=== PATIENT | female | born 1970 | race Two or more races ===

== ENCOUNTER → 2022-03-20 11:12 | Outpatient (BNVA) | payer OTHER, SELFPAY | PROVIDERS: Visit Provider Physician Assistant Surgical | DX: Z13.89 Encounter for screening for other disorder (principal) ==

== ENCOUNTER → 2022-03-26 09:15 | Outpatient (BNVA) | payer OTHER, SELFPAY | PROVIDERS: Visit Provider Physician Assistant Surgical | DX: E66.9 Obesity, unspecified (principal); Z68.36 Body mass index [BMI] 36.0-36.9, adult | CPT/HCPCS: 99202 ==

== ENCOUNTER 2022-03-27 08:53 | Outpatient (REF) | payer OTHER, SELFPAY ==
--- NOTE | ~2022-03-27 | XR_ITS ---
EXAMINATION: XR chest 2V CLINICAL INFORMATION: Reason for Exam E66.9 - Obesity, unspecified COMPARISON: No prior chest x-ray available in our system for comparison at the time of this dictation. TECHNIQUE: XR chest 2V Lungs and Kalyn: There is patchy opacity projecting over the right upper lobe projecting over the posterior fifth rib could be a lung nodule, patchy infiltrate versus bony. Pleura: Normal. Costophrenic angles are sharp. No pneumothorax. Heart: The heart is normal in size. Mediastinum: The mediastinum is within normal limits.. Bones: Skeletal structures included are normal for patient's age. XR/XR chest 2V IMPRESSION: Patchy 1.5 cm opacity projecting over the right upper lobe superimposed on the posterior right fifth rib, concerning for possible lung lesion versus bony versus patchy infiltrate. May consider follow-up low dose CT scan, if not performed would recommend follow-up chest x-ray in one month. (Referring physician staff is being called, to be alerted of the above findings and recommendations.) JEANCARLOS
[2022-03-27 09:19] LABS: MANUAL DIFF FLAG NO
--- NOTE | 2022-03-27 09:26 | ECG_ITS ---
Test Reason : OBESITY Blood Pressure : / mmHG Vent. Rate : 056 BPM Atrial Rate : 056 BPM P-R Int : 152 ms QRS Dur : 078 ms QT Int : 416 ms P-R-T Axes : 025 008 041 degrees QTc Int : 401 ms Sinus bradycardia Otherwise normal ECG No previous ECGs available Referred By: Osmany Echevarria Electronically Signed By:KWAKU PACHECO
[2022-03-27 10:10] LABS: Basophils Percent Auto 0.3 % (0-2); Eosinophils Absolute Auto 0.2 X10*3/uL (0.0-0.4); Eosinophils Percent Auto 2.7 % (0-4); Hematocrit 42.9 % (37.0-47.0); Hemoglobin 13.5 g/dl (12.0-16.0); Imm Gran Abs Auto 0.05 X10*3/uL (0.00-0.03); Imm Gran Pct Auto 0.7 % (0.0-0.4); Lymphocytes Absolute Auto 1.5 X10*3/uL (1.2-4.9); Lymphocytes Percent Auto 18.9 % (20-40); Mean Corpuscular HGB Conc 31.5 g/dl (31.0-35.0); Mean Corpuscular Hemoglobin 25.5 pg (27.0-33.0); Mean Corpuscular Volume 80.9 fL (80.0-98.0); Mean Platelet Volume 12.7 fL (9.4-12.3); Monocytes Absolute Auto 0.6 X10*3/uL (0.1-1.2); Neutrophils Absolute Auto 5.3 x10*3/uL (2.0-8.3); Neutrophils Percent Auto 69.4 % (45-73); Platelet Count 157 X10*3/uL (160-400); Red Cell Distribution Width 13.2 % (11.0-16.0); White Blood Count 7.7 X10*3/uL (4.8-10.8)
[2022-03-27 10:29] LABS: Estimated Average Glucose 123 mg/dL; Hemoglobin A1c % 5.9 %
[2022-03-27 10:44] LABS: Alanine Aminotransferase 36 U/L (0-31); Albumin Level 4.4 g/dL (3.5-5.0); Alkaline Phosphatase 67 U/L (39-117); Anion Gap 11 (12-20); Aspartate Amino Transferase 25 U/L (5-31); Bilirubin Total 0.5 mg/dL (0.0-1.0); Blood Urea Nitrogen 14 mg/dL (9-16); C Reactive Protein 1.01 mg/dL (< or = 0.50); Carbon Dioxide 29 mmol/L (22-29); Chloride 104 mmol/L (96-108); Cholesterol 235 mg/dL; Estimated Glomerular Filt Rate > 60; Glucose Random 95 mg/dL (60-115); HDL Cholesterol 44 mg/dL; Iron 70 mcg/dL (30-160); LDL Cholesterol Calculated 145 mg/dl; Percent Iron Saturation 24 % (15-50); Potassium 4.2 mmol/L (3.3-5.1); Sodium 140 mmol/L (135-145); Total Iron Binding Capacity 291 mcg/dL (228-428); Total Protein 7.2 g/dL (6.5-8.0); Triglycerides 230 mg/dL; Unsaturated Iron Binding 221 ug/dL
[2022-03-27 10:49] LABS: Ferritin 282 ng/mL (10-250); Insulin 16 uU/mL (2-29); TSH reflex Free T4 1.75 uIU/mL (0.32-4.0); Vitamin D 25-OH Total 23.4 ng/mL (>30)
[2022-03-27 11:34] LABS: Folate 11.2 ng/mL (> or = 4.0); Vitamin B12 284 pg/mL (200-900)
[2022-03-30 01:37] LABS: Calcium (PTHI) 9.9 mg/dL (8.6-10.4); PTHI 39 pg/mL (16-77)
[2022-03-31 16:37] LABS: Zinc 82 mcg/dL (60-130)
[2022-04-02 10:53] LABS: Vitamin B1 12 nmol/L (8-30)
[2022-04-02 13:26] LABS: Vitamin A 45 mcg/dL (38-98)
== END 2022-03-27 08:54 | disposition home or self-care (01) ==
LOC: HO.LAB 08:53
PROVIDERS: Visit Provider Physician Assistant Surgical
DX: Z01.818 Encounter for other preprocedural examination (principal); E66.9 Obesity, unspecified
CPT/HCPCS: 36415; 71046; 80053; 80061; 82306; 82607; 82728; 82746; 83036; 83525; 83540; 83970; 84425; 84443; 84590; 84630; 85025; 86140; 93005

== ENCOUNTER → 2022-03-28 07:48 | Outpatient (BNVA) | payer OTHER, SELFPAY | PROVIDERS: Referring Provider Internal Medicine; Visit Provider Physician Assistant Surgical | DX: Z11.0 Encounter for screening for intestinal infectious diseases (principal) | CPT/HCPCS: 99211 ==

== ENCOUNTER 2022-03-28 08:00 | Outpatient (REF) | payer OTHER, SELFPAY ==
[2022-03-31 10:06] LABS: H Pylori Breath Test Positive (Negative)
== END 2022-03-28 08:01 | disposition home or self-care (01) ==
LOC: HO.LNP 08:00
PROVIDERS: Visit Provider Physician Assistant Surgical
DX: E66.9 Obesity, unspecified (principal)
CPT/HCPCS: 83013

== ENCOUNTER → 2022-04-05 08:13 | Outpatient (BNVA) | payer OTHER, SELFPAY | PROVIDERS: Visit Provider Surgery | DX: Z13.89 Encounter for screening for other disorder (principal) ==

== ENCOUNTER 2022-04-12 07:58 | Outpatient (REF) | payer OTHER, SELFPAY ==
--- NOTE | ~2022-04-12 | CT_ITS ---
EXAMINATION: CT CHEST WITH CONTRAST CLINICAL INFORMATION: Other disorders of lung COMPARISON: Chest x-ray 03/27/2022 TECHNIQUE: Multidetector volumetric CT imaging of the chest was obtained after the administration of 50 mL of Omnipaque 350 intravenous contrast without immediate adverse reactions. Axial MIP volume rendering provided. Sagittal and coronal reformatted images were obtained. This CT examination was performed using dose optimization techniques as appropriate, variously including the following: *Automated exposure control *Adjustment of mA and/or kV according to patient size (this includes techniques or standardized protocols for targeted exams where dose is matched to indication/reason for exam; i.e. extremities or head) *Use of iterative reconstruction technique DLP: 161 mGy-cm FINDINGS: GROCERY CASHIER: Unremarkable. LUNGS: The lungs are well-expanded and clear. There is a 4 mm calcified nodule right CP angle likely calcified granuloma. No additional nodules seen. There is no infiltrate, mass, or consolidation. MEDIASTINUM: The thyroid lobes are symmetric and normal. The central trachea and the bronchi are widely patent. The heart size and the great vessels are normal caliber. PLEURA: There is no pleural effusion. No pleural mass or thickening. AXILLA: No abnormal axillary lymph nodes seen. The chest wall is unremarkable. UPPER ABDOMEN: There is diffuse attenuation of liver without any focal lesion or intrahepatic ductal dilatation. Visualized gallbladder, adrenal glands, pancreas appear unremarkable. OSSEOUS STRUCTURES: There is no aggressive lytic or sclerotic process seen. There is mild spondylosis. CT/CT chest w con IMPRESSION: 4 mm calcified nodule right CP angle. No infiltrate or mass seen in the right upper lobe to corroborate chest x-ray findings from 03/27/2022. Fleischner guidelines were followed.
== END 2022-04-12 07:59 | disposition home or self-care (01) ==
LOC: HO.CT 07:58
PROVIDERS: Visit Provider Surgery
DX: J98.4 Other disorders of lung (principal)
CPT/HCPCS: 71260

== ENCOUNTER → 2022-04-19 08:12 | Outpatient (BNVA) | payer OTHER, SELFPAY | PROVIDERS: Visit Provider Dietitian, Registered | DX: E66.9 Obesity, unspecified (principal); Z68.34 Body mass index [BMI] 34.0-34.9, adult | CPT/HCPCS: 97802 ==

== ENCOUNTER → 2022-04-24 11:19 | Outpatient (BNVA) | payer OTHER, SELFPAY | PROVIDERS: Referring Provider Internal Medicine; Visit Provider Physician Assistant Surgical | DX: E66.9 Obesity, unspecified (principal); Z68.35 Body mass index [BMI] 35.0-35.9, adult | CPT/HCPCS: 99211; 99212 ==

== ENCOUNTER 2022-04-24 14:39 | Outpatient (REF) | payer OTHER, SELFPAY ==
[2022-04-25 14:54] LABS: H Pylori Breath Test Negative (Negative)
== END 2022-04-24 14:40 | disposition home or self-care (01) ==
LOC: HO.LNP 14:39
PROVIDERS: Visit Provider Physician Assistant Surgical
DX: Z01.818 Encounter for other preprocedural examination (principal)
CPT/HCPCS: 83013

== ENCOUNTER 2022-05-17 09:06 | Outpatient (REF) | payer OTHER, SELFPAY ==
--- NOTE | ~2022-05-17 | FL_ITS ---
EXAMINATION: XR FLUOROSCOPY UPPER GI WITH AIR CLINICAL INFORMATION: Obesity COMPARISON: None TECHNIQUE: Upper GI was performed using thin and thick barium and effervescent granules. FINDINGS: Esophageal motility is normal. There is a small sliding-type hiatal hernia. There is mild gastroesophageal reflux. Stomach and duodenum are normal-appearing. No fold thickening, mass, ulcer or stricture is seen. FLUOROSCOPY TIME: 0.8 minutes DOSE AREA PRODUCT: 6 kohli per centimeter squared. 25 saved fluoroscopic images. FL/FL upper GI w air IMPRESSION: Small sliding-type hiatal hernia and mild gastroesophageal reflux.
--- NOTE | ~2022-05-17 | US_ITS ---
EXAMINATION: US COMPLETE ABDOMEN WITH LIVER ELASTOGRAPHY CLINICAL INFORMATION: Obesity. COMPARISON: None. TECHNIQUE: Real-time imaging of the abdominal viscera. Noninvasive ultrasound liver fibrosis assessment is performed using Aria ElastPQ point quantification shear wave elastography (2D-SWE) with a C5-2 MHz transducer. Multiple elastography samples are obtained. FINDINGS: PANCREAS: Normal. The visualized pancreatic head and body are normal in appearance. The remainder of the pancreas is obscured from visualization by the overlying bowel gas. ABDOMINAL AORTA: The proximal, middle, and distal aortic segments are normal in caliber. INFERIOR VENA CAVA: Visualized portions are normal. LIVER: The liver demonstrates normal size, contour and increased echogenicity. No focal lesion or intrahepatic biliary duct dilatation. The right lobe measures 15.0 cm in length. The left lobe measures 9.0 cm in length. Portal flow is hepatopedal. Shear wave liver elastography median stiffness is 1.56 m/s (reference: normal median stiffness is 1.3 m/s or less). IQR/median stiffness to assess sampling precision is 0.09 (reference: good quality data set is IQR/median stiffness of 0.15 or less). GALLBLADDER: Normal. The gallbladder is physiologically distended without evidence of stones, sludge, polyps, wall thickening or pericholecystic fluid. COMMON BILE DUCT: Normal in caliber measuring 0.2 cm in diameter. RIGHT KIDNEY: Normal. No hydronephrosis. No renal calculi or focal parenchymal lesions. The kidney measures 10.0 cm in maximum dimension. LEFT KIDNEY: Normal. No hydronephrosis. No renal calculi or focal parenchymal lesions. The kidney measures 10.7 cm in maximum dimension. SPLEEN: Normal. The spleen measures 12.7 cm in maximum dimension. FREE FLUID: None. US/US abdomen comp w elastography IMPRESSION: 1. Mild hepatic steatosis without focal lesion. The rest of the abdominal ultrasound is unremarkable. 2. Liver elastography: Median liver stiffness 1.56 m/s suggestive of cACLD (ruled out). REFERENCE: Society of Radiologists in Ultrasound Liver Stiffness Thresholds (2019): LIVER STIFFNESS THRESHOLDS: *Liver Stiffness equal or less than 1.3 m/s: High probability of being normal. *Liver Stiffness less than 1.7 m/s: In the absence of other known clinical signs, rules out compensated advanced chronic liver disease. *Liver Stiffness 1.7-2.1 m/s: Suggestive of compensated advanced chronic liver disease but need further test for confirmation. *Liver Stiffness over 2.1 m/s: Rules in compensated advanced chronic liver disease. *Liver Stiffness over 2.4 m/s: Suggestive of clinically significant portal hypertension. QUALITY OF DATA SET: *IQR/Median value equal or less than 0.15 implies a quality data set. *IQR/Median value over 0.15 implies a poor quality data set. SIGNIFICANT CHANGE FROM PRIOR EXAM: Significant change if liver stiffness measurement is 10% or greater from prior exam. OTHER CONSIDERATIONS: The stage of liver fibrosis may be overestimated in the setting of acute hepatitis, liver inflammation, elevated liver function tests, hepatic vascular congestion, obstructive cholestasis, non-fasting state, and infiltrative diseases such as amyloidosis and lymphoma. In some patients with NAFLD, the liver stiffness thresholds for compensated advanced chronic liver disease may be lower. In causes other than viral hepatitis and NAFLD, liver stiffness thresholds are not well established.
== END 2022-05-17 09:07 | disposition home or self-care (01) ==
LOC: HO.US 09:06
PROVIDERS: Visit Provider Surgery
DX: E66.9 Obesity, unspecified (principal)
CPT/HCPCS: 74246; 76705; 76981

== ENCOUNTER → 2022-05-28 13:35 | Outpatient (BNVA) | payer OTHER, SELFPAY | PROVIDERS: PCP Internal Medicine; Referring Provider Physician Assistant Surgical; Visit Provider Dietitian, Registered | DX: E66.9 Obesity, unspecified (principal); Z71.3 Dietary counseling and surveillance | CPT/HCPCS: 97803 ==

== ENCOUNTER → 2022-06-05 12:55 | Outpatient (BNVA) | payer OTHER, SELFPAY | PROVIDERS: PCP Internal Medicine; Visit Provider Surgery | DX: E66.9 Obesity, unspecified (principal); Z68.34 Body mass index [BMI] 34.0-34.9, adult; K21.9 Gastro-esophageal reflux disease without esophagitis; G47.33 Obstructive sleep apnea (adult) (pediatric); K44.9 Diaphragmatic hernia without obstruction or gangrene; J98.4 Other disorders of lung; Z98.84 Bariatric surgery status | CPT/HCPCS: 99202 ==

== ENCOUNTER 2022-06-08 08:49 | Outpatient (REF) | payer OTHER, SELFPAY ==
[2022-06-08 09:01] LABS: MANUAL DIFF FLAG NO
[2022-06-08 09:46] LABS: Basophils Percent Auto 0.3 % (0-2); Eosinophils Absolute Auto 0.2 X10*3/uL (0.0-0.4); Eosinophils Percent Auto 3.1 % (0-4); Hematocrit 43.6 % (37.0-47.0); Hemoglobin 13.9 g/dl (12.0-16.0); Imm Gran Abs Auto 0.03 X10*3/uL (0.00-0.03); Imm Gran Pct Auto 0.5 % (0.0-0.4); Lymphocytes Absolute Auto 1.4 X10*3/uL (1.2-4.9); Lymphocytes Percent Auto 23.2 % (20-40); Mean Corpuscular HGB Conc 31.9 g/dl (31.0-35.0); Mean Corpuscular Hemoglobin 25.4 pg (27.0-33.0); Mean Corpuscular Volume 79.6 fL (80.0-98.0); Mean Platelet Volume 12.8 fL (9.4-12.3); Monocytes Absolute Auto 0.5 X10*3/uL (0.1-1.2); Monocytes Percent Auto 9.2 % (2-11); Neutrophils Absolute Auto 3.7 x10*3/uL (2.0-8.3); Neutrophils Percent Auto 63.7 % (45-73); Platelet Count 145 X10*3/uL (160-400); Red Blood Count 5.48 X10*6/uL (4.20-5.50); Red Cell Distribution Width 12.7 % (11.0-16.0); White Blood Count 5.9 X10*3/uL (4.8-10.8)
== END 2022-06-08 08:50 | disposition home or self-care (01) ==
LOC: HO.LAB 08:49
PROVIDERS: PCP Internal Medicine; Visit Provider Surgery
DX: R10.9 Unspecified abdominal pain (principal)
CPT/HCPCS: 36415; 85025

== ENCOUNTER → 2022-06-26 08:27 | Outpatient (BNVA) | payer OTHER, SELFPAY | PROVIDERS: PCP Internal Medicine; Visit Provider Physician Assistant Surgical | DX: E66.9 Obesity, unspecified (principal); Z68.33 Body mass index [BMI] 33.0-33.9, adult | CPT/HCPCS: 99212 ==

== ENCOUNTER 2022-06-29 09:12 | Outpatient (REF) | payer OTHER, SELFPAY ==
[2022-06-29 09:50] LABS: MANUAL DIFF FLAG NO
[2022-06-29 11:00] LABS: Prothrombin Time 11.4 SEC (10.0-13.1)
[2022-06-29 11:03] LABS: Partial Thromboplastin Time 35.3 SEC (26.0-36.4)
[2022-06-29 11:06] LABS: Basophils Percent Auto 0.4 % (0-2); Eosinophils Absolute Auto 0.2 X10*3/uL (0.0-0.4); Eosinophils Percent Auto 3.2 % (0-4); Estimated Average Glucose 114 mg/dL; Hematocrit 42.9 % (37.0-47.0); Hemoglobin 13.8 g/dl (12.0-16.0); Hemoglobin A1c % 5.6 %; Imm Gran Abs Auto 0.01 X10*3/uL (0.00-0.03); Imm Gran Pct Auto 0.2 % (0.0-0.4); Lymphocytes Absolute Auto 1.3 X10*3/uL (1.2-4.9); Lymphocytes Percent Auto 24.7 % (20-40); Mean Corpuscular HGB Conc 32.2 g/dl (31.0-35.0); Mean Corpuscular Hemoglobin 25.4 pg (27.0-33.0); Mean Corpuscular Volume 78.9 fL (80.0-98.0); Mean Platelet Volume 12.9 fL (9.4-12.3); Monocytes Absolute Auto 0.4 X10*3/uL (0.1-1.2); Neutrophils Absolute Auto 3.3 x10*3/uL (2.0-8.3); Neutrophils Percent Auto 63.5 % (45-73); Platelet Count 152 X10*3/uL (160-400); Red Blood Count 5.44 X10*6/uL (4.20-5.50); Red Cell Distribution Width 12.9 % (11.0-16.0); White Blood Count 5.3 X10*3/uL (4.8-10.8)
[2022-06-29 11:19] LABS: Alanine Aminotransferase 27 U/L (0-31); Albumin Level 4.5 g/dL (3.5-5.0); Alkaline Phosphatase 62 U/L (39-117); Anion Gap 14 (12-20); Aspartate Amino Transferase 20 U/L (5-31); Bilirubin Total 0.5 mg/dL (0.0-1.0); Blood Urea Nitrogen 18 mg/dL (9-16); C Reactive Protein 0.62 mg/dL (< or = 0.50); Calcium 9.5 mg/dL (8.4-10.2); Carbon Dioxide 25 mmol/L (22-29); Chloride 105 mmol/L (96-108); Cholesterol 220 mg/dL; Estimated Glomerular Filt Rate > 60; Glucose Random 87 mg/dL (60-115); HDL Cholesterol 42 mg/dL; LDL Cholesterol Calculated 155 mg/dl; Potassium 4.2 mmol/L (3.3-5.1); Sodium 140 mmol/L (135-145); Total Protein 7.1 g/dL (6.5-8.0); Triglycerides 116 mg/dL
[2022-06-29 11:43] LABS: TSH reflex Free T4 1.33 uIU/mL (0.32-4.0)
== END 2022-06-29 09:13 | disposition home or self-care (01) ==
LOC: HO.LAB 09:12
PROVIDERS: PCP Internal Medicine; Visit Provider Physician Assistant Surgical
DX: E66.9 Obesity, unspecified (principal)
CPT/HCPCS: 36415; 80053; 80061; 83036; 84443; 85025; 85610; 85730; 86140; 86850; 86870; 86900; 86901; 86905

== ENCOUNTER → 2022-07-02 12:50 | Outpatient (BNVA) | payer OTHER, SELFPAY | PROVIDERS: PCP Internal Medicine; Visit Provider Surgery | DX: E66.9 Obesity, unspecified (principal); Z68.33 Body mass index [BMI] 33.0-33.9, adult; K21.9 Gastro-esophageal reflux disease without esophagitis; G47.33 Obstructive sleep apnea (adult) (pediatric); K44.9 Diaphragmatic hernia without obstruction or gangrene; J98.4 Other disorders of lung; Z98.84 Bariatric surgery status | CPT/HCPCS: 99212 ==

== ENCOUNTER → 2022-07-25 08:58 | Outpatient (BNVA) | payer OTHER, SELFPAY | PROVIDERS: PCP Internal Medicine; Visit Provider Surgery | DX: E66.9 Obesity, unspecified (principal); Z68.32 Body mass index [BMI] 32.0-32.9, adult; K44.9 Diaphragmatic hernia without obstruction or gangrene; K21.9 Gastro-esophageal reflux disease without esophagitis; J98.4 Other disorders of lung; F32.A Depression, unspecified; F41.9 Anxiety disorder, unspecified; G47.33 Obstructive sleep apnea (adult) (pediatric) | CPT/HCPCS: 99212 ==

== ENCOUNTER → 2022-07-30 09:02 | Outpatient (BNVA) | payer OTHER, SELFPAY | PROVIDERS: PCP Internal Medicine; Visit Provider Physician Assistant Surgical | DX: E66.9 Obesity, unspecified (principal); Z68.32 Body mass index [BMI] 32.0-32.9, adult | CPT/HCPCS: 99212 ==

== ENCOUNTER 2022-08-15 06:53 | Inpatient (IN) | payer OTHER, SELFPAY ==
[2022-08-07 11:01] VITALS: BMI 32.1
[2022-08-08 07:24] LABS: MANUAL DIFF FLAG NO
[2022-08-08 07:35] LABS: Basophils Percent Auto 0.6 % (0-2); Eosinophils Absolute Auto 0.2 X10*3/uL (0.0-0.4); Eosinophils Percent Auto 2.3 % (0-4); Hematocrit 45.2 % (37.0-47.0); Hemoglobin 14.5 g/dl (12.0-16.0); Imm Gran Abs Auto 0.01 X10*3/uL (0.00-0.03); Imm Gran Pct Auto 0.2 % (0.0-0.4); Lymphocytes Absolute Auto 1.6 X10*3/uL (1.2-4.9); Mean Corpuscular HGB Conc 32.1 g/dl (31.0-35.0); Mean Corpuscular Hemoglobin 25.3 pg (27.0-33.0); Mean Corpuscular Volume 78.9 fL (80.0-98.0); Mean Platelet Volume 13.7 fL (9.4-12.3); Monocytes Absolute Auto 0.5 X10*3/uL (0.1-1.2); Monocytes Percent Auto 8.2 % (2-11); Neutrophils Absolute Auto 4.2 x10*3/uL (2.0-8.3); Neutrophils Percent Auto 64.7 % (45-73); Platelet Count 146 X10*3/uL (160-400); Red Blood Count 5.73 X10*6/uL (4.20-5.50); White Blood Count 6.5 X10*3/uL (4.8-10.8)
[2022-08-08 07:36] LABS: Estimated Average Glucose 111 mg/dL; Hemoglobin A1c % 5.5 %
[2022-08-08 07:41] LABS: Prothrombin Time 11.9 SEC (10.0-13.1)
[2022-08-08 07:58] LABS: Alanine Aminotransferase 19 U/L (0-31); Albumin Level 4.5 g/dL (3.5-5.0); Alkaline Phosphatase 64 U/L (39-117); Anion Gap 16 (12-20); Aspartate Amino Transferase 16 U/L (5-31); Bilirubin Total 0.6 mg/dL (0.0-1.0); Blood Urea Nitrogen 16 mg/dL (9-16); C Reactive Protein 0.35 mg/dL (< or = 0.50); Calcium 9.2 mg/dL (8.4-10.2); Carbon Dioxide 23 mmol/L (22-29); Chloride 104 mmol/L (96-108); Cholesterol 216 mg/dL; Creatinine Clr Calc Pharmacy 74.5; Estimated Glomerular Filt Rate > 60; Glucose Random 99 mg/dL (60-115); HDL Cholesterol 44 mg/dL; LDL Cholesterol Calculated 147 mg/dl; Potassium 4.2 mmol/L (3.3-5.1); Sodium 139 mmol/L (135-145); Total Protein 7.2 g/dL (6.5-8.0); Triglycerides 126 mg/dL
[2022-08-08 08:18] LABS: TSH reflex Free T4 1.46 uIU/mL (0.32-4.0)
[2022-08-14 12:55] LABS: COVID-19 Test Negative (Negative); IDNOW Serial# 16C4AD1C
[2022-08-15] VITALS (11 sets, daily range): BP systolic 105–145; BP diastolic 56–81; PULSE 57–91; RESP 13–18; TEMP 36–36.8; O2SAT 95–100
[2022-08-15] MEDS: Lactated Ringers 1,000 ML 150 ML IVCONT (07:02)
--- NOTE | 2022-08-15 07:17 | MHC.SHP ---
Pre-Procedural Eval Section A Date of Service: 08/15/22 The patient is an INPATIENT: Yes The History & Physical has been completed within 30 days and I have reviewed it.: No Section B Chief Complaint: obesity Allergies: Allergies Allergy/AdvReac Type Severity Reaction Status Date / Time No Known Allergies Allergy Verified 08/07/22 11:05 Plan I have reviewed the history and physical and performed a pertinent physical examination on my patient. No changes have occurred unless specified.
--- NOTE | 2022-08-15 07:18 | P.OP_ITS ---
Operative Note Operative Note Date of Service: 08/15/22 Narrative: Preop diagnosis: [morbid obesity] Postop diagnosis: [same] Procedure: [laparoscopic sleeve gastrectomy, intra-operative upper endoscopy, gastropexy] Surgeon: Dustin Foreman MD Assist: [Promise Walsh PA-C] Anesthesia: [GET] Estimated blood loss: [3cc] Specimen: [portion of stomach with fundus] Intraoperative findings: [A minimal attenuation of the GE junction without true hernia was appreciated after dissection of the fat pad and esophagus] Indications: [The patient has a lifelong because of a struggle with obesity refractory to medical weight loss.? She presented at 193 lb with a BMI of 36.4 and has BARBA.? Through diet any increased activity, she has dropped to 172 lb and is congratulated on her ongoing weight loss and healthy lifestyle change.? Options including medical weight loss, 2nd opinion and sleeve versus gastric bypass were discussed with the patient. She seemed understand her options. I reviewed the inherent risks of this procedure which include, but are not limited to: Bleeding that could require another operation or blood transfusion; the inherent risks of transfusion reaction infectious disease from blood transfusions; the risk of staple line leaks that could cause sepsis, multi- system organ failure and ; the risk of mesenteric or deep vein thrombosis of the lower extremities that could cause a fatal pulmonary embolism was reviewed; the risk of GERD that could require conversion to gastric bypass was discussed; the risk of recurrent hiatal hernia, especially in the setting of weight regain was reviewed. The risk of weight regain if maladaptive eating and sedentary behavior continue was discussed. The importance of proper diet and increased activity to augment surgical weight loss and the fact that no operation would result in weight loss of poor dietary decisions and sedentary behavior are resumed were discussed at length and apparently understood. Procedure: The patient was identified in the preoperative holding area by myself and again in the operating suite by myself and the team. Patient was placed supine on the operating table. Safety straps were utilized and a footboard utilized. The patient was induced in general endotracheal anesthesia administered with excellent effect. An appropriate time-out was performed. The patient's abdomen was then widely prepped and draped in the usual manner for surgery using chlorhexidine. Antibiotics per protocol were administered by Anesthesia. After infiltrating preemptive local in the skin and subcutaneous tissues in the epigastrium approximately 10cm from the xiphoid and the midline of the epigastrium, a stab incision was made sharply and the Veress needle inserted without incident. An appropriate drop test was performed then a pneumoperitoneum of 15 mmHg was obtained using carbon dioxide. Opening pressures were 6mm Hg. Next, a 5 mm 0 degree scope was used to access the peritoneum, the we switched to the 5mm 45 degree scope over a 5 mm Optiview trocar was used to access the abdomen in the supraumbilical location in the midline. Upon entering, the obturator was removed and the abdomen explored. There was no evidence of injury from the Veress needle in it was removed. The bowel and deep structures were examined for injury from the trocar and none identified. Next, using preemptive local, additional 5 mm trocars were placed under direct laparoscopic vision and the 5 mm midline trocar upsized to a 12 mm to accommodate the stapler. The patient was then positioned in reverse Trendelenburg and the liver retractor deployed through the right lateral 5 mm trocar and secured. A 40 [place] ViSiGi bougie was inserted by Anesthesia per os and advanced to the stomach to decompress. It was then withdrawn to the GE junction all under direct laparoscopic vision. Dissection was begun along the greater curvature using the 5 mm [place] LigaSure for hemostasis and continued to the left chelita of the diaphragm. Dissection was then carried towards the pylorus to 3-4 cm from the pylorus and retro gastric adhesions lysed. The gastroesophageal fat pad was carefully mobilized taking care to avoid injury to the esophagus and stomach and dissection carried towards the short gastrics taking care to avoid injury to the spleen and splenic artery. The diaphragmatic hiatus was carefully examined for a hernia. Next, the 40 Fr ViSiGi bougie was advanced by anesthesia under d irect vision and laparoscopic guidance and positioned in the antrum using laparoscopic graspers to serve as a guide for a stapled sleeve gastrectomy. Stapling was performed with [employer]YE[employer] stapler with a purple 45 and then orange 45 and 60 loads. The bougie served as a guide to maintain the same sleeve caliber to avoid stricture & sleeve istortion. The 10 mm clip head pastry chef was used to apply additional clips to the staple line. Care was taken to be sure that the sleeve laid flat and was without stricture. Once the sleeve was complete, the portion of stomach was placed in the lower abdomen to be sent for permanent section. The staple line, gastrocolic omentum, spleen and short gastric areas were all inspected for hemostasis which was found to be good. The lavage tube was withdrawn under laparoscopic vision. Next, I broke scrub perform an on-table upper endoscopy to assess the sleeve and the esophagus and stomach. The patient was returned to neutral position and the Olympus 160 gastroscope was advanced taking care to preserve the endotracheal tube. The esophagus was intubated without incident. Minimal air was insufflated and the scope advanced into the newly formed sleeve. The staple line was inspected for hemostasis and the morphology of the sleeve appeared straight with a uniform diameter. Intraoperatively, there was no evidence of staple line leak seen during laparoscopy as air was insufflated via endoscope. The scope was then used to aspirate the air from the sleeve withdrawn and removed. I then rescrubbed to return to the operative field and again inspected the field for hemostasis. The patient was again placed in reverse Trendelenburg. A gastropexy was performed using 2-0 Polysorb suture to secure the sleeve gastrectomy to the gastrocolic omentum. After final assessment for hemostasis, the patient was returned to neutral position, a Elis used to withdraw the stomach which was sent for permanent section. The fascia of the 12 mm midline was closed using an 0 Polysorb on a suture Passer under direct laparoscopic vision. The abdomen was then deflated and all trocars removed. The suture was then tied and the skin closed with 4-0 Monocryl subcuticular sutures. The abdomen was then washed and dried, benzoin and Steri-Strips applied followed by Tegaderms. Nico, who speak [place], contacted the family member phone number and left a [place] message updating regarding the operation. The patient tolerated the procedure well was then extubated the recover in stable condition. All sponge needle and instrument counts were correct x2.]
[2022-08-15] MEDS: Scopolamine 1.5 MG PATCH.TD.3 TRANSDERMA (07:20)
--- NOTE | 2022-08-15 07:25 | P.CONAN_ITS ---
HPI - Anesthesia Eval Consult details Narrative: 51 F for gastric sleeve LIN PMFSH Active Problems Active Problems: All Active Problems (Updated 08/07/22 @ 11:05 by Kristina Kim RN) Obesity (BMI 30-39.9) (Acute) Anxiety (Acute) Depression (Acute) LIN (obstructive sleep apnea) (Acute) Right pulmonary lesion (Acute) BMI 36.0-36.9,adult (Acute) GERD (gastroesophageal reflux disease) (Acute) Hiatal hernia (Acute) Past Medical History Medical History (Updated 08/07/22 @ 11:05 by Kristina Kim RN) Insomnia Functional capacity: independent ambulation Family History Family History Mother No problems noted. Father No problems noted. Sister No problems noted. Sister No problems noted. Sister No problems noted. Son No problems noted. Son Thyroid condition Daughter No problems noted. Family history of problems with anesthesia: No Surgical History Surgical History (Updated 08/15/22 @ 10:45 by Promise Walsh PA-C) Hx of breast reduction, elective Hx of colonoscopy Hx of hysterectomy History of Problems with Anesthesia: No Social History Social History Are you a primary assurance services manager health care to a significant other at home: No Do you presently have visiting nurse or other home services: No Alcohol intake: never Patient Tobacco Use Status: Never used Tobacco Use of substances other than those prescribed or required for medical reasons: No Currently Displaying Signs/Symptoms of Drug Intoxication Withdrawal: No Have you been hit, kicked, punched, or otherwise hurt by someone within the past year? If so, by whom?: No Are you DNR?: No Advance Directives: No Advance Directives Information Provided: Yes Advance Directives on File: No Recently lost weight without trying: No Patient : No (hx hysterectomy) Meds Allergies Allergy/AdvReac Type Severity Reaction Status Date / Time No Known Allergies Allergy Verified 08/07/22 11:05 Active Medications: Current Medications Lactated Ringer's (Lr) 1,000 mls @ 150 mls/hr IVCONT .[id number] JONAH Last Admin: 08/15/22 07:02 Dose: 150 mls/hr Home Medications Medication Instructions Recorded Confirmed Last Taken Type melatonin 5 mg tablet 5 - 10 mg PO BEDTIME PRN insomnia 03/20/22 08/07/22 Unknown History sertraline 100 mg tablet 150 mg PO DAILY 03/20/22 08/07/22 Unknown History buspirone 10 mg tablet 10 mg PO BID anxiety 07/30/22 08/07/22 Unknown History Exam Exam Date and Time: August 15, 2022 0725 Height,Weight and Vital Signs: Height 5 ft 1 in Weight 77.111 kg Last Vital Signs Temp 97.3 F 08/15/22 06:41 Pulse 88 08/15/22 06:41 Resp 16 08/15/22 06:41 BP 129/56 L 08/15/22 06:41 Pulse Ox 96 08/15/22 06:41 O2 Del Method 08/15/22 06:41 Pertinent Lab Results Pertinent Lab Results: Laboratory Tests 08/08/22 08/08/22 08/08/22 07:20 07:23 07:23 WBC 6.5 RBC 5.73 H Hgb 14.5 Hct 45.2 MCV 78.9 L MCH 25.3 L MCHC 32.1 RDW 14.0 Plt Count 146 L MPV 13.7 H Immature Gran % (Auto) 0.2 Neut % (Auto) 64.7 Lymph % (Auto) 24.0 Moore % (Auto) 8.2 Eos % (Auto) 2.3 Baso % (Auto) 0.6 Lymph # (Auto) 1.6 Moore # (Auto) 0.5 Eos # (Auto) 0.2 Baso # (Auto) 0.0 Abs Immat Gran (auto) 0.01 Absolute Neuts (auto) 4.2 Absolute Nucleated RBC 0.000 Nucleated RBC % (auto) 0.0 PT 11.9 INR 1.0 APTT 34.0 Sodium Potassium Chloride Carbon Dioxide Anion Gap BUN Creatinine Estim Creat Clear Calc Estimated GFR Random Glucose Estimat Average Glucose Hemoglobin A1c % Calcium Total Bilirubin AST ALT Alkaline Phosphatase C-Reactive Protein Total Protein Albumin Triglycerides Cholesterol LDL Cholesterol, Calc HDL Cholesterol TSH COVID-19 (DELMY) COVID-19 Clin Com Blood Type O Positive Antibody Screen POSITIVE Antibody Identification Anti-K Crossmatch (AHG) See Detail 08/08/22 08/08/22 08/14/22 07:23 07:23 12:19 WBC RBC Hgb Hct MCV MCH MCHC RDW Plt Count MPV Immature Gran % (Auto) Neut % (Auto) Lymph % (Auto) Moore % (Auto) Eos % (Auto) Baso % (Auto) Lymph # (Auto) Moore # (Auto) Eos # (Auto) Baso # (Auto) Abs Immat Gran (auto) Absolute Neuts (auto) Absolute Nucleated RBC Nucleated RBC % (auto) PT INR APTT Sodium 139 Potassium 4.2 Chloride 104 Carbon Dioxide 23 Anion Gap 16 BUN 16 Creatinine 0.82 Estim Creat Clear Calc 74.5 Estimated GFR > 60 Random Glucose 99 Estimat Average Glucose 111 Hemoglobin A1c % 5.5 Calcium 9.2 Total Bilirubin 0.6 AST 16 ALT 19 Alkaline Phosphatase 64 C-Reactive Protein 0.35 Total Protein 7.2 Albumin 4.5 Triglycerides 126 Cholesterol 216 LDL Cholesterol, Calc 147 HDL Cholesterol 44 TSH 1.46 COVID-19 (DELMY) Negative COVID-19 Clin Com See Note Blood Type Antibody Screen Antibody Identification Crossmatch (AHG) Airway Mallampati Class: III TM Dist: >3cm Neck ROM: Full Loose/Missing/Broken Teeth: Yes Heart: S1,S2 Lungs: b/l breath sounds Assessment and Plan Assessment Anesthesia Assessment: Anesthesia Plan Discussed and Chart Reviewed Final Anesthetic Review Family History of Problems with Anesthesia: No History of Problems with Anesthesia: No NPO: Yes ASA Class: III Final Preanesthetic Review: No Changes in Pt Med Stat, Meds/Allgs Chart Reviewed and Consent Obtained/Reviewed Patient Risk: Intermediate Procedure Risk: Intermediate Anesthetic Plan Anesthetic Plan: GA Disposition: Standard PACU
--- NOTE | 2022-08-15 07:55 | PHA.MEDREC ---
Pharmacy Consult ? Medication Reconciliation Pharmacy has completed the medication reconciliation.Checked med rec done last night
--- NOTE | 2022-08-15 10:48 | PM.DS ---
DS: Providers Provider Date of Service: 08/17/22 Date of admission: 08/15/22 06:53 Primary care physician: Akhil Leal MD DS: Summary Hospital Course Hospital Course: ADMITTING DIAGNOSIS: morbid obesity, LIN, GERD DISCHARGE DIAGNOSIS: same, s/p laparoscopic sleeve gastrectomy PAST SURGICAL HISTORY: hysterectomy, breast reduction PROCEDURE: upper endoscopy, laparoscopic sleeve gastrectomy DISCHARGE SUMMARY: History of Present Illness: The patient is a 51 year-old woman with a BMI of 36.4 kg/m2 and associated co-morbidities as described above. The patient had extensive work-up,lost 19 lbs preoperatively and was electively scheduled for laparoscopic, possible open sleeve gastrectomy and gastropexy. Risks and complications of the surgery were discussed with the patient in advance, particularly the possibility of , pulmonary embolism, anastomotic leak, bleeding, bowel injury, GERD, cardiac, renal or pulmonary complications. The patient understood all the risks and was in agreement with the surgical plan. Hospital Course: The patient underwent an uneventful laparoscopic sleeve gastrectomy with gastropexy on the day of admission. Postoperatively, the patient was transferred to the surgical floor. The patient received IV Acetaminophen and IV dilaudid for pain control. Patient was started on bariatric phase 1 diet POD #0. On postoperative day one, the patient was feeling well without nausea, vomiting, fevers, or tachycardia. The patient had some mild incisional pain and the abdomen was soft. On the morning of postoperative day one, the patient was continued on 1 ounce of water or ice every half hour. During the day, the patient did fairly well, having some incisional pain, but able to ambulate adequately and to tolerate liquids well. Since the patient is doing well, we decided that the patient was ready to be discharged. The patient was given instructions to follow-up with me next week and to call my office for any fever over 101, persistent abdominal pain, nausea, vomiting, GERD, symptoms of DVT such as calf tenderness, or leg swelling, or pulmonary embolism such as chest pain or shortness of breath. The patient was also instructed to drink 40-60 ounces of liquids per day using the 1-ounce cups. The patient had been given prescriptions for Tylenol for pain, Zofran prn for nausea, and pantoprazole and carafate previously. The patient was encouraged to ambulate and use the incentive spirometer. The patient was allowed to shower, but no baths, and encouraged to stay active at home. All of these instructions were given to the patient personally. All questions were answered and the patient understood all instructions, the instructions were also given to the patient in print. Time Spent with Patient Time attestation: Total time spent providing and/or coordinating discharge services: Discharge coordination time: Less than 30 minutes Quality: Safe Use of Opioids Does Pt have an Active Cancer Diagnosis on the Problem List?: No Quality: Stroke Does the patient have a stroke diagnosis?: No Physical Exam Vital Signs: Vital Signs: Last Vital Signs Temp 97.3 F 08/15/22 06:41 Pulse 88 08/15/22 06:41 Resp 16 08/15/22 06:41 BP 129/56 L 08/15/22 06:41 Pulse Ox 96 08/15/22 06:41 O2 Del Method 08/15/22 06:41 BMI result Body Mass Index 32.1 DS: Data Data Completed and Pending Pending studies at discharge: Pending at discharge 08/15/22 09:59 Surgical [PTH] Routine Labs on day of discharge: Laboratory Results - last 24 hr 08/14/22 12:19 COVID-19 ([facility]) Negative COVID-19 Clin Com See Note Discharge Plan Discharge Anticipated Discharge Date/Time: 08/16/22 10:44 Patient Disposition: Home, Self-Care Discharge Diagnosis: s/p sleeve gastrectomy Referrals: Akhil Leal MD [Primary Care Provider] - 1 Week Dustin Foreman MD [Physician] - 1 Week Discharge Medications: Continued melatonin 5 mg tablet 5 - 10 mg PO BEDTIME PRN (Reason: insomnia) sertraline 100 mg tablet 150 mg PO DAILY buspirone 10 mg tablet 10 mg PO BID Discontinued cholecalciferol (vitamin D3) 125 mcg (5,000 unit) capsule 125 mcg PO DAILY Qty: 30 3RF vitamin B complex [B Complex-Vitamin B12] Tablet 1 tab PO DAILY Qty: 30 2RF Discharge Orders: Discharge Order (Routine); Ordered 08/16/22 Ordered By: Dustin Foreman Activity on Discharge: No heavy lifting Stand Alone Forms: Patient Portal Discharge page Care Plan Goals: weight loss Health Concerns: obesity Plan of Treatment: No tub baths, sex or returning to work until discussed at first post op appointment. No exercise, alcohol, tobacco or illegal drug use. Continue to use incentive spirometer hourly while awake. Walk in home for 5- 10 minutes every 2 hours during the first week. Continue phase 1 diet today and start phase 2 diet tomorrow morning. Follow all instructions in the bariatric handbook and call with any questions. 1. Please call your doctor or come back to the emergency room should any new symptoms arise. 2. You will receive a courtesy call from [facility] 24-48 hours after discharge. 3. Activity: abstain from alcohol, practice limited stair climbing, no bending, no driving, no exercise, no illicit substances, no lifting, no sex, no tub bath, no work. 4. Diet: continue as discussed with bariatric team.. 5. Dressing Change/Wound Care: Do not change or remove surgical dressings unless they are wet or soiled. 6. Call your doctor if: - Your temperature exceeds 101.5 F - You experience excessive pain or swelling - You have an unexpected reaction to medication - You have excessive bleeding - You experience continued vomiting/nausea - Your incision begins to separate - Your incision shows signs of infection such as increased redness, swelling, excessive pain, heat, or drainage (light blood or clear fluid is normal) 7. General instructions: No lifting greater than 5 lbs for the next 4 weeks[address] driving within 24 hours of taking narcotic pain medications. If you do not move your bowels in the next 2 days, please take milk of magnesia over the counter. Please follow the post op diet and do not advance your diet until you are seen in the office in about 2 weeks. Please walk around your home every hour or two to prevent blood clots from forming in your legs. You do not need to wake from sleeping to walk. Please sleep in a bed or couch to prevent kinking at the hips and knees. Please take your incentive spirometer (your lung casework specialist) home with you and use it for the next few days to prevent pneumonias. You may shower, no hot tubs, baths or swimming pools. Please call the office with any questions or concerns such as increasing abdominal pain, fever, chills, shortness of breath, chest pain, leg pain or swelling, or redness or drainage from your incisions. Do not hesitate to contact the office with any questions at . The patient's medical history has been reviewed and they are considered low risk for post op DVT and therefore DVT prophylaxis is not considered necessary. Travel after surgery was reviewed. The patient has not disclosed any travel plans during the first 30 days after surgery and they have been advised that within the first 30 days after surgery any bus, plane, train or car travel over 2 hours in duration is contraindicated due to the possibility of developing blood clots from immobility. Any travel, needs to include periods of ambulation of 10 minutes in duration every 2 hours. The patient was instructed to discuss any plans for travel during this period with their bariatric surgeon. Assessment: stable post op sleeve gastrectomy Discharge Date/Time: 08/16/22 08:17
[2022-08-15] MEDS: Lactated Ringers 1,000 ML 100 ML IVCONT ×2 (11:42→20:57)
[2022-08-15] MEDS: Famotidine/PF 20 MG/2 ML VIAL IVPUSH ×2 (11:42→20:50)
[2022-08-15 11:44] LABS: Hematocrit 44.3 % (37.0-47.0)
--- NOTE | 2022-08-15 11:54 | PM.PNGS ---
Subjective Subjective Date of Service: 08/15/22 Interval history: The patient denies pain, nausea or vomiting and is tolerating bariatric phase 1 diet. No regurgitation. She has been up to use the bathroom. Physical Exam Vital Signs: Vital Signs: Last Vital Signs Temp 97 F 08/15/22 11:35 Pulse 71 08/15/22 11:35 Resp 14 08/15/22 11:35 BP 120/71 08/15/22 11:35 Pulse Ox 99 08/15/22 11:35 O2 Del Method 08/15/22 11:35 O2 Flow Rate 2 08/15/22 11:35 BMI result Body Mass Index 32.1 On exam, she appears comfortable Objective Data Active Medications Buspirone HCl (Buspirone Hcl 10 Mg Tablet) 10 mg PO BID [facility] Famotidine (Famotidine/Pf 20 Mg/2 Ml Vial) 20 mg IVPUSH BID [facility] Last Admin: 08/15/22 11:42 Dose: 20 mg Documented By: IMTIAZ Fentanyl (Fentanyl Citrate/Pf 100 Mcg/2 Ml Vial) 25 mcg IVPUSH Q5M PRN; Protocol PRN Reason: Pain, Moderate (Pain Scale 4-6 Hydromorphone HCl (Hydromorphone Hcl 0.5 Mg/0.5 Ml Syringe) 0.25 mg IVPUSH Q5M PRN; Protocol PRN Reason: Pain, Severe (Pain Scale 7-10) Lactated Ringer's (Lr) 1,000 mls @ 150 mls/hr IVCONT .Q6H40M [facility] Last Infusion: 08/15/22 11:34 Dose: 0 mls/hr Documented By: IMTIAZ Promethazine HCl 6.25 mg/ (Sodium Chloride) 50.25 mls @ 201 mls/hr IV ONCE PRN PRN Reason: Nausea and Vomiting Lactated Ringer's (Lr) 1,000 mls @ 100 mls/hr IVCONT .Q10H [facility] Last Admin: 08/15/22 11:42 Dose: 100 mls/hr Documented By: IMTIAZ Melatonin (Melatonin 3 Mg Tablet) 6 mg PO BEDTIME PRN PRN Reason: insomnia Sertraline HCl (Sertraline Hcl 50 Mg Tablet) 150 mg PO DAILY [facility] Labs CBC & Chem 7: 08/15/22 11:38 08/15/22 11:38 Labs: Laboratory Results - last 24 hr 08/14/22 12:19 COVID-19 ([facility]) Negative COVID-19 Clin Com See Note Procedures Date of Service Date of Service: 08/15/22 Progress Note: A&P Assessment and plan (1) S/P laparoscopic sleeve gastrectomy: Status: Acute (2) Obesity (BMI 30-39.9): Status: Acute (3) Anxiety: Status: Acute (4) LIN (obstructive sleep apnea): Status: Acute (5) Depression: Status: Acute Plan Encourage p.o. water, incentive spirometry and out of bed Trend labs and physical exam. Reassess in the morning. Time Spent With Patient Time: Total time spent is greater than 50% in coordination of care (as documented) at patient's floor/unit and/or counseling patient: Quality Stroke Does the patient have a stroke diagnosis?: No VTE Prior VTE?: No VTE Risk Level:: Surgical - moderate VTE Device Contraindication: N/A - Device Ordered VTE Drug Contraindication: Treatment Not Indicated
[2022-08-15 11:57] LABS: Anion Gap 16 (12-20); Blood Urea Nitrogen 18 mg/dL (9-16); Calcium 8.8 mg/dL (8.4-10.2); Carbon Dioxide 24 mmol/L (22-29); Chloride 104 mmol/L (96-108); Creatinine Clr Calc Pharmacy 74.5; Estimated Glomerular Filt Rate > 60; Glucose Random 119 mg/dL (60-115); Potassium 4.1 mmol/L (3.3-5.1); Sodium 140 mmol/L (135-145)
[2022-08-15] MEDS: ceFAZolin Sodium/Dextrose,Iso 2 GM/50 ML PIGGYBACK IV (13:13)
[2022-08-15] MEDS: ondansetron HCL 4 MG/2 ML VIAL IVPUSH (20:49)
[2022-08-15] MEDS: busPIRone HCl 10 MG TABLET PO (20:49)
[2022-08-15] MEDS: 0.9 % Sodium Chloride Flush 3 ML SYRINGE IVFLUSH (20:52)
[2022-08-16 03:43] VITALS: BP 150/78; PULSE 64; RESP 18; TEMP 36.5; O2SAT 97
[2022-08-16 06:15] LABS: MANUAL DIFF FLAG NO
[2022-08-16 06:23] LABS: Basophils Percent Auto 0.2 % (0-2); Eosinophils Percent Auto 0.2 % (0-4); Hemoglobin 13.8 g/dl (12.0-16.0); Imm Gran Abs Auto 0.04 X10*3/uL (0.00-0.03); Imm Gran Pct Auto 0.4 % (0.0-0.4); Lymphocytes Absolute Auto 1.6 X10*3/uL (1.2-4.9); Lymphocytes Percent Auto 17.5 % (20-40); Mean Corpuscular HGB Conc 32.1 g/dl (31.0-35.0); Mean Corpuscular Hemoglobin 25.7 pg (27.0-33.0); Mean Corpuscular Volume 79.9 fL (80.0-98.0); Mean Platelet Volume 14.2 fL (9.4-12.3); Monocytes Absolute Auto 0.9 X10*3/uL (0.1-1.2); Monocytes Percent Auto 9.8 % (2-11); Neutrophils Absolute Auto 6.7 x10*3/uL (2.0-8.3); Neutrophils Percent Auto 71.9 % (45-73); Platelet Count 153 X10*3/uL (160-400); Red Blood Count 5.38 X10*6/uL (4.20-5.50); Red Cell Distribution Width 14.4 % (11.0-16.0); White Blood Count 9.4 X10*3/uL (4.8-10.8)
[2022-08-16] MEDS: Lactated Ringers 1,000 ML 100 ML IVCONT (06:29)
[2022-08-16 06:39] LABS: Anion Gap 15 (12-20); Blood Urea Nitrogen 11 mg/dL (9-16); Calcium 9.1 mg/dL (8.4-10.2); Carbon Dioxide 27 mmol/L (22-29); Chloride 103 mmol/L (96-108); Creatinine Clr Calc Pharmacy 81.5; Estimated Glomerular Filt Rate > 60; Glucose Random 80 mg/dL (60-115); Potassium 4.1 mmol/L (3.3-5.1); Sodium 141 mmol/L (135-145)
--- NOTE | 2022-08-16 06:42 | P.PNGS_ITS ---
Subjective Subjective Date of Service: 08/16/22 Patient reports: no new complaints, feels better and tolerating liquids well Interval history: The patient denies pain, regurgitation, nausea or vomiting. She had a restful night and is doing well meeting hydration goals. She is advanced to Phase 2 bariatric diet Physical Exam Vital Signs: Vital Signs: Last Vital Signs Temp 97.7 F 08/16/22 03:43 Pulse 64 08/16/22 03:43 Resp 18 08/16/22 03:43 BP 150/78 H 08/16/22 03:43 Pulse Ox 97 08/16/22 03:43 O2 Del Method 08/16/22 03:43 O2 Flow Rate 2 08/15/22 12:42 BMI result Body Mass Index 32.1 On exam, she is sitting up out of bed and chair. She is in good spirits Sclera are anicteric Dressings are clean dry and intact and abdomen has appropriate incisional tenderness No peritoneal signs are noted Objective Data Active Medications Buspirone HCl (Buspirone Hcl 10 Mg Tablet) 10 mg PO BID [facility] Last Admin: 08/15/22 20:49 Dose: 10 mg Documented By: AYAAN Famotidine (Famotidine/Pf 20 Mg/2 Ml Vial) 20 mg IVPUSH BID [facility] Last Admin: 08/15/22 20:50 Dose: 20 mg Documented By: AYAAN Fentanyl (Fentanyl Citrate/Pf 100 Mcg/2 Ml Vial) 25 mcg IVPUSH Q5M PRN; Protocol PRN Reason: Pain, Moderate (Pain Scale 4-6 Hydromorphone HCl (Hydromorphone Hcl 0.5 Mg/0.5 Ml Syringe) 0.25 mg IVPUSH Q5M PRN; Protocol PRN Reason: Pain, Severe (Pain Scale 7-10) Hydromorphone HCl (Hydromorphone Hcl 0.5 Mg/0.5 Ml Syringe) 0.25 mg IVPUSH Q4H PRN; Protocol PRN Reason: Pain, Moderate (Pain Scale 4-6 Promethazine HCl 6.25 mg/ (Sodium Chloride) 50.25 mls @ 201 mls/hr IV ONCE PRN PRN Reason: Nausea and Vomiting Lactated Ringer's (Lr) 1,000 mls @ 100 mls/hr IVCONT .Q10H [facility] Last Admin: 08/16/22 06:29 Dose: 100 mls/hr Documented By: AYAAN Acetaminophen (Ofirmev) 1,000 mg in 100 mls @ 16.7 mls/hr IV .Q6H [facility] Last Admin: 08/16/22 06:28 Dose: 16.7 mls/hr Documented By: AYAAN Melatonin (Melatonin 3 Mg Tablet) 6 mg PO BEDTIME PRN PRN Reason: insomnia Metoclopramide HCl (Metoclopramide Hcl 10 Mg/2 Ml Vial) 10 mg IVPUSH Q6H PRN PRN Reason: Nausea Ondansetron HCl (Ondansetron Hcl 4 Mg/2 Ml Vial) 4 mg IVPUSH Q8H [facility] Last Admin: 08/16/22 05:13 Dose: Not Given Documented By: AYAAN Non-Admin Reason: Patient Refused Sertraline HCl (Sertraline Hcl 50 Mg Tablet) 150 mg PO DAILY [facility] Sodium Chloride (0.9 % Sodium Chloride Flush 3 Ml Syringe) 3 ml IVFLUSH QSHIFT [facility] Last Admin: 08/15/22 20:52 Dose: 3 ml Documented By: AYAAN Labs CBC & Chem 7: 08/16/22 05:18 08/16/22 05:18 Labs: Laboratory Results - last 24 hr 08/15/22 08/16/22 08/16/22 11:38 05:18 05:18 MCV 79.9 L MCH 25.7 L MCHC 32.1 RDW 14.4 Plt Count 153 L MPV 14.2 H Immature Gran % (Auto) 0.4 Neut % (Auto) 71.9 Lymph % (Auto) 17.5 L Greer % (Auto) 9.8 Eos % (Auto) 0.2 Baso % (Auto) 0.2 Lymph # (Auto) 1.6 Greer # (Auto) 0.9 Eos # (Auto) 0.0 Baso # (Auto) 0.0 Abs Immat Gran (auto) 0.04 H Absolute Neuts (auto) 6.7 Absolute Nucleated RBC 0.000 Nucleated RBC % (auto) 0.0 Anion Gap 16 15 Estim Creat Clear Calc 74.5 81.5 Estimated GFR > 60 > 60 Random Glucose 119 H 80 Calcium 8.8 9.1 Procedures Date of Service Date of Service: 09/15/22 Progress Note: A&P Assessment and plan (1) S/P laparoscopic sleeve gastrectomy: Status: Acute (2) Obesity (BMI 30-39.9): Status: Acute (3) Anxiety: Status: Acute (4) Depression: Status: Acute (5) LIN (obstructive sleep apnea): Status: Acute Plan Advanced to bariatric phase 2 diet Labs noted and hemoglobin stable Discharge home, follow-up next week Time Spent With Patient Time: Total time spent is greater than 50% in coordination of care (as documented) at patient's floor/unit and/or counseling patient: Quality Stroke Does the patient have a stroke diagnosis?: No VTE Prior VTE?: No VTE Risk Level:: Surgical - moderate VTE Device Contraindication: N/A - Device Ordered VTE Drug Contraindication: Treatment Not Indicated
[2022-08-16 07:22] VITALS: BP 143/82; PULSE 67; RESP 16; TEMP 36; O2SAT 96
--- NOTE | 2022-08-16 09:09 | MHC.CM.PN ---
Patient was d/c'd prior to being seen by CM.
--- NOTE | 2022-08-16 14:48 | HO.POSTANES ---
Post Anesthesia Evaluation Post Anesthesia Evaluation Vital Signs: Vital Signs Temp Pulse Resp BP Pulse Ox O2 Del Method 08/16/22 07:22 96.8 F 67 16 143/82 H 96 Room Air 08/16/22 03:43 97.7 F 64 18 150/78 H 97 Room Air Anesthesia: General Endotracheal-GETA Mental Status: Awake Pain Control: Satisfactory Nausea/Vomiting: None Hydration: Adequate Anesthesia-Related Issues: No Anes. Related Issues
== END 2022-08-16 08:17 | disposition home or self-care (01) | DRG 403 ==
LOC: HO.SSSA 10:46 → HO.S3 11:18
PROVIDERS: Physician Assistant; Physician Assistant Surgical; Admitting Provider Surgery; PCP Internal Medicine; Visit Provider Surgery
PROC: 0DB64Z3 Excision of Stomach, Percutaneous Endoscopic Approach, Vertical (ICD-10-PCS; CPT 43845; principal; 2022-08-15 07:30)
DX: E66.01 Morbid (severe) obesity due to excess calories (principal); K75.81 Nonalcoholic steatohepatitis (NASH); F32.A Depression, unspecified; K21.9 Gastro-esophageal reflux disease without esophagitis; Z68.32 Body mass index [BMI] 32.0-32.9, adult; F41.9 Anxiety disorder, unspecified; G47.33 Obstructive sleep apnea (adult) (pediatric); Z20.822 Contact with and (suspected) exposure to COVID-19; Z79.899 Other long term (current) drug therapy
CPT/HCPCS: 36415; 80048; 80053; 80061; 83036; 84443; 85014; 85018; 85025; 85610; 85730; 86140; 86850; 86870; 86900; 86901; 86902; 86920; 86922; 87635; 88307; 88342; C9088; J0131; J0690; J1100; J1170; J1200; J2250; J2405; J2795; J3010

== ENCOUNTER → 2022-09-04 10:54 | Outpatient (BNVA) | payer OTHER, SELFPAY | PROVIDERS: PCP Internal Medicine; Referring Provider Internal Medicine; Visit Provider Physician Assistant Surgical | DX: E66.3 Overweight (principal); Z98.84 Bariatric surgery status; Z68.29 Body mass index [BMI] 29.0-29.9, adult | CPT/HCPCS: 99212 ==

== ENCOUNTER → 2022-09-18 10:56 | Outpatient (BNVA) | payer OTHER, SELFPAY | PROVIDERS: PCP Internal Medicine; Visit Provider Physician Assistant Surgical | DX: E66.3 Overweight (principal); Z98.84 Bariatric surgery status | CPT/HCPCS: 99212 ==

== ENCOUNTER → 2022-10-23 09:47 | Outpatient (BNVA) | payer OTHER, SELFPAY | PROVIDERS: PCP Internal Medicine; Visit Provider Physician Assistant Surgical | DX: E66.3 Overweight (principal); Z98.84 Bariatric surgery status | CPT/HCPCS: 99212 ==

== ENCOUNTER → 2022-11-22 09:17 | Outpatient (BNVA) | payer OTHER, SELFPAY | PROVIDERS: PCP Internal Medicine; Visit Provider Physician Assistant Surgical | DX: E66.3 Overweight (principal); Z98.84 Bariatric surgery status; Z68.26 Body mass index [BMI] 26.0-26.9, adult | CPT/HCPCS: 99212 ==

== ENCOUNTER → 2022-12-31 09:00 | Outpatient (BNVA) | payer OTHER, SELFPAY | PROVIDERS: PCP Internal Medicine; Visit Provider Physician Assistant Surgical | DX: Z13.89 Encounter for screening for other disorder (principal) ==

== ENCOUNTER → 2023-01-11 09:12 | Outpatient (BNVA) | payer OTHER, SELFPAY | PROVIDERS: PCP Internal Medicine; Visit Provider Dietitian, Registered | DX: F41.9 Anxiety disorder, unspecified (principal); E66.9 Obesity, unspecified; K44.9 Diaphragmatic hernia without obstruction or gangrene; Z68.25 Body mass index [BMI] 25.0-25.9, adult; Z90.3 Acquired absence of stomach [part of] | CPT/HCPCS: 97803 ==

== ENCOUNTER → 2023-01-25 10:23 | Outpatient (BNVA) | payer OTHER, SELFPAY | PROVIDERS: PCP Internal Medicine; Visit Provider Dietitian, Registered | DX: E66.3 Overweight (principal); Z68.25 Body mass index [BMI] 25.0-25.9, adult; Z98.84 Bariatric surgery status; Z71.3 Dietary counseling and surveillance | CPT/HCPCS: 97803 ==

== ENCOUNTER → 2023-02-04 11:04 | Outpatient (BNVA) | payer OTHER, SELFPAY | PROVIDERS: PCP Internal Medicine; Visit Provider Physician Assistant Surgical | DX: B36.9 Superficial mycosis, unspecified (principal) | CPT/HCPCS: 99212 ==

== ENCOUNTER → 2023-02-11 09:00 | Outpatient (BNVA) | payer OTHER, SELFPAY | PROVIDERS: Visit Provider Physician Assistant Surgical | DX: E66.3 Overweight (principal); B36.9 Superficial mycosis, unspecified; Z98.84 Bariatric surgery status; Z68.25 Body mass index [BMI] 25.0-25.9, adult | CPT/HCPCS: 99212 ==

== ENCOUNTER 2023-03-01 08:05 | Outpatient (REF) | payer OTHER, SELFPAY ==
--- NOTE | ~2023-03-01 | MM_ITS ---
EXAMINATION: MM SCREENING DIGITAL BREAST TOMOSYNTHESIS, BILATERAL CLINICAL INFORMATION: Screening. Asymptomatic. Remote reduction mammoplasty, 2005. The lifetime risk of breast cancer based on the Tyrer-Cuzick Model is 4%. COMPARISON: Outside mammography: 11/26/2018, 11/21/2017, 09/27/2016 ([facility]) TECHNIQUE: Digital breast tomosynthesis is performed in both the craniocaudal and mediolateral oblique views along with computer-aided detection (CAD). Synthesized 2D images are generated from the tomosynthesis. Additional left MLO view is provided. FINDINGS: There are scattered areas of fibroglandular density (ACR BI-RADS breast composition Category b). There is scattered fine fibronodular pattern similar to prior outside studies. There are no significant masses, abnormal calcifications, or other abnormalities. No developing density or architectural abnormality. There are scattered vascular and predominantly dermal and round rim calcifications consistent with the reduction mammoplasty. The axilla are unremarkable. No significant changes. MM/MM tomosynthesis screening BI IMPRESSION: No mammographic evidence of malignancy. ASSESSMENT: BI-RADS 2: Benign RECOMMENDATION: Routine annual mammography screening. This patient's information was entered into a reminder system with a target due date for their next mammogram.
--- NOTE | ~2023-03-01 | MM_ITS ---
EXAMINATION: BONE DENSITOMETRY CLINICAL INDICATION: Menopause. COMPARISON: None (current study represents initial baseline exam). TECHNIQUE: Using a [employer] DXA System (software version: 13.1) manufactured by [employer], dual-energy x-ray absorptiometry was performed of the lumbar spine and left hip. The images are of good technical quality. Summary results are attached. FINDINGS: AP SPINE L1-L3 (excluding L4): The data of L1-L4 has been changed to exclude the L4 vertebral body, because degenerative changes at this level may cause overestimation of lumbar spine density. BMD 1.160 g/cm2, Z-score 0.8, T-score -0.1, normal. LEFT FEMUR, NECK: BMD 0.905 g/cm2, Z-score 0.1, T-score -1.0, normal. LEFT FEMUR, TOTAL: BMD 0.909 g/cm2, Z-score -0.1, T-score -0.8, normal. IDENTIFIED RISK FACTORS: Early menopause, hysterectomy, left oophorectomy, rheumatoid arthritis, secondary osteoporosis. HISTORY OF FRACTURE: None listed. MEDICATIONS: Calcium, vitamin D. MM/XR DEXA axial skeleton IMPRESSION: 1. DIAGNOSIS: Normal bone density based on the lowest T-score value of -1.0 in the femoral neck applying World Health Organization criteria. 2. 10-YEAR FRACTURE RISK PREDICTION, FRAX: According to the guidelines, FRAX calculation should only be performed on patients in the osteopenia bone density category. Therefore, FRAX was not performed on this patient. 3. Treatment Recommendations: NOF guidelines recommend consideration for treatment in postmenopausal women and men age 50 and older presenting with the following: -A hip or vertebral (clinical or morphometric) fracture. -T-score less than or equal to -2.5 at the femoral neck or spine after appropriate evaluation to exclude secondary causes. -Low bone mass at the hip or spine and a 10-year fracture probability by FRAX of greater than or equal to 3% for hip fracture or greater than or equal to 20% for major osteoporotic fracture based on the [place] adapted WHO algorithm. 4. Other Recommendations: All treatment decisions require clinical judgment and consideration of individual patient factors, including patient preferences, comorbidities, previous drug use, risk factors not captured in the FRAX model (e.g. frailty, falls, vitamin D deficiency, increased bone turnover, interval significant decline in bone density) and possible under or overestimation of fracture risk by FRAX. FUTURE SCAN RECOMMENDATION: People with diagnosed cases of osteoporosis or at high risk for fracture should have regular bone mineral density tests. For patients eligible for Medicare, routine testing is allowed once every 2 years. The testing frequency can be increased to one year for patients who have rapidly progressing disease, those who are receiving or discontinuing medical therapy to restore bone mass, or have additional risk factors.
== END 2023-03-01 08:06 | disposition home or self-care (01) ==
LOC: HO.MAMMO 08:05
PROVIDERS: Visit Provider Internal Medicine
DX: Z12.31 Encounter for screening mammogram for malignant neoplasm of breast (principal); Z13.820 Encounter for screening for osteoporosis; Z78.0 Asymptomatic menopausal state
CPT/HCPCS: 77063; 77067; 77080

== ENCOUNTER 2023-03-05 07:30 | Outpatient (REF) | payer OTHER, SELFPAY ==
[2023-03-05 07:53] LABS: MANUAL DIFF FLAG NO
[2023-03-05 08:49] LABS: Basophils Percent Auto 0.5 % (0-2); Eosinophils Absolute Auto 0.3 X10*3/uL (0.0-0.4); Eosinophils Percent Auto 4.4 % (0-4); Hematocrit 41.5 % (37.0-47.0); Hemoglobin 13.5 g/dl (12.0-16.0); Imm Gran Abs Auto 0.02 X10*3/uL (0.00-0.03); Imm Gran Pct Auto 0.3 % (0.0-0.4); Lymphocytes Absolute Auto 1.5 X10*3/uL (1.2-4.9); Lymphocytes Percent Auto 25.7 % (20-40); Mean Corpuscular HGB Conc 32.5 g/dl (31.0-35.0); Mean Platelet Volume 13.7 fL (9.4-12.3); Monocytes Absolute Auto 0.5 X10*3/uL (0.1-1.2); Monocytes Percent Auto 7.8 % (2-11); Neutrophils Absolute Auto 3.6 x10*3/uL (2.0-8.3); Neutrophils Percent Auto 61.3 % (45-73); Platelet Count 140 X10*3/uL (160-400); Red Cell Distribution Width 13.2 % (11.0-16.0); White Blood Count 5.9 X10*3/uL (4.8-10.8)
[2023-03-05 09:08] LABS: Estimated Average Glucose 111 mg/dL; Hemoglobin A1c % 5.5 %
[2023-03-05 09:16] LABS: Rheumatoid Factor < 13.0 IU/mL (<15.0)
[2023-03-05 09:25] LABS: Alanine Aminotransferase 26 U/L (0-31); Albumin Level 4.1 g/dL (3.5-5.0); Alkaline Phosphatase 79 U/L (39-117); Anion Gap 11 (12-20); Aspartate Amino Transferase 20 U/L (5-31); Bilirubin Total 0.6 mg/dL (0.0-1.0); Blood Urea Nitrogen 18 mg/dL (9-16); C Reactive Protein < 0.10 mg/dL (< or = 0.50); Calcium 9.1 mg/dL (8.4-10.2); Carbon Dioxide 26 mmol/L (22-29); Chloride 108 mmol/L (96-108); Cholesterol 219 mg/dL; Erythrocyte Sedimentation Rate 9 MM/HR (0-20); Estimated Glomerular Filt Rate > 60; Glucose Random 90 mg/dL (60-115); HDL Cholesterol 62 mg/dL; Iron 83 mcg/dL (30-160); LDL Cholesterol Calculated 138 mg/dl; Percent Iron Saturation 29 % (15-50); Sodium 141 mmol/L (135-145); Total Iron Binding Capacity 287 mcg/dL (228-428); Total Protein 6.4 g/dL (6.5-8.0); Triglycerides 98 mg/dL; Unsaturated Iron Binding 204 ug/dL
[2023-03-05 09:45] LABS: Ferritin 219 ng/mL (10-250); Folate 9.1 ng/mL (> or = 4.0); Insulin 6 uU/mL (2-29); TSH reflex Free T4 1.59 uIU/mL (0.32-4.0); Vitamin B12 643 pg/mL (200-900); Vitamin D 25-OH Total 37.3 ng/mL (>30)
[2023-03-07 13:33] LABS: Calcium (PTHI) 9.3 mg/dL (8.6-10.4); PTHI 61 pg/mL (16-77)
[2023-03-07 14:03] LABS: Anti DNA DS Antibody 1 IU/mL
[2023-03-07 15:33] LABS: Complement C3 117 mg/dL (83-193)
[2023-03-07 16:38] LABS: Cyclic Citrullinated Peptide <16 UNITS
[2023-03-09 12:17] LABS: Zinc 74 mcg/dL (60-130)
[2023-03-11 13:03] LABS: Anti Nuclear Antibody Pattern Nuclear, Nucleolar; Anti Nuclear Antibody Screen POSITIVE (NEGATIVE)
[2023-03-12 09:48] LABS: Vitamin A 53 mcg/dL (38-98)
[2023-03-13 15:34] LABS: Vitamin B1 22 nmol/L (8-30)
== END 2023-03-05 07:31 | disposition home or self-care (01) ==
LOC: HO.LAB 07:30
PROVIDERS: Absent Provider Physician Assistant Surgical; PCP Internal Medicine; Visit Provider Internal Medicine
DX: M06.9 Rheumatoid arthritis, unspecified (principal); Z98.84 Bariatric surgery status
CPT/HCPCS: 36415; 80053; 80061; 82306; 82607; 82728; 82746; 83036; 83525; 83540; 83970; 84425; 84443; 84590; 84630; 85025; 85652; 86038; 86039; 86140; 86160; 86200; 86225; 86431

== ENCOUNTER → 2023-04-23 10:39 | Outpatient (BNVA) | payer OTHER, SELFPAY | PROVIDERS: PCP Internal Medicine; Visit Provider Student in an Organized Health Care Education/Training Program | DX: M06.1 Adult-onset Still's disease (principal) | CPT/HCPCS: 99202 ==

== ENCOUNTER → 2023-05-16 09:12 | Outpatient (BNVA) | payer OTHER, SELFPAY | PROVIDERS: PCP Internal Medicine; Visit Provider Physician Assistant Surgical | DX: E66.3 Overweight (principal); L98.7 Excessive and redundant skin and subcutaneous tissue; Z98.84 Bariatric surgery status; Z68.25 Body mass index [BMI] 25.0-25.9, adult | CPT/HCPCS: 99212 ==

== ENCOUNTER 2023-06-27 13:07 | Outpatient (AMB) | payer OTHER, SELFPAY ==
[2023-06-27 13:18] VITALS: BP 102/70; PULSE 61; O2SAT 96; BMI 25.8
--- NOTE | 2023-06-27 13:18 | A.OFFPC_ITS ---
Vital Signs 06/27/23 13:18 Height 5 ft 1 in Weight 136 lb 8 oz BMI 25.8 BP 102/70 Blood Pressure Location Lt brachial Position Sitting Pulse 61 Pulse Source Pulse Oximeter Pulse Oximetry (%) 96 Oxygen Delivery Method Room Air Intake Visit Reasons: cataract surgery right eye 07/11 Supervisor Of Operations Required: Yes Accompanied by: Self / Same As Patient Allergies No Known Allergies Allergy (Verified 06/27/23 13:19) Tobacco use date assessed: 06/27/23 Dental Screening Dental Screen Date: 06/27/23 Did you have a dental visit in the last 12 months?: Yes Did you have a dental problem in the last 6 months where you did not have access to dental care?: No Was dental information given to patient?: Patient has dentist HPI HPI Comments History of Present Illness Details 52-year-old female past medical history significant for dermatomycosis, hypercholesteremia anxiety, depression, LIN, GERD, history of laparoscopic sleeve gastrectomy. Patient Dr. Leal presents today for preop visit for right cataract surgery 07/11/[address] [facility] [address] Calderon. Under local anethesia. Patient denies any chest pain, palpitations, shortness of breath and syncope. Last set labs completed in March, updated pre-op blood work ordered. 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 [facility] Medical History (Updated 05/16/23 @ 10:20 by ALESSANDRA Hassan) BMI 36.0-36.9,adult Hiatal hernia Insomnia Right pulmonary lesion Surgical History Hx of breast reduction, elective Hx of colonoscopy Hx of hysterectomy S/P laparoscopic sleeve gastrectomy Family History Mother No problems noted. Father No problems noted. Sister No problems noted. Sister No problems noted. Sister No problems noted. Son No problems noted. Son Thyroid condition Daughter No problems noted. Social History Housing: Apartment Are you a primary out of school hours care worker to a significant other at home: No Do you presently have visiting nurse or other home services: No Alcohol intake: never Patient Tobacco Use Status: Never used Tobacco e-Cigarette/Vaping Use: Never Used Second Hand Smoke Exposure: No service: No Current occupational status: unemployed Cognitive needs: No Hearing needs: No Vision needs: Yes Questionnaire PHQ-9 Over the last 2 weeks, how often have you been bothered by any of the following problems? 1. Little interest or pleasure in doing things: not at all 2. Feeling down, depressed, or hopeless: not at all 3. Trouble falling or staying asleep, or sleeping too much: not at all 4. Feeling tired or having little energy: not at all 5. Poor appetite or overeating: not at all 6. Feeling bad about yourself - or that you are a failure or have let yourself or your family down: not at all 7. Trouble concentrating on things, such as reading the newspaper or watching television: not at all 8. Moving or speaking so slowly that other people could have noticed. Or the opposite - being so fidgety or restless that you have been moving around a lot more than usual: not at all 9. Thoughts that you would be better off or of hurting yourself in some way: not at all Total score: 0 Depression Screening Interpretation: Negative 16613 - PHQ-9 Billing: Yes Source: Developed by Drs. Alvaro Greene, Osiris Kellogg, Douglas Crawford and colleagues, with an educational jason from [employer]. Thrive Questionnaire Date Thrive assessed: 06/27/23 I am a: Patient What is your living situation today?: I have a steady place to live Within the past 12 months, did the food you bought not last and you didn't have the money to get more?: Never true Within the past 12 months, did you worry whether your food would run out before you got money to buy more?: Never true Do you have trouble paying for medicines?: No Do you have trouble getting transportation to medical appointments?: No Do you have trouble paying your heating and electricity bill?: No Do you have trouble taking care of your child, family member or friend?: No Do you have trouble with day-to-day activities such as bathing, preparing meals, shopping, managing finances, etc.?: No Are you currently unemployed and looking for a job?: No Are you interested in more education?: No Please select the resources that you would like help with: None Currently or been in a relationship where the following occur: no concerns reported AUDIT C Alcohol Use Questionnaire (AUDIT-C) 1. How often do you have a drink containing alcohol?: Never Total Score: 0 CLAUDIA-7 AMB Questionnaire CLAUDIA-7 Date CLAUDIA - 7 assessed: 06/27/23 Feeling nervous, anxious, or on edge: 3 = Nearly every day Not being able to stop or control worryin = Not at all Worrying too much about different things: 3 = Nearly every day Trouble relaxin = Several days Being so restless that it is hard to sit still: 0 = Not at all Becoming easily annoyed or irritable: 3 = Nearly every day Feeling afraid as if something awful might happen: 0 = Not at all Total CLAUDIA-7 score (0-4 normal; 5-9 mild; 10-14 moderate; 15-21 severe): 10 Source: Developed by Drs. Alvaro Greene, Osiris Kellogg, Douglas Crawford and colleagues, with an educational jason from [employer]. CLAUDIA-7 Assessment Billing CLAUDIA-7 Assessment Tool: CLAUDIA-7 Assessment 05984 Review of Systems Const Denies chills, Denies fatigue, Denies fever(s) and Denies poor appetite Eyes Denies no additional complaints ENT Reports Normal hearing present Card Denies chest pain, Denies syncope, Denies rapid heart rate and Denies dyspnea Resp Denies cough and Denies dyspnea GI Denies change in stool character, Denies constipation, Denies diarrhea, Denies nausea and Denies vomiting Denies urinary frequency, Denies dysuria and Denies urinary urgency Neuro Reports Normal hearing present, Denies confusion and Denies syncope Psych Denies confusion Endo Denies fatigue Physical exam (Primary Care) Vital Signs: Last Vital Signs Pulse 61 06/27/23 13:18 BP 102/70 06/27/23 13:18 Pulse Ox 96 06/27/23 13:18 Oxygen Delivery Method Room Air 06/27/23 13:18 BMI result Body Mass Index 25.8 Tobacco/Smoking Status: Tobacco use Status Tobacco use date assessed 06/27/23 06/27/23 13:23 Patient Tobacco Use Status Never used Tobacco 06/27/23 13:23 e-Cigarette/Vaping Use Never Used 06/27/23 13:23 PHQ-9: PHQ-9 Score PHQ-9: Total score 0 06/27/23 14:42 Depression Screening Interpretation: Negative Thrive Assessment: Date of Thrive Assessment Date Thrive assessed 06/27/23 06/27/23 13:23 Currently or been in a relationship where the following occur: no concerns reported Const General: No confusion Orientation/consciousness: No confusion HENMT Head: Yes normocephalic and Yes atraumatic Eyes Conjunctivae: conjunctivae normal Chest Chest palpation & inspection: normal inspection of the chest Resp Effort & Inspection: normal respiratory effort Auscultation: clear to auscultation bilaterally, no crackles, no rhonchi and no wheezes Cardio Rate: regular rate Rhythm: regular rhythm Heart sounds: S1 normal heart sound present and S2 normal heart sound present GI Inspection: Yes normal to inspection Neuro General: No confusion Cranial nerves: Yes Normal hearing present Extrem General: No edema Assessment and Plan Assessment & Plan (1) Pure hypercholesterolemia: Code(s): E78.00 - Pure hypercholesterolemia, unspecified Plan: Continue to follow low cholesterol diet. (2) Preop examination: Code(s): Z01.818 - Encounter for other preprocedural examination Plan: Pre-op blood work ordered. Once labs obtained and addendum will be made to this note if patient able to proceed with scheduled cataract surgery. Plan Keep scheduled follow up with pcp Orders: Orders Comprehensive Met. Panel Today Z01.812 - Encounter for preprocedural laboratory examination TSH reflex Free T4 Today Z01.812 - Encounter for preprocedural laboratory examination Complete Blood Count Auto Diff Today Z13.0 - Encounter for screening for diseases of the blood and blood-forming organs and certain disorders involving the immune mechanism Coding Level of Care Code Est Pt Level 3 (51655) Diagnoses Pure hypercholesterolemia E78.00 Preop examination Z01.818 Additional Codes CLAUDIA-7 Assessment Billing - CLAUDIA-7 Assessment Tool: CLAUDIA-7 Assessment 72090 ([id number])
== END 2023-06-27 14:28 | disposition home or self-care (01) ==
PROVIDERS: PCP Internal Medicine; Visit Provider Nurse Practitioner Family
DX: E78.00 Pure hypercholesterolemia, unspecified (principal); Z01.818 Encounter for other preprocedural examination
CPT/HCPCS: 99213

== ENCOUNTER 2023-06-28 07:55 | Outpatient (REF) | payer OTHER, SELFPAY ==
[2023-06-28 08:19] LABS: MANUAL DIFF FLAG NO
[2023-06-28 09:01] LABS: Basophils Percent Auto 0.5 % (0-2); Eosinophils Absolute Auto 0.1 X10*3/uL (0.0-0.4); Eosinophils Percent Auto 2.4 % (0-4); Hematocrit 44.6 % (37.0-47.0); Hemoglobin 13.9 g/dl (12.0-16.0); Imm Gran Abs Auto 0.02 X10*3/uL (0.00-0.03); Imm Gran Pct Auto 0.3 % (0.0-0.4); Lymphocytes Absolute Auto 1.2 X10*3/uL (1.2-4.9); Lymphocytes Percent Auto 21.4 % (20-40); Mean Corpuscular HGB Conc 31.2 g/dl (31.0-35.0); Mean Corpuscular Hemoglobin 26.2 pg (27.0-33.0); Mean Corpuscular Volume 84.2 fL (80.0-98.0); Mean Platelet Volume 13.1 fL (9.4-12.3); Monocytes Absolute Auto 0.4 X10*3/uL (0.1-1.2); Monocytes Percent Auto 6.9 % (2-11); Neutrophils Percent Auto 68.5 % (45-73); Platelet Count 142 X10*3/uL (160-400); Red Cell Distribution Width 12.6 % (11.0-16.0); White Blood Count 5.8 X10*3/uL (4.8-10.8)
[2023-06-28 09:43] LABS: Alanine Aminotransferase 23 U/L (0-31); Albumin Level 4.3 g/dL (3.5-5.0); Alkaline Phosphatase 80 U/L (39-117); Anion Gap 16 (12-20); Aspartate Amino Transferase 21 U/L (5-31); Bilirubin Total 0.4 mg/dL (0.0-1.0); Blood Urea Nitrogen 15 mg/dL (9-16); Calcium 9.9 mg/dL (8.4-10.2); Carbon Dioxide 22 mmol/L (22-29); Chloride 107 mmol/L (96-108); Estimated Glomerular Filt Rate > 60; Glucose Random 86 mg/dL (60-115); Potassium 3.8 mmol/L (3.3-5.1); Sodium 141 mmol/L (135-145); Total Protein 7.1 g/dL (6.5-8.0)
[2023-06-28 10:05] LABS: TSH reflex Free T4 1.32 uIU/mL (0.32-4.0)
== END 2023-06-28 07:56 | disposition home or self-care (01) ==
LOC: HO.LAB 07:55
PROVIDERS: PCP Internal Medicine; Visit Provider Nurse Practitioner Family
DX: Z01.812 Encounter for preprocedural laboratory examination (principal); Z13.0 Encounter for screening for diseases of the blood and blood-forming organs and certain disorders involving the immune mechanism
CPT/HCPCS: 36415; 80053; 84443; 85025

== ENCOUNTER 2023-07-04 09:58 | Outpatient (AMB) | payer OTHER, SELFPAY ==
[2023-07-04 10:13] VITALS: BP 102/78; BMI 25.5
--- NOTE | 2023-07-04 10:13 | A.OFFPC_ITS ---
Vital Signs 07/04/23 10:13 Height 5 ft 1 in Weight 135 lb BMI 25.5 BP 102/78 Blood Pressure Location Lt brachial Position Sitting Intake Visit Reasons: bump on left foot Intake Note: Patient here c/o bump on top of left foot Ext Js Developer Required: No Accompanied by: Self / Same As Patient Allergies No Known Allergies Allergy (Verified 07/04/23 10:19) Tobacco use date assessed: 06/27/23 Dental Screening Dental Screen Date: 07/04/23 Did you have a dental visit in the last 12 months?: Yes Did you have a dental problem in the last 6 months where you did not have access to dental care?: No Was dental information given to patient?: Patient has dentist HPI HPI Comments History of Present Illness Details 52-year-old female past medical history significant for dermatomycosis, hypercholesteremia anxiety, depression, LIN, GERD, history of laparoscopic sleeve gastrectomy. Patient of Dr. Leal presents today for lump on left foot lump. Patient states lump to top of left foot that comes and goes for 5 years. Patient states when is comes it is burning pain. Patient reports she was told was a cyst in the past and she was recommended to have cortisone injection, however she declined. Referral entered to podiatry, offered patient prescription for ibuprofen for the pain patient declined states she does not like taking pills. Patient advised can apply ice to the area to help with pain. [facility] Medical History (Updated 07/04/23 @ 10:35 by JAY Soto) BMI 36.0-36.9,adult Hiatal hernia Insomnia Right pulmonary lesion Surgical History Hx of breast reduction, elective Hx of colonoscopy Hx of hysterectomy S/P laparoscopic sleeve gastrectomy Family History Mother No problems noted. Father No problems noted. Sister No problems noted. Sister No problems noted. Sister No problems noted. Son No problems noted. Son Thyroid condition Daughter No problems noted. Social History Housing: Apartment Are you a primary primary care physician to a significant other at home: No Do you presently have visiting nurse or other home services: No Alcohol intake: never Patient Tobacco Use Status: Never used Tobacco e-Cigarette/Vaping Use: Never Used Second Hand Smoke Exposure: No service: No Current occupational status: unemployed Cognitive needs: No Hearing needs: No Vision needs: Yes Questionnaire Thrive Questionnaire Date Thrive assessed: 06/27/23 CLAUDIA-7 AMB Questionnaire CLAUDIA-7 Date CLAUDIA - 7 assessed: 06/27/23 Source: Developed by Drs. Alvaro Greene, Osiris Kellogg, Douglas Crawford and colleagues, with an educational jason from [employer]. Review of Systems Const Denies chills, Denies fatigue, Denies fever(s) and Denies poor appetite Eyes Denies no additional complaints ENT Reports Normal hearing present Card Denies chest pain, Denies syncope, Denies rapid heart rate and Denies dyspnea Resp Denies cough and Denies dyspnea GI Denies change in stool character, Denies constipation, Denies diarrhea, Denies nausea and Denies vomiting Denies urinary frequency, Denies dysuria and Denies urinary urgency Skin/Breast Reports other (foot cyst ) Neuro Reports Normal hearing present, Denies confusion and Denies syncope Psych Denies confusion Endo Denies fatigue Physical exam (Primary Care) Vital Signs: Last Vital Signs BP 102/78 07/04/23 10:13 BMI result Body Mass Index 25.5 Tobacco/Smoking Status: Tobacco use Status Tobacco use date assessed 06/27/23 07/04/23 10:15 Patient Tobacco Use Status Never used Tobacco 07/04/23 10:15 e-Cigarette/Vaping Use Never Used 07/04/23 10:15 Thrive Assessment: Date of Thrive Assessment Date Thrive assessed 06/27/23 07/04/23 10:15 Const General: No confusion Orientation/consciousness: No confusion HENMT Head: Yes normocephalic and Yes atraumatic Eyes Conjunctivae: conjunctivae normal Chest Chest palpation & inspection: normal inspection of the chest Resp Effort & Inspection: normal respiratory effort Auscultation: clear to auscultation bilaterally, no crackles, no rhonchi and no wheezes Cardio Rate: regular rate Rhythm: regular rhythm Heart sounds: S1 normal heart sound present and S2 normal heart sound present Peripheral pulses: dorsalis pedis present GI Inspection: Yes normal to inspection Neuro General: No confusion Cranial nerves: Yes Normal hearing present Extrem General: No edema Ankle/foot/toe images: 1. quater sized semi firm, mobile cyst noted to dorsum of left foot, non indurated, non fluctuant, no surrounding erythema or warmth. Assessment and Plan Assessment & Plan (1) Ganglion cyst of left foot: Code(s): M67.472 - Ganglion, left ankle and foot Plan: Patient declined medication for foot pain. Patient advise can apply ice to area to help with burning pain. Referral entered to podiatry for further evaluation. Plan Keep scheduled follow-up with PCP. Orders: Referrals Podiatry Referral M67.472 - Ganglion, left ankle and foot Coding Level of Care Code Est Pt Level 3 (71239) Diagnoses Ganglion cyst of left foot M67.472
== END 2023-07-04 11:58 | disposition home or self-care (01) ==
PROVIDERS: PCP Internal Medicine; Visit Provider Nurse Practitioner Family
DX: M67.472 Ganglion, left ankle and foot (principal)
CPT/HCPCS: 99213

== ENCOUNTER 2023-08-15 10:02 | Outpatient (AMB) | payer OTHER, SELFPAY ==
--- NOTE | 2023-08-15 10:04 | MHC.OFFVISWM ---
Intake VS Expanded 08/15/23 10:08 Height 5 ft 1 in Weight 135 lb 6.4 oz BMI 25.6 BP 121/64 Blood Pressure Location Rt brachial Blood Pressure Position Sitting Pulse 52 Pulse Source Pulse Oximeter Temp 97.7 F Temperature Source Temporal Artery Scan Pulse Oximetry 97 Oxygen Delivery Method Room Air Body Fat 43.0 Body Fat Percentage 31.8 Free Fat Mass 92.4 Muscle Mass 87.8 Visceral Mass 7.0 Water Mass 65.4 BMR 1,254 Intake Visit Reasons: (OV) PO LSG 08/15/2022 Allergies No Known Allergies Allergy (Verified 08/15/23 10:07) Medication List - Last Reconciled 08/15/23 by ALESSANDRA Hassan buspirone 10 mg PO BID melatonin 5 - 10 mg PO BEDTIME PRN zonfzwumnoaq-jef-blgy-FA-vit K 45 mg iron- 800 mcg-120 mcg (Bariatric Multivitamins) caps PO sertraline 150 mg PO DAILY HPI HPI Comments History of Present Illness Details This?is a?52?yo female who is s/p LSG 08/15/2022. Presents for 1 year post op visit. Weight at last visit on 05/16/2023 was 132.8 pounds with a BMI of 25.1, weight today is 135.4 pounds, representing a 3.6 pound weight gain with a BMI today of 25.6.? No complaints of nausea, emesis, abdominal pain or reflux, or constipation. Present meal plan includes: 9am 30g protein shake- Premier 1pm 1-2oz protein, optional 1oz veg, continue to cook with avocado oil 5pm 1-2oz protein, optional 1oz veg 7pm high protein snack 1-2 snack - 1 serving nuts, fruit , Ukrainian yogurt, protein bar = 75g protein, maintenance meal plan Taking bariatric MVI All meals last 20 - 30 minutes and does not drink and eat at the same time. Exercise routine includes: intermittent Fernando, core work; not as much exercise lately Pt has been using clotrimazole ointment for rashes of umbilicus which helped for a time. However she continues to experience some skin irritation. She has to wear pants with a tight waistband or a compressive garment to hold skin in place and prevent discomfort with movement. The tight waistband causes irritation of the skin. The extra compressive waistband/pants causes increased sweating which also causes skin irritation. She has noticed that exercise has become more difficult as the excess skin is heavy/uncomfortable and limits her full range of motion, moving a lot with activity/walking. Did the patient ever have any of these conditions and are they resolved or still being treated? GERD: never LIN:? never DM:? never HTN:? never Hyperlipidemia:?resolved Post op complications:? none [facility] Medical History (Updated 07/04/23 @ 10:35 by JAY Soto) Insomnia Hiatal hernia BMI 36.0-36.9,adult Right pulmonary lesion Surgical History S/P laparoscopic sleeve gastrectomy Hx of colonoscopy Hx of hysterectomy Hx of breast reduction, elective Family History Mother No problems noted. Father No problems noted. Sister No problems noted. Sister No problems noted. Sister No problems noted. Son No problems noted. Son Thyroid condition Daughter No problems noted. Social History Housing: Apartment Are you a primary home care physical therapist to a significant other at home: No Do you presently have visiting nurse or other home services: No Alcohol intake: never Patient Tobacco Use Status: Never used Tobacco e-Cigarette/Vaping Use: Never Used Second Hand Smoke Exposure: No service: No Current occupational status: unemployed Cognitive needs: No Hearing needs: No Vision needs: Yes Physical Exam Vital Signs: Last Vital Signs Temp 97.7 F 08/15/23 10:08 Pulse 52 08/15/23 10:08 BP 121/64 08/15/23 10:08 Pulse Ox 97 08/15/23 10:08 Oxygen Delivery Method Room Air 08/15/23 10:08 BMI result Body Mass Index 25.6 Const General: cooperative, comfortable and no acute distress Orientation/consciousness: patient oriented x3 GI Other: soft, nontender, nondistended, incisions well healed, no hernia, no masses Grade II pannus Neuro General: patient oriented x3 Assessment & Plan Assessment & Plan (1) Excess skin: Code(s): L98.7 - Excessive and redundant skin and subcutaneous tissue (2) Overweight (BMI 25.0-29.9): Code(s): E66.3 - Overweight (3) S/P laparoscopic sleeve gastrectomy: Comment: 08/2022 Code(s): Z98.84 - Bariatric surgery status Plan Pt has done very well maintaining her excellent weight loss s/p sleeve gastrectomy. She is happy at current weight, on maintenance meal plan, no surgical complications. 1 year labs ordered. She has ongoing issues of excess skin of abdomen, resulting in painful rashes refractory to topical Rx treatment and inhibiting her physical function, including exercise, which is necessary to maintain her excellent weight loss. She would benefit from definitive treatment of panniculectomy. Photos taken today, will submit for insurance approval and schedule next visit based on insurance decision. Patient is overweight and is not considered stable at this time. I spent a total of 30 minutes reviewing/updating records, examining the patient and counseling the patient on weight management as detailed above. Orders: Orders IRON PROFILE Today Z84 - Bariatric surgery status Comprehensive Met. Panel Today 84 - Bariatric surgery status TSH reflex Free T4 Today Z.84 - Bariatric surgery status Hemoglobin A1c Today Z98.84 - Bariatric surgery status Insulin Today Z98.84 - Bariatric surgery status Lipid Panel Today Z.84 - Bariatric surgery status Complete Blood Count Auto Diff Today Z.84 - Bariatric surgery status Vitamin B12 and Folate Today Z98.84 - Bariatric surgery status Zinc Today Z98.84 - Bariatric surgery status Vitamin B1 Today Z98.84 - Bariatric surgery status Vitamin A Today Z98.84 - Bariatric surgery status C Reactive Protein Today Z98.84 - Bariatric surgery status Ferritin Today Z98.84 - Bariatric surgery status PTHI Today Z98.84 - Bariatric surgery status Vitamin D 25-OH Total Today Z98.84 - Bariatric surgery status Coding Level of Care Code Est Pt Level 4 (90961) Diagnoses Excess skin L98.7 Overweight (BMI 25.0-29.9) E66.3 S/P laparoscopic sleeve gastrectomy Z98.84
[2023-08-15 10:08] VITALS: BP 121/64; PULSE 52; TEMP 36.5; O2SAT 97; BMI 25.6
== END 2023-08-15 10:44 | disposition home or self-care (01) ==
PROVIDERS: PCP Internal Medicine; Visit Provider Physician Assistant Surgical
DX: E66.3 Overweight (principal); Z68.25 Body mass index [BMI] 25.0-25.9, adult; L98.7 Excessive and redundant skin and subcutaneous tissue; Z90.3 Acquired absence of stomach [part of]; Z98.84 Bariatric surgery status
CPT/HCPCS: 99214

== ENCOUNTER → 2023-08-15 10:02 | Outpatient (BNVA) | payer OTHER, SELFPAY | PROVIDERS: PCP Internal Medicine; Visit Provider Physician Assistant Surgical | DX: E66.3 Overweight (principal); Z68.25 Body mass index [BMI] 25.0-25.9, adult; L98.7 Excessive and redundant skin and subcutaneous tissue; Z98.84 Bariatric surgery status | CPT/HCPCS: 99212 ==

== ENCOUNTER 2023-09-26 07:48 | Outpatient (AMB) | payer OTHER, SELFPAY ==
[2023-09-26 08:00] VITALS: BP 112/70; PULSE 56; O2SAT 98; BMI 26.4
--- NOTE | 2023-09-26 08:00 | MHC.PC.OV ---
Vital Signs 09/26/23 08:00 Height 5 ft 1 in Weight 140 lb BMI 26.4 BP 112/70 Blood Pressure Location Lt brachial Position Sitting Pulse 56 Pulse Source Pulse Oximeter Pulse Oximetry (%) 98 Oxygen Delivery Method Room Air Intake Visit Reasons: Annual PE Allergies No Known Allergies Allergy (Verified 09/26/23 08:18) Medication List - Last Reconciled 09/26/23 by JAY Soto buspirone 10 mg PO BID melatonin 5 - 10 mg PO BEDTIME PRN degsyrtvysyk-xux-lsba-FA-vit K 45 mg iron- 800 mcg-120 mcg (Bariatric Multivitamins) caps PO sertraline 150 mg PO DAILY Tobacco use date assessed: 06/27/23 Dental Screening Dental Screen Date: 09/26/23 Did you have a dental visit in the last 12 months?: Yes Did you have a dental problem in the last 6 months where you did not have access to dental care?: No Was dental information given to patient?: Patient has dentist HPI HPI Comments History of Present Illness Details 53-year-old female past medical history significant for GERD, LIN, depression, anxiety, hypercholesteremia, elevated BMI status post laparoscopic sleeve gastrectomy August 2022. Patient Dr. Leal presents today for physical exam. Patient denies any acute concerns. Denies CP,sob,palpitations and syncope. Patient offered certified gas plant dispatcher for this exam, patient declined real estate photographer. Mammogram: January 2023, benign Bone density screening: January 2023; normal Eye exam: October 2023 Pap smear: s/p hysterectomy w/oopherectomy Colonoscopy: August 2022, rec. 10 yr follow up Flu shot given in office today , TD current [facility] Medical History Insomnia Hiatal hernia BMI 36.0-36.9,adult Right pulmonary lesion Surgical History S/P laparoscopic sleeve gastrectomy Hx of colonoscopy Hx of hysterectomy Hx of breast reduction, elective Family History Mother No problems noted. Father No problems noted. Sister No problems noted. Sister No problems noted. Sister No problems noted. Son No problems noted. Son Thyroid condition Daughter No problems noted. Social History Housing: Apartment Are you a primary acute care clinical nurse specialist to a significant other at home: No Do you presently have visiting nurse or other home services: No Alcohol intake: never Patient Tobacco Use Status: Never used Tobacco e-Cigarette/Vaping Use: Never Used Second Hand Smoke Exposure: No service: No Current occupational status: unemployed Cognitive needs: No Hearing needs: No Vision needs: Yes Questionnaire PHQ-9 Over the last 2 weeks, how often have you been bothered by any of the following problems? 1. Little interest or pleasure in doing things: not at all 2. Feeling down, depressed, or hopeless: not at all 3. Trouble falling or staying asleep, or sleeping too much: not at all 4. Feeling tired or having little energy: not at all 5. Poor appetite or overeating: not at all 6. Feeling bad about yourself - or that you are a failure or have let yourself or your family down: not at all 7. Trouble concentrating on things, such as reading the newspaper or watching television: not at all 8. Moving or speaking so slowly that other people could have noticed. Or the opposite - being so fidgety or restless that you have been moving around a lot more than usual: not at all 9. Thoughts that you would be better off or of hurting yourself in some way: not at all Total score: 0 Depression Screening Interpretation: Negative Depression Screening Done: Yes 14775 - PHQ-9 Billing: Yes Source: Developed by Drs. Alvaro Greene, Douglas Day and colleagues, with an educational jason from [employer]. Thrive Questionnaire Date Thrive assessed: 06/27/23 AUDIT C Alcohol Use Questionnaire (AUDIT-C) 1. How often do you have a drink containing alcohol?: Never Total Score: 0 CLAUDIA-7 AMB Questionnaire CLAUDIA-7 Date CLAUDIA - 7 assessed: 06/27/23 Source: Developed by Drs. Alvaro Greene, Douglas Day and colleagues, with an educational jason from [employer]. Review of Systems Const Denies chills, Denies fatigue, Denies fever(s) and Denies poor appetite Eyes Denies no additional complaints ENT Reports Normal hearing present Card Denies chest pain, Denies syncope, Denies rapid heart rate and Denies dyspnea Resp Denies cough and Denies dyspnea GI Denies change in stool character, Denies constipation, Denies diarrhea, Denies nausea and Denies vomiting Denies urinary frequency, Denies dysuria and Denies urinary urgency Neuro Reports Normal hearing present, Denies confusion and Denies syncope Psych Denies confusion Endo Denies fatigue Physical exam (Primary Care) Vital Signs: Last Vital Signs Pulse 56 09/26/23 08:00 BP 112/70 09/26/23 08:00 Pulse Ox 98 09/26/23 08:00 Oxygen Delivery Method Room Air 09/26/23 08:00 BMI result Body Mass Index 26.4 Tobacco/Smoking Status: Tobacco use Status Tobacco use date assessed 06/27/23 09/26/23 08:03 Patient Tobacco Use Status Never used Tobacco 09/26/23 08:03 e-Cigarette/Vaping Use Never Used 09/26/23 08:03 PHQ-9: PHQ-9 Score PHQ-9: Total score 0 09/26/23 08:09 Depression Screening Interpretation: Negative Thrive Assessment: Date of Thrive Assessment Date Thrive assessed 06/27/23 09/26/23 08:03 Const General: No confusion Orientation/consciousness: No confusion HENMT Head: Yes normocephalic and Yes atraumatic Ears: external ears normal and TM's normal bilaterally General nose exam: Normal external nose present and Normal nasal mucous membranes and turbinates present Face and sinus: Yes normal facial exam and Yes sinuses nontender Mouth: moist mucous membranes Throat: Yes tonsils normal Eyes Conjunctivae: conjunctivae normal Sclerae: sclerae normal Pupils: Equal, round and reactive pupils present and Pupils normal by confrontation EOM: EOMs intact bilaterally Direct Ophthalmoscopy: normal light reflex Neck Neck: Yes no lymphadenopathy and Yes supple Thyroid: Thyroid normal Chest Chest palpation & inspection: normal inspection of the chest Resp Effort & Inspection: normal respiratory effort Auscultation: clear to auscultation bilaterally, no crackles, no rhonchi and no wheezes Cardio Rate: regular rate Rhythm: regular rhythm Peripheral pulses: radial pulses present and dorsalis pedis present GI Inspection: Yes normal to inspection Palpation (GI): Soft to palpation, nontender and No hepatosplenomegaly present Auscultation: normoactive bowel sounds Skin General skin exam: no rashes or lesions noted Neuro General: No confusion Cranial nerves: Yes Equal, round and reactive pupils present and Yes Normal hearing present Cognition (Neuro): normal cognition Gait exam (Neuro): Normal gait present Motor exam (neuro): 5/5 motor strength present throughout Deep tendon reflexes (DTR's): Right brachioradialis reflex intensity grade: 2+, Left brachioradialis reflex intensity grade: 2+, Right patellar reflex intensity grade: 2+ and Left patellar reflex intensity grade: 2+ Extrem General: No edema Office Procedures Flu Questionnaire Does the patient have a severe egg allergy?: No Does the patient have severe life threatening allergies?: No Does the patient have a fever or illness today?: No Has the patient ever had Guillain-Charleston Syndrome?: No Has the patient ever had any past reaction to a flu shot?: No Immunizations flu vacc [id number] 6mos up(PF) 60 mcg(15 mcgx4)/0.5 mL IM syringe Performing Provider: JAY Soto [facility] Administered by: Stephany Pradhan CMA on 09/26/23 08:04 Dose Route Admin Location Dispensed Lot Number Expiration Date NDC Taker Off Hemp Fiber 0.5 mL IM Left Deltoid 0.5 mL [id number] 05/31/24 33544-519-79 [employer] VIS Given Date VIS Provided VIS Publication Date 09/26/23 Single Vaccine 21 Eligibility Eligibility Date Funding Source Not [facility] Eligible 09/26/23 Private Assessment and Plan Assessment & Plan (1) LIN (obstructive sleep apnea): Code(s): G47.33 - Obstructive sleep apnea (adult) (pediatric) Plan: Patient reports symptoms resolved since laproscopic sleeve gastrectomy. (2) Depression: Code(s): F32.A - Depression, unspecified Plan: Continue on current medications (3) Anxiety: Code(s): F41.9 - Anxiety disorder, unspecified Plan: Continue on current medications (4) Physical exam, annual: Code(s): Z00.00 - Encounter for general adult medical examination without abnormal findings Plan: Follow up in 1 year or sooner if needed. Orders: Orders Influenza [id number] Immunization Today Z23 - Encounter for immunization Coding Level of Care Code Est Pt Prev Care 40-64y(36707) Diagnoses LIN (obstructive sleep apnea) G47.33 Depression F32.A Anxiety F41.9 Physical exam, annual Z00.00
== END 2023-09-26 08:27 | disposition home or self-care (01) ==
PROVIDERS: PCP Internal Medicine; Visit Provider Nurse Practitioner Family
DX: Z00.00 Encounter for general adult medical examination without abnormal findings (principal); G47.33 Obstructive sleep apnea (adult) (pediatric); F32.A Depression, unspecified; F41.9 Anxiety disorder, unspecified; Z23 Encounter for immunization
CPT/HCPCS: 90471; 90686; 99396

== ENCOUNTER 2023-10-14 08:21 | Outpatient (AMB) | payer OTHER, SELFPAY ==
--- NOTE | 2023-10-14 09:57 | A.OFFVIS_ITS ---
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 *NATURAL SCIENCE CURATOR* Allergies No Known Allergies Allergy (Verified 10/14/23 10:04) Medication List - Last Reconciled 10/14/23 by Ray Acuna MD buspirone 10 mg PO BID cephalexin 500 mg PO Q12H docusate sodium (Colace) 100 mg PO DAILY melatonin 5 - 10 mg PO BEDTIME PRN uqtmovjqnqhx-nrl-iioo-FA-vit K 45 mg iron- 800 mcg-120 mcg (Bariatric Multivitamins) caps PO sertraline 150 mg PO DAILY HPI TV Pre Op Panni 10/22/23 *NATURAL SCIENCE CURATOR* HPI Details Start time: 9.55am, End time: 10.25am ?I spent 25 minutes speaking with the patient on the phone plus an additional 5 minutes reviewing and updating records for a total of 30 minutes HPI Comments History of Present Illness Details Overall weight loss: 55 lbs, 28.5% TBWL S/p sleeve gastrectomy by Dr. Foreman on 03/26/2022 Present meal plan includes: 9am 30g protein shake- Premier 1pm 1-2oz protein, optional 1oz veg, con tinue to cook with avocado oil 5pm 1-2oz protein, optional 1oz veg 7pm high protein snack 1-2 snack - 1 serving nuts, fruit , Gree k yogurt, protein bar PFSH Medical History Insomnia Hiatal hernia BMI 36.0-36.9,adult Right pulmonary lesion Surgical History S/P laparoscopic sleeve gastrectomy Hx of colonoscopy Hx of hysterectomy Hx of breast reduction, elective Family History Mother No problems noted. Father No problems noted. Sister No problems noted. Sister No problems noted. Sister No problems noted. Son No problems noted. Son Thyroid condition Daughter No problems noted. Social History Housing: Apartment Are you a primary care partner to a significant other at home: No Do you presently have visiting nurse or other home services: No Alcohol intake: never Patient Tobacco Use Status: Never used Tobacco e-Cigarette/Vaping Use: Never Used Second Hand Smoke Exposure: No service: No Current occupational status: unemployed Cognitive needs: No Hearing needs: No Vision needs: Yes Assessment & Plan Assessment & Plan (1) Excess skin: Code(s): L98.7 - Excessive and redundant skin and subcutaneous tissue Plan: 1. Plan for panniculectomy 2. Continue all your vitamins and medications 3. Avoid aspirin, Motrin, aleve, Naproxyn, Advil, etc 4. Please fruit or nut picker the two prescriptions I sent to your pharmacy. One is an antibiotic and the other is a stool softener. The antibiotic is for after surgery. Start the Colace (stool softener) now and start taking one per day 5. Please do the preoperative blood work any day between Saturday10/15/23 and Saturday10/18/23 6. Change nutritional plan to 2 Celebrate Rebuild shakes (HALF scoop EACH in 8oz almond milk) at 8am-10am and 11am-1pm, one Celebrate protein bar at 2pm-5pm, dinner at 5pm (5 forkfuls=2.5oz of protein and 5 forkfuls=2.5oz of salad or vegetables, one Celebrate bar at 7pm-9pm. If you feel hungry, please do one more Celebrate Rebuild shake (HALF scoop in 8oz almond milk) at 9pm-11pm. This nutritional plan will give you the best nutritional support to heal your incisions after your surgery. 7. Risks and complications were discussed the possibility of bleeding that may require transfusion, loss of the umbilicus, wound dehiscence or infection, dog ears , flap asymmetry. We also discussed the need for a drain postoperatively that may remain for more than 3-4 weeks. We also discussed the importance of strict avoidance of weight lifting. 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 - Postsurgical malabsorption, not elsewhere classified; Z90.3 - Acquired absence of stomach [part of] (3) S/P laparoscopic sleeve gastrectomy: Comment: 08/2022 Code(s): Z98.84 - Bariatric surgery status Orders: Orders Partial Thromboplastin Time Today K91.2 - Postsurgical malabsorption, not elsewhere classified, Z90.3 - Acquired absence of stomach [part of] Prothrombin Time INR Today K91.2 - Postsurgical malabsorption, not elsewhere classified, Z90.3 - Acquired absence of stomach [part of] Type and Screen Today K91.2 - Postsurgical malabsorption, not elsewhere classified, Z90.3 - Acquired absence of stomach [part of] Medications: New cephalexin 500 mg PO Q12H 60 caps 2RF M79.3 - Panniculitis, unspecified docusate sodium (Colace) 100 mg PO DAILY 30 caps 2RF K59.00 - Constipation, unspecified Telehealth Telehealth Location of provider rendering services: practice address Location of patient: address on file Patient Identification confirmed using: Name, : Yes Telehealth method: voice only Patient verbally consented to treatment: Yes Patient verbally consented to billing insurance company: Yes Patient informed of any privacy concerns related to visit: Yes Minutes spent on Phone/Video with Pt.: 30 Coding Level of Care Code Tele Est Pt Level 4 (66243) Diagnoses Excess skin L98.7 Postgastrectomy malabsorption K91.2; Z90.3 S/P laparoscopic sleeve gastrectomy Z98.84 Time Spent (min) 30
[2023-10-14 10:03] VITALS: BMI 26.1
== END 2023-10-14 10:26 | disposition home or self-care (01) ==
LOC: HO.HBS 08:21
PROVIDERS: PCP Internal Medicine; Visit Provider Surgery
DX: L98.7 Excessive and redundant skin and subcutaneous tissue (principal); K91.2 Postsurgical malabsorption, not elsewhere classified; Z90.3 Acquired absence of stomach [part of]; Z98.84 Bariatric surgery status
CPT/HCPCS: 99214

== ENCOUNTER → 2023-10-14 08:21 | Outpatient (BNVA) | payer OTHER, SELFPAY | PROVIDERS: PCP Internal Medicine; Visit Provider Surgery ==

== ENCOUNTER 2023-10-15 08:55 | Outpatient (REF) | payer OTHER, SELFPAY ==
--- NOTE | ~2023-10-15 | XR_ITS ---
EXAMINATION: XR BILATERAL WRISTS/HANDS CLINICAL INFORMATION: Rheumatoid arthritis. COMPARISON: None TECHNIQUE: 4 views of each hand. FINDINGS: RIGHT HAND: Moderate degenerative changes in the first carpometacarpal joint with joint space narrowing and hypertrophic change. The bones are diffusely demineralized. Cystic lucencies are present in the carpal bones. Narrowing of the radiocarpal space and intercarpal spaces with degenerative changes. Mild degenerative changes in the scattered interphalangeal joints. LEFT HAND: Moderate degenerative changes in the first carpometacarpal joint with joint space narrowing and hypertrophic change. The bones are diffusely demineralized. Cystic lucencies are present in the carpal bones. Moderate degenerative changes in the first metacarpophalangeal joint. Narrowing of the radiocarpal space and intercarpal spaces with degenerative changes. Mild degenerative changes in the scattered interphalangeal joints. 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 No displaced fracture. Recommend follow-up imaging in 10-14 days if fracture is suspected.
--- NOTE | ~2023-10-15 | XR_ITS ---
EXAMINATION: XR BILATERAL WRISTS/HANDS CLINICAL INFORMATION: Rheumatoid arthritis. COMPARISON: None TECHNIQUE: 4 views of each hand. FINDINGS: RIGHT HAND: Moderate degenerative changes in the first carpometacarpal joint with joint space narrowing and hypertrophic change. The bones are diffusely demineralized. Cystic lucencies are present in the carpal bones. Narrowing of the radiocarpal space and intercarpal spaces with degenerative changes. Mild degenerative changes in the scattered interphalangeal joints. LEFT HAND: Moderate degenerative changes in the first carpometacarpal joint with joint space narrowing and hypertrophic change. The bones are diffusely demineralized. Cystic lucencies are present in the carpal bones. Moderate degenerative changes in the first metacarpophalangeal joint. Narrowing of the radiocarpal space and intercarpal spaces with degenerative changes. Mild degenerative changes in the scattered interphalangeal joints. 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 No displaced fracture. Recommend follow-up imaging in 10-14 days if fracture is suspected.
== END 2023-10-15 08:56 | disposition home or self-care (01) ==
LOC: HO.XRAY 08:55
PROVIDERS: PCP Internal Medicine; Visit Provider Student in an Organized Health Care Education/Training Program
DX: M06.9 Rheumatoid arthritis, unspecified (principal)
CPT/HCPCS: 73110; 73130

== ENCOUNTER 2023-10-17 10:49 | Outpatient (AMB) | payer OTHER, SELFPAY ==
[2023-10-17 10:52] VITALS: BP 110/70; PULSE 74; TEMP 36.1; O2SAT 98; BMI 26.2
--- NOTE | 2023-10-17 10:52 | MHC.OFFVIS ---
Intake Vital Signs 10/17/23 10:52 Height 5 ft 1 in Weight 138 lb 14.259 oz BMI 26.2 BP 110/70 Blood Pressure Location Rt brachial Position Sitting Pulse 74 Pulse Source Pulse Oximeter Temp 97.0 F Temp Source Skin Pulse Oximetry (%) 98 Oxygen Delivery Method Room Air Intake Visit Reasons: Stills ds Intake Note: Pt last seen 04/23/23, presents today for follow up and test results. Completed hand xrays , pain is worse on left. She states pain starts at wrist and goes up to the elbow. Real Estate Professional Required: Yes Accompanied by: Self / Same As Patient Allergies No Known Allergies Allergy (Verified 10/17/23 10:55) Medication List - Last Reconciled 10/17/23 by Tuan Muller MD buspirone 10 mg PO BID cephalexin 500 mg PO Q12H docusate sodium (Colace) 100 mg PO DAILY melatonin 5 - 10 mg PO BEDTIME PRN jnnwqdetbonx-wtz-oivj-FA-vit K 45 mg iron- 800 mcg-120 mcg (Bariatric Multivitamins) caps PO sertraline 150 mg PO DAILY HPI HPI Comments History of Present Illness Details Patient returns for follow-up after completion of her x-rays. States that over the last 1-2 weeks she has been having left wrist pain that radiates up the left forearm and elbow. She also has been having left knee pain. He denies any joint swelling. Initial history: 52-year-old female who presents for evaluation of rheumatoid arthritis. She states that she was diagnosed with Still's disease around 2001. She had fevers and rashes on her head and abdomen. And she was on prednisone initially, she was also on other meds including methotrexate which she could not tolerate and was ultimately on Enbrel for a few years. She has not been on any treatment since 2004. She states that she gets pain in her right thumb as well as both knees. She received multiple injections at [facility], she received bilateral knee gel injections about a year ago which provided some relief. She also gets thumb injections which also helped. Patient has not had those episodes of fevers and rashes since her diagnosis many years ago. She is unaware of any other family history of autoimmune rheumatic disease [facility] Medical History Insomnia Hiatal hernia BMI 36.0-36.9,adult Right pulmonary lesion Surgical History S/P laparoscopic sleeve gastrectomy Hx of colonoscopy Hx of hysterectomy Hx of breast reduction, elective Family History Mother No problems noted. Father No problems noted. Sister No problems noted. Sister No problems noted. Sister No problems noted. Son No problems noted. Son Thyroid condition Daughter No problems noted. Social History Housing: Apartment Are you a primary transition of care specialist to a significant other at home: No Do you presently have visiting nurse or other home services: No Alcohol intake: never Patient Tobacco Use Status: Never used Tobacco e-Cigarette/Vaping Use: Never Used Second Hand Smoke Exposure: No service: No Current occupational status: unemployed Cognitive needs: No Hearing needs: No Vision needs: Yes Review of Systems Eyes Reports itchy eyes Musc Reports arthralgias and Denies joint swelling Aller/Immun Reports itchy eyes Physical Exam Vital Signs: Last Vital Signs Temp 97.0 F 10/17/23 10:52 Pulse 74 10/17/23 10:52 BP 110/70 10/17/23 10:52 Pulse Ox 98 10/17/23 10:52 Oxygen Delivery Method Room Air 10/17/23 10:52 BMI result Body Mass Index 26.2 Const General: cooperative, healthy appearing and comfortable Nutritional Appearance: overweight Orientation/consciousness: patient oriented x3 Limitations: no limitations HEENT Head: Yes normocephalic and Yes atraumatic Mouth: moist mucous membranes Resp Effort & Inspection: normal respiratory effort and able to speak in complete sentences Skin General skin exam: no rashes or lesions noted Neuro General: patient oriented x3 Extrem Other: Mild osteoarthritic changes of both hands Bilateral reduced wrist flexion Mild left wrist tenderness to palpation and pain with full flexion and extension Left knee crepitus Office Procedures Joint Injection/Drain Joint Injection/Drain Details: left wrist Prep: site was prepped using sterile technique and ethochloride spray was applied Injected: 20 mg of, Kenalog and other (0.1 mL of 1% lidocaine) Approach Used: other Coding Details: The area over the dorsum of the left wrist was prepped with ChloraPrep then using a 27 gauge needle 20 mg of Kenalog mixed with 0.1 cc of 1% lidocaine was injected into the wrist joint space. Just after the needle came out before the Band-Aid was placed, patient started having a reaction with lightheadedness,, diaphoresis, patient was placed on the exam table. Vitals were taking, BP was 108/72. O2 sat was 96%. Heart rate was in the low 50s Few minutes after. Patient's lightheadedness improved. Heart rate came back up to the high 60s. This was likely a vasovagal response. 72878 - Medium joint Procedure code (CPT) selection complete Assessment & Plan Assessment & Plan (1) Still's disease of adult: Comment: dx around 2001 (fevers, rash, joint pain) initially on prednisone, could not tolerate methotrexate, was on Enbrel for a few years until 2004 Code(s): M06.1 - Adult-onset Still's disease Plan: This is a 52-year-old female with history of adult onset Still's disease who presents as a new patient. She was diagnosed with Still's disease around 2001 manifested by fevers, rashes and joint pain. Was treated with prednisone, she could not tolerate methotrexate, she was on Enbrel for a few years until 2004. She states that she has not had recurrence of those symptoms for many years. 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 Patient has used wrist flexion bilaterally. Recently she has been having left wrist pain. There is no significant swelling on exam. I believe patient's pain at this point is likely due to degenerative arthritis of the wrists rather than active synovitis., discussed with patient. I suggested a left wrist steroid injection, patient agreed to proceed. With patient's consent the left wrist was injected with Kenalog, Just after the needle came out before the Band-Aid was placed, patient started having a reaction with lightheadedness,, diaphoresis, patient was placed on the exam table.? Vitals were taking, BP was 108/72.? O2 sat was 96%.? Heart rate was in the low 50s Few minutes after.? Patient's lightheadedness improved.? Heart rate came back up to the high 60s.? This was likely a vasovagal response. Patient to follow-up in 1 month. Blood work before next visit. Will consider restarting Enbrel if patient continues to have wrist pain. Plan I spent 35 minutes reviewing patient's chart, evaluating patient, ordering diagnostic workup, counseling patient and documenting in the chart Orders: Orders Complete Blood Count Auto Diff 1 Month M06.1 - Adult-onset Still's disease Erythrocyte Sedimentation Rate 1 Month M06.1 - Adult-onset Still's disease T Spot TB 1 Month Z11.7 - Encounter for testing for latent tuberculosis infection AMB Joint Injection/Aspiration Today M06.9 - Rheumatoid arthritis, unspecified Comprehensive Met. Panel 1 Month M06.1 - Adult-onset Still's disease C Reactive Protein 1 Month M06.1 - Adult-onset Still's disease Hepatitis A,B,C Profile 1 Month Z11.59 - Encounter for screening for other viral diseases Coding Level of Care Code Est Pt Level 4 (70909) Diagnoses Still's disease of adult M06.1 CPT Codes Coding - 41276 Medium joint: 71448 - Medium joint ([id number])
== END 2023-10-17 11:49 | disposition home or self-care (01) ==
PROVIDERS: PCP Internal Medicine; Visit Provider Student in an Organized Health Care Education/Training Program
DX: M06.1 Adult-onset Still's disease (principal); M19.032 Primary osteoarthritis, left wrist
CPT/HCPCS: 20605; 99214

== ENCOUNTER → 2023-10-17 10:49 | Outpatient (BNVA) | payer OTHER, SELFPAY | PROVIDERS: PCP Internal Medicine; Visit Provider Student in an Organized Health Care Education/Training Program | DX: M06.1 Adult-onset Still's disease (principal) | CPT/HCPCS: 20605; 99212 ==

== ENCOUNTER 2023-10-22 07:44 | Day surgery (SDC) | payer OTHER, SELFPAY ==
[2023-10-16 08:44] LABS: Prothrombin Time 12.3 SEC (11.1-13.3)
[2023-10-16 08:46] LABS: Partial Thromboplastin Time 34.2 SEC (26.0-36.4)
--- NOTE | 2023-10-20 14:47 | P.HPSUR_ITS ---
Pre-Procedural Eval Section A Date of Service: 10/20/23 The patient is an INPATIENT: No The History & Physical has been completed within 30 days and I have reviewed it.: Yes Section B Chief Complaint: Excessive and redundant skin and subcutaneous tiss Relevant Family History (Specify if Yes): No Relevant Social History: None Present Medications: None Medical History: No relevant PMH History of Previous Operations: Relevant previous surgery/procedure and date(s) (Laparoscopic sleeve gastrectomy) Allergies: Allergies Allergy/AdvReac Type Severity Reaction Status Date / Time No Known Allergies Allergy Verified 10/17/23 10:55 Review of Systems Sugical H&P ROS: Negative: Constitution, Cardiovascular, Respiratory, Neurological, Psychiatric, Hem-Onc, Allergic/Immunologic, Gastrointestinal, Genitourinary, Musculoskeletal, Integumentary, Endocrine and Eyes/Ears/Nose/Throat Exam Surgical H&P Exam: Normal: HEENT, Normal: Heart, Normal: Lungs, Normal: Extremit ies, Normal: Abdomen, Normal: Skin and Normal: Neurological Plan Diagnosis/Plan: Unchanged I have reviewed the history and physical and performed a pertinent physical examination on my patient. No changes have occurred unless specified. Time Spent With Patient Time: Total time managing care of this patient today ____ minutes.
[2023-10-21 09:14] VITALS: BMI 26.1
--- NOTE | 2023-10-21 10:00 | HO.ANESPROP2 ---
Documented by User: Chapis Araujo NP 10/21/23 10:02 HPI - Anesthesia Eval Consult details Narrative: 53yo F for Panniculectomy s/p gastric sleeve 2021 with ETT 7 PMFSH Active Problems Active Problems: All Active Problems (Updated 10/14/23 @ 10:00 by Ray Acuna MD) Postgastrectomy malabsorption (Acute) Ganglion cyst of left foot (Acute) Excess skin (Acute) Still's disease of adult (Acute) Dermatomycosis (Acute) Pure hypercholesterolemia (Acute) S/P laparoscopic sleeve gastrectomy (Acute) Overweight (BMI 25.0-29.9) (Acute) Obesity (BMI 30-39.9) (Acute) Anxiety (Acute) Depression (Acute) LIN (obstructive sleep apnea) (Acute) GERD (gastroesophageal reflux disease) (Acute) Past Medical History Medical History Insomnia Hiatal hernia BMI 36.0-36.9,adult Right pulmonary lesion Family History Family History Mother No problems noted. Father No problems noted. Sister No problems noted. Sister No problems noted. Sister No problems noted. Son No problems noted. Son Thyroid condition Daughter No problems noted. Family history of problems with anesthesia: No Surgical History Surgical History S/P laparoscopic sleeve gastrectomy Hx of colonoscopy Hx of hysterectomy Hx of breast reduction, elective History of Problems with Anesthesia: No Social History Household Members: None Housing: Apartment Are you a primary health care / medical job titles to a significant other at home: No Do you presently have visiting nurse or other home services: No (daughter will stay over post-op) Alcohol intake: never Patient Tobacco Use Status: Never used Tobacco e-Cigarette/Vaping Use: Never Used Second Hand Smoke Exposure: No Use of substances other than those prescribed or required for medical reasons: No Have you been hit, kicked, punched, or otherwise hurt by someone within the past year? If so, by whom?: No Are you DNR?: No Advance Directives: No Advance Directives Information Provided: Yes Advance Directives on File: No Recently lost weight without trying: No service: No Current occupational status: unemployed Cognitive needs: No Hearing needs: No Vision needs: Yes Meds Allergies Allergy/AdvReac Type Severity Reaction Status Date / Time No Known Allergies Allergy Verified 10/21/23 09:13 Home Medications Medication Instructions Recorded Confirmed Last Taken Type melatonin 5 mg tablet 5 - 10 mg PO BEDTIME PRN insomnia 03/20/22 10/21/23 10/21/23 History sertraline 100 mg tablet 150 mg PO DAILY 03/20/22 10/21/23 10/22/23 History buspirone 10 mg tablet 10 mg PO BID anxiety 07/30/22 10/21/23 10/22/23 History urcelzjj-akxjwtos-lmbc 45 mg-folic 1 cap PO DAILY 05/16/23 10/21/23 10/21/23 History acid 800 mcg-vit K 120 mcg capsule (Bariatric Multivitamins) Exam Height,Weight and Vital Signs: Height 5 ft 1 in Weight 62.596 kg Pertinent Lab Results Pertinent Lab Results: Laboratory Tests 10/16/23 10/16/23 08:10 08:19 PT 12.3 INR 1.0 APTT 34.2 Blood Type O Positive Antibody Screen POSITIVE Antibody Identification Anti-K Crossmatch (AHG) See Detail Laboratory Tests 06/28/23 08:18 WBC 5.8 Hgb 13.9 Hct 44.6 Plt Count 142 L Sodium 141 Potassium 3.8 Chloride 107 Carbon Dioxide 22 BUN 15 Creatinine 0.66 Assessment and Plan Assessment Anesthesia Assessment: Chart Reviewed Final Anesthetic Review Family History of Problems with Anesthesia: No History of Problems with Anesthesia: No Documented by User: Meri Liu MD 10/22/23 12:23 PMFSH Active Problems Active Problems: All Active Problems (Updated 10/22/23 @ 10:12 by Meri Liu MD) Postgastrectomy malabsorption (Acute) Ganglion cyst of left foot (Acute) Excess skin (Acute) Still's disease of adult (Acute) Dermatomycosis (Acute) Pure hypercholesterolemia (Acute) S/P laparoscopic sleeve gastrectomy (Acute) Overweight BMI 26.1 Anxiety (Acute) Depression (Acute) H/o LIN - no longer using CPAP GERD (gastroesophageal reflux disease) (Acute) Past Medical History Medical History Insomnia Hiatal hernia BMI 36.0-36.9,adult Right pulmonary lesion Family History Family History Mother No problems noted. Father No problems noted. Sister No problems noted. Sister No problems noted. Sister No problems noted. Son No problems noted. Son Thyroid condition Daughter No problems noted. Surgical History Surgical History S/P laparoscopic sleeve gastrectomy Hx of colonoscopy Hx of hysterectomy Hx of breast reduction, elective Social History Household Members: None Housing: Apartment Are you a primary health care / medical job titles to a significant other at home: No Do you presently have visiting nurse or other home services: No (daughter will stay over post-op) Alcohol intake: never Patient Tobacco Use Status: Never used Tobacco e-Cigarette/Vaping Use: Never Used Second Hand Smoke Exposure: No Use of substances other than those prescribed or required for medical reasons: No Have you been hit, kicked, punched, or otherwise hurt by someone within the past year? If so, by whom?: No Are you DNR?: No Advance Directives: No Advance Directives Information Provided: Yes Advance Directives on File: No Recently lost weight without trying: No service: No Current occupational status: unemployed Cognitive needs: No Hearing needs: No Vision needs: Yes Meds Allergies Allergy/AdvReac Type Severity Reaction Status Date / Time No Known Allergies Allergy Verified 10/21/23 09:13 Home Medications Medication Instructions Recorded Confirmed Last Taken Type melatonin 5 mg tablet 5 - 10 mg PO BEDTIME PRN insomnia 03/20/22 10/21/23 10/21/23 History sertraline 100 mg tablet 150 mg PO DAILY 03/20/22 10/21/23 10/22/23 History buspirone 10 mg tablet 10 mg PO BID anxiety 07/30/22 10/21/23 10/22/23 History bdmeklif-lyeqqhwl-emrl 45 mg-folic 1 cap PO DAILY 05/16/23 10/21/23 10/21/23 History acid 800 mcg-vit K 120 mcg capsule (Bariatric Multivitamins) Exam Height,Weight and Vital Signs: Height 5 ft 1 in Weight 62.596 kg Vital Signs Temp Pulse Resp BP Pulse Ox O2 Del Method 10/22/23 08:08 97 F 54 20 101/69 97 Room Air Airway Mallampati Class: III (Small mouth) TM Dist: >3cm Neck ROM: Full Loose/Missing/Broken Teeth: No (Denies broken or loose teeth) Heart: RRR Lungs: CTAB Assessment and Plan Assessment Anesthesia Assessment: Anesthesia Plan Discussed Final Anesthetic Review NPO: Yes ASA Class: III Final Preanesthetic Review: No Changes in Pt Med Stat, Meds/Allgs Chart Reviewed, Consent Obtained/Reviewed and Anes Risks/Benef Reviewed Patient Risk: Intermediate Procedure Risk: Intermediate Assessment/Block/Sedation in SS: Assess/Block/Sedation-SS Anesthetic Plan Anesthetic Plan: GA Disposition: Standard PACU
[2023-10-22] VITALS (10 sets, daily range): BP systolic 100–125; BP diastolic 56–75; PULSE 54–96; RESP 14–20; TEMP 36.1–36.6; O2SAT 97–99
[2023-10-22] MEDS: Lactated Ringers 1,000 ML 100 ML IVCONT (08:28)
--- NOTE | 2023-10-22 10:18 | PM.OP ---
Brief Operative Note Date of Service: 10/22/23 Pre-op diagnosis: Excess abdominal skin Post-op diagnosis: same Procedure: PROCEDURE: Panniculectomy with umbilical transposition and bilateral subcutaneous fat flaps INDICATION: This a 53 year old female who underwent laparoscopic sleeve gastrectomy. She had an excellent result achieving a BMI of 26.1 kg/m2 with a total weight loss of 55lbs, or 28.5% of her TBWL. As a result, she has developed panniculitis which has not resolved despite continuous use of clotrimazole ointment as well as skin irritation. On exam she has extreme skin laxity due to massive weight loss, with the abdominal pannus completely hanging 4cm below the pubis. Panniculectomy was recommended. We discussed the two options for the panniculectomy of using a combined vertical and horizontal incisions or just a horizontal (bikini) incision. It was my recommendation to do only horizontal incision based on her body habitus and skin laxity. The patient agreed with this. Risks and complications were discussed with the patient including bleeding, infection, umbilical loss, flap necrosis, asymmetry, dehiscence, seroma, VTE. The patient understood the risks and was in agreement to proceed with surgery. PROCEDURE: The incisions were appropriately marked at the preop area with the patient standing and laying down. After induction of general anesthesia a Regan catheter and pneumatic compression devices were placed. The patient was prepped and draped in the usual sterile manner and the incisions were marked again and confirmed. The skin was infiltrated with lidocaine and epinephrine. The #10 blade scalpel was used for the large incisions and the #15 blade scalpel for the umbilicus. Cautery was used to divide the subcutaneous tissues until the fascia was identified. Then I used the cautery to separate the pannus from the fascia. The inferior incision was made initially and I mobilized the flap for a several centimeters cephalad to the umbilicus. The umbilicus was incised circumferentially and detached from the surrounding tissues all the way to the fascia while its stalk was preserved. With the patient in reflex position I confirmed that the skin flaps were appropriate and would allow for the tissues to come together with reasonable tension. At that point a horizontal incision was made 2 cm above the umbilicus. #10 blade was used for the skin, cautery for the dermis and the remaining tissues. A subcutaneous fat flap was raised from the upper skin flap in order to fill the space under the skin and support the closure of the two flaps. In addition the inferior flap was mobilized caudally for a few centimeters to create a space for the subcutaneous fat flap as well as relieve tension from the closure. A circumferential incision was made at the area where the umbilicus would be re-implanted. The umbilicus was appropriately oriented and was delivered through the defect and was secured in place with a Benld. No bleeding was noted anywhere. One PAUL drain was placed from the left corner of the horizontal incision across the wound and was secured in place with a silk suture. A total of 7ml of Zynrelef was applied on top of the fascia and under the subcutaneous fat flaps. The subcutaneous fat flap was secured under the inferior flap with several interrupted 3.0 Monocryl sutures. The two flaps were brought together and were attached at the midline of the horizontal incision with a #3.0 Monocryl suture. At that point the umbilicus was properly oriented and was re-approximated to the skin with 8 interrupted 3.0 Monocryl sutures. In a similar fashion the skin flaps were re-approximated with multiple 3.0 Monocryl sutures. The skin was closed in all incisions and umbilicus with 4.0 Monocryl sutures. Steri-strips, xeroform gauzes and gauzes were used to cover the incisions. An abdominal binder was also placed. The was awaken and was transferred to the recover room in a stable condition. I was present and performed the entire procedure. Darling Echevarria was the certified first assistant. Fausto Acuna MD, PhD, FACS Surgeon: Ray Acuna MD Surgeon: Ray Acuna MD Anesthesia: GETA, local and other (7ml Zynrelef) Was an Manager Group used for this Procedure?: No Manager Group: Osmany Echevarria Estimated blood loss (mL): 10 IV fluids (mL): 1,000 Urine output (mL): 600 Pathology: other (abdominal pannus) Condition: stable Disposition: PACU
== END 2023-10-22 17:10 | disposition home or self-care (01) ==
PROVIDERS: PCP Internal Medicine; Visit Provider Surgery
PROC: 0JB80ZZ Excision of Abdomen Subcutaneous Tissue and Fascia, Open Approach (ICD-10-PCS; CPT 15830; principal; 2023-10-22 10:10)
DX: L98.7 Excessive and redundant skin and subcutaneous tissue (principal); K91.2 Postsurgical malabsorption, not elsewhere classified; M79.3 Panniculitis, unspecified; E65 Localized adiposity; K44.9 Diaphragmatic hernia without obstruction or gangrene; G47.00 Insomnia, unspecified; J98.4 Other disorders of lung; Z79.899 Other long term (current) drug therapy; Z90.3 Acquired absence of stomach [part of]; Z98.84 Bariatric surgery status
CPT/HCPCS: 15830; 15847; 36415; 85610; 85730; 86850; 86870; 86900; 86901; 86902; 86920; 86922; 88304; C9088; J0131; J0690; J1100; J1170; J2250; J2371; J2405; J2704; J3010; J3370

== ENCOUNTER → 2023-10-22 07:44 | Outpatient (BNV) | payer OTHER, SELFPAY | PROVIDERS: PCP Internal Medicine; Visit Provider Surgery | DX: L98.7 Excessive and redundant skin and subcutaneous tissue (principal) | CPT/HCPCS: 15830 ==

== ENCOUNTER → 2023-10-29 09:49 | Outpatient (BNVA) | payer OTHER, SELFPAY | PROVIDERS: PCP Internal Medicine; Visit Provider Physician Assistant Surgical ==

== ENCOUNTER 2023-10-30 14:21 | Outpatient (AMB) | payer OTHER, SELFPAY ==
--- NOTE | 2023-10-30 14:43 | A.OFFVIS_ITS ---
Intake VS Expanded 10/30/23 15:03 BP 113/55 L Blood Pressure Location Rt brachial Blood Pressure Position Sitting Pulse 60 Pulse Source Pulse Oximeter Temp 97.0 F Temperature Source Temporal Artery Scan Pulse Oximetry 98 Oxygen Delivery Method Room Air Intake Visit Reasons: (OV) 8 Days PO Panniculectomy 10/22/23 Allergies No Known Allergies Allergy (Verified 10/30/23 15:03) HPI HPI Comments History of Present Illness Details 53-year-old female returns to the office today in follow-up. She is 8 days status post panniculectomy performed on 10/22/2023. She did come to the office yesterday, early, stating that she drove herself to the office. Unfortunately I was in the operating room and was unable to get to her appointment exactly on time. She left the office after approximately 20 minutes and returns today. The patient did not drive herself into the office today. She states that she has had between 30 in 40 mL of serosanguineous fluid from the drain daily. She additionally states she is not following the meal plan exactly, she switched the celebrate for Premier protein powder, 1/2 scoop daily in addition to 3 protein bars and a meal with 5 forks of protein and 5 of vegetables. She does report she continues taking the antibiotics as directed. [facility] Medical History Insomnia Hiatal hernia BMI 36.0-36.9,adult Right pulmonary lesion Surgical History S/P laparoscopic sleeve gastrectomy Hx of colonoscopy Hx of hysterectomy Hx of breast reduction, elective Family History Mother No problems noted. Father No problems noted. Sister No problems noted. Sister No problems noted. Sister No problems noted. Son No problems noted. Son Thyroid condition Daughter No problems noted. Social History Household Members: None Caregiver staying overnight: Yes (daughter will stay over post-op) Housing: Apartment Are you a primary wound care coordinator to a significant other at home: No Do you presently have visiting nurse or other home services: No (daughter will stay over post-op) Alcohol intake: never Patient Tobacco Use Status: Never used Tobacco e-Cigarette/Vaping Use: Never Used Second Hand Smoke Exposure: No service: No Current occupational status: unemployed Cognitive needs: No Hearing needs: No Vision needs: Yes Physical Exam GI Other: Transverse incision is clean, dry, intact. There is very minimal serous drainage at the drain output site. Umbilicus appears viable. Assessment & Plan Assessment & Plan (1) S/P panniculectomy: Code(s): Z98.890 - Other specified postprocedural states Plan: Patient was instructed that she is not allowed to drive for 3 weeks at least. Reminded to continue to track drainage output per 24 hours. Strongly encouraged to text Dr. Acuna to discuss the fact that she changed her meal plan without advice. I advised her to return to the meal plan that was recommended to her by him until she discusses it with him. Continue antibiotics. Return to clinic 1 week. Medications: New cephalexin 500 mg PO Q12H 1 cap 0RF Coding Level of Care Code Global (78805) Diagnoses S/P panniculectomy Z98.890
[2023-10-30 15:03] VITALS: BP 113/55; PULSE 60; TEMP 36.1; O2SAT 98
== END 2023-10-30 15:44 | disposition home or self-care (01) ==
PROVIDERS: PCP Internal Medicine; Visit Provider Physician Assistant Surgical
DX: Z98.890 Other specified postprocedural states (principal)
CPT/HCPCS: 99024

== ENCOUNTER → 2023-10-30 14:21 | Outpatient (BNVA) | payer OTHER, SELFPAY | PROVIDERS: PCP Internal Medicine; Visit Provider Physician Assistant Surgical ==

== ENCOUNTER 2023-11-08 14:45 | Outpatient (AMB) | payer OTHER, SELFPAY ==
--- NOTE | 2023-11-08 14:47 | A.OFFVIS_ITS ---
Intake VS Expanded 11/08/23 14:53 BP 112/59 L Blood Pressure Location Rt brachial Blood Pressure Position Sitting Pulse 79 Pulse Source Pulse Oximeter Temp 96.9 F Temperature Source Tympanic Pulse Oximetry 97 Oxygen Delivery Method Room Air Height 5 ft 1 in Weight 134 lb 3.2 oz BMI 25.4 Body Fat % 30.4 Body Fat Mass 40.8 Fat Free Mass 93.2 Visceral Fat Rating 6.0 Body Water % 49.3 Body Water Mass 66.2 Muscle Mass/Score 88.4 Basal Metabolic Rate/Score 1,260 Intake Visit Reasons: po panni 10/22/23 Allergies No Known Allergies Allergy (Verified 11/08/23 14:58) Medication List - Last Reconciled 11/08/23 by ALESSANDRA Deleon buspirone 10 mg PO BID cephalexin 500 mg PO Q12H docusate sodium (Colace) 100 mg PO DAILY melatonin 5 - 10 mg PO BEDTIME PRN hmbshtjlkidt-pot-nkkz-FA-vit K 45 mg iron- 800 mcg-120 mcg (Bariatric Multivitamins) 1 cap PO DAILY sertraline 150 mg PO DAILY HPI HPI Comments History of Present Illness Details 53-year-old female returns to the office today in follow-up. She underwent a panniculectomy on 10/22/2023. She states she is continuing the antibiotics and following the meal plan per Dr. Acuna. She states that she has a approximately 30-40 mL of drainage daily, 20 in the last 1 day. She offers no other complaints. [facility] Medical History Insomnia Hiatal hernia BMI 36.0-36.9,adult Right pulmonary lesion Surgical History S/P laparoscopic sleeve gastrectomy Hx of colonoscopy Hx of hysterectomy Hx of breast reduction, elective Family History Mother No problems noted. Father No problems noted. Sister No problems noted. Sister No problems noted. Sister No problems noted. Son No problems noted. Son Thyroid condition Daughter No problems noted. Social History Household Members: None Caregiver staying overnight: Yes (daughter will stay over post-op) Housing: Apartment Are you a primary child care attendant school to a significant other at home: No Do you presently have visiting nurse or other home services: No (daughter will stay over post-op) Alcohol intake: never Patient Tobacco Use Status: Never used Tobacco e-Cigarette/Vaping Use: Never Used Second Hand Smoke Exposure: No service: No Current occupational status: unemployed Cognitive needs: No Hearing needs: No Vision needs: Yes Physical Exam GI Other: Incisions clean, dry, intact. The umbilicus does have a suture at the 6 o'clock position that is spitting Assessment & Plan Assessment & Plan (1) S/P panniculectomy: Code(s): Z98.890 - Other specified postprocedural states Plan: Patient is doing well overall. She was encouraged to continue to wear the abdominal binder, trach PAUL drain output, continue antibiotics, continue meal plan. Return to the office in 1 week. Coding Level of Care Code Global (34030) Diagnoses S/P panniculectomy Z98.890
[2023-11-08 14:53] VITALS: BP 112/59; PULSE 79; TEMP 36.1; O2SAT 97; BMI 25.4
== END 2023-11-08 15:22 | disposition home or self-care (01) ==
PROVIDERS: PCP Internal Medicine; Visit Provider Physician Assistant Surgical
DX: Z98.890 Other specified postprocedural states (principal)
CPT/HCPCS: 99024

== ENCOUNTER → 2023-11-08 14:45 | Outpatient (BNVA) | payer OTHER, SELFPAY | PROVIDERS: PCP Internal Medicine; Visit Provider Physician Assistant Surgical | DX: Z98.890 Other specified postprocedural states (principal) | CPT/HCPCS: 99212 ==

== ENCOUNTER 2023-11-15 11:35 | Outpatient (AMB) | payer OTHER, SELFPAY ==
--- NOTE | 2023-11-15 11:45 | MHC.OFFVISWM ---
Intake VS Expanded 11/15/23 11:53 BP 120/62 Blood Pressure Location Rt brachial Blood Pressure Position Sitting Pulse 68 Pulse Source Pulse Oximeter Temp 97.8 F Temperature Source Temporal Artery Scan Pulse Oximetry 99 Oxygen Delivery Method Room Air Intake Visit Reasons: (OV) PO Panniculectomy 10/22/23 Pony Rougher Required: Yes Pony Rougher Name: office cmi Allergies No Known Allergies Allergy (Verified 11/15/23 11:55) Medication List - Last Reconciled 11/15/23 by ALESSANDRA Deleon buspirone 10 mg PO BID cephalexin 500 mg PO Q12H docusate sodium (Colace) 100 mg PO DAILY 90 days melatonin 5 - 10 mg PO BEDTIME PRN hfsxheqypkcv-rrk-ovac-FA-vit K 45 mg iron- 800 mcg-120 mcg (Bariatric Multivitamins) 1 cap PO DAILY sertraline 150 mg PO DAILY HPI HPI Comments History of Present Illness Details 53-year-old female returns to the office today in follow-up after her recent panniculectomy performed on 10/22/2023. She states that she has having approximately 30 mL of serosanguineous fluid collection in the bulb daily. She is following the meal plan as was directed by Dr. Acuna and continues her antibiotics. She denies any pain. No longer needs or wants visiting nurses. [facility] Medical History Insomnia Hiatal hernia BMI 36.0-36.9,adult Right pulmonary lesion Surgical History S/P laparoscopic sleeve gastrectomy Hx of colonoscopy Hx of hysterectomy Hx of breast reduction, elective Family History Mother No problems noted. Father No problems noted. Sister No problems noted. Sister No problems noted. Sister No problems noted. Son No problems noted. Son Thyroid condition Daughter No problems noted. Social History Household Members: None Caregiver staying overnight: Yes (daughter will stay over post-op) Housing: Apartment Are you a primary wound care coordinator to a significant other at home: No Do you presently have visiting nurse or other home services: No (daughter will stay over post-op) Alcohol intake: never Patient Tobacco Use Status: Never used Tobacco e-Cigarette/Vaping Use: Never Used Second Hand Smoke Exposure: No service: No Current occupational status: unemployed Cognitive needs: No Hearing needs: No Vision needs: Yes Physical Exam Vital Signs: Last Vital Signs Temp 97.8 F 11/15/23 11:53 Pulse 68 11/15/23 11:53 BP 120/62 11/15/23 11:53 Pulse Ox 99 11/15/23 11:53 Oxygen Delivery Method Room Air 11/15/23 11:53 GI Other: Incision healing nicely. Umbilicus is viable. Serous fluid within the collection bulb Assessment & Plan Assessment & Plan (1) S/P panniculectomy: Code(s): Z98.890 - Other specified postprocedural states Plan: Doing well postoperatively. Continue current monitoring of drain output. Return to the office in 1 week. She was encouraged to empty the drain once daily. She has been doing it multiple times a day with the total some of between 30 in 40 mL daily. Continue antibiotics. Continue meal plan. Coding Level of Care Code Global (07578) Diagnoses S/P panniculectomy Z98.890
[2023-11-15 11:53] VITALS: BP 120/62; PULSE 68; TEMP 36.6; O2SAT 99
== END 2023-11-15 12:14 | disposition home or self-care (01) ==
PROVIDERS: PCP Internal Medicine; Visit Provider Physician Assistant Surgical
DX: Z98.890 Other specified postprocedural states (principal)
CPT/HCPCS: 99024

== ENCOUNTER → 2023-11-15 11:35 | Outpatient (BNVA) | payer OTHER, SELFPAY | PROVIDERS: PCP Internal Medicine; Visit Provider Physician Assistant Surgical | DX: Z48.817 Encounter for surgical aftercare following surgery on the skin and subcutaneous tissue (principal); Z98.890 Other specified postprocedural states | CPT/HCPCS: 99212 ==

== ENCOUNTER 2023-11-19 09:17 | Outpatient (REF) | payer OTHER, SELFPAY ==
[2023-11-19 09:44] LABS: MANUAL DIFF FLAG NO
[2023-11-19 10:02] LABS: Basophils Percent Auto 0.4 % (0-2); Eosinophils Absolute Auto 0.2 X10*3/uL (0.0-0.4); Eosinophils Percent Auto 3.9 % (0-4); Hematocrit 40.8 % (37.0-47.0); Hemoglobin 12.9 g/dl (12.0-16.0); Imm Gran Abs Auto 0.01 X10*3/uL (0.00-0.03); Imm Gran Pct Auto 0.2 % (0.0-0.4); Lymphocytes Absolute Auto 1.3 X10*3/uL (1.2-4.9); Lymphocytes Percent Auto 26.5 % (20-40); Mean Corpuscular HGB Conc 31.6 g/dl (31.0-35.0); Mean Corpuscular Hemoglobin 26.4 pg (27.0-33.0); Mean Corpuscular Volume 83.6 fL (80.0-98.0); Monocytes Absolute Auto 0.4 X10*3/uL (0.1-1.2); Monocytes Percent Auto 7.4 % (2-11); Neutrophils Percent Auto 61.6 % (45-73); Platelet Count 126 X10*3/uL (160-400); Red Blood Count 4.88 X10*6/uL (4.20-5.50); Red Cell Distribution Width 12.8 % (11.0-16.0); White Blood Count 4.9 X10*3/uL (4.8-10.8)
[2023-11-19 10:26] LABS: Alanine Aminotransferase 16 U/L (0-31); Albumin Level 4.2 g/dL (3.5-5.0); Alkaline Phosphatase 82 U/L (39-117); Anion Gap 13 (12-20); Aspartate Amino Transferase 19 U/L (5-31); Bilirubin Total 0.4 mg/dL (0.0-1.0); Blood Urea Nitrogen 13 mg/dL (9-16); C Reactive Protein < 0.10 mg/dL (< or = 0.50); Calcium 9.8 mg/dL (8.4-10.2); Carbon Dioxide 27 mmol/L (22-29); Chloride 108 mmol/L (96-108); Estimated Glomerular Filt Rate > 60; Glucose Random 87 mg/dL (60-115); Potassium 4.1 mmol/L (3.3-5.1); Sodium 144 mmol/L (135-145)
[2023-11-19 10:38] LABS: Erythrocyte Sedimentation Rate 12 MM/HR (0-20)
[2023-11-19 10:45] LABS: HBS Num1 28.35 mIU/mL (0-7.99); HBc Num1 0.05 S/CO (0.00-0.79); HBsAGNum1 0.27 S/CO (0.00-0.99); Hepatitis A Antibody IgM 0.13 Index (0-0.79); Hepatitis B Core Antibody Nonreactive (Nonreactive); Hepatitis B Surface Antigen Negative (Negative); ~HepC Num1 0.29 S/CO (0.00-0.79); ~Hepatitis A Antibody IgM Nonreactive (Nonreactive); ~Hepatitis B Surface Antibody REACTIVE (Nonreactive); ~Hepatitis C Antibody Nonreactive (Nonreactive)
[2023-11-21 19:09] LABS: TS Negative Control Passed; TS Panel A 0; TS Panel B 0; TS Positive Control Passed; TSpotTB Negative (Negative)
== END 2023-11-19 09:18 | disposition home or self-care (01) ==
LOC: HO.LAB 09:17
PROVIDERS: PCP Internal Medicine; Visit Provider Student in an Organized Health Care Education/Training Program
DX: M06.1 Adult-onset Still's disease (principal); Z11.59 Encounter for screening for other viral diseases; Z11.7 Encounter for testing for latent tuberculosis infection
CPT/HCPCS: 36415; 80053; 85025; 85652; 86140; 86481; 86704; 86706; 86709; 86803; 87340

== ENCOUNTER 2023-11-21 08:39 | Outpatient (AMB) | payer OTHER, SELFPAY ==
--- NOTE | 2023-11-21 08:41 | A.OFFVIS_ITS ---
Intake VS Expanded 11/21/23 08:48 BP 130/80 Blood Pressure Location Rt radial Blood Pressure Position Sitting Pulse 67 Pulse Source Pulse Oximeter Temp 96.9 F Temperature Source Tympanic Pulse Oximetry 97 Oxygen Delivery Method Room Air Height 5 ft 1 in Weight 136 lb BMI 25.7 Body Fat % 30.0 Body Fat Mass 40.8 Fat Free Mass 95.0 Visceral Fat Rating 6.0 Body Water % 49.7 Body Water Mass 67.4 Muscle Mass/Score 90.2 Basal Metabolic Rate/Score 1,280 Intake Visit Reasons: (OV) PO Panniculectomy 10/22/23 Allergies No Known Allergies Allergy (Verified 11/21/23 08:51) PFSH Medical History Insomnia Hiatal hernia BMI 36.0-36.9,adult Right pulmonary lesion Surgical History S/P laparoscopic sleeve gastrectomy Hx of colonoscopy Hx of hysterectomy Hx of breast reduction, elective Family History Mother No problems noted. Father No problems noted. Sister No problems noted. Sister No problems noted. Sister No problems noted. Son No problems noted. Son Thyroid condition Daughter No problems noted. Social History Household Members: None Caregiver staying overnight: Yes (daughter will stay over post-op) Housing: Apartment Are you a primary animal care assistant to a significant other at home: No Do you presently have visiting nurse or other home services: No (daughter will stay over post-op) Alcohol intake: never Patient Tobacco Use Status: Never used Tobacco e-Cigarette/Vaping Use: Never Used Second Hand Smoke Exposure: No service: No Current occupational status: unemployed Cognitive needs: No Hearing needs: No Vision needs: Yes Physical Exam Vital Signs: Last Vital Signs Temp 96.9 F 11/21/23 08:48 Pulse 67 11/21/23 08:48 BP 130/80 11/21/23 08:48 Pulse Ox 97 11/21/23 08:48 Oxygen Delivery Method Room Air 11/21/23 08:48 BMI result Body Mass Index 25.7 Coding
[2023-11-21 08:48] VITALS: BP 130/80; PULSE 67; TEMP 36.1; O2SAT 97; BMI 25.7
[2023-11-21 09:00] VITALS: BMI 25.7
--- NOTE | 2023-11-21 09:00 | A.OFFVIS_ITS ---
Intake VS Expanded 11/21/23 08:48 11/21/23 09:00 BP 130/80 Blood Pressure Location Rt radial Blood Pressure Position Sitting Pulse 67 Pulse Source Pulse Oximeter Temp 96.9 F Temperature Source Tympanic Pulse Oximetry 97 Oxygen Delivery Method Room Air Height 5 ft 1 in Weight 136 lb BMI 25.7 25.7 Body Fat % 30.0 Body Fat Mass 40.8 Fat Free Mass 95.0 Visceral Fat Rating 6.0 Body Water % 49.7 Body Water Mass 67.4 Muscle Mass/Score 90.2 Basal Metabolic Rate/Score 1,280 Intake Visit Reasons: (OV) PO Panniculectomy 10/22/23 Allergies No Known Allergies Allergy (Verified 11/21/23 08:51) HPI HPI Comments History of Present Illness Details 53 yo woman s/p panniculectomy on 10/22 23 called for appt today be cause her drain fell out this am. Over the past week she was having 35 cc fluid per 24 hours until 2 days ago when totals decreased to 15 cc day. this am she went to change it and noticed the stitch was dislodged. No complaints, feels well. She is continuing antibiiotics daily and following meal plan of 2 shakes, 1 bar and 1 meal of 5 forks each protein and vegetable. [facility] Medical History Insomnia Hiatal hernia BMI 36.0-36.9,adult Right pulmonary lesion Surgical History S/P laparoscopic sleeve gastrectomy Hx of colonoscopy Hx of hysterectomy Hx of breast reduction, elective Family History Mother No problems noted. Father No problems noted. Sister No problems noted. Sister No problems noted. Sister No problems noted. Son No problems noted. Son Thyroid condition Daughter No problems noted. Social History Household Members: None Caregiver staying overnight: Yes (daughter will stay over post-op) Housing: Apartment Are you a primary care administrative tech to a significant other at home: No Do you presently have visiting nurse or other home services: No (daughter will stay over post-op) Alcohol intake: never Patient Tobacco Use Status: Never used Tobacco e-Cigarette/Vaping Use: Never Used Second Hand Smoke Exposure: No service: No Current occupational status: unemployed Cognitive needs: No Hearing needs: No Vision needs: Yes Physical Exam Vital Signs: Last Vital Signs Temp 96.9 F 11/21/23 08:48 Pulse 67 11/21/23 08:48 BP 130/80 11/21/23 08:48 Pulse Ox 97 11/21/23 08:48 Oxygen Delivery Method Room Air 11/21/23 08:48 BMI result Body Mass Index 25.7 Const General: cooperative, healthy appearing and comfortable GI Other: umbillical incision closed, 2 dry scabs and loose stitched at 12 o'clock and 6 o'clock - not disturbed Drain - hanging from body - tube inserted ~ 1 cm - removed completetely Inspection: Yes incision (entire panniculectomy incision completely closed.) Assessment & Plan Assessment & Plan (1) S/P panniculectomy: Code(s): Z98.890 - Other specified postprocedural states Plan: Drain stitch dislodged 1 month post op. Was having decreased drainage of 15 cc x 2 d before being dislodged. Pt will continue daily antibiotics, meal plan per Dr Christensen, keep a dry dressing on drain site and will contact us if has excessive drainage or erythema. 1 week follow up with Osmany Echevarria scheduled. Coding Level of Care Code Global (44797) Diagnoses S/P panniculectomy Z98.890
== END 2023-11-21 09:18 | disposition home or self-care (01) ==
PROVIDERS: PCP Internal Medicine; Visit Provider Physician Assistant
DX: Z98.890 Other specified postprocedural states (principal)
CPT/HCPCS: 99024

== ENCOUNTER → 2023-11-21 08:39 | Outpatient (BNVA) | payer OTHER, SELFPAY | PROVIDERS: PCP Internal Medicine; Visit Provider Physician Assistant Surgical | DX: Z48.817 Encounter for surgical aftercare following surgery on the skin and subcutaneous tissue (principal); Z98.890 Other specified postprocedural states | CPT/HCPCS: 99212 ==

== ENCOUNTER 2023-11-26 11:29 | Outpatient (AMB) | payer OTHER, SELFPAY ==
--- NOTE | 2023-11-26 11:35 | MHC.OFFVIS ---
Intake Vital Signs 11/26/23 11:36 Height 5 ft 1 in Weight 137 lb 2.04 oz BMI 25.9 BP 98/60 Blood Pressure Location Rt brachial Position Sitting Pulse 58 Pulse Source Pulse Oximeter Intake Visit Reasons: RA Intake Note: Pt last seen 10/17/23 presents today for follow up and test results. Php Website Developer Required: No Php Website Developer Name: Refusal Signed. Accompanied by: Grand Child Allergies No Known Allergies Allergy (Verified 11/26/23 11:39) Medication List - Last Reconciled 11/26/23 by Tuan Muller MD buspirone 10 mg PO BID cephalexin 500 mg PO Q12H docusate sodium (Colace) 100 mg PO DAILY 90 days melatonin 5 - 10 mg PO BEDTIME PRN [id number] K 45 mg iron- 800 mcg-120 mcg (Bariatric Multivitamins) 1 cap PO DAILY sertraline 150 mg PO DAILY HPI HPI Comments History of Present Illness Details 53-year-old female with rheumatoid arthritis, previously diagnosed with Still's disease who presents for follow-up. She is not on any DMARDs. Stated that left wrist injection done last visit was helpful. Today she denies any joint pain or swelling. Has not had any flare-ups in long time. Initial history: 52-year-old female who presents for evaluation of rheumatoid arthritis. She states that she was diagnosed with Still's disease around 2001. She had fevers and rashes on her head and abdomen. And she was on prednisone initially, she was also on other meds including methotrexate which she could not tolerate and was ultimately on Enbrel for a few years. She has not been on any treatment since 2004. She states that she gets pain in her right thumb as well as both knees. She received multiple injections at [facility], she received bilateral knee gel injections about a year ago which provided some relief. She also gets thumb injections which also helped. Patient has not had those episodes of fevers and rashes since her diagnosis many years ago. She is unaware of any other family history of autoimmune rheumatic disease [facility] Medical History Insomnia Hiatal hernia BMI 36.0-36.9,adult Right pulmonary lesion Surgical History S/P laparoscopic sleeve gastrectomy Hx of colonoscopy Hx of hysterectomy Hx of breast reduction, elective Family History Mother No problems noted. Father No problems noted. Sister No problems noted. Sister No problems noted. Sister No problems noted. Son No problems noted. Son Thyroid condition Daughter No problems noted. Social History Household Members: None Caregiver staying overnight: Yes (daughter will stay over post-op) Housing: Apartment Are you a primary daycare teacher to a significant other at home: No Do you presently have visiting nurse or other home services: No (daughter will stay over post-op) Alcohol intake: never Patient Tobacco Use Status: Never used Tobacco e-Cigarette/Vaping Use: Never Used Second Hand Smoke Exposure: No service: No Current occupational status: unemployed Cognitive needs: No Hearing needs: No Vision needs: Yes Review of Systems Const Denies fever(s) Musc Reports arthralgias and Denies joint swelling Physical Exam Vital Signs: Last Vital Signs Pulse 58 11/26/23 11:36 BP 98/60 11/26/23 11:36 BMI result Body Mass Index 25.9 Const General: cooperative, healthy appearing and comfortable Nutritional Appearance: overweight Orientation/consciousness: patient oriented x3 Limitations: no limitations HEENT Head: Yes normocephalic and Yes atraumatic Mouth: moist mucous membranes Resp Effort & Inspection: normal respiratory effort and able to speak in complete sentences Skin General skin exam: no rashes or lesions noted Neuro General: patient oriented x3 Extrem Other: Mild osteoarthritic changes of both hands Bilateral reduced wrist flexion No swollen joints Left knee crepitus Assessment & Plan Assessment & Plan (1) Still's disease of adult: Comment: dx around 2001 (fevers, rash, joint pain) initially on prednisone, could not tolerate methotrexate, was on Enbrel for a few years until 2004 Code(s): M06.1 - Adult-onset Still's disease Plan: This is a 53-year-old female with history of adult onset Still's disease who presents for follow-up. She was diagnosed with Still's disease around 2001 manifested by fevers, rashes and joint pain. Was treated with prednisone, she could not tolerate methotrexate, she was on Enbrel for a few years until 2004. She states that she has not had recurrence of those symptoms for many years. 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 Last visit, left wrist was injected. Patient states that the injection was helpful. I do not see any active synovitis today. Comprehensive serology and inflammatory markers are normal. I do not see any need for DMARD therapy at this point. Labs before next visit in 6 months Plan I spent 15 minutes reviewing patient's chart, evaluating patient, counseling patient and documenting in the chart Coding Level of Care Code Est Pt Level 4 (87707) Diagnoses Still's disease of adult M06.1
[2023-11-26 11:36] VITALS: BP 98/60; PULSE 58; BMI 25.9
== END 2023-11-26 11:51 | disposition home or self-care (01) ==
PROVIDERS: PCP Internal Medicine; Visit Provider Student in an Organized Health Care Education/Training Program
DX: M06.1 Adult-onset Still's disease (principal)
CPT/HCPCS: 99214

== ENCOUNTER → 2023-11-26 11:29 | Outpatient (BNVA) | payer OTHER, SELFPAY | PROVIDERS: PCP Internal Medicine; Visit Provider Student in an Organized Health Care Education/Training Program | DX: M06.1 Adult-onset Still's disease (principal) | CPT/HCPCS: 99212 ==

== ENCOUNTER 2023-11-27 10:42 | Outpatient (AMB) | payer OTHER, SELFPAY ==
--- NOTE | 2023-11-27 10:47 | A.OFFVIS_ITS ---
Intake VS Expanded 11/27/23 10:48 BP 109/62 Blood Pressure Location Rt brachial Blood Pressure Position Sitting Pulse 63 Pulse Source Pulse Oximeter Temp 96.3 F L Temperature Source Tympanic Pulse Oximetry 98 Oxygen Delivery Method Room Air Intake Visit Reasons: (OV) PO Panniculectomy 10/22/23 Allergies No Known Allergies Allergy (Verified 11/27/23 10:50) HPI HPI Comments History of Present Illness Details 53-year-old female returns to the office today in follow-up. She is approximately 5 weeks post panniculectomy performed on 10/22/[address] Acuna. She was seen in the office last week as her drain had become dislodged completely and it was removed. At today's visit, she was visibly upset although would not state what she was upset about. She states that she is not following a meal plan although drinking 1 shake per day and eating food. She states she is eating whatever she wants. She states that she is eating pork and rice. She was not wearing the abdominal binder but rather a tight-fitting undergarment. [facility] Medical History Insomnia Hiatal hernia BMI 36.0-36.9,adult Right pulmonary lesion Surgical History S/P laparoscopic sleeve gastrectomy Hx of colonoscopy Hx of hysterectomy Hx of breast reduction, elective Family History Mother No problems noted. Father No problems noted. Sister No problems noted. Sister No problems noted. Sister No problems noted. Son No problems noted. Son Thyroid condition Daughter No problems noted. Social History Household Members: None Caregiver staying overnight: Yes (daughter will stay over post-op) Housing: Apartment Are you a primary respiratory care technician to a significant other at home: No Do you presently have visiting nurse or other home services: No (daughter will stay over post-op) Alcohol intake: never Patient Tobacco Use Status: Never used Tobacco e-Cigarette/Vaping Use: Never Used Second Hand Smoke Exposure: No service: No Current occupational status: unemployed Cognitive needs: No Hearing needs: No Vision needs: Yes Physical Exam Vital Signs: Last Vital Signs Temp 96.3 F L 11/27/23 10:48 Pulse 63 11/27/23 10:48 BP 109/62 11/27/23 10:48 Pulse Ox 98 11/27/23 10:48 Oxygen Delivery Method Room Air 11/27/23 10:48 GI Other: Transverse incision healing well without any open areas or redness. The drain insertion site has also healed. There is 2 small scabs at the inferior portion of the umbilicus which is viable. Mild suprapubic fullness without tenderness is appreciated to palpation, no fluctuance Assessment & Plan Assessment & Plan (1) S/P panniculectomy: Code(s): Z98.890 - Other specified postprocedural states Plan: A of reminded of the importance of communicating with Dr. Acuna and following the meal plan. She was made aware that she needs to wear her abdominal binder for 3 months. No abdominal exercises for 3 months. Discussed the importance of the meal plan as it relates to her healing process. She states that she is not going to follow the meal plan. We will have her return to the office in 2 weeks time with the understanding that she certainly may text or call with any questions or concerns. Coding Level of Care Code Global (37636) Diagnoses S/P panniculectomy Z98.890
[2023-11-27 10:48] VITALS: BP 109/62; PULSE 63; TEMP 35.7; O2SAT 98
== END 2023-11-27 11:40 | disposition home or self-care (01) ==
PROVIDERS: PCP Internal Medicine; Visit Provider Physician Assistant Surgical
DX: Z98.890 Other specified postprocedural states (principal)
CPT/HCPCS: 99024

== ENCOUNTER → 2023-11-27 10:42 | Outpatient (BNVA) | payer OTHER, SELFPAY | PROVIDERS: PCP Internal Medicine; Visit Provider Physician Assistant Surgical | DX: Z98.890 Other specified postprocedural states (principal) | CPT/HCPCS: 99212 ==

== ENCOUNTER 2023-12-16 11:00 | Outpatient (AMB) | payer OTHER, SELFPAY ==
[2023-12-16 11:24] VITALS: BP 129/65; PULSE 78; TEMP 36.4; O2SAT 95
--- NOTE | 2023-12-16 11:24 | A.OFFVIS_ITS ---
Intake VS Expanded 12/16/23 11:24 BP 129/65 Blood Pressure Location Rt brachial Blood Pressure Position Sitting Pulse 78 Pulse Source Pulse Oximeter Temp 97.6 F Temperature Source Temporal Artery Scan Pulse Oximetry 95 Oxygen Delivery Method Room Air Intake Visit Reasons: (ov ) panniculectomy 10/22/23 Allergies No Known Allergies Allergy (Verified 12/16/23 11:24) HPI HPI Comments History of Present Illness Details Pleasant 53-year-old female returns to the office today in follow-up. She is approximately 2 months post panniculectomy performed on 10/22/2023. Since her last visit, her drain had been removed and she is doing overall very well. She had continued her antibiotics as instructed and has no significant complaints at today's visit. [facility] Medical History Insomnia Hiatal hernia BMI 36.0-36.9,adult Right pulmonary lesion Surgical History S/P laparoscopic sleeve gastrectomy Hx of colonoscopy Hx of hysterectomy Hx of breast reduction, elective Family History Mother No problems noted. Father No problems noted. Sister No problems noted. Sister No problems noted. Sister No problems noted. Son No problems noted. Son Thyroid condition Daughter No problems noted. Social History Household Members: None Caregiver staying overnight: Yes (daughter will stay over post-op) Housing: Apartment Are you a primary pharmacy care coordinator to a significant other at home: No Do you presently have visiting nurse or other home services: No (daughter will stay over post-op) Alcohol intake: never Patient Tobacco Use Status: Never used Tobacco e-Cigarette/Vaping Use: Never Used Second Hand Smoke Exposure: No service: No Current occupational status: unemployed Cognitive needs: No Hearing needs: No Vision needs: Yes Physical Exam Vital Signs: Last Vital Signs Temp 97.6 F 12/16/23 11:24 Pulse 78 12/16/23 11:24 BP 129/65 12/16/23 11:24 Pulse Ox 95 12/16/23 11:24 Oxygen Delivery Method Room Air 01/15/24 11:24 GI Other: Transverse incision well healed without evidence of dehiscence. Umbilicus is viable and also well healed Assessment & Plan Assessment & Plan (1) S/P panniculectomy: Code(s): Z98.890 - Other specified postprocedural states Plan: Patient may stop her antibiotics. She will continue the meal plan as directed by Dr. Acuna. She has been instructed to resume treadmill starting next week with the use of her binder at all times. She has been instructed to avoid any weightlifting or abdominal work until 3 months postoperatively. Return to clinic 3 weeks. Coding Level of Care Code Global (58211) Diagnoses S/P panniculectomy Z98.890
== END 2023-12-16 12:04 | disposition home or self-care (01) ==
PROVIDERS: PCP Internal Medicine; Visit Provider Physician Assistant Surgical
DX: Z98.890 Other specified postprocedural states (principal)
CPT/HCPCS: 99024

== ENCOUNTER → 2023-12-16 11:00 | Outpatient (BNVA) | payer OTHER, SELFPAY | PROVIDERS: PCP Internal Medicine; Visit Provider Physician Assistant Surgical | DX: Z98.890 Other specified postprocedural states (principal) | CPT/HCPCS: 99212 ==

== ENCOUNTER 2024-01-01 09:31 | Outpatient (AMB) | payer OTHER, SELFPAY ==
--- NOTE | 2024-01-01 09:33 | A.OFFVIS_ITS ---
Intake Vital Signs 01/01/24 09:34 Height 5 ft 1 in Weight 137 lb 5.568 oz BMI 25.9 BP 122/60 Blood Pressure Location Rt brachial Position Sitting Pulse 81 Pulse Source Pulse Oximeter Temp 96.8 F Temp Source Skin Pulse Oximetry (%) 98 Oxygen Delivery Method Room Air Intake Visit Reasons: Left hand pain and swelling Intake Note: Pt presents today after requesting sooner appt. C/o left hand pain, and warmth for 2 weeks. Denies any swelling to left hand. Patient states is in severe pain when moving hand. Patient stated she tried Tylenol with no relief. She states she is unable to take Motrin Well Cleaner Required: Yes Well Cleaner Name: Alla Ervin (Sister) Information Interpreted: non-clinical & clinical Accompanied by: Self / Same As Patient Allergies No Known Allergies Allergy (Verified 01/01/24 09:41) Medication List - Last Reconciled 01/01/24 by Tuan Muller MD buspirone 10 mg PO BID cephalexin 500 mg PO Q12H docusate sodium (Colace) 100 mg PO DAILY 90 days melatonin 5 - 10 mg PO BEDTIME PRN [id number]-syb-[id number]-FA-vit K 45 mg iron- 800 mcg-120 mcg (Bariatric Multivitamins) 1 cap PO DAILY sertraline 150 mg PO DAILY HPI HPI Comments History of Present Illness Details 53-year-old female with rheumatoid arthr itis, previously diagnosed with Still's disease who presents for follow-up. She is not on any DMARDs. She states that over the last 2 weeks she has been having left wrist pain and swelling, left hand pain as well as right thumb pain. Has been taking Tylenol without much relief. She can not take NSAIDs due to her history of bariatric surgery and GERD. She states that she gets flares of joint pain almost monthly and last about 1 week. She denies any other joint pain or swelling. Initial history: 52-year-old female who presents for evaluation of rheumatoid arthritis. She states that she was diagnosed with Still's disease around 2001. She had fevers and rashes on her head and abdomen. And she was on prednisone initially, she was also on other meds including methotrexate which she could not tolerate and was ultimately on Enbrel for a few years. She has not been on any treatment since 2004. She states that she gets pain in her right thumb as well as both knees. She received multiple injections at [facility], she received bilateral knee gel injections about a year ago which provided some relief. She also gets thumb injections which also helped. Patient has not had those episodes of fevers and rashes since her diagnosis many years ago. She is unaware of any other family history of autoimmune rheumatic disease [facility] Medical History Insomnia Hiatal hernia BMI 36.0-36.9,adult Right pulmonary lesion Surgical History S/P laparoscopic sleeve gastrectomy Hx of colonoscopy Hx of hysterectomy Hx of breast reduction, elective Family History Mother No problems noted. Father No problems noted. Sister No problems noted. Sister No problems noted. Sister No problems noted. Son No problems noted. Son Thyroid condition Daughter No problems noted. Social History Household Members: None Caregiver staying overnight: Yes (daughter will stay over post-op) Housing: Apartment Are you a primary ambulatory care coordinator to a significant other at home: No Do you presently have visiting nurse or other home services: No (daughter will stay over post-op) Alcohol intake: never Patient Tobacco Use Status: Never used Tobacco e-Cigarette/Vaping Use: Never Used Second Hand Smoke Exposure: No service: No Current occupational status: unemployed Cognitive needs: No Hearing needs: No Vision needs: Yes Review of Systems Musc Reports arthralgias and Reports joint swelling Physical Exam Vital Signs: Last Vital Signs Temp 96.8 F 01/01/24 09:34 Pulse 81 01/01/24 09:34 BP 122/60 01/01/24 09:34 Pulse Ox 98 01/01/24 09:34 Oxygen Delivery Method Room Air 01/01/24 09:34 BMI result Body Mass Index 25.9 Const General: cooperative, healthy appearing and comfortable Nutritional Appearance: overweight Orientation/consciousness: patient oriented x3 Limitations: no limitations HEENT Head: Yes normocephalic and Yes atraumatic Mouth: moist mucous membranes Resp Effort & Inspection: normal respiratory effort and able to speak in complete sentences Skin General skin exam: no rashes or lesions noted Neuro General: patient oriented x3 Extrem Other: Mild osteoarthritic changes of both hands Bilateral reduced flexion and extension of both wrists Mild left wrist swelling and tenderness to palpation Left 1st MCP swelling and tenderness Right 1st MCP swelling and tenderness Left knee crepitus Results Reviewed Results Reviewed: CLINICAL INFORMATION:? Rheumatoid arthritis. COMPARISON:? None TECHNIQUE:? 4 views of each hand. FINDINGS: RIGHT HAND: Moderate degenerative changes in the first carpometacarpal joint with joint space narrowing and hypertrophic change. The bones are diffusely demineralized. Cystic lucencies are present in the carpal bones. Narrowing of the radiocarpal space and intercarpal spaces with degenerative changes. Mild degenerative changes in the scattered interphalangeal joints. LEFT HAND: Moderate degenerative changes in the first carpometacarpal joint with joint space narrowing and hypertrophic change. The bones are diffusely demineralized. Cystic lucencies are present in the carpal bones. Moderate degenerative changes in the first metacarpophalangeal joint. Narrowing of the radiocarpal space and intercarpal spaces with degenerative changes. Mild degenerative changes in the scattered interphalangeal joints. XR/XR hand wrist LT IMPRESSION:? Advanced degenerative changes in the bilateral wrists. ? No displaced fracture. Recommend follow-up imaging in 10-14 days if fracture is suspected. EXAMINATION:? BONE DENSITOMETRY CLINICAL INDICATION:? Menopause. COMPARISON:? None (current study represents initial baseline exam). TECHNIQUE: Using a [employer] DXA System (software version: 13.1) manufactured by [employer], dual-energy x-ray absorptiometry was performed of the lumbar spine and left hip. The images are of good technical quality. Summary results are attached. FINDINGS: AP SPINE L1-L3 (excluding L4): The data of L1-L4 has been changed to exclude the L4 vertebral body, because degenerative changes at this level may cause overestimation of lumbar spine density. BMD 1.160 g/cm2, Z-score 0.8, T-score -0.1, normal. LEFT FEMUR, NECK: BMD 0.905 g/cm2, Z-score 0.1, T-score -1.0, normal. LEFT FEMUR, TOTAL: BMD 0.909 g/cm2, Z-score -0.1, T-score -0.8, normal. IDENTIFIED RISK FACTORS:? Early menopause, hysterectomy, left oophorectomy, rheumatoid arthritis, secondary osteoporosis.? HISTORY OF FRACTURE:? None listed.? MEDICATIONS:? Calcium, vitamin D.? MM/XR DEXA axial skeleton IMPRESSION: 1. DIAGNOSIS: Normal bone density based on the lowest T-score value of -1.0 in the femoral neck applying World Health Organization criteria.?? ? 2. 10-YEAR FRACTURE RISK PREDICTION, FRAX: According to the guidelines, FRAX calculation should only be performed on patients in the osteopenia bone density category. Therefore, FRAX was not performed on this patient. Assessment & Plan Assessment & Plan (1) Rheumatoid arthritis: Code(s): M06.9 - Rheumatoid arthritis, unspecified Qualifiers: Rheumatoid arthritis location: multiple sites Rheumatoid factor presence: without rheumatoid factor Qualified Code(s): M06.09 - Rheumatoid arthritis without rheumatoid factor, multiple sites Plan: This is a 53-year-old female with history of adult onset Still's disease who presents for follow-up.? She was diagnosed with Still's disease around 2001 manifested by fevers, rashes and joint pain.? Was treated with prednisone, she could not tolerate methotrexate, she was on Enbrel for a few years until 2004.? She stated that over the last year she has been having episodes of bilateral hand swelling, L>R that happen almost monthly and last a few days to a week. On exam today she has multiple swollen and tender joints. 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 Her clinical picture is more consistent with seronegative rheumatoid arthritis We will need to restart DMARDs. As mentioned above. Patient could not tolerate methotrexate in the past. She did quite well on Enbrel. Discussed risks and benefits of Enbrel. Patient agreed to proceed. Will start prior authorization for Enbrel (2) High risk medication use: Code(s): Z79.899 - Other intermediate project manager (current) drug therapy Plan: Discussed risks and benefits of TNF inhibitors including increased risk of infection. Advised patient to call the clinic if he develops a fever or an infection and hold Enbrel until infection resolves. Discuss slightly increased risk of malignancy and demyelinating conditions. Patient agreed to proceed. Plan I spent 26 minutes reviewing patient's chart, evaluating patient, ordering diagnostic workup, counseling patient and documenting in the chart Orders: Orders C Reactive Protein Today M06.1 - Adult-onset Still's disease Erythrocyte Sedimentation Rate Today M06.1 - Adult-onset Still's disease Complete Blood Count Auto Diff Today M06.1 - Adult-onset Still's disease Comprehensive Met. Panel Today M06.1 - Adult-onset Still's disease Coding Level of Care Code Est Pt Level 4 (47200) Diagnoses Rheumatoid arthritis of multiple sites with negative rheumatoid factor M06.09 Rheumatoid arthritis location: multiple sites Rheumatoid factor presence: without rheumatoid factor High risk medication use Z79.899
[2024-01-01 09:34] VITALS: BP 122/60; PULSE 81; TEMP 36; O2SAT 98; BMI 25.9
== END 2024-01-01 10:04 | disposition home or self-care (01) ==
PROVIDERS: PCP Internal Medicine; Visit Provider Student in an Organized Health Care Education/Training Program
DX: M06.09 Rheumatoid arthritis without rheumatoid factor, multiple sites (principal); Z79.899 Other long term (current) drug therapy
CPT/HCPCS: 99214

== ENCOUNTER → 2024-01-01 09:31 | Outpatient (BNVA) | payer OTHER, SELFPAY | PROVIDERS: PCP Internal Medicine; Visit Provider Student in an Organized Health Care Education/Training Program | DX: M06.09 Rheumatoid arthritis without rheumatoid factor, multiple sites (principal); Z79.899 Other long term (current) drug therapy | CPT/HCPCS: 99212 ==

== ENCOUNTER 2024-01-02 08:55 | Outpatient (REF) | payer OTHER, SELFPAY ==
[2024-01-02 09:24] LABS: MANUAL DIFF FLAG NO
[2024-01-02 09:38] LABS: Basophils Percent Auto 0.4 % (0-2); Eosinophils Absolute Auto 0.2 X10*3/uL (0.0-0.4); Eosinophils Percent Auto 2.7 % (0-4); Hematocrit 43.7 % (37.0-47.0); Hemoglobin 14.1 g/dl (12.0-16.0); Imm Gran Abs Auto 0.03 X10*3/uL (0.00-0.03); Imm Gran Pct Auto 0.4 % (0.0-0.4); Lymphocytes Absolute Auto 1.3 X10*3/uL (1.2-4.9); Lymphocytes Percent Auto 19.7 % (20-40); Mean Corpuscular HGB Conc 32.3 g/dl (31.0-35.0); Mean Corpuscular Hemoglobin 26.2 pg (27.0-33.0); Mean Corpuscular Volume 81.1 fL (80.0-98.0); Mean Platelet Volume 11.7 fL (9.4-12.3); Monocytes Absolute Auto 0.5 X10*3/uL (0.1-1.2); Monocytes Percent Auto 6.7 % (2-11); Neutrophils Absolute Auto 4.7 x10*3/uL (2.0-8.3); Neutrophils Percent Auto 70.1 % (45-73); Platelet Count 151 X10*3/uL (160-400); Red Blood Count 5.39 X10*6/uL (4.20-5.50); Red Cell Distribution Width 12.8 % (11.0-16.0); White Blood Count 6.7 X10*3/uL (4.8-10.8)
[2024-01-02 10:07] LABS: Alanine Aminotransferase 29 U/L (0-31); Albumin Level 4.4 g/dL (3.5-5.0); Alkaline Phosphatase 76 U/L (39-117); Anion Gap 11 (12-20); Aspartate Amino Transferase 22 U/L (5-31); Bilirubin Total 0.4 mg/dL (0.0-1.0); Blood Urea Nitrogen 19 mg/dL (9-16); C Reactive Protein < 0.10 mg/dL (< or = 0.50); Calcium 9.8 mg/dL (8.4-10.2); Carbon Dioxide 30 mmol/L (22-29); Chloride 104 mmol/L (96-108); Estimated Glomerular Filt Rate > 60; Glucose Random 98 mg/dL (60-115); Potassium 4.1 mmol/L (3.3-5.1); Sodium 141 mmol/L (135-145); Total Protein 7.3 g/dL (6.5-8.0)
[2024-01-02 10:19] LABS: Erythrocyte Sedimentation Rate 7 MM/HR (0-20)
== END 2024-01-02 08:56 | disposition home or self-care (01) ==
LOC: HO.LAB 08:55
PROVIDERS: PCP Internal Medicine; Visit Provider Student in an Organized Health Care Education/Training Program
DX: M06.1 Adult-onset Still's disease (principal)
CPT/HCPCS: 36415; 80053; 85025; 85652; 86140

== ENCOUNTER 2024-01-06 11:44 | Outpatient (AMB) | payer OTHER, SELFPAY ==
--- NOTE | 2024-01-06 11:46 | A.OFFVIS_ITS ---
Intake VS Expanded 01/06/24 11:50 BP 127/66 Blood Pressure Location Rt brachial Blood Pressure Position Sitting Pulse 68 Pulse Source Pulse Oximeter Temp 96.4 F L Temperature Source Tympanic Pulse Oximetry 100 Oxygen Delivery Method Room Air Oxygen Flow Rate 68 Height 5 ft 1 in Intake Visit Reasons: (ov ) panniculectomy 10/22/23 Graphics Coordinator Required: No Allergies No Known Allergies Allergy (Verified 01/01/24 09:41) Medication List - Last Reconciled 01/06/24 by ALESSANDRA Deleon buspirone 10 mg PO BID docusate sodium (Colace) 100 mg PO DAILY 90 days Enbrel SureClick (etanercept) 50 mg subcut QWEEK NS melatonin 5 - 10 mg PO BEDTIME PRN aeswqqcxzzws-bno-spnk-FA-vit K 45 mg iron- 800 mcg-120 mcg (Bariatric Multivitamins) 1 cap PO DAILY sertraline 150 mg PO DAILY HPI HPI Comments History of Present Illness Details Patient is a pleasant 53-year-old female who returns to the office today in follow-up. She is status post panniculectomy performed on 10/22/2023. She denies any complaints at today's visit. Meal plan includes 2 shakes of Premier protein powder, 1 scoop each, zone perfect bar, meal with 7 forks of protein and 7 forks of vegetables exercise plan: treadmill 1 hr 3 x per week PFSH Medical History Insomnia Hiatal hernia BMI 36.0-36.9,adult Right pulmonary lesion Surgical History S/P laparoscopic sleeve gastrectomy Hx of colonoscopy Hx of hysterectomy Hx of breast reduction, elective Family History Mother No problems noted. Father No problems noted. Sister No problems noted. Sister No problems noted. Sister No problems noted. Son No problems noted. Son Thyroid condition Daughter No problems noted. Social History Household Members: None Caregiver staying overnight: Yes (daughter will stay over post-op) Housing: Apartment Are you a primary skin care instructor to a significant other at home: No Do you presently have visiting nurse or other home services: No (daughter will stay over post-op) Alcohol intake: never Patient Tobacco Use Status: Never used Tobacco e-Cigarette/Vaping Use: Never Used Second Hand Smoke Exposure: No service: No Current occupational status: unemployed Cognitive needs: No Hearing needs: No Vision needs: Yes Physical Exam Vital Signs: Last Vital Signs Temp 96.4 F L 01/06/24 11:50 Pulse 68 01/06/24 11:50 BP 127/66 01/06/24 11:50 Pulse Ox 100 01/06/24 11:50 Oxygen Delivery Method Room Air 01/06/24 11:50 Oxygen Flow Rate 68 01/06/24 11:50 GI Inspection: Yes incision (Transverse incision has healed well. Umbilicus has healed well and viable.) Assessment & Plan Assessment & Plan (1) S/P panniculectomy: Code(s): Z98.890 - Other specified postprocedural states Plan: Change meal plan to exclude bar. Two shakes, 1 scoop each, meal with 7 forks of protein and 7 forks of vegetables. Continue to wear abdominal binder for the next 2 weeks, then she may discontinue use. Recommend increase exercise to 4 days per week. Return to clinic in 1 month. Coding Level of Care Code Global (84931) Diagnoses S/P panniculectomy Z98.890
[2024-01-06 11:50] VITALS: BP 127/66; PULSE 68; TEMP 35.8; O2SAT 100
== END 2024-01-06 12:15 | disposition home or self-care (01) ==
PROVIDERS: PCP Internal Medicine; Visit Provider Physician Assistant Surgical
DX: Z98.890 Other specified postprocedural states (principal)
CPT/HCPCS: 99024

== ENCOUNTER → 2024-01-06 11:44 | Outpatient (BNVA) | payer OTHER, SELFPAY | PROVIDERS: PCP Internal Medicine; Visit Provider Physician Assistant Surgical | DX: Z48.89 Encounter for other specified surgical aftercare (principal) | CPT/HCPCS: 99212 ==

== ENCOUNTER 2024-02-03 11:11 | Outpatient (AMB) | payer OTHER, SELFPAY ==
--- NOTE | 2024-02-03 11:30 | A.OFFVIS_ITS ---
Intake VS Expanded 02/03/24 11:37 BP 118/64 Blood Pressure Location Rt brachial Blood Pressure Position Sitting Pulse 59 Pulse Source Pulse Oximeter Temp 97.0 F Temperature Source Tympanic Pulse Oximetry 97 Oxygen Delivery Method Room Air Height 5 ft 1 in Weight 137 lb BMI 25.9 Body Fat % 32.4 Body Fat Mass 44.4 Fat Free Mass 92.6 Visceral Fat Rating 7.0 Body Water % 48.0 Body Water Mass 65.6 Muscle Mass/Score 88.0 Basal Metabolic Rate/Score 1,258 Intake Visit Reasons: (ov ) panniculectomy 10/22/23 Service Delivery Management Consultant Required: Yes Service Delivery Management Consultant Name: office cmi Allergies No Known Allergies Allergy (Verified 02/03/24 11:58) Medication List - Last Reconciled 02/03/24 by ALESSANDRA Deleon buspirone 10 mg PO BID docusate sodium (Colace) 100 mg PO DAILY 90 days Enbrel SureClick (etanercept) 50 mg subcut QWEEK NS melatonin 5 - 10 mg PO BEDTIME PRN nsljakowpvxk-how-fzcj-FA-vit K 45 mg iron- 800 mcg-120 mcg (Bariatric Multivitamins) 1 cap PO DAILY sertraline 150 mg PO DAILY HPI HPI Comments History of Present Illness Details Patient is a pleasant 53-year-old female who returns to the office today in follow-up. She underwent a panniculectomy on 10/22/2023 a sleeve gastrectomy on 08/15/2022. She is approximately 18 months post sleeve gastrectomy. Weight today is 137 lb with a BMI of 25.9. She states that she is happy with her panniculectomy although is unhappy with gaining some weight back in her abdomen. Any post op complications: None LIN: Never DM: Never HTN: Never Hyperlipidemia: Resolved GERD:?0-5 scale ??0 = no symptoms ??1 = symptoms noticeable but not bothersome 2 =symptoms bothersome but not daily ? 3 = symptoms bothersome and daily 4 = symptoms affect daily activities 5 = symptoms are incapacitating, unable to do daily activities ? How bad is the heartburn: 0 ? Heartburn while lying down: 0 ? Heartburn when standing up: 0 ? Heartburn after meals: 0 ? Does heartburn change your diet: 0 ? Does heartburn wake you up from sleep: 0 ? Do you have difficulty swallowin ? Do you have pain with swallowin ? If you take medicine for your reflux, does this affect your daily life: 0 Satisfaction with present condition - satisfied or not satisfied: Satisfied mostly Meal plan: not following meal plan Exercise plan: ordered treadmill, video at home. [facility] Medical History Insomnia Hiatal hernia BMI 36.0-36.9,adult Right pulmonary lesion Surgical History S/P laparoscopic sleeve gastrectomy Hx of colonoscopy Hx of hysterectomy Hx of breast reduction, elective Family History Mother No problems noted. Father No problems noted. Sister No problems noted. Sister No problems noted. Sister No problems noted. Son No problems noted. Son Thyroid condition Daughter No problems noted. Social History Household Members: None Caregiver staying overnight: Yes (daughter will stay over post-op) Housing: Apartment Are you a primary child day care center worker to a significant other at home: No Do you presently have visiting nurse or other home services: No (daughter will stay over post-op) Alcohol intake: never Patient Tobacco Use Status: Never used Tobacco e-Cigarette/Vaping Use: Never Used Second Hand Smoke Exposure: No service: No Current occupational status: unemployed Cognitive needs: No Hearing needs: No Vision needs: Yes Physical Exam Const General: cooperative and no acute distress Orientation/consciousness: patient oriented x3 Resp Effort & Inspection: normal respiratory effort Auscultation: clear to auscultation bilaterally Cardio Rate: regular rate Rhythm: regular rhythm GI Inspection: Yes normal to inspection and Yes incision (well healed) Palpation (GI): Soft to palpation and no masses Neuro General: patient oriented x3 Assessment & Plan Assessment & Plan (1) Overweight (BMI 25.0-29.9): Code(s): E66.3 - Overweight Plan: Resume meal plan including celebrate rebuild, 2 scoops in 8 oz of almond milk at breakfast and lunch, drank over 2 hours. Meal at night, 6 forks of protein in 6 of vegetables. Avoid rice. Resume activity at home including home videos Hellen Reddy and Lydia Garcia. Goal is to burn 2000 calories per week. Coding Level of Care Code Est Pt Level 3 (51610) Diagnoses Overweight (BMI 25.0-29.9) E66.3
[2024-02-03 11:37] VITALS: BP 118/64; PULSE 59; TEMP 36.1; O2SAT 97; BMI 25.9
== END 2024-02-03 12:40 | disposition home or self-care (01) ==
PROVIDERS: PCP Internal Medicine; Visit Provider Physician Assistant Surgical
DX: E66.3 Overweight (principal); Z68.25 Body mass index [BMI] 25.0-25.9, adult; L98.7 Excessive and redundant skin and subcutaneous tissue; Z90.3 Acquired absence of stomach [part of]
CPT/HCPCS: 99213

== ENCOUNTER → 2024-02-03 11:11 | Outpatient (BNVA) | payer OTHER, SELFPAY | PROVIDERS: PCP Internal Medicine; Visit Provider Physician Assistant Surgical | DX: E66.3 Overweight (principal); Z68.25 Body mass index [BMI] 25.0-25.9, adult | CPT/HCPCS: 99212 ==

== ENCOUNTER 2024-02-06 08:29 | Outpatient (REF) | payer OTHER, SELFPAY ==
[2024-02-06 10:46] LABS: C Reactive Protein 0.11 mg/dL (< or = 0.50); Cholesterol 263 mg/dL (<200); HDL Cholesterol 67 mg/dL (>40); Iron 75 mcg/dL (30-160); LDL Cholesterol Calculated 175 mg/dL (<100); Percent Iron Saturation 27 % (15-50); Total Iron Binding Capacity 283 mcg/dL (228-428); Triglycerides 109 mg/dL (<150); Unsaturated Iron Binding 208 ug/dL
[2024-02-06 10:47] LABS: Estimated Average Glucose 111 mg/dL; Hemoglobin A1c % 5.5 % (<6.0)
[2024-02-06 11:04] LABS: Ferritin 183 ng/mL (10-250); Insulin 6 uU/mL (2-29); TSH reflex Free T4 0.85 uIU/mL (0.32-4.0); Vitamin D 25-OH Total 33.2 ng/mL (>30)
[2024-02-06 11:34] LABS: Folate 10.3 ng/mL (> or = 4.0); Vitamin B12 464 pg/mL (200-900)
[2024-02-09 13:23] LABS: Zinc 82 mcg/dL (60-130)
[2024-02-11 06:18] LABS: Vitamin B1 16 nmol/L (8-30)
[2024-02-11 18:24] LABS: Vitamin A 58 mcg/dL (38-98)
== END 2024-02-06 08:30 | disposition home or self-care (01) ==
LOC: HO.LAB 08:29
PROVIDERS: Absent Provider Physician Assistant Surgical; PCP Internal Medicine; Visit Provider Physician Assistant Surgical
DX: Z98.84 Bariatric surgery status (principal)
CPT/HCPCS: 36415; 80061; 82306; 82607; 82728; 82746; 83036; 83525; 83540; 84425; 84443; 84590; 84630; 86140

== ENCOUNTER 2024-03-09 10:39 | Outpatient (REF) | payer OTHER, SELFPAY ==
--- NOTE | ~2024-03-09 | MM_ITS ---
EXAMINATION: MM SCREENING DIGITAL BREAST TOMOSYNTHESIS, BILATERAL CLINICAL INFORMATION: Screening. Asymptomatic. The patient is status post reduction mammoplasty in the remote past. COMPARISON: Mammography: This study is compared with prior exams dating back to 2017. TECHNIQUE: Digital breast tomosynthesis is performed in both the craniocaudal and mediolateral oblique views along with computer-aided detection (CAD). Synthesized 2D images are generated from the tomosynthesis. FINDINGS: The breasts are almost entirely fatty (ACR BI-RADS breast composition Category a). There are no significant masses, abnormal calcifications, or other abnormalities. MM/MM tomosynthesis screening BI IMPRESSION: No mammographic evidence of malignancy. ASSESSMENT: BI-RADS BI-RADS 1 - Negative RECOMMENDATION: Routine annual mammography screening. 1 year F/U This examination should not preclude the clinical evaluation of a suspicious palpable abnormality. This patient's information was entered into a reminder system with a target due date for their next mammogram.
== END 2024-03-09 10:40 | disposition home or self-care (01) ==
LOC: HO.MAMMO 10:39
PROVIDERS: PCP Internal Medicine; Visit Provider Internal Medicine
DX: Z12.31 Encounter for screening mammogram for malignant neoplasm of breast (principal)
CPT/HCPCS: 77063; 77067

== ENCOUNTER → 2024-03-09 11:00 | Outpatient (BNV) | payer OTHER, SELFPAY | PROVIDERS: PCP Internal Medicine; Visit Provider Radiology Diagnostic Radiology | DX: Z12.31 Encounter for screening mammogram for malignant neoplasm of breast (principal) | CPT/HCPCS: 77063; 77067 ==

== ENCOUNTER 2024-03-17 08:29 | Outpatient (AMB) | payer OTHER, SELFPAY ==
--- NOTE | 2024-03-17 08:55 | MHC.OFFVISWM ---
Intake VS Expanded 03/17/24 08:56 BP 135/58 L Blood Pressure Location Rt brachial Blood Pressure Position Sitting Pulse 65 Pulse Source Pulse Oximeter Temp 97.2 F Temperature Source Tympanic Pulse Oximetry 97 Oxygen Delivery Method Room Air Height 5 ft 1 in Weight 137 lb 12.8 oz BMI 26.0 Body Fat % 33.0 Body Fat Mass 45.4 Fat Free Mass 92.4 Visceral Fat Rating 7.0 Body Water % 33.0 Body Water Mass 65.4 Muscle Mass/Score 87.8 Basal Metabolic Rate/Score 1,257 Intake Visit Reasons: (ov ) panniculectomy 10/22/23 Allergies No Known Allergies Allergy (Verified 03/17/24 09:00) HPI HPI Comments History of Present Illness Details Patient is a pleasant 53-year-old female who returns to the office today in follow-up. She underwent a panniculectomy on 10/22/2023 a sleeve gastrectomy on 08/15/2022. Weight today is 137.8 lb with a BMI of 26. She states that she is satisfied with her outcome from her panniculectomy. Meal plan includes 2 celebrate 4 in 1 shakes with 2 scoops each and a meal of 7 forks of protein and 7 of vegetables. She states that she is having some rice. Exercise plan including daily treadmill 45 minutes speed 3.7. [facility] Medical History Insomnia Hiatal hernia BMI 36.0-36.9,adult Right pulmonary lesion Surgical History S/P laparoscopic sleeve gastrectomy Hx of colonoscopy Hx of hysterectomy Hx of breast reduction, elective Family History Mother No problems noted. Father No problems noted. Sister No problems noted. Sister No problems noted. Sister No problems noted. Son No problems noted. Son Thyroid condition Daughter No problems noted. Social History Household Members: None Caregiver staying overnight: Yes (daughter will stay over post-op) Housing: Apartment Are you a primary primary care nurse to a significant other at home: No Do you presently have visiting nurse or other home services: No (daughter will stay over post-op) Alcohol intake: never Patient Tobacco Use Status: Never used Tobacco e-Cigarette/Vaping Use: Never Used Second Hand Smoke Exposure: No service: No Current occupational status: unemployed Cognitive needs: No Hearing needs: No Vision needs: Yes Physical Exam Vital Signs: Last Vital Signs Temp 97.2 F 03/17/24 08:56 Pulse 65 03/17/24 08:56 BP 135/58 L 03/17/24 08:56 Pulse Ox 97 03/17/24 08:56 Oxygen Delivery Method Room Air 03/17/24 08:56 BMI result Body Mass Index 26.0 Const General: healthy appearing and no acute distress Resp Effort & Inspection: normal respiratory effort Auscultation: clear to auscultation bilaterally Cardio Rate: regular rate Rhythm: regular rhythm GI Auscultation: normal bowel sounds Skin Other: Transverse panniculectomy incision has healed nicely. Umbilicus has healed nicely. Extrem General: Yes normal to inspection Assessment & Plan Assessment & Plan (1) S/P panniculectomy: Code(s): Z98.890 - Other specified postprocedural states Plan: Patient is satisfied with her panniculectomy outcome. (2) S/P laparoscopic sleeve gastrectomy: Comment: 08/2022 Code(s): Z98.84 - Bariatric surgery status Plan: Recommend decreasing rice in her diet. Additionally, decrease speed on the treadmill to 3.2 although increase incline from 0-6 and back down again for a goal of 300 calories daily. Return to clinic 2 months Coding Level of Care Code Est Pt Level 3 (83352) Diagnoses S/P panniculectomy Z98.890 S/P laparoscopic sleeve gastrectomy Z98.84
[2024-03-17 08:56] VITALS: BP 135/58; PULSE 65; TEMP 36.2; O2SAT 97; BMI 26.0
== END 2024-03-17 09:19 | disposition home or self-care (01) ==
PROVIDERS: PCP Internal Medicine; Visit Provider Physician Assistant Surgical
DX: E66.3 Overweight (principal); Z68.26 Body mass index [BMI] 26.0-26.9, adult; Z90.3 Acquired absence of stomach [part of]; Z98.84 Bariatric surgery status
CPT/HCPCS: 99213

== ENCOUNTER → 2024-03-17 08:29 | Outpatient (BNVA) | payer OTHER, SELFPAY | PROVIDERS: PCP Internal Medicine; Visit Provider Physician Assistant Surgical | DX: Z98.890 Other specified postprocedural states (principal); Z98.84 Bariatric surgery status | CPT/HCPCS: 99212 ==

== ENCOUNTER 2024-03-25 08:32 | Outpatient (AMB) | payer OTHER, SELFPAY ==
--- NOTE | 2024-03-25 09:01 | A.OFFVIS_ITS ---
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 She started Enbrel about 10 or 11 weeks ago. Doing much better overall. Has not had any recurrent joint pain or swelling. No complaints today Initial history: 52-year-old female who presents for evaluation of rheumatoid arthritis. She states that she was diagnosed with Still's disease around 2001. She had fevers and rashes on her head and abdomen. And she was on prednisone initially, she was also on other meds including methotrexate which she could not tolerate and was ultimately on Enbrel for a few years. She has not been on any treatment since 2004. She states that she gets pain in her right thumb as well as both knees. She received multiple injections at [facility], she received bilateral knee gel injections about a year ago which provided some relief. She also gets thumb injections which also helped. Patient has not had those episodes of fevers and rashes since her diagnosis many years ago. She is unaware of any other family history of autoimmune rheumatic disease [facility] Medical History Insomnia Hiatal hernia BMI 36.0-36.9,adult Right pulmonary lesion Surgical History S/P laparoscopic sleeve gastrectomy Hx of colonoscopy Hx of hysterectomy Hx of breast reduction, elective Family History Mother No problems noted. Father No problems noted. Sister No problems noted. Sister No problems noted. Sister No problems noted. Son No problems noted. Son Thyroid condition Daughter No problems noted. Social History Household Members: None Caregiver staying overnight: Yes (daughter will stay over post-op) Housing: Apartment Are you a primary hospice care consultant to a significant other at home: No Do you presently have visiting nurse or other home services: No (daughter will stay over post-op) Alcohol intake: never Patient Tobacco Use Status: Never used Tobacco e-Cigarette/Vaping Use: Never Used Second Hand Smoke Exposure: No service: No Current occupational status: unemployed Cognitive needs: No Hearing needs: No Vision needs: Yes Review of Systems Musc Denies arthralgias, Denies joint swelling and Denies stiffness Physical Exam Vital Signs: Last Vital Signs Pulse 78 03/25/24 09:06 BP 118/82 03/25/24 09:06 Pulse Ox 100 03/25/24 09:06 BMI result Body Mass Index 25.9 Const General: cooperative, healthy appearing and comfortable Nutritional Appearance: overweight Orientation/consciousness: patient oriented x3 Limitations: no limitations HEENT Head: Yes normocephalic and Yes atraumatic Mouth: moist mucous membranes Resp Effort & Inspection: normal respiratory effort and able to speak in complete sentences Auscultation: clear to auscultation bilaterally Cardio Rate: regular rate Rhythm: regular rhythm Skin General skin exam: no rashes or lesions noted Neuro General: patient oriented x3 Extrem Other: Mild osteoarthritic changes of both hands Bilateral reduced flexion and extension of both wrists but no pain No active synovitis today Results Reviewed Results Reviewed: CLINICAL INFORMATION:? Rheumatoid arthritis. COMPARISON:? None TECHNIQUE:? 4 views of each hand. FINDINGS: RIGHT HAND: Moderate degenerative changes in the first carpometacarpal joint with joint space narrowing and hypertrophic change. The bones are diffusely demineralized. Cystic lucencies are present in the carpal bones. Narrowing of the radiocarpal space and intercarpal spaces with degenerative changes. Mild degenerative changes in the scattered interphalangeal joints. LEFT HAND: Moderate degenerative changes in the first carpometacarpal joint with joint space narrowing and hypertrophic change. The bones are diffusely demineralized. Cystic lucencies are present in the carpal bones. Moderate degenerative changes in the first metacarpophalangeal joint. Narrowing of the radiocarpal space and intercarpal spaces with degenerative changes. Mild degenerative changes in the scattered interphalangeal joints. XR/XR hand wrist LT IMPRESSION:? Advanced degenerative changes in the bilateral wrists. ? No displaced fracture. Recommend follow-up imaging in 10-14 days if fracture is suspected. EXAMINATION:? BONE DENSITOMETRY CLINICAL INDICATION:? Menopause. COMPARISON:? None (current study represents initial baseline exam). TECHNIQUE: Using a IQcard DXA System (software version: 13.1) manufactured by [employer], dual-energy x-ray absorptiometry was performed of the lumbar spine and left hip. The images are of good technical quality. Summary results are attached. FINDINGS: AP SPINE L1-L3 (excluding L4): The data of L1-L4 has been changed to exclude the L4 vertebral body, because degenerative changes at this level may cause overestimation of lumbar spine density. BMD 1.160 g/cm2, Z-score 0.8, T-score -0.1, normal. LEFT FEMUR, NECK: BMD 0.905 g/cm2, Z-score 0.1, T-score -1.0, normal. LEFT FEMUR, TOTAL: BMD 0.909 g/cm2, Z-score -0.1, T-score -0.8, normal. IDENTIFIED RISK FACTORS:? Early menopause, hysterectomy, left oophorectomy, rheumatoid arthritis, secondary osteoporosis.? HISTORY OF FRACTURE:? None listed.? MEDICATIONS:? Calcium, vitamin D.? MM/XR DEXA axial skeleton IMPRESSION: 1. DIAGNOSIS: Normal bone density based on the lowest T-score value of -1.0 in the femoral neck applying World Health Organization criteria.?? ? 2. 10-YEAR FRACTURE RISK PREDICTION, FRAX: According to the guidelines, FRAX calculation should only be performed on patients in the osteopenia bone density category. Therefore, FRAX was not performed on this patient. Assessment & Plan Assessment & Plan (1) Rheumatoid arthritis: Comment: Still ds dx 2001, fevers rashes, joint symptoms. Treated with prednisone. Could not tolerate methotrexate. Enbrel out in 2004 Seronegative RA dx 12/2023 Enbrel restarted 01/2024 effective Code(s): M06.9 - Rheumatoid arthritis, unspecified Category: Medical Qualifiers: Rheumatoid arthritis location: multiple sites Rheumatoid factor presence: without rheumatoid factor Qualified Code(s): M06.09 - Rheumatoid arthritis without rheumatoid factor, multiple sites Plan: This is a 53-year-old female with seronegative RA who presents for follow-up. Doing much better overall with no active synovitis on Enbrel 50 mg weekly. Enbrel is well tolerated Continue Enbrel 50 mg weekly Labs before next visit in 4 months (2) High risk medication use: Code(s): Z79.899 - Other halfway (current) drug therapy Category: Medical Plan: Discussed risks and benefits of TNF inhibitors including increased risk of infection. Advised patient to call the clinic if he develops a fever or an infection and hold Enbrel until infection resolves. Discuss slightly increased risk of malignancy and demyelinating conditions. Patient agreed to proceed. Plan I spent 26 minutes reviewing patient's chart, evaluating patient, ordering diagnostic workup, counseling patient and documenting in the chart Orders: Orders Comprehensive Met. Panel 4 Months M06.09 - Rheumatoid arthritis without rheumatoid factor, multiple sites C Reactive Protein 4 Months M06.09 - Rheumatoid arthritis without rheumatoid factor, multiple sites Erythrocyte Sedimentation Rate 4 Months M06.09 - Rheumatoid arthritis without rheumatoid factor, multiple sites Complete Blood Count Auto Diff 4 Months M06.09 - Rheumatoid arthritis without rheumatoid factor, multiple sites Coding Level of Care Code Est Pt Level 4 (21381) Diagnoses Rheumatoid arthritis of multiple sites with negative rheumatoid factor M06.09 Rheumatoid arthritis location: multiple sites Rheumatoid factor presence: without rheumatoid factor High risk medication use Z79.899
[2024-03-25 09:06] VITALS: BP 118/82; PULSE 78; O2SAT 100; BMI 25.9
== END 2024-03-25 09:28 | disposition home or self-care (01) ==
LOC: HO.RHE 08:32
PROVIDERS: PCP Internal Medicine; Visit Provider Student in an Organized Health Care Education/Training Program
DX: M06.09 Rheumatoid arthritis without rheumatoid factor, multiple sites (principal); Z79.899 Other long term (current) drug therapy
CPT/HCPCS: 99214

== ENCOUNTER → 2024-03-25 08:32 | Outpatient (BNVA) | payer OTHER, SELFPAY | PROVIDERS: PCP Internal Medicine; Visit Provider Student in an Organized Health Care Education/Training Program | DX: M06.09 Rheumatoid arthritis without rheumatoid factor, multiple sites (principal); Z79.899 Other long term (current) drug therapy | CPT/HCPCS: 99212 ==

== ENCOUNTER 2024-05-18 09:18 | Outpatient (AMB) | payer OTHER, SELFPAY ==
--- NOTE | 2024-05-18 09:34 | MHC.OFFVISWM ---
VS Expanded 05/18/24 09:43 BP 110/63 Blood Pressure Location Rt brachial Blood Pressure Position Sitting Pulse 59 Pulse Source Pulse Oximeter Temp 96.6 F L Temperature Source Temporal Artery Scan Pulse Oximetry 97 Oxygen Delivery Method Room Air Height 5 ft 1 in Weight 138 lb BMI 26.1 Body Fat % 32.6 Body Fat Mass 45.0 Fat Free Mass 92.8 Visceral Fat Rating 7.0 Body Water % 47.8 Body Water Mass 66.0 Muscle Mass/Score 88.2 Basal Metabolic Rate/Score 1,262 Intake Visit Reasons: (ov ) panniculectomy 10/22/23 Allergies No Known Allergies Allergy (Verified 05/18/24 09:46) HPI Comments Details: Patient is a pleasant 53-year-old female who returns to the office today in follow-up. She underwent a panniculectomy on 10/22/2023 a sleeve gastrectomy on 08/15/2022. Weight today is 138 lb with a BMI of 26. She states that she is satisfied with her outcome from her panniculectomy. She states that she just got back from vacation and has not yet returned to the gym. Meal plan: 2 celebrate 4 in 1 shakes with 2 scoops each and a meal of 7 forks of protein and 7 of vegetables. Exercise plan: daily treadmill 45 minutes speed 3.2, incline 0-6. [facility] Medical History Insomnia Hiatal hernia BMI 36.0-36.9,adult Right pulmonary lesion Surgical History S/P laparoscopic sleeve gastrectomy Hx of colonoscopy Hx of hysterectomy Hx of breast reduction, elective Family History Mother No problems noted. Father No problems noted. Sister No problems noted. Sister No problems noted. Sister No problems noted. Son No problems noted. Son Thyroid condition Daughter No problems noted. Social History Household Members: None Caregiver staying overnight: Yes (daughter will stay over post-op) Housing: Apartment Are you a primary day care home provider to a significant other at home: No Do you presently have visiting nurse or other home services: No (daughter will stay over post-op) Alcohol intake: never Patient Tobacco Use Status: Never used Tobacco e-Cigarette/Vaping Use: Never Used Second Hand Smoke Exposure: No service: No Current occupational status: unemployed Cognitive needs: No Hearing needs: No Vision needs: Yes Physical Exam Vital Signs: Last Vital Signs Temp 96.6 F L 05/18/24 09:43 Pulse 59 05/18/24 09:43 BP 110/63 05/18/24 09:43 Pulse Ox 97 05/18/24 09:43 Oxygen Delivery Method Room Air 05/18/24 09:43 BMI result Body Mass Index 26.1 Const General: healthy appearing and no acute distress Resp Effort & Inspection: normal respiratory effort Auscultation: clear to auscultation bilaterally Cardio Rate: regular rate Rhythm: regular rhythm GI Auscultation: normal bowel sounds Extrem General: Yes normal to inspection Assessment & Plan Assessment & Plan (1) S/P laparoscopic sleeve gastrectomy: Comment: 08/2022 Code(s): Z98.84 - Bariatric surgery status Category: Surgical Plan: Patient overall is very satisfied with her panniculectomy. She was encouraged to return to the gym now that she has returned from vacation. She will continue to text with any questions or concerns. We will have her return to the office for follow-up in August for her 2 year post sleeve gastrectomy appointment.
[2024-05-18 09:43] VITALS: BP 110/63; PULSE 59; TEMP 35.9; O2SAT 97; BMI 26.1
== END 2024-05-18 10:04 | disposition home or self-care (01) ==
PROVIDERS: PCP Internal Medicine; Visit Provider Physician Assistant Surgical
DX: E66.3 Overweight (principal); Z68.26 Body mass index [BMI] 26.0-26.9, adult; Z90.3 Acquired absence of stomach [part of]; Z98.84 Bariatric surgery status
CPT/HCPCS: 99213

== ENCOUNTER → 2024-05-18 09:18 | Outpatient (BNVA) | payer OTHER, SELFPAY | PROVIDERS: PCP Internal Medicine; Visit Provider Physician Assistant Surgical | DX: Z48.817 Encounter for surgical aftercare following surgery on the skin and subcutaneous tissue (principal); Z68.26 Body mass index [BMI] 26.0-26.9, adult; Z90.3 Acquired absence of stomach [part of] | CPT/HCPCS: 99212 ==

== ENCOUNTER 2024-05-20 08:51 | Outpatient (REF) | payer OTHER, SELFPAY ==
[2024-05-20 11:37] LABS: MANUAL DIFF FLAG NO
[2024-05-20 11:42] LABS: Basophils Percent Auto 0.6 % (0-2); Eosinophils Absolute Auto 0.2 X10*3/uL (0.0-0.4); Eosinophils Percent Auto 3.8 % (0-4); Hematocrit 41.8 % (37.0-47.0); Hemoglobin 13.3 g/dl (12.0-16.0); Imm Gran Abs Auto 0.02 X10*3/uL (0.00-0.03); Imm Gran Pct Auto 0.4 % (0.0-0.4); Lymphocytes Absolute Auto 1.4 X10*3/uL (1.2-4.9); Lymphocytes Percent Auto 28.3 % (20-40); Mean Corpuscular HGB Conc 31.8 g/dl (31.0-35.0); Mean Corpuscular Hemoglobin 26.4 pg (27.0-33.0); Mean Corpuscular Volume 82.9 fL (80.0-98.0); Mean Platelet Volume 13.4 fL (9.4-12.3); Monocytes Absolute Auto 0.4 X10*3/uL (0.1-1.2); Monocytes Percent Auto 8.2 % (2-11); Neutrophils Absolute Auto 2.9 x10*3/uL (2.0-8.3); Neutrophils Percent Auto 58.7 % (45-73); Platelet Count 131 X10*3/uL (160-400); Red Blood Count 5.04 X10*6/uL (4.20-5.50); Red Cell Distribution Width 13.3 % (11.0-16.0)
[2024-05-20 12:09] LABS: Alanine Aminotransferase 18 U/L (0-31); Albumin Level 4.3 g/dL (3.5-5.0); Alkaline Phosphatase 70 U/L (39-117); Anion Gap 9 (12-20); Aspartate Amino Transferase 18 U/L (5-31); Bilirubin Total 0.4 mg/dL (0.0-1.0); Blood Urea Nitrogen 17 mg/dL (9-16); C Reactive Protein < 0.10 mg/dL (< or = 0.50); Calcium 9.8 mg/dL (8.4-10.2); Carbon Dioxide 28 mmol/L (22-29); Chloride 108 mmol/L (96-108); Estimated Glomerular Filt Rate > 60; Glucose Random 81 mg/dL (60-115); Potassium 4.1 mmol/L (3.3-5.1); Sodium 141 mmol/L (135-145); Total Protein 7.1 g/dL (6.5-8.0)
[2024-05-20 12:23] LABS: Erythrocyte Sedimentation Rate 7 MM/HR (0-20)
== END 2024-05-20 08:52 | disposition home or self-care (01) ==
LOC: HO.10HDL 08:51
PROVIDERS: Visit Provider Student in an Organized Health Care Education/Training Program
DX: M06.09 Rheumatoid arthritis without rheumatoid factor, multiple sites (principal)
CPT/HCPCS: 36415; 80053; 85025; 85652; 86140

== ENCOUNTER 2024-07-29 07:58 | Outpatient (AMB) | payer OTHER, SELFPAY ==
[2024-07-29 08:20] VITALS: BP 110/68; PULSE 64; O2SAT 98; BMI 26.2
--- NOTE | 2024-07-29 08:20 | A.OFFVIS_ITS ---
Vital Signs 07/29/24 08:20 Height 5 ft 1 in Weight 138 lb 14.259 oz BMI 26.2 BP 110/68 Blood Pressure Location Lt brachial Position Sitting Pulse 64 Pulse Source Pulse Oximeter Pulse Oximetry (%) 98 Oxygen Delivery Method Room Air Intake Visit Reasons: RA Intake Note: Patient present today for follow up on RA, she was last seen on 03/25/2024. Allergies No Known Allergies Allergy (Verified 07/29/24 08:21) Medication List - Last Reconciled 07/29/24 by Tuan Muller MD buspirone 10 mg PO BID docusate sodium (Colace) 100 mg PO DAILY 90 days Enbrel SureClick (etanercept) 50 mg subcut QWEEK NS melatonin 5 - 10 mg PO BEDTIME PRN vtuhhuuouiwi-ogp-asmo-FA-vit K 45 mg iron- 800 mcg-120 mcg (Bariatric Multivitamins) 1 cap PO DAILY sertraline 150 mg PO DAILY sulfamethoxazole-trimethoprim 800-160 mg (Bactrim DS) 1 tab PO BID 10 days HPI Comments Details: This is a 53-year-old female with rheumatoid arthritis, previously diagnosed with Still's disease who presents for follow-up. She is on Enbrel 50 mg weekly. She was having left knee pain, she was evaluated by an orthopedist and was told that her meniscus is degenerating, she was offered knee replacement versus gel injections. She opted to proceed with gel injections. She wonders whether it would interact with Enbrel. Initial history: 52-year-old female who presents for evaluation of rheumatoid arthritis. She states that she was diagnosed with Still's disease around 2001. She had fevers and rashes on her head and abdomen. And she was on prednisone initially, she was also on other meds including methotrexate which she could not tolerate and was ultimately on Enbrel for a few years. She has not been on any treatment since 2004. She states that she gets pain in her right thumb as well as both knees. She received multiple injections at [facility], she received bilateral knee gel injections about a year ago which provided some relief. She also gets thumb injections which also helped. Patient has not had those episodes of fevers and rashes since her diagnosis many years ago. She is unaware of any other family history of autoimmune rheumatic disease [facility] Medical History Insomnia Hiatal hernia BMI 36.0-36.9,adult Right pulmonary lesion Surgical History S/P laparoscopic sleeve gastrectomy Hx of colonoscopy Hx of hysterectomy Hx of breast reduction, elective Family History Mother No problems noted. Father No problems noted. Sister No problems noted. Sister No problems noted. Sister No problems noted. Son No problems noted. Son Thyroid condition Daughter No problems noted. Social History Household Members: None Caregiver staying overnight: Yes (daughter will stay over post-op) Housing: Apartment Are you a primary neonatal intensive care nurse to a significant other at home: No Do you presently have visiting nurse or other home services: No (daughter will stay over post-op) Alcohol intake: never Patient Tobacco Use Status: Never used Tobacco e-Cigarette/Vaping Use: Never Used Second Hand Smoke Exposure: No service: No Current occupational status: unemployed Cognitive needs: No Hearing needs: No Vision needs: Yes Female Reproductive History Menstrual Total pregnancies: 4 Number of Living Children: 3 Ab spontaneous: 1 Review of Systems Musc Reports back pain, Reports arthralgias and Denies joint swelling Physical Exam Vital Signs: Last Vital Signs Pulse 64 07/29/24 08:20 BP 110/68 07/29/24 08:20 Pulse Ox 98 07/29/24 08:20 Oxygen Delivery Method Room Air 07/29/24 08:20 BMI result Body Mass Index 26.2 Const General: cooperative, healthy appearing and comfortable Nutritional Appearance: overweight Orientation/consciousness: patient oriented x3 Limitations: no limitations HEENT Head: Yes normocephalic and Yes atraumatic Mouth: moist mucous membranes Resp Effort & Inspection: normal respiratory effort and able to speak in complete sentences Auscultation: clear to auscultation bilaterally Cardio Rate: regular rate Rhythm: regular rhythm Skin General skin exam: no rashes or lesions noted Neuro General: patient oriented x3 Extrem Other: Mild osteoarthritic changes of both hands Bilateral reduced flexion and extension of both wrists but no pain No active synovitis today Bilateral knee pain with full flexion-extension Results Reviewed Results Reviewed: CLINICAL INFORMATION:? Rheumatoid arthritis. COMPARISON:? None TECHNIQUE:? 4 views of each hand. FINDINGS: RIGHT HAND: Moderate degenerative changes in the first carpometacarpal joint with joint space narrowing and hypertrophic change. The bones are diffusely demineralized. Cystic lucencies are present in the carpal bones. Narrowing of the radiocarpal space and intercarpal spaces with degenerative changes. Mild degenerative changes in the scattered interphalangeal joints. LEFT HAND: Moderate degenerative changes in the first carpometacarpal joint with joint space narrowing and hypertrophic change. The bones are diffusely demineralized. Cystic lucencies are present in the carpal bones. Moderate degenerative changes in the first metacarpophalangeal joint. Narrowing of the radiocarpal space and intercarpal spaces with degenerative changes. Mild degenerative changes in the scattered interphalangeal joints. XR/XR hand wrist LT IMPRESSION:? Advanced degenerative changes in the bilateral wrists. ? No displaced fracture. Recommend follow-up imaging in 10-14 days if fracture is suspected. EXAMINATION:? BONE DENSITOMETRY CLINICAL INDICATION:? Menopause. COMPARISON:? None (current study represents initial baseline exam). TECHNIQUE: Using a [employer] DXA System (software version: 13.1) manufactured by [employer], dual-energy x-ray absorptiometry was performed of the lumbar spine and left hip. The images are of good technical quality. Summary results are attached. FINDINGS: AP SPINE L1-L3 (excluding L4): The data of L1-L4 has been changed to exclude the L4 vertebral body, because degenerative changes at this level may cause overestimation of lumbar spine density. BMD 1.160 g/cm2, Z-score 0.8, T-score -0.1, normal. LEFT FEMUR, NECK: BMD 0.905 g/cm2, Z-score 0.1, T-score -1.0, normal. LEFT FEMUR, TOTAL: BMD 0.909 g/cm2, Z-score -0.1, T-score -0.8, normal. IDENTIFIED RISK FACTORS:? Early menopause, hysterectomy, left oophorectomy, rheumatoid arthritis, secondary osteoporosis.? HISTORY OF FRACTURE:? None listed.? MEDICATIONS:? Calcium, vitamin D.? MM/XR DEXA axial skeleton IMPRESSION: 1. DIAGNOSIS: Normal bone density based on the lowest T-score value of -1.0 in the femoral neck applying World Health Organization criteria.?? ? 2. 10-YEAR FRACTURE RISK PREDICTION, FRAX: According to the guidelines, FRAX calculation should only be performed on patients in the osteopenia bone density category. Therefore, FRAX was not performed on this patient. Assessment & Plan Assessment & Plan (1) Rheumatoid arthritis: Comment: Still ds dx 2001, fevers rashes, joint symptoms. Treated with prednisone. Could not tolerate methotrexate. Enbrel out in 2004 Seronegative RA dx 12/2023 Enbrel restarted 01/2024 effective Code(s): M06.9 - Rheumatoid arthritis, unspecified Category: Medical Qualifiers: Rheumatoid arthritis location: multiple sites Rheumatoid factor presence: without rheumatoid factor Qualified Code(s): M06.09 - Rheumatoid arthritis without rheumatoid factor, multiple sites Plan: This is a 53-year-old female with seronegative RA who presents for follow-up. Doing much better overall with no active synovitis on Enbrel 50 mg weekly. 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 Advised patient to call the clinic if he develops a fever or an infection and hold Enbrel until infection resolves. Discuss slightly increased risk of malignancy and demyelinating conditions. (3) Bilateral primary osteoarthritis of knee: Code(s): M17.0 - Bilateral primary osteoarthritis of knee Category: Medical Plan: No objection to gel injections from Rheumatology standpoint. No significant medication interaction with Enbrel Plan I spent 26 minutes reviewing patient's chart, evaluating patient, ordering diagn ostic workup, counseling patient and documenting in the chart Orders: Orders Complete Blood Count Auto Diff 4 Months M06.09 - Rheumatoid arthritis without rheumatoid factor, multiple sites Erythrocyte Sedimentation Rate 4 Months M06.09 - Rheumatoid arthritis without rheumatoid factor, multiple sites Comprehensive Met. Panel 4 Months M06.09 - Rheumatoid arthritis without rheumatoid factor, multiple sites C Reactive Protein 4 Months M06.09 - Rheumatoid arthritis without rheumatoid factor, multiple sites Coding Level of Care Code Est Pt Level 4 (68050) Diagnoses Rheumatoid arthritis of multiple sites with negative rheumatoid factor M06. Rheumatoid arthritis location: multiple sites Rheumatoid factor presence: without rheumatoid factor High risk medication use Z79.899 Bilateral primary osteoarthritis of knee M17.0
== END 2024-07-29 08:43 | disposition home or self-care (01) ==
PROVIDERS: PCP Internal Medicine; Visit Provider Student in an Organized Health Care Education/Training Program
DX: M06.09 Rheumatoid arthritis without rheumatoid factor, multiple sites (principal); Z79.899 Other long term (current) drug therapy; M17.0 Bilateral primary osteoarthritis of knee
CPT/HCPCS: 99214

== ENCOUNTER → 2024-07-29 07:58 | Outpatient (BNVA) | payer OTHER, SELFPAY | PROVIDERS: PCP Internal Medicine; Visit Provider Student in an Organized Health Care Education/Training Program | DX: M06.09 Rheumatoid arthritis without rheumatoid factor, multiple sites (principal); M17.0 Bilateral primary osteoarthritis of knee; Z79.899 Other long term (current) drug therapy | CPT/HCPCS: 99212 ==

== ENCOUNTER 2024-09-28 08:13 | Outpatient (AMB) | payer OTHER, SELFPAY ==
--- NOTE | 2024-09-28 08:21 | A.OFFPC_ITS ---
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 Accompanied by: Child Allergies No Known Allergies Allergy (Verified 09/28/24 08:38) Medication List - Last Reconciled 09/28/24 by Makenna Zheng MD buspirone 10 mg PO BID docusate sodium (Colace) 100 mg PO DAILY 90 days Enbrel SureClick (etanercept) 50 mg subcut QWEEK NS melatonin 5 - 10 mg PO BEDTIME PRN rkugpjmkhopl-cbg-jiby-FA-vit K 45 mg iron- 800 mcg-120 mcg (Bariatric Multivitamins) 1 cap PO DAILY sertraline 150 mg PO DAILY Tobacco use date assessed: 09/28/24 Dental Screening Dental Screen Date: 09/28/24 Did you have a dental visit in the last 12 months?: Yes Did you have a dental problem in the last 6 months where you did not have access to dental care?: No Was dental information given to patient?: Patient has dentist HPI HPI Comments History of Present Illness Details This is a 54-year-old female with rheumatoid arthritis, Still's disease and mild major depression that comes for her physical exam. Mammogram done 2023 was normal. Colonoscopy done 6 years ago was normal as per patient. DEXA scan done 2023 was normal. No need for Pap smear due to hysterectomy for benign reasons. Rheumatoid arthritis stable with Enbrel and follow by Rheumatology as well as Still's disease. Depression well controlled with SSRIs and follow by Psychiatry. Complains of lumbar pain aggravated by bending forward. No fever, bowel or bladder incontinence. No radiation to the legs. This pain has been present on and off for few months. [facility] Medical History (Updated 09/28/24 @ 08:50 by Makenna Zheng MD) Insomnia Hiatal hernia BMI 36.0-36.9,adult Right pulmonary lesion Surgical History (Updated 09/28/24 @ 08:49 by Makenna Zheng MD) S/P laparoscopic sleeve gastrectomy Hx of colonoscopy Hx of hysterectomy Hx of breast reduction, elective Family History Mother No problems noted. Father No problems noted. Sister No problems noted. Sister No problems noted. Sister No problems noted. Son No problems noted. Son Thyroid condition Daughter No problems noted. Social History Household Members: None Caregiver staying overnight: Yes (daughter will stay over post-op) Housing: Apartment Are you a primary care information associate to a significant other at home: No Do you presently have visiting nurse or other home services: No (daughter will stay over post-op) Alcohol intake: never Patient Tobacco Use Status: Never used Tobacco e-Cigarette/Vaping Use: Never Used Second Hand Smoke Exposure: No service: No Current occupational status: unemployed Cognitive needs: No Hearing needs: No Vision needs: Yes Questionnaire PHQ-9 Over the last 2 weeks, how often have you been bothered by any of the following problems? 1. Little interest or pleasure in doing things: not at all 2. Feeling down, depressed, or hopeless: more than half the days 3. Trouble falling or staying asleep, or sleeping too much: more than half the days 4. Feeling tired or having little energy: more than half the days 5. Poor appetite or overeating: not at all 6. Feeling bad about yourself - or that you are a failure or have let yourself or your family down: not at all 7. Trouble concentrating on things, such as reading the newspaper or watching television: not at all 8. Moving or speaking so slowly that other people could have noticed. Or the opposite - being so fidgety or restless that you have been moving around a lot more than usual: not at all 9. Thoughts that you would be better off or of hurting yourself in some way: not at all Total score: 6 Depression Screening Interpretation: Positive Depression Screening Follow-up: Existing condition, In treatment, Community Mental Health Worker F/U and Follow- up Visit Requested Depression Screening Done: Yes [id number] - PHQ-9 Billing: Yes Source: Developed by Drs. Alvaro Greene, Osiris Kellogg, Douglas Crawford and colleagues, with an educational jason from [employer]. Thrive Questionnaire Date Thrive assessed: 09/28/24 I am a: Patient What is your living situation today?: I have a steady place to live Within the past 12 months, did the food you bought not last and you didn't have the money to get more?: Never true Within the past 12 months, did you worry whether your food would run out before you got money to buy more?: Never true Do you have trouble paying for medicines?: No Do you have trouble getting transportation to medical appointments?: No Do you have trouble paying your heating and electricity bill?: No Do you have trouble taking care of your child, family member or friend?: No Do you have trouble with day-to-day activities such as bathing, preparing meals, shopping, managing finances, etc.?: No Are you currently unemployed and looking for a job?: No Are you interested in more education?: No Please select the resources that you would like help with: None Currently or been in a relationship where the following occur: No concerns reported THRIVE Score: 0 AUDIT C Alcohol Use Questionnaire (AUDIT-C) 1. How often do you have a drink containing alcohol?: Never Total Score: 0 CLAUDIA-7 AMB Questionnaire CLAUDIA-7 Date CLAUDIA - 7 assessed: 09/28/24 Feeling nervous, anxious, or on edge: 1 = Several days Not being able to stop or control worryin = Not at all Worrying too much about different things: 0 = Not at all Trouble relaxin = Not at all Being so restless that it is hard to sit still: 0 = Not at all Becoming easily annoyed or irritable: 0 = Not at all Feeling afraid as if something awful might happen: 0 = Not at all Total CLAUDIA-7 score (0-4 normal; 5-9 mild; 10-14 moderate; 15-21 severe): 1 Source: Developed by Drs. Alvaro Greene, Osiris Kellogg, Douglas Crawford and colleagues, with an educational jason from [employer]. Review of Systems Const All systems reviewed & are unremarkable except as noted in HPI and below Card Denies chest pain at rest, Denies chest pain with activity, Denies edema, Denies irregular heart rhythm, Denies claudication, Denies dyspnea, Denies dyspnea on exertion, Denies orthopnea, Denies paroxysmal nocturnal dyspnea and Denies slow heart rate Resp Denies cough, Denies dyspnea and Denies dyspnea on exertion Musc Reports back pain Physical exam (Primary Care) BMI result Body Mass Index 26.4 Tobacco/Smoking Status: Tobacco use Status Tobacco use date assessed 06/27/23 09/28/24 08:26 Patient Tobacco Use Status Never used Tobacco 09/28/24 08:26 e-Cigarette/Vaping Use Never Used 09/28/24 08:26 Depression Screening Interpretation: Positive Depression Screening Follow-up: Existing condition, In treatment, Community Mental Health Worker F/U and Follow- up Visit Requested Thrive Assessment: Date of Thrive Assessment Date Thrive assessed 06/27/23 09/28/24 08:26 Currently or been in a relationship where the following occur: No concerns reported HENMT Head: Yes normal to inspection, Yes normocephalic and Yes atraumatic Ears: external ears normal Eyes General: appearance normal, both eyes and all related structures Eyelids: Yes eyelids normal Conjunctivae: conjunctivae normal Neck Neck: Yes normal visual inspection and Yes supple Resp Effort & Inspection: normal respiratory effort Auscultation: clear to auscultation bilaterally Cardio Jugular venous distension: no JVD Rate: regular rate Rhythm: regular rhythm Heart sounds: S1 normal heart sound present and S2 normal heart sound present GI Inspection: Yes normal to inspection Palpation (GI): Soft to palpation and nontender Auscultation: normal bowel sounds Skin General skin exam: no rashes or lesions noted Neuro General: no focal motor deficits Extrem General: Yes full ROM Psych Appearance: grossly normal Office Procedures Flu Questionnaire Does the patient have a severe egg allergy?: No Immunizations Fluarix Triv [id number] (PF) 45 mcg (15 mcg x 3)/0.5 mL IM syringe Performing Provider: Makenna Zheng MD Performing Location: [facility] [place] [facility] Documented (not given) by: MEAGAN Borja on 09/28/24 08:43 Reason Not Given: Received Previously Coding Level of Care Code Est Pt Level 3 (43428) Est Pt Prev Care 40-64y(31666) Diagnoses Physical exam Z00.00 Rheumatoid arthritis of multiple sites with negative rheumatoid factor M06.09 Rheumatoid arthritis location: multiple sites Rheumatoid factor presence: without rheumatoid factor Lumbar pain M54.50 Still's disease of adult M06.1 Mild major depression F32.0 Time Spent (min) 31 Assessment & Plan Assessment & Plan (1) Physical exam: Code(s): Z00.00 - Encounter for general adult medical examination without abnormal findings Category: Medical Plan: Repeat in a year. (2) Rheumatoid arthritis: Comment: Still ds dx 2001, fevers rashes, joint symptoms. Treated with prednisone. Could not tolerate methotrexate. Enbrel out in 2004 Seronegative RA dx 12/2023 Enbrel restarted 01/2024 effective Code(s): M06.9 - Rheumatoid arthritis, unspecified Category: Medical Qualifiers: Rheumatoid arthritis location: multiple sites Rheumatoid factor p resence: without rheumatoid factor Qualified Code(s): M06.09 - Rheumatoid arthritis without rheumatoid factor, multiple sites Plan: Continue Enbrel. Follow-up with rheumatology. (3) Lumbar pain: Code(s): M54.50 - Low back pain, unspecified Category: Medical Plan: X-ray ordered. (4) Still's disease of adult: Comment: dx around 2001 (fevers, rash, joint pain) initially on prednisone, could not tolerate methotrexate, was on Enbrel for a few years until 2004 Code(s): M06.1 - Adult-onset Still's disease Category: Medical Plan: Follow-up with rheumatology. (5) Mild major depression: Code(s): F32.0 - Major depressive disorder, single episode, mild Category: Medical Plan: Continue SSRIs. Follow-up with psychiatry. Orders: Orders XR lumbar spine 2-3V Today M54.50 - Low back pain, unspecified Comprehensive [place]. Panel Fast Today Z00.00 - Encounter for general adult medical examination without abnormal findings Lipid Panel Today Z00.00 - Encounter for general adult medical examination without abnormal findings Influenza [id number] Immunization Today Z23 - Encounter for immunization
[2024-09-28 08:23] VITALS: BP 118/72; BMI 26.4
== END 2024-09-28 08:50 | disposition home or self-care (01) ==
PROVIDERS: PCP Internal Medicine; Visit Provider Internal Medicine
DX: Z00.00 Encounter for general adult medical examination without abnormal findings (principal); M54.50 Low back pain, unspecified; M06.09 Rheumatoid arthritis without rheumatoid factor, multiple sites; M06.1 Adult-onset Still's disease; F32.0 Major depressive disorder, single episode, mild

== ENCOUNTER → 2024-09-28 08:13 | Outpatient (BNVA) | payer OTHER, SELFPAY | PROVIDERS: PCP Internal Medicine; Visit Provider Internal Medicine | DX: Z00.01 Encounter for general adult medical examination with abnormal findings (principal); M06.09 Rheumatoid arthritis without rheumatoid factor, multiple sites; M54.50 Low back pain, unspecified; M06.1 Adult-onset Still's disease; F32.0 Major depressive disorder, single episode, mild | CPT/HCPCS: 90471; 96127; 99212; 99396 ==

== ENCOUNTER 2024-10-05 08:13 | Outpatient (REF) | payer OTHER, SELFPAY ==
--- NOTE | ~2024-10-05 | XR_ITS ---
EXAMINATION: XR LUMBOSACRAL SPINE CLINICAL INFORMATION: M54.50 - Low back pain, unspecified. COMPARISON: None available. TECHNIQUE: Three views of the lumbosacral spine. FINDINGS: There is a transitional lumbosacral vertebral body, referred to as S1 for the purpose of this dictation. There is no definite articulation with the remainder of the sacrum. Lumbar vertebral body heights are preserved. Facet arthritis in the lower lumbar spine. Sacroiliac degenerative changes. Surgical clips upper abdomen. Multilevel lumbar spondylosis. Moderate loss of disc space height at L4-L5 and L5-S1. Mild leftward curvature of the lumbar spine. XR/XR lumbar spine 2-3V IMPRESSION: Moderate degenerative disc disease at L4-L5 and L5-S1. Electronically signed by: Nicole Valdez MD 10/20/2024 10:41 AM YONATHAN CHACON
== END 2024-10-05 08:14 | disposition home or self-care (01) ==
LOC: HO.XRAY 08:13
PROVIDERS: PCP Internal Medicine; Visit Provider Internal Medicine
DX: M54.50 Low back pain, unspecified (principal)
CPT/HCPCS: 72100

== ENCOUNTER 2024-10-07 08:17 | Outpatient (AMB) | payer OTHER, SELFPAY ==
--- NOTE | 2024-10-07 08:19 | MHC.OFFWIV ---
Intake Vital Signs 10/07/24 08:21 Height 5 ft 1 in Weight 141 lb BMI 26.6 BP 130/90 H Blood Pressure Location Lt brachial Position Sitting Pulse 63 Pulse Source Pulse Oximeter Pulse Oximetry (%) 98 Oxygen Delivery Method Room Air Intake Visit Reasons: EP severe low back pain Intake Note: Patient here for lower back pain that started Saturday. She states she had xrays done on 10/05 which she has not received results. yet. Patient Tobacco Use Status: Never used Tobacco Allergies No Known Allergies Allergy (Verified 10/07/24 08:22) Do you need a note to return to daycare/school/sports/work: No HPI HPI Comments History of Present Illness Details Patient is a 54-year-old female complaining of low back pain for the last 3 days. She states she typically has low back pain but it got much worse on 3 days ago, she denies injury. She went and saw her primary care doctor 2 days ago and had a lumbar x-ray taken but it has not been read yet. She has not been taking anything specific for her back pain. She tells me it is in her very low back and shoots across both sides of her low back and then down her left leg. She denies loss of control of her bladder or bowels. [facility], LAT[facility] Medical History (Updated 10/07/24 @ 08:38 by Pastora Martinez PA-C) Insomnia Hiatal hernia BMI 36.0-36.9,adult Right pulmonary lesion Surgical History (Updated 09/28/24 @ 08:49 by Makenna Zheng MD) S/P laparoscopic sleeve gastrectomy Hx of colonoscopy Hx of hysterectomy Hx of breast reduction, elective Family History Mother No problems noted. Father No problems noted. Sister No problems noted. Sister No problems noted. Sister No problems noted. Son No problems noted. Son Thyroid condition Daughter No problems noted. Social History Household Members: None Caregiver staying overnight: Yes (daughter will stay over post-op) Housing: Apartment Are you a primary adult day care worker to a significant other at home: No Do you presently have visiting nurse or other home services: No (daughter will stay over post-op) Alcohol intake: never Patient Tobacco Use Status: Never used Tobacco e-Cigarette/Vaping Use: Never Used Second Hand Smoke Exposure: No service: No Current occupational status: unemployed Cognitive needs: No Hearing needs: No Vision needs: Yes Review of Systems Const All systems reviewed & are unremarkable except as noted in HPI and below Physical Exam Vital Signs: Last Vital Signs Pulse 63 10/07/24 08:21 BP 130/90 H 10/07/24 08:21 Pulse Ox 98 10/07/24 08:21 Oxygen Delivery Method Room Air 10/07/24 08:21 BMI result Body Mass Index 26.6 Const General: cooperative, healthy appearing and comfortable Orientation/consciousness: patient oriented x3 HEENT Head: Yes normal to inspection and Yes normocephalic General nose exam: Normal external nose present Face and sinus: Yes normal facial exam Eyes General: appearance normal, both eyes and all related structures Resp Effort & Inspection: normal respiratory effort and able to speak in complete sentences Back/Spine/Pelvis Cervical Spine: normal cervical lordosis, cervical ROM normal and No Cervical spine tenderness Thoracic/Lumbar Spine: thoracic and lumbar spine normal to inspection, pain with thoraco-lumbar ROM, paraspinal muscle tenderness bilaterally, No thoracic spinal tenderness, lumbar spinal tenderness and straight leg raise positive (left) Neuro General: patient oriented x3 Extrem Other: Straight leg raise test negative on right; Straight leg raise test negative on left; Reflexes normal ankle and knee bilaterally; motor strength normal bilaterally Assessment & Plan Assessment & Plan (1) Low back pain with left-sided sciatica: Code(s): M54.42 - Lumbago with sciatica, left side Plan: I called [facility] on 10/07 8:35am to have them do a wet read, they told me it would get done but it was not so I called back later in the day and they assured me it would be read but it is still it is not read as of 10/09 4:30pm. I am treating the patient with meloxicam and prednisone and if the x-ray has any abnormal results, we will have to deal with it at that time Plan see above Medications: New meloxicam 15 mg PO DAILY 7 tabs 0RF prednisone 40 mg (2 x 20 mg) PO DAILY 10 tabs 0RF Coding Level of Care Code Est Pt Level 4 (96777) Diagnoses Low back pain with left-sided sciatica M54.42
[2024-10-07 08:21] VITALS: BP 130/90; PULSE 63; O2SAT 98; BMI 26.6
== END 2024-10-07 08:59 | disposition home or self-care (01) ==
PROVIDERS: PCP Internal Medicine; Visit Provider Physician Assistant
DX: M54.42 Lumbago with sciatica, left side (principal)

== ENCOUNTER → 2024-10-07 08:17 | Outpatient (BNVA) | payer OTHER, SELFPAY | PROVIDERS: PCP Internal Medicine; Visit Provider Physician Assistant | DX: M54.42 Lumbago with sciatica, left side (principal) | CPT/HCPCS: 99212 ==

== ENCOUNTER 2024-11-26 07:52 | Outpatient (REF) | payer OTHER, SELFPAY ==
[2024-11-26 08:09] LABS: MANUAL DIFF FLAG NO
[2024-11-26 08:43] LABS: Basophils Percent Auto 0.8 % (0-2); Eosinophils Absolute Auto 0.2 X10*3/uL (0.0-0.4); Eosinophils Percent Auto 2.9 % (0-4); Hematocrit 41.6 % (37.0-47.0); Hemoglobin 13.4 g/dl (12.0-16.0); Imm Gran Abs Auto 0.01 X10*3/uL (0.00-0.03); Imm Gran Pct Auto 0.2 % (0.0-0.4); Lymphocytes Absolute Auto 1.5 X10*3/uL (1.2-4.9); Lymphocytes Percent Auto 29.1 % (20-40); Mean Corpuscular HGB Conc 32.2 g/dl (31.0-35.0); Mean Corpuscular Hemoglobin 26.4 pg (27.0-33.0); Mean Corpuscular Volume 82.1 fL (80.0-98.0); Mean Platelet Volume 12.8 fL (9.4-12.3); Monocytes Absolute Auto 0.4 X10*3/uL (0.1-1.2); Monocytes Percent Auto 6.7 % (2-11); Neutrophils Absolute Auto 3.2 x10*3/uL (2.0-8.3); Neutrophils Percent Auto 60.3 % (45-73); Platelet Count 153 X10*3/uL (160-400); Red Blood Count 5.07 X10*6/uL (4.20-5.50); Red Cell Distribution Width 12.8 % (11.0-16.0); White Blood Count 5.2 X10*3/uL (4.8-10.8)
[2024-11-26 09:15] LABS: Alanine Aminotransferase 28 U/L (0-31); Albumin Level 4.2 g/dL (3.5-5.0); Alkaline Phosphatase 75 U/L (39-117); Anion Gap 13 (12-20); Aspartate Amino Transferase 24 U/L (5-31); Bilirubin Total 0.4 mg/dL (0.0-1.0); Blood Urea Nitrogen 18 mg/dL (9-16); C Reactive Protein < 0.10 mg/dL (< or = 0.50); Calcium 9.2 mg/dL (8.4-10.2); Carbon Dioxide 25 mmol/L (22-29); Chloride 107 mmol/L (96-108); Estimated Glomerular Filt Rate > 60; Glucose Random 154 mg/dL (60-115); Potassium 3.6 mmol/L (3.3-5.1); Sodium 141 mmol/L (135-145); Total Protein 6.8 g/dL (6.5-8.0)
[2024-11-26 09:20] LABS: Erythrocyte Sedimentation Rate 6 MM/HR (0-20)
== END 2024-11-26 07:53 | disposition home or self-care (01) ==
LOC: HO.LAB 07:52
PROVIDERS: PCP Internal Medicine; Visit Provider Student in an Organized Health Care Education/Training Program
DX: M06.09 Rheumatoid arthritis without rheumatoid factor, multiple sites (principal)
CPT/HCPCS: 36415; 80053; 85025; 85652; 86140

== ENCOUNTER 2024-11-30 08:23 | Outpatient (AMB) | payer OTHER, SELFPAY ==
--- NOTE | 2024-11-30 08:25 | MHC.OFFVIS ---
Vital Signs 11/30/24 08:29 Height 5 ft 1 in Weight 144 lb 2.917 oz BMI 27.2 BP 100/62 Blood Pressure Location Rt brachial Position Sitting Pulse 62 Pulse Source Pulse Oximeter Pulse Oximetry (%) 98 Oxygen Delivery Method Room Air Intake Visit Reasons: RA Intake Note: Patient presents for RA. Auto Tester Required: Yes Auto Tester Language: Lead Worker Of Housekeeping And Laundry Services: Auto Tester Offered & Declined Auto Tester Name: Claudette Ervin Information Interpreted: non-clinical & clinical Allergies No Known Allergies Allergy (Verified 11/30/24 08:29) Medication List - Last Reconciled 11/30/24 by Tuan Muller MD buspirone 10 mg PO BID docusate sodium (Colace) 100 mg PO DAILY 90 days Enbrel SureClick (etanercept) 50 mg subcut QWEEK NS melatonin 5 - 10 mg PO BEDTIME PRN meloxicam 15 mg PO DAILY mqeicpkowotg-dzi-oxid-FA-vit K 45 mg iron- 800 mcg-120 mcg (Bariatric Multivitamins) 1 cap PO DAILY prednisone 40 mg (2 x 20 mg) PO DAILY sertraline 150 mg PO DAILY HPI Comments Details: This is a 54-year-old female with rheumatoid arthritis, previously diagnosed with Still's disease who presents for follow-up. She is on Enbrel 50 mg weekly. Doing well overall with no joint pain swelling or stiffness. Denies any recent illnesses. She received both the flu and COVID vaccines this season. Has no complaints today. Initial history: 52-year-old female who presents for evaluation of rheumatoid arthritis. She states that she was diagnosed with Still's disease around 2001. She had fevers and rashes on her head and abdomen. And she was on prednisone initially, she was also on other meds including methotrexate which she could not tolerate and was ultimately on Enbrel for a few years. She has not been on any treatment since 2004. She states that she gets pain in her right thumb as well as both knees. She received multiple injections at [facility], she received bilateral knee gel injections about a year ago which provided some relief. She also gets thumb injections which also helped. Patient has not had those episodes of fevers and rashes since her diagnosis many years ago. She is unaware of any other family history of autoimmune rheumatic disease [facility] Medical History Insomnia Hiatal hernia BMI 36.0-36.9,adult Right pulmonary lesion Surgical History S/P laparoscopic sleeve gastrectomy Hx of colonoscopy Hx of hysterectomy Hx of breast reduction, elective Family History Mother No problems noted. Father No problems noted. Sister No problems noted. Sister No problems noted. Sister No problems noted. Son No problems noted. Son Thyroid condition Daughter No problems noted. Social History Household Members: None Caregiver staying overnight: Yes (daughter will stay over post-op) Housing: Apartment Are you a primary group care worker to a significant other at home: No Do you presently have visiting nurse or other home services: No (daughter will stay over post-op) Alcohol intake: never Patient Tobacco Use Status: Never used Tobacco e-Cigarette/Vaping Use: Never Used Second Hand Smoke Exposure: No service: No Current occupational status: unemployed Cognitive needs: No Hearing needs: No Vision needs: Yes Female Reproductive History Menstrual Total pregnancies: 4 Number of Living Children: 3 Ab spontaneous: 1 Review of Systems Musc Denies back pain, Denies arthralgias, Denies joint swelling and Denies stiffness Physical Exam Vital Signs: Last Vital Signs Pulse 62 11/30/24 08:29 BP 100/62 11/30/24 08:29 Pulse Ox 98 11/30/24 08:29 Oxygen Delivery Method Room Air 11/30/24 08:29 BMI result Body Mass Index 27.2 Const General: cooperative, healthy appearing and comfortable Nutritional Appearance: overweight Orientation/consciousness: patient oriented x3 Limitations: no limitations HEENT Head: Yes normocephalic and Yes atraumatic Mouth: moist mucous membranes Resp Effort & Inspection: normal respiratory effort and able to speak in complete sentences Auscultation: clear to auscultation bilaterally Cardio Rate: regular rate Rhythm: regular rhythm Skin General skin exam: no rashes or lesions noted Neuro General: patient oriented x3 Extrem Other: Mild osteoarthritic changes of both hands Bilateral reduced flexion and extension of both wrists but no pain No active synovitis today Bilateral knee pain with full flexion-extension Assessment & Plan Assessment & Plan (1) Rheumatoid arthritis: Comment: Still ds dx 2001, fevers rashes, joint symptoms. Treated with prednisone. Could not tolerate methotrexate. Enbrel until 2004 Seronegative RA dx 12/2023 Enbrel restarted 01/2024 effective Code(s): M06.9 - Rheumatoid arthritis, unspecified Category: Medical Qualifiers: Rheumatoid arthritis location: multiple sites Rheumatoid factor presence: without rheumatoid factor Qualified Code(s): M06.09 - Rheumatoid arthritis without rheumatoid factor, multiple sites Plan: This is a 54-year-old female with seronegative RA who presents for follow-up. Doing well overall on Enbrel 50 mg subcutaneously weekly. Continue Enbrel 50 mg weekly Labs before next visit in 6 months (2) High risk medication use: Code(s): Z79.899 - Other supervisor intermediates (current) drug therapy Category: Medical Plan: Discussed risks and benefits of TNF inhibitors including increased risk of infection. Advised patient to call the clinic if he develops a fever or an infection and hold Enbrel until infection resolves. Discuss slightly increased risk of malignancy and demyelinating conditions. Plan I spent 26 minutes reviewing patient's chart, evaluating patient, ordering diagnostic workup, counseling patient and documenting in the chart Orders: Orders Complete Blood Count Auto Diff 6 Months M06.09 - Rheumatoid arthritis without rheumatoid factor, multiple sites Erythrocyte Sedimentation Rate 6 Months M06.09 - Rheumatoid arthritis without rheumatoid factor, multiple sites Hepatitis A,B,C Profile 6 Months Z11.59 - Encounter for screening for other viral diseases Comprehensive Met. Panel 6 Months M06.09 - Rheumatoid arthritis without rheumatoid factor, multiple sites C Reactive Protein 6 Months M06.09 - Rheumatoid arthritis without rheumatoid factor, multiple sites T Spot TB 6 Months Z11.7 - Encounter for testing for latent tuberculosis infection Coding Level of Care Code Est Pt Level 4 (04225) Diagnoses Rheumatoid arthritis of multiple sites with negative rheumatoid factor M06.09 Rheumatoid arthritis location: multiple sites Rheumatoid factor presence: without rheumatoid factor High risk medication use Z79.899
[2024-11-30 08:29] VITALS: BP 100/62; PULSE 62; O2SAT 98; BMI 27.2
== END 2024-11-30 08:40 | disposition home or self-care (01) ==
PROVIDERS: PCP Internal Medicine; Visit Provider Student in an Organized Health Care Education/Training Program
DX: M06.09 Rheumatoid arthritis without rheumatoid factor, multiple sites (principal); Z79.899 Other long term (current) drug therapy
CPT/HCPCS: 99214

== ENCOUNTER → 2024-11-30 08:23 | Outpatient (BNVA) | payer OTHER, SELFPAY | PROVIDERS: PCP Internal Medicine; Visit Provider Student in an Organized Health Care Education/Training Program | DX: M06.1 Adult-onset Still's disease (principal); Z79.899 Other long term (current) drug therapy | CPT/HCPCS: 99212 ==

== ENCOUNTER 2025-01-12 08:51 | Outpatient (AMB) | payer OTHER, SELFPAY ==
--- NOTE | 2025-01-12 09:03 | A.OFFVIS_ITS ---
VS Expanded 01/12/25 09:22 BP 113/68 Blood Pressure Location Rt brachial Blood Pressure Position Sitting Pulse 56 Temp 97.2 F Pulse Oximetry 98 Height 5 ft 1 in Weight 143 lb BMI 27.0 Body Fat % 33.5 Body Fat Mass 47.8 Fat Free Mass 95 Visceral Fat Rating 8 Body Water % 47.2 Body Water Mass 67.4 Muscle Mass/Score 90.2 Basal Metabolic Rate/Score 1,291 Intake Visit Reasons: (OV) PO LSG 08/15/2022 Green Feed Attendant Required: Yes Green Feed Attendant Services: Green Feed Attendant Present Green Feed Attendant Name: [facility] medical billing associate Allergies No Known Allergies Allergy (Verified 01/12/25 09:25) Medication List - Last Reconciled 01/12/25 by ALESSANDRA Deleon buspirone 10 mg PO BID docusate sodium (Colace) 100 mg PO DAILY 90 days Enbrel SureClick (etanercept) 50 mg subcut QWEEK NS melatonin 5 - 10 mg PO BEDTIME PRN meloxicam 15 mg PO DAILY ynqqfiyviogy-dii-wuug-FA-vit K 45 mg iron- 800 mcg-120 mcg (Bariatric Multivitamins) 1 cap PO DAILY prednisone 40 mg (2 x 20 mg) PO DAILY sertraline 150 mg PO DAILY HPI Comments Details: Patient is a pleasant 53-year-old female who returns to the office today in follow-up. She underwent a panniculectomy on 10/22/2023 a sleeve gastrectomy on 08/15/2022. Weight today is 143 lb with a BMI of 27. She states that she is satisfied with her outcome from her panniculectomy. She states that she is concerned about weight gain. She is not following a meal. Would like to use Premier protein as she can get this with her food stamps. Previously recommended Meal plan: 2 celebrate 4 in 1 shakes with 2 scoops each meal of 7 forks of protein and 7 of vegetables. Exercise plan: daily treadmill 45 minutes speed 3.2, incline 0-6. PFSH Medical History Insomnia Hiatal hernia BMI 36.0-36.9,adult Right pulmonary lesion Surgical History S/P laparoscopic sleeve gastrectomy Hx of colonoscopy Hx of hysterectomy Hx of breast reduction, elective Family History Mother No problems noted. Father No problems noted. Sister No problems noted. Sister No problems noted. Sister No problems noted. Son No problems noted. Son Thyroid condition Daughter No problems noted. Social History Household Members: None Caregiver staying overnight: Yes (daughter will stay over post-op) Housing: Apartment Are you a primary medical care administrator to a significant other at home: No Do you presently have visiting nurse or other home services: No (daughter will stay over post-op) Alcohol intake: never Patient Tobacco Use Status: Never used Tobacco e-Cigarette/Vaping Use: Never Used Second Hand Smoke Exposure: No service: No Current occupational status: unemployed Cognitive needs: No Hearing needs: No Vision needs: Yes Physical Exam Const General: healthy appearing and no acute distress Resp Effort & Inspection: normal respiratory effort Auscultation: clear to auscultation bilaterally Cardio Rate: regular rate Rhythm: regular rhythm GI Auscultation: normal bowel sounds Extrem General: Yes normal to inspection Assessment & Plan Assessment & Plan (1) S/P laparoscopic sleeve gastrectomy: Comment: 08/2022 Code(s): Z98.84 - Bariatric surgery status Category: Surgical Plan: Start meal plan: Premier protein ready to drink shake Half the carton mixed with 4 oz of unsweetened almond milk at 7-9 Another shake at 12-2 Meal at 5pm with 7 forks of protein and 7 forks of vegetables Resume exercise, she has a treadmill at home, speed of 3.2, incline 026. Encouraged to send weight is weekly and text with any questions or concerns.
[2025-01-12 09:22] VITALS: BP 113/68; PULSE 56; TEMP 36.2; O2SAT 98; BMI 27.0
--- OUTSIDE RECORDS SUMMARY | 2025-01-12 09:27 | XMS_ITS | Encounter Summary ---
Author Organization [facility] Address [address] [place] [address] Care Team Providers Care Binder Layer Name Role Phone Unavailable Primary Care Provider Unavailabl e Encounter Details Date Type Department Care Team (Latest Contact Info) Description 12/16/2019 [facility]VERSION[facility] Dental, Provider, DDS Social History Tobacco Use Types Packs/Day Years Used Date Smoking Tobacco: Never Assessed Comments Unknown Sex and Gender Information Value Date Recorded Sex Assigned at Female 10/01/2022 10:23 AM EDT Legal Sex Female 10:23 AM EDT Gender Identity Female 10/01/2022 10:23 AM EDT Sexual Orientation Straight 10/01/2022 10 :23 AM EDT documented as of this encounter Plan of Treatment Not on file documented as of this encounter Visit Diagnoses Not on filedocumented in this encounter
--- OUTSIDE RECORDS SUMMARY | 2025-01-12 09:27 | XMS_ITS | Encounter Summary ---
Author Organization [facility] Address [address] [place] [address] Care Team Providers Care Hand Ii Cutter Name Role Phone Unavailable Primary Care Provider Unavailabl e Encounter Details Date Type Department Care Team (Latest Contact Info) Description 03/22/2022 [facility] Dental, Provider, DDS Social History Tobacco [...]
--- OUTSIDE RECORDS SUMMARY | 2025-01-12 09:27 | XMS_ITS | Clinical Summary ---
Author Organization Patient Business [facility] Address [address] [place] [address] Care Team Providers Care Oyster Cultivator Name Role Phone Unavailable Primary Care Provider Unavailabl e Surgical History Surgery Date Site/Laterality Comments OTHER SURGICAL HISTORY 2009 PROCEDURE: SC TOT ABD HYST W/PARAORTIC & PELVIC LYMPH NODE OTIS; COMMENT: abdominal for bleeding, benign pahtology, ovaries in place Dr Casillas BREAST REDUCTION PROCEDURE: SC BREAST REDUCTION COLONOSCOPY 01/07/2020 PROCEDURE: HISTORICAL COLONOSCOPY; COMMENT: Minimal diverticulosis, no polyps. UPPER GASTROINTESTINAL ENDOSCOPY 01/07/2020 PROCEDURE: SC UPPER GI ENDOSCOPY PERFORMED; COMMENT: Normal on rx with PPI and NSAIDS. SALPINGOOPHORECTOMY 01/25/2021 Right PROCEDURE: SC LAPAROSCOPY W/RMVL ADNEXAL STRUCTURES; COMMENT: extensive lysis of adhesion Medical History Medical History Date Comments Joint pain 06/20/2009 DX:Joint pain Vitamin D deficiency 03/26/2019 DX:Vitamin D deficiency Depression DX:Depression; C OMMENT: takes meds and therapy, good control Family History Medical History Relation Name Comments Liver cancer Paternal Grandmother Breast cancer Neg Hx Colon cancer Neg Hx Ovarian cancer Neg Hx Pancreatic cancer Neg Hx Prostate cancer Neg Hx Uterine cancer Neg Hx Relation Name Status Comments Daughter Alive Father Alive high cholestero l, HI Mother Alive heart problems, high cholesterol, HTN Paternal Grandmother Sister 1 Alive depression Sister 2 Alive depression Son 1 Alive Son 2 Alive Social History Tobacco Use Types Packs/Day Years Used Date Smoking Tobacco: Never Smokeless Tobacco: Never Alcohol Use Standard Drinks/Week Comments No 0 (1 standard drink = 0.6 oz pur e alcohol) Comments Unknown Sex and Gender Information Value Date Recorded Sex Assigned at Not on file Legal Sex Female 1:17 PM EST Gender Identity Not on file Sexual Orientation Not on file Obstetrics History Last Filed Vital Signs Vital Sign Reading Time Taken Comments Blood Pressure 122/70 05/21/2022 10:27 AM EDT Pulse 63 05/21/2022 10:27 AM EDT Temperature - - Respiratory Rate - - Oxygen Saturation - - Inhaled Oxygen Concentration - - Weight 81.6 kg (180 lb) 05/21/2022 10:27 AM EDT Height 154.9 cm (5' 1 ) 02/14/2022 8:49 AM EDT Body Mass Index 34.01 02/14/2022 8:49 AM EDT Plan of Treatment Health Maintenance Due Date Last Done Comments Hepatitis B Vaccines (1 of 3 - 19+ 3-dose series) 1987 Pneumococcal Vaccine: 50+ Years (1 of 1 - PCV) 2018 Zoster Vaccines (1 of 2) 2018 DTaP,Tdap,and Td Vaccines (3 - Td or Tdap) 06/30/2020 12/31/2019, 06/20/2009 Breast Cancer Screening 11/26/2020 11/26/2018 Cholesterol Screening (Lipid Panel) 10/28/2021 Colorectal Cancer Screening: Colonoscopy 10/28/2021 Depression Screening 10/28/2021 HIV Screening 10/28/2021 Hepatitis C Screening 10/28/2021 Social Influencers of Health Screening 10/28/2021 COVID-19 Vaccine ( season) 2024 03/24/2021 Influenza Vaccine (#1) 2024 , 12/31/2019, 10/12/2014, Additional history exists HIB Vaccines Aged Out No longer eligi ble based on patient's age to complete this topic HPV Vaccines Aged Out No longer eligi ble based on patient's age to complete this topic Hepatitis A Vaccines Aged Out No long er eligible based on patient's age to complete this topic IPV Vaccines Aged Out No longer eligi ble based on patient's age to complete this topic MMR Vaccines Aged Out No longer eligi ble based on patient's age to complete this topic Meningococcal ACWY Vaccine Aged Out N o longer eligible based on patient's age to complete this topic Meningococcal B Vacine Aged Out No lo nger eligible based on patient's age to complete this topic Pneumococcal Vaccine: Pediatrics (0 to 5 Years) and At-Risk Patients (6 to 64 Years) Aged Out No longer eligible based on patient's age to complete this topic RSV Immunization Patients Under 20 months Aged Out No longer eligible based on patient's age to complete this topic Varicella Vaccines Aged Out No longer eligible based on patient's age to complete this topic Procedures Procedure Name Priority Date/Time Associated Diagnosis Comments [facility] SCREENING DIGITAL Routine 11/26/2018 10:06 AM EST Encounter for screening mammogram for malignant neoplasm of breast from Last 3 Months or Most Recently Relevant to Health Maintenance Results * [facility] SCREENING DIGITAL (11/26/2018 10:06 AM EST) Anatomical Region Laterality Modality Mammography 11/26/2018 9:01 AM EST Narrative 11/26/2018 10:06 AM EST [facility] Diagnostic Imaging Department [address] [place] [address] Patient: ??MULUGETA SERNA ?/Age/Sex: 1970 - 48 - F Unit#: ??[id number] ? Location/Status: ??SPDIMAM/REG CLI ? Mnemonic/Ordering Site: ??DIGSC/SPMAM Ordering Physician: ??CRIA CRUZ MD Abdirashid Screening Digital - 11/26/18 - EXAM: [facility] Screening Digital EXAM DATE AND TIME: 11/26/2018 9:38 AM HISTORY: ??Screening. Reduction mammoplasty in 2004. COMPARISON: ??11/21/17, 09/27/16, 09/08/15, 09/02/14 TECHNIQUE: CC and MLO views of both breasts were obtained using full field digital mammography. Bilateral digital breast tomosynthesis was performed in the MLO projection. Computer aided detection with the [employer] management 7.2-H was employed. TISSUE DENSITY: b. There are scattered areas of fibroglandular density. FINDINGS: No suspicious masses, grouped microcalcifications, or areas of architectural distortion are seen. Benign rim calcifications are again seen. Vascular calcification is present. The skin is unremarkable. IMPRESSION: Stable mammographic appearance of the breasts. ??No evidence of malignancy is seen. A negative mammogram in the presence of a clinically suspicious palpable abnormality does not preclude the possibility of malignancy or alter the indications for biopsy. BI-RADS: ??Category 2: Benign RECOMMENDATION(S): 1: Routine screening mammogram BILATERAL in 1 year. [id number], [id number] 3342F, 7025F Dictating Physician: ??GAYE GUILLEN MD Electronically Signed by: ??GAYE GUILLEN MD Dic Date/Time: ??11/26/18 1005 Sign date/Time: ??11/26/18 1006 Procedure Note Gaye Guillen MD - 11/20/2022 [facility] Diagnostic Imaging Department [address] [place] [address] Patient: MULUGETA SERNA/Age/Sex: 1970 - 48 - F Unit#: [id number] [facility] Mnemonic/Ordering Site: [facility] Ordering Physician: CIRA CRUZ MD [facility] Screening Digital - 11/26/18 - EXAM: [facility] Screening Digital EXAM DATE AND TIME: 11/26/2018 9:38 AM HISTORY: Screening. Reduction mammoplasty in 2004. COMPARISON: 11/21/17, 09/27/16, 09/08/15, 09/02/14 TECHNIQUE: CC and MLO views of both breasts were obtained using fullfield digital mammography. Bilateral digital breast tomosynthesis was performedin the MLO projection. Computer aided detection with the [employer]-Do[employer]anzaas employed. TISSUE DENSITY: b. There are scattered areas of fibroglandular density. FINDINGS: No suspicious masses, grouped microcalcifications, or areas ofarchitectural distortion are seen. Benign rim calcifications are again seen. Vascular calcification is present. The skin is unremarkable. IMPRESSION: Stable mammographic appearance of the breasts. No evidence of malignancyis seen. A negative mammogram in the presence of a clinically suspicious palpable abnormality does not preclude the possibility of malignancy or alter the indications for biopsy. BI-RADS: Category 2: Benign RECOMMENDATION(S): 1: Routine screening mammogram BILATERAL in 1 year. [id number], [id number] 3342F, 7025F Dictating Physician: GAYE GUILLEN MD Electronically Signed by: GAYE GUILLEN MD Dic Date/Time: 11/26/18 1005 Sign date/Time: 11/26/18 1006 Cira Cruz MD IMG BI PROCEDURES Final Result from Last 3 Months or Most Recently Relevant to Health Maintenance
--- OUTSIDE RECORDS SUMMARY | 2025-01-12 09:27 | XMS_ITS | Clinical Summary ---
Author Organization [facility] Address [address] [place] [address] Care Team Providers Care Residential Solar Sales Consultant Name Role Phone Unavailable Primary Care Provider Unavailabl e Social History Tobacco Use Types Packs/Day Years Used Date Smoking Tobacco: Never Assessed Sex and Gender Information Value Date Recorded Sex Assigned at Not on file Gender Identity Not on file Sexual Orientation Not on file Plan of Treatment Not on file
--- OUTSIDE RECORDS SUMMARY | 2025-01-12 09:27 | XMS_ITS | Encounter Summary ---
Author Organization [facility] Address [address] 7t [place] [address] Care Team Providers Care Trolley Collector Name Role Phone Unavailable Primary Care Provider Unavailabl e Encounter Details Date Type Department Care Team (Latest Contact Info) Description 09/11/2019 Abstract [facility] CONVERSIONS Dental, Provider, DDS Social History Tobacco [...]
--- OUTSIDE RECORDS SUMMARY | 2025-01-12 09:27 | XMS_ITS | Clinical Summary ---
Author Organization [facility] Address [address] [facility] 7t [place] [address] Care Team Providers Care Museum Tour Guide Name Role Phone Unavailable Primary Care Provider Unavailabl e Social History Tobacco Use Types Packs/Day Years Used Date Smoking Tobacco: Never Assessed Comments Unknown Sex and Gender Information Value Date Recorded Sex Assigned at Female 10/01/2022 10:23 AM EDT Legal Sex Female 10:23 AM EDT Gender Identity Female 10/01/2022 10:23 AM EDT Sexual Orientation Straight 10/01/2022 10 :23 AM EDT Plan of Treatment Health Maintenance Due Date Last Done Comments CT Colonography 1968 Colonoscopy 1968 Colorectal Cancer Screening 1968 Depression Screening 1968 FIT DNA/Cologuard 1968 FIT 1968 FOBT 1968 Sigmoidoscopy 1968 Alcohol/Substance Use Screening 1980 Tobacco Screening 1980 DTaP/Tdap/Td Vaccines (1 - Tdap) 1987 Hepatitis B Vaccines (1 of 3 - 19+ 3-dose series) 1987 Pap Smear 1989 Cervical Cancer Screening 1998 HPV/Cotest 1998 Mammogram 2008 Pneumococcal Vaccine: 50+ Ye ars (1 of 1 - PCV) 2018 Zoster Vaccines (1 of 2) 2018 COVID-19 Vaccine ( - 2023-2 5 season) 2024 Influenza Vaccine (#1) 2024 RSV Patients and Pa tients Aged 60 years or older (1 - 1-dose 75+ series) 2043 HIB Vaccines Aged Out No longer eligi [...] patient's age to complete this topic Meningococcal Vaccine Aged Out No perla jackie eligible based on patient's age to complete this topic Pneumococcal Vaccine: Pediat rics (0 to 5 Years) and At-Risk Patients (6 to 49) Years) Aged Out No longer eligible b ased on patient's age to complete this topic RSV under 20 months Aged Out No longe r eligible based on patient's age to complete this topic Rotavirus Vaccines Aged Out No longer eligible based on patient's age to complete this topic
--- OUTSIDE RECORDS SUMMARY | 2025-01-12 09:27 | XMS_ITS | Encounter Summary ---
Author Organization [facility] Address [address] [facility] 7t [place] [address] Care Team Providers Care Motion Picture Printer Name Role Phone Unavailable Primary Care Provider Unavailabl e Encounter Details Date Type Department Care Team (Latest Contact Info) Description 11/23/2020 Abstract [facility] CONVERSIONS Dental, Provider, DDS Social History Tobacco [...]
== END 2025-01-12 09:42 | disposition home or self-care (01) ==
PROVIDERS: PCP Internal Medicine; Visit Provider Physician Assistant Surgical
DX: E66.3 Overweight (principal); Z68.27 Body mass index [BMI] 27.0-27.9, adult; Z90.3 Acquired absence of stomach [part of]; Z98.84 Bariatric surgery status
CPT/HCPCS: 99214; G2211

== ENCOUNTER → 2025-01-12 08:51 | Outpatient (BNVA) | payer OTHER, SELFPAY | PROVIDERS: PCP Internal Medicine; Visit Provider Physician Assistant Surgical | DX: Z98.84 Bariatric surgery status (principal) | CPT/HCPCS: 99212 ==

== ENCOUNTER 2025-01-29 08:37 | Outpatient (REF) | payer OTHER, SELFPAY ==
--- OUTSIDE RECORDS SUMMARY | 2025-01-29 08:55 | XMS_ITS | Encounter Summary ---
Author Organization [facility] Address [address] [place] [address] Care Team Providers Care Graduate Teaching Assistant Name Role Phone Rosalino Cordon Primary Care Provider [facility] Name, Carl QUINN Primary Care Provider Unavailabl e Alan Grey MD Primary Care Provider [phone] Dinorah Zaragoza MD Primary Care Provider Un available Raquel Kong MD Primary Care Provider Unavail able Angelina Valle MD Primary Care Provider Unavailabl e Arianna Hansen MD [facility], P[facility] Primary Care Provider Unavailabl e Reason for Visit * Reason Onset Date Comments Form 06/06/2012 behaviorial heal th form Encounter Details Date Type Department Care Team Description 06/06/2012 Telephone Adult [address] [address] Rosalino Cordon Form (behaviorial health form) Social History Tobacco Use Types Packs/Day Years Used Date Smoking Tobacco: Never Alcohol Use Standard Drinks/Week Comments No 0 (1 standard drink = 0.6 oz pur e alcohol) Sex Assigned at Date Recorded Not on file documented as of this encounter Miscellaneous Notes * Telephone Encounter - Lilia Farmer M.A. - 06/13/2012 11:02 AM EDT Not sure where this form came from, but an MD can sign the form its for the pt to see BH but she would need to be seen by one of our doctors and she would need to choose one of our pcps. * Telephone Encounter - Lacey Augustin - 06/06/2012 4:55 PM EDT Where did this form come from? Also patient is listed with outside pcp. Should this go to ? * Telephone Encounter - Jesenia Pascal M.A. - 06/06/2012 11:36 AM EDT Patient would need to be seen before i can complete her form. And she would also need to chose a pcp, please call patient for appointment for her behaviorl health form to be completed, thankyou documented in this encounter Plan of Treatment Not on file documented as of this encounter Visit Diagnoses Not on filedocumented in this encounter Care Teams Graduate Teaching Assistant Relationship Specialty Start Date End Date Rosalino Cordon PCP - General 05/25/09 03/30/13 Carl Zaragoza MD PCP - General Internal Medicine 03/31/13 12/14/15 Alan Grey MD [address] [place] [address] PCP - General Internal Medicine 12/15/15 06/23/17 Dinorah Zaragoza MD [address] [place] [address] PCP - General Internal Medicine 04/29/19 07/02/19 Raquel Kong MD [address] [place] [address] PCP - General Internal Medicine 07/03/19 10/30/21 Angelina Valle MD [address] [place] [address] PCP - General 06/24/17 04/28/19 Arianna Hansen MD [address] [place] [address] PCP - General Internal Medicine 10/31/21 05/17/22 [facility], Pcp [address] [place] [address] PCP - General Internal Medicine 05/18/22 documented as of this encounter
--- OUTSIDE RECORDS SUMMARY | 2025-01-29 08:55 | XMS_ITS | Encounter Summary ---
Author Organization [facility] Address [address] [facility] 7t [place] [address] Care Team Providers Care Pull Over Machine Operator Name Role Phone Unavailable Primary Care Provider [...]
--- OUTSIDE RECORDS SUMMARY | 2025-01-29 08:55 | XMS_ITS | Encounter Summary ---
Author Organization [facility] Address [address] [facility] 7t [place] [address] Care Team Providers Care Wall To Wall Carpet Installer Name Role Phone Unavailable Primary Care Provider Unavailabl e Encounter Details Date Type Department Care Team (Latest Contact Info) Description 09/11/2019 Abstract [facility] CONVERSIONS Dental, Provider, DDS Social History [...]
--- OUTSIDE RECORDS SUMMARY | 2025-01-29 08:55 | XMS_ITS | Encounter Summary ---
Author Organization [facility] Address [address] [place] [address] Care Team Providers Care Epic Willow Analyst Name Role Phone Raquel Kong MD Primary Care Provider Arianna Mejia MD Primary Care Provider Tito sol [facility], Pcp Primary Care Provider [facility] Reason for Visit * Reason Onset Date Comments TEST RESULTS 01/11/2021 Encounter Details Date Type Department Care Team Description 01/11/2021 Telephone OBGYN - [place] [address] [place], [place] [id number] Barry Chavis MD [address] [place], [place] [id number] TEST RESULTS Social History Tobacco Use Types Packs/Day Years Used Date Smoking Tobacco: Never Smokeless Tobacco: Never Alcohol Use Standard Drinks/Week Comments No 0 (1 standard drink = 0.6 oz pur e alcohol) Sex Assigned at Date Recorded Not on file COVID-19 Exposure Response Date Recorded In the last month, have you been in contact with someone who was confirmed or suspected to have Coronavirus / COVID-19? No / Unsure 01/10/2021 8:37 AM EST documented as of this encounter Miscellaneous Notes * Telephone Encounter - Mariluz Meier - 01/11/2021 11:10 AM EST Inform patient: ANY URGENT OR ABNORMAL RESULTS WIILL RESULT IN A CALL BACK TO THE PATIENT MORGAN. Type of test: :mri Date test was performed: 01/10/21 Where was the test performed: [facility] Who ordered this test?: Barry Hanna Is the doctor here today?: NO Can the message wait until the doctor returns?: no IF PATIENT'S PCP IS NOT IN INSTRUCT PATIENT THAT THEY WILL RECEIVE A CALL BACK WHEN THE PCP IS IN THE OFFICE NEXT. documented in this encounter Plan of Treatment Not on file documented as of this encounter Visit Diagnoses Not on filedocumented in this encounter Care Teams Epic Willow Analyst Relationship Specialty Start Date End Date Raquel Kong MD PCP - General Internal Medicine 07/03/19 10/30/21 Arianna Hansen MD PCP - General Internal Medicine 10/31/21 05/17/22 Jordin Salmon PCP - General Internal Medicine 05/18/22 documented as of this encounter
--- OUTSIDE RECORDS SUMMARY | 2025-01-29 08:55 | XMS_ITS | Encounter Summary ---
Author Organization [facility] [employer] [facility] Address [address] [place] [address] Care Team Providers Care Homeopathic Doctor Name Role Phone Raquel Kong MD Primary Care Provider Arianna Mejia MD Primary Care Provider Tito Salmon, Pcp Primary Care Provider [facility] Encounter Details Date Type Department Care Team Description 12/15/2020 Telephone Adult Medicine [address] [address] de Barry Silva MD [address] [place] [address] Social History Tobacco Use Types Packs/Day Years [...] have Coronavirus / COVID-19? No / Unsure 12/09/2020 10:22 AM EST documented as of this encounter Plan of Treatment Not on file documented as of this encounter Visit Diagnoses Not on filedocumented in this encounter Care Teams Homeopathic Doctor Relationship Specialty Start Date End Date Raquel Kong MD PCP - General Internal Medicine 07/03/19 10/30/21 Arianna Hansen MD PCP - General Internal Medicine 10/31/21 05/17/22 Luis Antonio, Jordin PCP - General Internal Medicine 05/18/22 documented as of this encounter
--- OUTSIDE RECORDS SUMMARY | 2025-01-29 08:55 | XMS_ITS | Encounter Summary ---
Author Organization [facility] Address [address] [place] [address] Care Team Providers Care Health Therapist Name Role Phone Alan Grey MD Primary Care Provider [phone] Dinorah Zaragoza MD Primary Care Provider Un available Raquel Kong MD Primary Care Provider Unavail able Angelina Valle MD Primary Care Provider Unavailabl Arianna Petersen MD Primary Care Provider [facility] Pcp Primary Care Provider Unavailabl e Encounter Details Date Type Department Care Team Description 07/03/2016 Casing Soaker Report Medical Records [address] [place] [address] Social History Tobacco Use Types Packs/Day Years Used Date Smoking Tobacco: Never Smokeless Tobacco: Never Alcohol Use Standard Drinks/Week Comments No 0 (1 standard drink = 0.6 oz pur e alcohol) Sex Assigned at Date Recorded Not on file documented as of this encounter Plan of Treatment Not on file documented as of this encounter Visit Diagnoses Not on filedocumented in this encounter Care Teams Health Therapist Relationship Specialty Start Date End Date Alan Grey MD [address] [place] [address] PCP - General Internal Medicine 12/15/15 06/23/17 Dinorah Zaragoza MD [address] [place] [address] PCP - General Internal Medicine 04/29/19 07/02/19 Raquel Kong MD [address] [place] [address] PCP - General Internal Medicine 07/03/19 10/30/21 Angelina Valle MD [address] [place] [address] PCP - General 06/24/17 04/28/19 Arianna Hansen MD [address] [place] [address] PCP - General Internal Medicine 10/31/21 05/17/22 [facility], Pcp [address] [place] [address] PCP - General Internal Medicine 05/18/22 documented as of this encounter
--- OUTSIDE RECORDS SUMMARY | 2025-01-29 08:55 | XMS_ITS | Encounter Summary ---
Author Organization [facility] Address [address] [place] [address] Care Team Providers Care Biofuels Engineering Manager Name Role Phone Raquel Kong MD Primary Care Provider Arianna Mejia MD Primary Care Provider Tito Salmon, Pcp Primary [facility] Encounter Details Date Type Department Care Team Description 01/25/2021 Hospital Medical Records [address] [place] [address] Mitesh Armando MD [address] [place] [address] Social History Tobacco Use Types Packs/Day Years [...] on filedocumented in this encounter Care Teams Biofuels Engineering Manager Relationship Specialty Start Date End Date Raquel Kong MD PCP - General Internal Medicine 07/03/19 10/30/21 Arianna Hansen MD PCP - General Internal Medicine 10/31/21 05/17/22 Jordin Salmon PCP - General Internal Medicine 05/18/22 documented as of this encounter
--- OUTSIDE RECORDS SUMMARY | 2025-01-29 08:55 | XMS_ITS | Encounter Summary ---
Author Organization [facility] Address [address] [place] [address] Care Team Providers Care Tape Recorder Repairer Name Role Phone Arianna Hansen MD Primary Care Provider Tito Salmon, Pcp Primary Care Provider [place] e Encounter Details Date Type Department Care Team Description 11/20/2021 Orders Only Medical Records [address] [place] [address] Filiberto Carrera PA-C Social History Tobacco Use Types Packs/Day Years Used Date Smoking Tobacco: Never Smokeless Tobacco: Never Alcohol Use Standard Drinks/Week Comments No 0 (1 standard drink = 0.6 oz pur e alcohol) Sex Assigned at Date Recorded Not on file documented as of this encounter Plan of Treatment Not on file documented as of this encounter Procedures Procedure Name Priority Date/Time Associated Diagnosis Comments OUTSIDE SLEEP STUDY Routine 11/09/2021 documented in this encounter Results * OUTSIDE SLEEP STUDY (11/09/2021) Filiberto Carrera PA-C PULMONOLOGY documented in this encounter Visit Diagnoses Not on filedocumented in this encounter Care Teams Tape Recorder Repairer Relationship Specialty Start Date End Date Arianna Hansen MD PCP - General Internal Medicine 10/31/21 05/17/22 Luis Antonio, Pcp PCP - General Internal Medicine 05/18/22 documented as of this encounter
--- OUTSIDE RECORDS SUMMARY | 2025-01-29 08:55 | XMS_ITS | Encounter Summary ---
Author Organization [employer] [facility] Address [address] [place] [address] Care Team Providers Care Circuit Breaker Supervisor Name Role Phone Raquel Kong MD Primary Care Provider Arianna Mejia MD Primary Care Provider Tito sol [facility], Pcp Primary Care Provider [facility] Encounter Details Date Type Department Care Team Description 01/31/2021 Orders Only Medical Records [address] [place] [address] Barry Chavis MD [address] [place] [phone] Social History Tobacco Use Types Packs/Day Years [...] AM EST documented as of this encounter Progress Notes * Barry Chavis MD - 01/31/2021 4:14 PM EST Follow up 02/10 documented in this encounter Plan of Treatment Not on file documented as of this encounter Procedures Procedure Name Priority Date/Time Associated Diagnosis Comments OUTSIDE PATHOLOGY Routine 01/25/2021 documented in this encounter Results * OUTSIDE PATHOLOGY (01/25/2021) Barry Chavis MD OUTSIDE LAB documented in this encounter Visit Diagnoses Not on filedocumented in this encounter Care Teams Circuit Breaker Supervisor Relationship Specialty Start Date End Date Raquel Kong MD PCP - General Internal Medicine 07/03/19 10/30/21 Arianna Hansen MD PCP - General Internal Medicine 10/31/21 05/17/22 [facility], Pcp PCP - General Internal Medicine 05/18/22 documented as of this encounter
--- OUTSIDE RECORDS SUMMARY | 2025-01-29 08:55 | XMS_ITS | Clinical Summary ---
Author Organization [facility] Address [address] [place] [address] Care Team Providers Care Coal Pipeline Operator Name Role Phone Unavailable Primary Care Provider Unavailabl e Social History Tobacco Use Types Packs/Day Years Used Date Smoking Tobacco: Never Assessed Sex and Gender Information Value Date Recorded Sex Assigned at Not on file Gender Identity Not on file Sexual Orientation Not on file Plan of Treatment Not on file
--- OUTSIDE RECORDS SUMMARY | 2025-01-29 08:55 | XMS_ITS | Encounter Summary ---
Author Organization [employer] [facility] Address [address] [place] [address] Care Team Providers Care Galley Boy Name Role Phone Alan Grey MD Primary Care Provider [phone] Dinorah Zaragoza MD Primary Care Provider Un available Raquel Kong MD Primary Care Provider Unavail able Angelina Valle MD Primary Care Provider Unavailabl e Arianna Hansen MD Primary Care Provider [facility] Pcp Primary Care Provider Unavailabl e Encounter Details Date Type Department Care Team Description 02/29/2016 Release of Information Medical Records [address] [place] [address] Abstract, Provider Social History Tobacco Use Types Packs/Day Years Used Date Smoking Tobacco: Never Alcohol Use Standard Drinks/Week Comments No 0 (1 standard drink = 0.6 oz pur e alcohol) Sex Assigned at Date Recorded Not on file documented as of this encounter Plan of Treatment Not on file documented as of this encounter Visit Diagnoses Not on filedocumented in this encounter Care Teams Galley Boy Relationship Specialty Start Date End Date Alan Grey MD [address] [place] [address] PCP - General Internal Medicine 12/15/15 06/23/17 Dinorah Zaragoza MD [address] [place] [address] PCP - General Internal Medicine 04/29/19 07/02/19 Raquel Kong MD [address] [place] [address] PCP - General Internal Medicine 07/03/19 10/30/21 Angelina Valle MD [address] [place] [address] PCP - General 06/24/17 04/28/19 Arianna Hansen MD [address] [place] [address] PCP - General Internal Medicine 10/31/21 05/17/22 [facility], Pcp [address] [place] [address] PCP - General Internal Medicine 05/18/22 documented as of this encounter
--- OUTSIDE RECORDS SUMMARY | 2025-01-29 08:55 | XMS_ITS | Encounter Summary ---
Author Organization [employer] [facility] Address [address] [place] [address] Care Team Providers Care Section Gang Name Role Phone Dinorah Zaragoza MD Primary Care Provider Un available Raquel Kong MD Primary Care Provider Unavail able Angelina Valle MD Primary Care Provider Unavailabl e Arianna Hansen MD Primary Care Provider Tito sol [facility], Pcp Primary Care Provider Unavailabl e Encounter Details Date Type Department Care Team Description 03/26/2019 Orders Only Adult Medicine [address] [address] Raquel Kong MD Vitamin D deficiency (Primary Dx) Social History Tobacco Use Types Packs/Day Years Used Date Smoking Tobacco: Never Smokeless Tobacco: Never Alcohol Use Standard Drinks/Week Comments No 0 (1 standard drink = 0.6 oz pur e alcohol) Sex Assigned at Date Recorded Not on file documented as of this encounter Plan of Treatment Not on file documented as of this encounter Visit Diagnoses Diagnosis Vitamin D deficiency- Primary Unspecified vitamin D deficiency documented in this encounter Care Teams Section Gang Relationship Specialty Start Date End Date Dinorah Zaragoza MD PCP - General Internal Medicine 04/29/19 9 Raquel Kong MD PCP - General Internal Medicine 07/03/19 10/30/21 Angelina Valle MD PCP - General 06/24/17 04/28/19 Arianna Hansen MD PCP - General Internal Medicine 10/31/21 05/17/22 [facility] Pcp PCP - General Internal Medicine 05/18/22 documented as of this encounter
--- OUTSIDE RECORDS SUMMARY | 2025-01-29 08:55 | XMS_ITS | Encounter Summary ---
Author Organization [facility] Address [address] [facility] 7t [place] [address] Care Team Providers Care Industrial Chemist Name Role Phone Unavailable Primary Care Provider Unavailabl e Encounter Details Date Type Department Care Team (Latest Contact Info) Description 12/16/2019 Abstract [facility] CONVERSIONS Dental, Provider, DDS Social History [...]
--- OUTSIDE RECORDS SUMMARY | 2025-01-29 08:55 | XMS_ITS | Encounter Summary ---
Author Organization [facility] Address [address] [place] [address] Care Team Providers Care Bottle Assembler Name Role Phone Name, Carl QUINN Primary Care Provider Unavailrory e Alan Grey MD Primary Care Provider [phone] Dinorah Zaragoza MD Primary Care Provider Un available Raquel Kong MD Primary Care Provider Unavail able Angelina Valle MD Primary Care Provider UnavailArianna Rosas MD Primary Care Provider [facility] Pcp Primary Care Provider Unavailrory leyva Encounter Details Date Type Department Care Team Description 11/15/2014 Release of Information Medical Records [address] [place] [address] Abstract, Provider Social History Tobacco Use Types [...] on filedocumented in this encounter Care Teams Bottle Assembler Relationship Specialty Start Date End Date Name, MD Carl PCP - General Internal Medicine 03/31/13 12/14/15 Alan Grey MD [address] [place] [address] PCP - General Internal Medicine 12/15/15 06/23/17 Dinorah Zaragoza MD [address] [place] [address] PCP - General Internal Medicine 04/29/19 07/02/19 Raquel Kong MD [address] [place] [address] PCP - General Internal Medicine 07/03/19 10/30/21 Angelina Valle MD [address] [place] [address] PCP - General 06/24/17 04/28/19 Arianna Hansen MD [address] [place] [address] PCP - General Internal Medicine 10/31/21 05/17/22 [facility], Pcp [address] [place] [address] PCP - General Internal Medicine 05/18/22 documented as of this encounter
--- OUTSIDE RECORDS SUMMARY | 2025-01-29 08:55 | XMS_ITS | Encounter Summary ---
Author Organization [facility] Address [address] [facility] 7t [place] [address] Care Team Providers Care Record Cutter Name Role Phone Unavailable Primary Care [...]
--- OUTSIDE RECORDS SUMMARY | 2025-01-29 08:55 | XMS_ITS | Encounter Summary ---
Author Organization [facility] Address [address] [place] [address] Care Team Providers Care Electrical Equipment Tester Name Role Phone Rosalino Cordno Primary Care Provider Bjorn ilCarl Llamas MD Primary Care Provider Unavailrory e Alan Grey MD Primary Care Provider Dinorah Zaragoza MD Primary Care Provider Un available Raquel Kong MD Primary Care Provider Unavail able Angelina Valle MD Primary Care Provider UnavailArianna Rosas MD Primary Care Provider Tito sol [facility] Pcp Primary Care Provider Unavailrory e Encounter Details Date Type Department Care Team Description 10/19/2009 Hospital Medical Records [address] [place] [address] Rosa Elena Casillas Social History Tobacco Use Types Packs/Day Years [...] on filedocumented in this encounter Care Teams Electrical Equipment Tester Relationship Specialty Start Date End Date Rosalino Cordon PCP - General 05/25/09 03/30/13 Carl Zaragoza MD PCP - General Internal Medicine 03/31/13 12/14/15 Alan Grey MD [address] [place] [address] PCP - General Internal Medicine 12/15/15 06/23/17 Dinorah Zaragoza MD [address] [place] [address] PCP - General Internal Medicine 04/29/19 07/02/19 Raquel Kong MD [address] [place] [address] PCP - General Internal Medicine 07/03/19 10/30/21 Angelina Valle MD [address] [place] [address] PCP - General 06/24/17 04/28/19 Arianna Hansen MD [address] [place] [address] PCP - General Internal Medicine 10/31/21 05/17/22 [facility], Pcp [address] [place] [address] PCP - General Internal Medicine 05/18/22 documented as of this encounter
--- OUTSIDE RECORDS SUMMARY | 2025-01-29 08:55 | XMS_ITS | Clinical Summary ---
Author Organization [facility] Address [address] [place] [address] Care Team Providers Care Cold Rolling Machine Setter Name Role Phone Unavailable Primary Care Provider [...]
--- OUTSIDE RECORDS SUMMARY | 2025-01-29 08:55 | XMS_ITS | Clinical Summary ---
Author Organization Patient Business Ser [facility] Address [address] [place] [address] Care Team Providers Care Construction Code Administrator Name Role Phone Unavailable Primary Care Provider Unavailabl e Surgical History Surgery Date Site/Laterality Comments OTHER SURGICAL HISTORY 2009 PROCEDURE: ND TOT ABD HYST W/PARAORTIC & PELVIC LYMPH NODE OTIS; COMMENT: abdominal for bleeding, benign pahtology, ovaries in place Dr Casillas BREAST REDUCTION PROCEDURE: ND BREAST REDUCTION COLONOSCOPY 01/07/2020 PROCEDURE: HISTORICAL COLONOSCOPY; COMMENT: Minimal diverticulosis, no polyps. UPPER GASTROINTESTINAL ENDOSCOPY 01/07/2020 PROCEDURE: ND UPPER GI ENDOSCOPY PERFORMED; COMMENT: Normal on rx with PPI and NSAIDS. SALPINGOOPHORECTOMY 01/25/2021 Right PROCEDURE: ND LAPAROSCOPY W/RMVL ADNEXAL STRUCTURES; COMMENT: extensive lysis [...] Daughter Alive Father Alive high cholestero l, CA Mother Alive heart problems, high cholesterol, HTN [...] 2018 Zoster Vaccines (1 of 2) 2018 Breast Cancer Screening 11/26/2020 11/26/2018 Cholesterol Screening (Lipid Panel) 10/28/2021 Colorectal Cancer Screening: Colonoscopy 10/28/2021 Depression Screening 10/28/2021 HIV Screening 10/28/2021 Hepatitis C Screening 10/28/2021 Social Influencers of Health Screening 10/28/2021 COVID-19 Vaccine (2 - season) 2024 03/24/2021 Influenza Vaccine (#1) 2024 , 12/31/2019, 10/12/2014, Additional history exists DTaP,Tdap,and Td Vaccines (3 - Td or Tdap) 12/31/2029 12/31/2019, 06/20/2009 HIB Vaccines Aged Out No longer eligi [...] Procedure Name Priority Date/Time Associated Diagnosis Comments [facility] SCREENING DIGITAL Routine 11/26/2018 10:06 AM EST Encounter for screening mammogram for malignant neoplasm of breast from Last 3 Months or Most Recently Relevant to Health Maintenance Results * [facility] SCREENING DIGITAL (11/26/2018 10:06 AM EST) Anatomical Region Laterality Modality Mammography 11/26/2018 9:01 AM EST Narrative 11/26/2018 10:06 AM EST [facility] Diagnostic Imaging Department [address] [place] [address] Patient: ??MULUGETA SERNA ?/Age/Sex: 1970 - 48 - F Unit#: ??[id number] ? Location/Status: ??SPDIMAM/REG CLI ? Mnemonic/Ordering Site: ??DIGSC/SPMAM Ordering Physician: ??CIRA CRUZ MD Abdirashid Screening Digital - 11/26/18 - EXAM: [facility] Screening Digital EXAM DATE AND TIME: 11/26/2018 9:38 AM HISTORY: ??Screening. Reduction mammoplasty in 2004. COMPARISON: ??11/21/17, 09/27/16, 09/08/15, 09/02/14 TECHNIQUE: CC and MLO views of both breasts were obtained using full field digital mammography. Bilateral digital breast tomosynthesis was performed in the MLO projection. Computer aided detection with the [employer] 7.2-H was employed. TISSUE DENSITY: b. There [...] Routine screening mammogram BILATERAL in 1 year. 81511, 59780 3342F, 7025F Dictating Physician: ??GAYE GUILLEN MD Electronically Signed by: ??GAYE GUILLEN MD Dic Date/Time: ??11/26/18 1005 Sign date/Time: ??11/26/18 1006 Procedure Note Gaye Guillen MD - 11/20/2022 [facility] Diagnostic Imaging Department [address] [place] [address] Patient: MULUGETA SERNA/Age/Sex: 1970 - 48 - F Unit#: [id number] [facility] Mnemonic/Ordering Site: [facility] Ordering Physician: CIRA CRUZ MD [facility] Screening Digital - 11/26/18 - EXAM: [facility] Screening Digital EXAM DATE AND TIME: 11/26/2018 9:38 AM HISTORY: Screening. Reduction mammoplasty in 2004. COMPARISON: 11/21/17, 09/27/16, 09/08/15, 09/02/14 TECHNIQUE: CC and MLO views of both breasts were obtained using fullfield digital mammography. Bilateral digital breast tomosynthesis was performedin the MLO projection. Computer aided detection with the [employer] employed. TISSUE DENSITY: b. There are scattered [...] Routine screening mammogram BILATERAL in 1 year. 05184, 06282 3342F, 7025F Dictating Physician: GAYE GUILLEN MD Electronically Signed by: GAYE GUILLEN MD Dic Date/Time: 11/26/18 1005 Sign date/Time: 11/26/18 1006 Cira Cruz MD IMG BI PROCEDURES Final Result from Last 3 Months or Most Recently Relevant to Health Maintenance
--- OUTSIDE RECORDS SUMMARY | 2025-01-29 08:55 | XMS_ITS | Encounter Summary ---
Author Organization [facility] Address [address] [place] [address] Care Team Providers Care Cumulative Effects Analyst Name Role Phone Arianna Hansen MD Primary Care Provider Tito Salmon, Pcp Primary Care Provider Haider leyva Encounter Details Date Type Department Care Team Description 02/14/2022 Release of Information Medical Records [address] [place] [id number] Abstract, Provider Social History Tobacco Use Types [...] have Coronavirus / COVID-19? No / Unsure 02/16/2022 10:53 AM EDT documented as of this encounter Plan of Treatment Not on file documented as of this encounter Visit Diagnoses Not on filedocumented in this encounter Care Teams Cumulative Effects Analyst Relationship Specialty Start Date End Date Arianna Hansen MD PCP - General Internal Medicine 10/31/21 05/17/22 [facility] Pcp PCP - General Internal Medicine 05/18/22 documented as of this encounter
--- OUTSIDE RECORDS SUMMARY | 2025-01-29 08:55 | XMS_ITS | Encounter Summary ---
Author Organization [facility] Address [address] [place] [address] Care Team Providers Care Wood Boring Machine Operator Name Role Phone Alan Grey MD Primary Care Provider [phone] Dinorah Zaragoza MD Primary Care Provider Un available Raquel Kong MD Primary Care Provider Unavail able Angelina Valle MD Primary Care Provider Unavailabl Arianna Petersen MD Primary Care Provider [facility] Pcp Primary Care Provider Unavailrory leyva Encounter Details Date Type Department Care Team Description 10/01/2016 Release of Information Medical Records [address] [place] [address] Abstract, Provider Social History Tobacco Use Types [...] on filedocumented in this encounter Care Teams Wood Boring Machine Operator Relationship Specialty Start Date End Date Alan Grey MD [address] [place] [address] [id number] PCP - General Internal Medicine 12/15/15 06/23/17 Dinorah Zaragoza MD [address] [place] [id number] PCP - General Internal Medicine 04/29/19 07/02/19 Raquel Kong MD [address] [place] [address] PCP - General Internal Medicine 07/03/19 10/30/21 Angelina Valle MD [address] [place] [address] PCP - General 06/24/17 04/28/19 Arianna Hansen MD [address] [place] [address] PCP - General Internal Medicine 10/31/21 05/17/22 [facility], Pcp [address] [place] [id number] PCP - General Internal Medicine 05/18/22 documented as of this encounter
--- OUTSIDE RECORDS SUMMARY | 2025-01-29 08:55 | XMS_ITS | Encounter Summary ---
Author Organization [facility] Address [address] [place] [address] Care Team Providers Care Ruby Rails Developer Name Role Phone Alan Grey MD Primary Care Provider [phone] Dinorah Zaragoza MD Primary Care Provider Un available Raquel Kong MD Primary Care Provider Unavail able Angelina Valle MD Primary Care Provider Unavailabl e Arianna Hansen MD Primary Care Provider [facility] Pcp Primary Care Provider Unavailabl e Reason for Visit * Reason Onset Date Comments Testing 03/21/2017 Encounter Details Date Type Department Care Team Description 03/21/2017 Telephone Radiology - [address] [address] Jon Ortiz MD Testing Social History Tobacco Use Types Packs/Day Years Used Date Smoking Tobacco: Never Smokeless Tobacco: Never Alcohol Use Standard Drinks/Week Comments No 0 (1 standard drink = 0.6 oz pur e alcohol) Sex Assigned at Date Recorded Not on file documented as of this encounter Miscellaneous Notes * Telephone Encounter - Tamiko Buchanan C.M.A. - 03/28/2017 1:50 PM EDT Telephone Information: Mobile Not on file. Spoke with patient. She does not want this testing anymore. FYI to Dr. Ortiz * Telephone Encounter - Jon Ortiz MD - 03/21/2017 5:59 PM EDT Pt missed us appt to recheck ova cyst.See if wants to reschedule and order if wants * Telephone Encounter - Luma Durbin - 03/21/2017 4:42 PM EDT Morenita Ervin was scheduled for a SONO PELVIS COMPLETE ; however Morenita Ervin did not show for her appointment. We have made several attempts by telephone as well as sent a letter to reschedule the appointment and were unsuccessful; therefore we are removing the test from our Scheduled Orders Report. Please note that this test must be reordered if required in the future. Thank you, Radiology documented in this encounter Plan of Treatment Not on file documented as of this encounter Visit Diagnoses Not on filedocumented in this encounter Care Teams Ruby Rails Developer Relationship Specialty Start Date End Date Alan Grey MD [address] [place] [id number] PCP - General Internal Medicine 12/15/15 06/23/17 Dinroah Zaragoza MD [address] [place] [phone] PCP - General Internal Medicine 04/29/19 07/02/19 Raquel Kong MD [address] [place] [phone] PCP - General Internal Medicine 07/03/19 10/30/21 Angelina Valle MD [address] [place] [address] PCP - General 06/24/17 04/28/19 Arianna Hansen MD [address] [place] [id number] PCP - General Internal Medicine 10/31/21 05/17/22 [facility], Pcp [address] [place] [phone] PCP - General Internal Medicine 05/18/22 documented as of this encounter
--- OUTSIDE RECORDS SUMMARY | 2025-01-29 08:55 | XMS_ITS | Encounter Summary ---
Author Organization [facility] Address [address] [place] [address] Care Team Providers Care Toe Former Name Role Phone Alan Grey MD Primary Care Provider Dinorah Zaragoza MD Primary Care Provider Un available Raquel Kong MD Primary Care Provider Unavail able Angelina Valle MD Primary Care Provider Unavailabl e Arianna Hansen MD Primary Care Provider [facility] Pcp Primary Care Provider Unavailabl e Reason for Visit * Reason Onset Date Comments Pre Op Visit 09/19/2016 Encounter Details Date Type Department Care Team Description 09/19/2016 Telephone Adult Medicine [address] [address] Alan Grey MD [address] [place] [id number] Pre Op Visit Social History Tobacco Use Types Packs/Day Years Used Date Smoking Tobacco: Never Smokeless Tobacco: Never Alcohol Use Standard Drinks/Week Comments No 0 (1 standard drink = 0.6 oz pur e alcohol) Sex Assigned at Date Recorded Not on file documented as of this encounter Miscellaneous Notes * Telephone Encounter - Doyle Walsh - 09/19/2016 11:02 AM EDT Date of surgery:10/08/16 What surgery is patient having (gall bladder, cataract, appendix, etc...)?: Left Knee Surgery Surgeon's name: Dr. Vallejo Office phone number of surgeon: [phone] Fax # for surgeons office: [phone] Where is surgery being performed? [facility] Diagnosis/problem for surgery: Left Knee Pain PCP: Alan Grey Patients insurance: Payor: [employer] FFS / Plan: FFS HMO $0 [place] [id number] / Product Type: MEDICAID RISK documented in this encounter Plan of Treatment Not on file documented as of this encounter Visit Diagnoses Not on filedocumented in this encounter Care Teams Toe Former Relationship Specialty Start Date End Date Alan Grey MD [address] [place] [address] PCP - General Internal Medicine 12/15/15 06/23/17 Dinorah Zaragoza MD [address] [place] [address] PCP - General Internal Medicine 04/29/19 07/02/19 Rauqel Kong MD [address] [place] [id number] PCP - General Internal Medicine 07/03/19 10/30/21 Angelina Valle MD [address] [place] [address] PCP - General 06/24/17 04/28/19 Arianna Hansen MD [address] [place] [phone] PCP - General Internal Medicine 10/31/21 05/17/[address] [address] PCP - General Internal Medicine 05/18/22 documented as of this encounter
[2025-01-29 11:11] LABS: Alanine Aminotransferase 19 U/L (0-31); Albumin Level 4.2 g/dL (3.5-5.0); Alkaline Phosphatase 70 U/L (39-117); Anion Gap 12 (12-20); Aspartate Amino Transferase 21 U/L (5-31); Bilirubin Total 0.5 mg/dL (0.0-1.0); Blood Urea Nitrogen 13 mg/dL (9-16); Calcium 9.4 mg/dL (8.4-10.2); Carbon Dioxide 26 mmol/L (22-29); Chloride 107 mmol/L (96-108); Cholesterol 243 mg/dL (<200); Estimated Glomerular Filt Rate > 60; Glucose Fasting 101 mg/dL (60-99); HDL Cholesterol 65 mg/dL (>40); LDL Cholesterol Calculated 156 mg/dL (<100); Potassium 3.7 mmol/L (3.3-5.1); Sodium 141 mmol/L (135-145); Total Protein 7.3 g/dL (6.5-8.0); Triglycerides 112 mg/dL (<150)
== END 2025-01-29 08:38 | disposition home or self-care (01) ==
LOC: HO.LAB 08:37
PROVIDERS: PCP Internal Medicine; Visit Provider Internal Medicine
DX: Z00.00 Encounter for general adult medical examination without abnormal findings (principal)
CPT/HCPCS: 36415; 80053; 80061

== ENCOUNTER 2025-02-02 10:39 | Outpatient (AMB) | payer OTHER, SELFPAY ==
--- NOTE | 2025-02-02 11:04 | A.OFFPC_ITS ---
Vital Signs 02/02/25 11:06 Height 5 ft 1 in Weight 146 lb BMI 27.6 BP 122/80 Blood Pressure Location Lt brachial Position Sitting Intake Visit Reasons: ra Area Counselor Required: Yes Area Counselor Language: Retail Product Demo Specialist Name: Makenna Zheng MD Information Interpreted: non-clinical & clinical Accompanied by: Self / Same As Patient Allergies No Known Allergies Allergy (Verified 02/02/25 11:24) Medication List - Last Reconciled 02/02/25 by Makenna Zheng MD buspirone 10 mg PO BID Enbrel SureClick (etanercept) 50 mg subcut QWEEK NS melatonin 5 - 10 mg PO BEDTIME PRN meloxicam 15 mg PO DAILY rwwteupwymdb-lfc-hucp-FA-vit K 45 mg iron- 800 mcg-120 mcg (Bariatric Multivitamins) 1 cap PO DAILY sertraline 150 mg PO DAILY Tobacco use date assessed: 02/02/25 Dental Screening Dental Screen Date: 02/02/25 Did you have a dental visit in the last 12 months?: Yes Did you have a dental problem in the last 6 months where you did not have access to dental care?: No Was dental information given to patient?: Patient has dentist HPI HPI Comments History of Present Illness Details The patient is a 54-year-old female presenting with dizziness. She reports recurrent episodes of dizziness accompanied by rapid heart palpitations and sweating. These incidents occur irregularly, with two recent episodes causing significant distress, particularly during times of inactivity. There is a lack of associated auditory symptoms such as tinnitus or changes in hearing. The episodes lead to increased anxiety due to the sudden onset and unpredictable nature. The patient's anxiety and depression are managed with medication, and her mild depression is stable as evidenced by a recent PHQ-9 score of 5. Her cholesterol levels are high, but the risk of cardiovascular events remains minimal based on her risk score. She also has rheumatoid arthritis on Enbrel and Still disease of adult follow by Rheumatology. Has elevated cholesterol but her Att[place]ulgus risk score is 1.3% risk of heart attack or stroke in the next 10 years therefore no need for statins at the moment. Was advise low-cholesterol diet. [facility] Medical History (Updated 02/02/25 @ 11:55 by Makenna Zheng MD) Insomnia Hiatal hernia BMI 36.0-36.9,adult Right pulmonary lesion Surgical History S/P laparoscopic sleeve gastrectomy Hx of colonoscopy Hx of hysterectomy Hx of breast reduction, elective Family History Mother No problems noted. Father No problems noted. Sister No problems noted. Sister No problems noted. Sister No problems noted. Son No problems noted. Son Thyroid condition Daughter No problems noted. Social History Household Members: None Caregiver staying overnight: Yes (daughter will stay over post-op) Housing: Apartment Are you a primary manager managed care to a significant other at home: No Do you presently have visiting nurse or other home services: No (daughter will stay over post-op) Alcohol intake: never Patient Tobacco Use Status: Never used Tobacco e-Cigarette/Vaping Use: Never Used Second Hand Smoke Exposure: No service: No Current occupational status: unemployed Cognitive needs: No Hearing needs: No Vision needs: Yes Questionnaire PHQ-9 Over the last 2 weeks, how often have you been bothered by any of the following problems? 1. Little interest or pleasure in doing things: several days 2. Feeling down, depressed, or hopeless: more than half the days 3. Trouble falling or staying asleep, or sleeping too much: several days 4. Feeling tired or having little energy: several days 5. Poor appetite or overeating: not at all 6. Feeling bad about yourself - or that you are a failure or have let yourself or your family down: not at all 7. Trouble concentrating on things, such as reading the newspaper or watching television: not at all 8. Moving or speaking so slowly that other people could have noticed. Or the opposite - being so fidgety or restless that you have been moving around a lot more than usual: not at all 9. Thoughts that you would be better off or of hurting yourself in some way: not at all Total score: 5 Depression Screening Interpretation: Positive Depression Screening Follow-up: Existing condition, In treatment, Community Mental Health Worker F/U and Follow- up Visit Requested Depression Screening Done: Yes 09179 - PHQ-9 Billing: Yes Source: Developed by Drs. Alvaro Greene, Osiris Kellogg, Douglas Crawford and colleagues, with an educational jason from [employer]. Thrive Questionnaire Date Thrive assessed: 02/02/25 I am a: Patient What is your living situation today?: I have a steady place to live Within the past 12 months, did the food you bought not last and you didn't have the money to get more?: I choose not to answer this question Within the past 12 months, did you worry whether your food would run out before you got money to buy more?: I choose not to answer this question Do you have trouble paying for medicines?: No Do you have trouble getting transportation to medical appointments?: Yes Do you have trouble paying your heating and electricity bill?: I choose not to answer this question Do you have trouble taking care of your child, family member or friend?: No Do you have trouble with day-to-day activities such as bathing, preparing meals, shopping, managing finances, etc.?: Yes Are you currently unemployed and looking for a job?: Yes Are you interested in more education?: I choose not to answer this question Please select the resources that you would like help with: None Currently or been in a relationship where the following occur: No concerns reported THRIVE Score: 1 AUDIT C Alcohol Use Questionnaire (AUDIT-C) 1. How often do you have a drink containing alcohol?: Never Total Score: 0 Score Reviewed/Action Taken: No CLAUDIA-7 AMB Questionnaire CLAUDIA-7 Date CLAUDIA - 7 assessed: 02/02/25 Feeling nervous, anxious, or on edge: 1 = Several days Not being able to stop or control worryin = Not at all Worrying too much about different things: 1 = Several days Trouble relaxin = Several days Being so restless that it is hard to sit still: 0 = Not at all Becoming easily annoyed or irritable: 1 = Several days Feeling afraid as if something awful might happen: 1 = Several days Total CLAUDIA-7 score (0-4 normal; 5-9 mild; 10-14 moderate; 15-21 severe): 5 Source: Developed by Drs. Alvaro Greene, Douglas Day and colleagues, with an educational jason from [employer]. CLAUDIA-7 Assessment Billing CLAUDIA-7 Assessment Tool: CLAUDIA-7 Assessment 24310 Review of Systems Const All systems reviewed & are unremarkable except as noted in HPI and below ENT Reports dizziness Card Denies chest pain at rest, Denies chest pain with activity, Reports rapid heart rate, Denies edema, Denies irregular heart rhythm, Denies claudication, Denies dyspnea, Denies dyspnea on exertion, Denies orthopnea, Denies paroxysmal nocturnal dyspnea and Denies slow heart rate Resp Denies cough, Denies dyspnea and Denies dyspnea on exertion GI Denies abdominal pain, Denies change in bowel habits, Denies excessive flatus, Denies nausea and Denies vomiting Neuro Reports dizziness Physical exam (Primary Care) Vital Signs: Last Vital Signs BP 122/80 02/02/25 11:06 BMI result Body Mass Index 27.6 Tobacco/Smoking Status: Tobacco use Status Tobacco use date assessed 02/02/25 02/02/25 11:13 Patient Tobacco Use Status Never used Tobacco 02/02/25 11:13 e-Cigarette/Vaping Use Never Used 02/02/25 11:13 PHQ-9: PHQ-9 Score PHQ-9: Total score 5 02/02/25 11:13 Depression Screening Interpretation: Positive Depression Screening Follow-up: Existing condition, In treatment, Community Mental Health Worker F/U and Follow- up Visit Requested Thrive Assessment: Date of Thrive Assessment Date Thrive assessed 02/02/25 02/02/25 11:13 Currently or been in a relationship where the following occur: No concerns reported Resp Effort & Inspection: normal respiratory effort Auscultation: clear to auscultation bilaterally Cardio Jugular venous distension: no JVD Rate: regular rate Rhythm: regular rhythm Heart sounds: S1 normal heart sound present and S2 normal heart sound present Extrem General: Yes full ROM Coding Level of Care Code Est Pt Level 4 (56769) Complex EM visit Add On G2211 Diagnoses Mild major depression F32.0 Palpitations R00.2 Rheumatoid arthritis of multiple sites with negative rheumatoid factor M06.09 Rheumatoid arthritis location: multiple sites Rheumatoid factor presence: without rheumatoid factor Anxiety F41.9 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 Treated with prednisone. Could not tolerate methotrexate. Enbrel until 2004 Seronegative RA dx 12/2023 Enbrel restarted 01/2024 effective Code(s): M06.9 - Rheumatoid arthritis, unspecified Category: Medical Qualifiers: Rheumatoid arthritis location: multiple sites Rheumatoid factor presence: without rheumatoid factor Qualified Code(s): M06.09 - Rheumatoid arthritis without rheumatoid factor, multiple sites (4) Anxiety: Code(s): F41.9 - Anxiety disorder, unspecified Category: Medical (5) Still's disease of adult: Comment: dx around 2001 (fevers, rash, joint pain) initially on prednisone, could not tolerate methotrexate, was on Enbrel for a few years until 2004 Code(s): M06.1 - Adult-onset Still's disease Category: Medical (6) Pure hypercholesterolemia: Code(s): E78.00 - Pure hypercholesterolemia, unspecified Category: Medical (7) Dizziness: Code(s): R42 - Dizziness and giddiness Category: Medical Plan A Holter monitor is prescribed to evaluate the possibility of cardiac arrhythmias contributing to the patient's dizziness and palpitations. The patient's lipid profile indicates elevated total cholesterol; however, due to a low calculated risk of cardiovascular events, lifestyle alterations are advised. Managing her anxiety and depression with current medications will continue, and monitoring during future visits is necessary to adjust treatment plans accordingly. Patient was informed and verbally consented to the use of an ambient scribe for clinic note documentation during this visit. I discussed with the patient that her episodes of dizziness with palpitations may be linked to anxiety, but it is important to rule out cardiac causes with a Holter monitor. The low risk of heart-related events based on her current lipid profile suggests no need for medication, so I advised dietary changes. We talked about how once we determine the results of the Holter, we can plan further management if her symptoms persist. I assured her that without smoking or alcohol use, her risk factors are limited, and she is responsive to lifestyle changes. We reviewed warning signs and agreed to follow up if her symptoms c hange or become more frequent. Orders: Orders ECG holter monitor 48 hour Today R00.2 - Palpitations Lipid Panel 8 Months E78.5 - Hyperlipidemia, unspecified Comprehensive [place]. Panel Fast 8 Months R00.2 - Palpitations Patient Instructions: - Wear the Holter monitor as instructed to capture heart rhythms. - Follow a low-cholesterol diet as advised. - Continue current medications for rheumatoid arthritis, anxiety, and depression. - Return for follow-up after the Holter monitor results or if symptoms worsen. - Monitor symptoms and keep a log of dizziness episodes to discuss at the next visit.
[2025-02-02 11:06] VITALS: BP 122/80; BMI 27.6
--- OUTSIDE RECORDS SUMMARY | 2025-02-02 12:59 | XMS_ITS | Encounter Summary ---
Author Organization [employer] [facility] Address [address] [place] [address] Care Team Providers Care Devops Engineer Name Role Phone Raquel Kong MD Primary Care Provider Arianna Mejia MD Primary Care Provider Tito sol [facility], Pcp Primary Care Provider [facility] e Encounter Details Date Type Department Care Team Description 03/21/2021 [facility] Medical Records [address] [place] [address] Abstract, Provider Social History Tobacco Use Types [...] on filedocumented in this encounter Care Teams Devops Engineer Relationship Specialty Start Date End Date Raquel Kong MD PCP - General Internal Medicine 07/03/19 10/30/21 Arianna Hansen MD PCP - General Internal Medicine 10/31/21 05/17/22 Luis Antonio, Pcp PCP - General Internal Medicine 05/18/22 documented as of this encounter
--- OUTSIDE RECORDS SUMMARY | 2025-02-02 12:59 | XMS_ITS | Encounter Summary ---
Author Organization [employer] [facility] Address [address] [place] [address] Care Team Providers Care Senior Game Designer Name Role Phone Name, Carl QUINN Primary Care Provider Unavailrory e Alan Grey MD Primary Care Provider [phone] Dinorah Zaragoza MD Primary Care Provider Un available Raquel Kong MD Primary Care Provider Unavail able Angelina Valle MD Primary Care Provider UnavailArianna Rosas MD Primary Care Provider [facility] Pcp Primary Care Provider Unavailrory e Encounter Details Date Type Department Care Team Description 11/15/2014 Release of Information Medical Records [address] [place] [address] Abstract, Provider Social History Tobacco Use Types [...] on filedocumented in this encounter Care Teams Senior Game Designer Relationship Specialty Start Date End Date Name, MD Carl PCP - General Internal Medicine 03/31/13 12/14/15 Alan Grey MD [address] [place] [address] PCP - General Internal Medicine 12/15/15 06/23/17 Dinorah Zaragoza MD [address] [place] [address] PCP - General Internal Medicine 04/29/19 07/02/19 Raquel Kong MD [address] [place] [address] PCP - General Internal Medicine 07/03/19 10/30/21 Angelina Valle MD [address] [place] [address] PCP - General 06/24/17 04/28/19 Arianna Hansen MD [address] [place] [address] PCP - General Internal Medicine 10/31/21 05/17/22 [facility], Pcp [address] [place] [address] PCP - General Internal Medicine 05/18/22 documented as of this encounter
--- OUTSIDE RECORDS SUMMARY | 2025-02-02 12:59 | XMS_ITS | Encounter Summary ---
Author Organization [facility] [facility] Address [address] [place] [address] Care Team Providers Care Guide Alpine Name Role Phone Arianna Hansen MD Primary Care Provider Tito sol [facility], Pcp Primary Care Provider Unavailrory e Reason for Visit * Reason Onset Date Comments External Sleep Study Request 03/07/2022 sle ep study Encounter Details Date Type Department Care Team Description 03/07/2022 Telephone Adult Medicine B - [place] [address] [place] [address] Amy Fitzpatrick MD [address] [place] [address] [address] [place] [id number] External Sleep Study Request (sleep study) Social History Tobacco Use Types Packs/Day Years [...] AM EDT documented as of this encounter Miscellaneous Notes * Telephone Encounter - Gregoria Navarrete - 04/08/2022 5:10 PM EDT [facility] auth [id number] 03/08/22- 06/07/22 [phone] Order faxed to sleep medicine services. They will contact patient with appointment.Notification letter mailed. * Telephone Encounter - Gregoria Navarrete - 03/07/2022 7:41 AM EDT [address] with [facility] ins documented in this encounter Plan of Treatment Not on file documented as of this encounter Visit Diagnoses Not on filedocumented in this encounter Care Teams Guide Alpine Relationship Specialty Start Date End Date Arianna Hansen MD PCP - General Internal Medicine 10/31/21 05/17/22 [facility], Jordin PCP - General Internal Medicine 05/18/22 documented as of this encounter
--- OUTSIDE RECORDS SUMMARY | 2025-02-02 12:59 | XMS_ITS | Encounter Summary ---
Author Organization [employer] [facility] Address [address] [place] [address] Care Team Providers Care Sticker Operator Name Role Phone Arianna Hansen MD Primary Care Provider Tito Salmon, Pcp Primary Care Provider Haider e Encounter Details Date Type Department Care Team Description 11/20/2021 Orders Only Medical Records [address] [place] [address] Filiberto Carrera PA-C Social History Tobacco Use [...] on filedocumented in this encounter Care Teams Sticker Operator Relationship Specialty Start Date End Date Arianna Hansen MD PCP - General Internal Medicine 10/31/21 05/17/22 Luis Antonio, Pcp PCP - General Internal Medicine 05/18/22 documented as of this encounter
--- OUTSIDE RECORDS SUMMARY | 2025-02-02 12:59 | XMS_ITS | Encounter Summary ---
Author Organization [employer] [facility] Address [address] [place] [address] Care Team Providers Care Green Marketing Analyst Name Role Phone Arianna Hansen MD Primary Care Provider Tito Salmon, Pcp Primary Care Provider Haider leyva Encounter Details Date Type Department Care Team Description 02/14/2022 Release of Information Medical Records [address] [place] [address] Abstract, Provider Social History Tobacco Use Types [...] on filedocumented in this encounter Care Teams Green Marketing Analyst Relationship Specialty Start Date End Date Arianna Hansen MD PCP - General Internal Medicine 10/31/21 05/17/22 [facility] Pcp PCP - General Internal Medicine 05/18/22 documented as of this encounter
--- OUTSIDE RECORDS SUMMARY | 2025-02-02 13:00 | XMS_ITS | Clinical Summary ---
Author Organization [facility] Address [address] [place] [address] Care Team Providers Care Hand Stamper Name Role Phone Unavailable Primary Care Provider Unavailabl e Social History Tobacco Use Types Packs/Day Years Used Date Smoking Tobacco: Never Assessed Sex and Gender Information Value Date Recorded Sex Assigned at Not on file Gender Identity Not on file Sexual Orientation Not on file Plan of Treatment Not on file
--- OUTSIDE RECORDS SUMMARY | 2025-02-02 13:00 | XMS_ITS | Encounter Summary ---
Author Organization [employer] [facility] Address [address] [place] [address] Care Team Providers Care Veterinary Bacteriologist Name Role Phone Rosalino Cordon Primary Care Provider [facility] Name, Carl QUINN Primary Care Provider Unavailabl e Alan Grey MD Primary Care Provider [phone] Dinorah Zaragoza MD Primary Care Provider Un available Raquel Kong MD Primary Care Provider Unavail able Angelina Valle MD Primary Care Provider Unavailabl e Arianna Hansen MD [facility], Pcp Primary Care Provider Unavailabl e Reason for Visit * Reason Onset Date Comments Form 06/06/2012 behaviorial heal th form Encounter Details Date Type Department Care Team Description 06/06/2012 Telephone Adult [address] [address] Rosalino Cordon Form (behaviorial health form) Social [...] on filedocumented in this encounter Care Teams Veterinary Bacteriologist Relationship Specialty Start Date End Date Rosalino Cordon PCP - General 05/25/09 03/30/13 Carl Zaragoza MD PCP - General Internal Medicine 03/31/13 12/14/15 Alan Grey MD [address] [place] [address] PCP - General Internal Medicine 12/15/15 06/23/17 Dinorah Zaragoza MD [address] [place] [address] PCP - General Internal Medicine 04/29/19 07/02/19 Raquel Kong MD [address] [place] [address] PCP - General Internal Medicine 07/03/19 10/30/21 Angelina Valle MD [address] [place] [address] PCP - General 06/24/17 04/28/19 Arianna Hansen MD [address] [place] [address] PCP - General Internal Medicine 10/31/21 05/17/22 [facility], Pcp [address] [place] [address] PCP - General Internal Medicine 05/18/22 documented as of this encounter
--- OUTSIDE RECORDS SUMMARY | 2025-02-02 13:00 | XMS_ITS | Encounter Summary ---
Author Organization [employer] [facility] Address [address] 7[address] [place] [address] Care Team Providers Care Prop Setter Name Role Phone Unavailable Primary Care Provider Unavailabl e Encounter Details Date Type Department Care Team (Latest Contact Info) Description 12/16/2019 Abstract [facility] CONVERSIONS Dental, Provider, DDS Social History [...]
--- OUTSIDE RECORDS SUMMARY | 2025-02-02 13:00 | XMS_ITS | Encounter Summary ---
Author Organization [employer] [facility] Address [address] [place] [address] Care Team Providers Care Ecology Teacher Name Role Phone Alan Grey MD Primary Care Provider [phone] Dinorah Zaragoza MD Primary Care Provider Un available Raquel Kong MD Primary Care Provider Unavail able Angelina Valle MD Primary Care Provider Unavailabl Arianna Petersen MD Primary Care Provider [facility] Pcp Primary Care Provider Unavailabl e Encounter Details Date Type Department Care Team Description 06/18/2016 Backup Administrative Coordinator Report Medical Records [address] [place] [address] Social History Tobacco Use Types Packs/Day Years [...] on filedocumented in this encounter Care Teams Ecology Teacher Relationship Specialty Start Date End Date Alan Grey MD [address] [place] [address] PCP - General Internal Medicine 12/15/15 06/23/17 Dinorah Zaragoza MD [address] [place] [address] PCP - General Internal Medicine 04/29/19 07/02/19 Rauqel Kong MD [address] [place] [address] PCP - General Internal Medicine 07/03/19 10/30/21 Angelina Valle MD [address] [place] [address] PCP - General 06/24/17 04/28/19 Arianna Hansen MD [address] [place] [address] PCP - General Internal Medicine 10/31/21 05/17/22 [facility], Pcp [address] [place] [address] PCP - General Internal Medicine 05/18/22 documented as of this encounter
--- OUTSIDE RECORDS SUMMARY | 2025-02-02 13:00 | XMS_ITS | Encounter Summary ---
Author Organization [employer] [facility] Address [address] [place] [address] Care Team Providers Care Night Stocker Name Role Phone Alan Grey MD Primary Care Provider [phone] Dinorah Zaragoza MD Primary Care Provider Un available Raquel Kong MD Primary Care Provider Unavail able Angelina Valle MD Primary Care Provider Unavailabl e Arianna Hansen MD Primary Care Provider [facility] Pcp Primary Care Provider Unavailabl e Reason for Visit * Reason Onset Date Comments Testing 03/21/2017 Encounter Details Date Type Department Care Team Description 03/21/2017 Telephone Radiology - [address] [address] Jon Ortiz MD Testing Social History Tobacco [...] on filedocumented in this encounter Care Teams Night Stocker Relationship Specialty Start Date End Date Alan Grey MD [address] [place] [address] PCP - General Internal Medicine 12/15/15 06/23/17 Dinorah Zaragoza MD [address] [place] [address] PCP - General Internal Medicine 04/29/19 07/02/19 Raquel Kong MD [address] [place] [address] PCP - General Internal Medicine 07/03/19 10/30/21 Angelina Valle MD [address] [place] [address] PCP - General 06/24/17 04/28/19 Arianna Hansen MD [address] [place] [address] PCP - General Internal Medicine 10/31/21 05/17/22 [facility], Pcp [address] [place] [address] PCP - General Internal Medicine 05/18/22 documented as of this encounter
--- OUTSIDE RECORDS SUMMARY | 2025-02-02 13:00 | XMS_ITS | Encounter Summary ---
Author Organization [employer] [facility] Address [address] [place] [address] Care Team Providers Care Postpartum Rn Name Role Phone Dinorah aZragoza MD Primary Care Provider Un available Raquel Kong MD Primary Care Provider Unavail able Angelina Valle MD Primary Care Provider Unavailabl e Arianna Hansen MD Primary Care Provider Tito sol [facility], Pcp Primary Care Provider Unavailabl e Encounter Details Date Type Department Care Team Description 03/03/2019 Release of Information Medical Records [address] [place] [address] Abstract, Provider Social History Tobacco Use Types [...] on filedocumented in this encounter Care Teams Postpartum Rn Relationship Specialty Start Date End Date Dinorah Zaragoza MD PCP - General Internal Medicine 04/29/19 9 Raquel Kong MD PCP - General Internal Medicine 07/03/19 10/30/21 Angelina Valle MD PCP - General 06/24/17 04/28/19 Arianna Hansen MD PCP - General Internal Medicine 10/31/21 05/17/22 [facility], Pcp PCP - General Internal Medicine 05/18/22 documented as of this encounter
--- OUTSIDE RECORDS SUMMARY | 2025-02-02 13:00 | XMS_ITS | Encounter Summary ---
Author Organization [employer] [facility] Address [address] [place] [address] Care Team Providers Care Box Office Manager Name Role Phone Raquel Kong MD Primary Care Provider Arianna Mejia MD Primary Care Provider Tito sol [facility], Pcp Primary Care Provider Unavailabl e Reason for Visit * Reason Onset Date Comments refill request 09/18/2019 Encounter Details Date Type Department Care Team Description 09/18/2019 Refill Gastroenterology - [address] [place] [phone] Alan Narayan MD refill request Social History Tobacco Use Types Packs/Day Years [...] on filedocumented in this encounter Care Teams Box Office Manager Relationship Specialty Start Date End Date Raquel Kong MD PCP - General Internal Medicine 07/03/19 10/30/21 Arianna Hansen MD PCP - General Internal Medicine 10/31/21 05/17/22 Luis Antonio, Pcp PCP - General Internal Medicine 05/18/22 documented as of this encounter
--- OUTSIDE RECORDS SUMMARY | 2025-02-02 13:00 | XMS_ITS | Clinical Summary ---
Author Organization [employer] [facility] Address [address] [place] [address] Care Team Providers Care Body Designer Name Role Phone Unavailable Primary Care Provider Unavailabl e Surgical History Surgery Date Site/Laterality Comments OTHER SURGICAL HISTORY 2009 PROCEDURE: SD TOT ABD HYST W/PARAORTIC & PELVIC LYMPH NODE OTIS; COMMENT: abdominal for bleeding, benign pahtology, ovaries in place Dr Casillas BREAST REDUCTION PROCEDURE: SD BREAST REDUCTION COLONOSCOPY 01/07/2020 PROCEDURE: HISTORICAL COLONOSCOPY; COMMENT: Minimal diverticulosis, no polyps. UPPER GASTROINTESTINAL ENDOSCOPY 01/07/2020 PROCEDURE: SD UPPER GI ENDOSCOPY PERFORMED; COMMENT: Normal on rx with PPI and NSAIDS. SALPINGOOPHORECTOMY 01/25/2021 Right PROCEDURE: SD LAPAROSCOPY W/RMVL ADNEXAL STRUCTURES; COMMENT: extensive lysis [...] Daughter Alive Father Alive high cholestero l, [place] Mother Alive heart problems, high cholesterol, HTN [...] Procedure Name Priority Date/Time Associated Diagnosis Comments [facility] SCREENING DIGITAL Routine 11/26/2018 10:06 AM EST Encounter for screening mammogram for malignant neoplasm of breast from Last 3 Months or Most Recently Relevant to Health Maintenance Results * [facility] SCREENING DIGITAL (11/26/2018 10:06 AM EST) Anatomical Region Laterality Modality Mammography 11/26/2018 9:01 AM EST Narrative 11/26/2018 10:06 AM EST Diagnostic Imaging Department [address] [place] [address] Patient: ??MULUGETA SERNA ?/Age/Sex: 1970 - 48 - F Unit#: ??[id number] ? Location/Status: ??SPDIMAM/REG CLI ? Mnemonic/Ordering Site: ??DIGSC/SPMAM Ordering Physician: ??CIRA CRUZ MD Abdirashid Screening Digital - 11/26/18 - EXAM: [facility] Screening Digital EXAM DATE AND TIME: 11/26/2018 9:38 AM HISTORY: ??Screening. Reduction mammoplasty in 2004. COMPARISON: ??11/21/17, 09/27/16, 09/08/15, 09/02/14 TECHNIQUE: CC and MLO views of both breasts were obtained using full field digital mammography. Bilateral digital breast tomosynthesis was performed in the MLO projection. Computer aided detection with the [employer] 7.2-H was employed. TISSUE DENSITY: b. There [...] Routine screening mammogram BILATERAL in 1 year. [address]74, 60468 3342F, 7025F Dictating Physician: ??GAYE GUILLEN MD Electronically Signed by: ??GAYE GUILLEN MD Dic Date/Time: ??11/26/18 1005 Sign date/Time: ??11/26/18 1006 Procedure Note Gaye Guillen MD - 11/20/2022 Diagnostic Imaging Department [address] [place] [address] Patient: MULUGETA SERNA/Age/Sex: 1970 - 48 - F Unit#: [id number] Location/Status: [facility]IMA/REG CLI Mnemonic/Ordering Site: [facility] Ordering Physician: CIRA CRUZ MD [facility] Screening Digital - 11/26/18 - EXAM: [facility] Screening Digital EXAM DATE AND TIME: 11/26/2018 9:38 AM HISTORY: Screening. Reduction mammoplasty in 2004. COMPARISON: 11/21/17, 09/27/16, 09/08/15, 09/02/14 TECHNIQUE: CC and MLO views of both breasts were obtained using fullfield digital mammography. Bilateral digital breast tomosynthesis was performedin the MLO projection. Computer aided detection with the [employer]2-Say-Heyas employed. TISSUE DENSITY: b. There are scattered [...] Routine screening mammogram BILATERAL in 1 year. [address]76, 37435 3342F, 7025F Dictating Physician: GAYE GUILLEN MD Electronically Signed by: GAYE GUILLEN MD Dic Date/Time: 11/26/18 1005 Sign date/Time: 11/26/18 1006 Cira Cruz MD IMG BI PROCEDURES Final Result from Last 3 Months or Most Recently Relevant to Health Maintenance
--- OUTSIDE RECORDS SUMMARY | 2025-02-02 13:00 | XMS_ITS | Encounter Summary ---
Author Organization [employer] [facility] Address [address] [place] [address] Care Team Providers Care Interactive Graphic Designer Name Role Phone Raquel Kong MD Primary Care Provider Arianna Mejia MD Primary Care Provider Tito Salmon, Pcp Primary Care Provider [facility] Encounter Details Date Type Department Care Team Description 01/07/2020 Hospital Medical Records [address] [place] [address] Alan Narayan MD Social History Tobacco Use Types Packs/Day Years [...] on filedocumented in this encounter Care Teams Interactive Graphic Designer Relationship Specialty Start Date End Date Raquel Kong MD PCP - General Internal Medicine 07/03/19 10/30/21 Arianna Hansen MD PCP - General Internal Medicine 10/31/21 05/17/22 Luis Antonio, Jordin PCP - General Internal Medicine 05/18/22 documented as of this encounter
--- OUTSIDE RECORDS SUMMARY | 2025-02-02 13:00 | XMS_ITS | Encounter Summary ---
Author Organization [employer] [facility] Address [address] [place] [address] Care Team Providers Care Rail Car Unloader Name Role Phone Dinorah Zaragoza MD Primary Care Provider Un available Raquel Kong MD Primary Care Provider Arianna Mejia MD Primary Care Provider Tito Salmon, Pcp Primary Care Provider Unavailabl e Reason for Visit * Reason Onset Date Comments Medication 05/12/2019 colon prep Encounter Details Date Type Department Care Team Description 05/12/2019 Refill Gastroenterology - [address] [place] [address] Alan Narayan MD Medication (colon prep) Social History Tobacco Use Types Packs/Day Years Used Date Smoking Tobacco: Never Smokeless Tobacco: Never Alcohol Use Standard Drinks/Week Comments No 0 (1 standard drink = 0.6 oz pur e alcohol) Sex Assigned at Date Recorded Not on file documented as of this encounter Miscellaneous Notes * Telephone Encounter - Mora Valente - 05/12/2019 11:49 AM EDT Patient has been booked for 08/31/19 please send over prep. Thank you documented in this encounter Plan of Treatment Not on file documented as of this encounter Visit Diagnoses Not on filedocumented in this encounter Care Teams Rail Car Unloader Relationship Specialty Start Date End Date Dinorah Zaragoza MD PCP - General Internal Medicine 5/29/19 8/1/1 9 Raquel Kong MD PCP - General Internal Medicine 07/03/19 10/30/21 Arianna Hansen MD PCP - General Internal Medicine 10/31/21 05/17/22 [facility], Pcp PCP - General Internal Medicine 05/18/22 documented as of this encounter
--- OUTSIDE RECORDS SUMMARY | 2025-02-02 13:00 | XMS_ITS | Encounter Summary ---
Author Organization [facility] Address [address] [facility] 7t [place] [address] Care Team Providers Care Raisin Separator Operator Name Role Phone Unavailable Primary Care [...]
--- OUTSIDE RECORDS SUMMARY | 2025-02-02 13:00 | XMS_ITS | Clinical Summary ---
Author Organization [facility] Address [address] [facility] 7t [place] [address] Care Team Providers Care Pastry Supervisor Name Role Phone Unavailable Primary Care Provider [...]
--- OUTSIDE RECORDS SUMMARY | 2025-02-02 13:00 | XMS_ITS | Encounter Summary ---
Author Organization [employer] [facility] Address [address] [facility] 7t [place] [address] Care Team Providers Care Microfilm Technician Name Role Phone Unavailable Primary Care Provider Unavailabl e Encounter Details Date Type Department Care Team (Latest Contact Info) Description 09/11/2019 Abstract [facility] CONVERSIONS Dental, Provider, DDS Social History [...]
--- OUTSIDE RECORDS SUMMARY | 2025-02-02 13:00 | XMS_ITS | Encounter Summary ---
Author Organization [facility] Address [address] [place] [address] Care Team Providers Care Director Technical Name Role Phone Community, Pcp Primary Care Provider Unavailabl e Encounter Details Date Type Department Care Team Description 06/20/2022 Orders Only Pulmonology - [place] [address] [facility] [address] [place] [phone] Amy Fitzpatrick MD [address] [phone] LIN (obstructive sleep apnea) Social History Tobacco Use Types Packs/Day Years Used Date Smoking Tobacco: Never Smokeless Tobacco: Never Alcohol Use Standard Drinks/Week Comments No 0 (1 standard drink = 0.6 oz pur e alcohol) Sex Assigned at Date Recorded Not on file COVID-19 Exposure Response Date Recorded In the last 10 days, have yo u been in contact with someone who was confirmed or suspected to have Coronavirus/COVID-19? No / Unsure 05/21/2022 10:24 AM EDT documented as of this encounter Progress Notes * Amy Fitzpatrick MD - 06/20/2022 5:09 PM EDT If Patient is willing to come in this week I can see the patient if not I see the patient the follow week when I am back. documented in this encounter Plan of Treatment Not on file documented as of this encounter Procedures Procedure Name Priority Date/Time Associated Diagnosis Comments SLEEP STUDY-FULL NEURO 16 CHANNEL Routine 05/17/2022 LIN (obstructive sleep apnea) documented in this encounter Results * SLEEP STUDY-FULL NEURO 16 CHANNEL (05/17/2022) Amy Fitzpatrick MD PULMONOLOGY documented in this encounter Visit Diagnoses Diagnosis LIN (obstructive sleep apnea) Obstructive sleep apnea (adult) (pediatric) documented in this encounter Care Teams Director Technical Relationship Specialty Start Date End Date Community, Pcp PCP - General Internal Medicine 05/18/22 documented as of this encounter
--- OUTSIDE RECORDS SUMMARY | 2025-02-02 13:00 | XMS_ITS | Encounter Summary ---
Author Organization [employer] [facility] Address [address] [place] [address] Care Team Providers Care Roller Skater Name Role Phone Raquel Kong MD Primary Care Provider Arianna Mejia MD Primary Care Provider Tito Salmon, Pcp Primary Care Provider [facility] Encounter Details Date Type Department Care Team Description 01/25/2021 Hospital Medical Records [address] [place] [address] Barry Chavis MD [address] [place] [id number] Social History Tobacco Use Types Packs/Day Years [...] on filedocumented in this encounter Care Teams Roller Skater Relationship Specialty Start Date End Date Raquel Kong MD PCP - General Internal Medicine 07/03/19 10/30/21 Arianna Hansen MD PCP - General Internal Medicine 10/31/21 05/17/22 Jordin Salmon PCP - General Internal Medicine 05/18/22 documented as of this encounter
--- OUTSIDE RECORDS SUMMARY | 2025-02-02 13:00 | XMS_ITS | Encounter Summary ---
Author Organization [facility] [facility] Address [address] [place] [address] Care Team Providers Care Timber Killer Name Role Phone Alan Grey MD Primary Care Provider [phone] Dinorah Zaragoza MD Primary Care Provider Un available Raquel Kong MD Primary Care Provider Unavail able Angelina Valle MD Primary Care Provider Unavailabl Arianna Petersen MD Primary Care Provider [facility] Pcp Primary Care Provider Unavailrory leyva Encounter Details Date Type Department Care Team Description 08/15/2016 Home Care Consultant Report Medical Records [address] [place] [id number] Hank Guo MD Social History Tobacco Use Types Packs/Day [...] on filedocumented in this encounter Care Teams Timber Killer Relationship Specialty Start Date End Date Alan Grey MD [address] [place] [id number] PCP - General Internal Medicine 12/15/15 06/23/17 Dinorah Zaragoza MD [address] [place] [address] PCP - General Internal Medicine 04/29/19 07/02/19 Raquel Kong MD [address] [place] [address] PCP - General Internal Medicine 07/03/19 10/30/21 Angelina Valle MD [address] [place] [address] PCP - General 06/24/17 04/28/19 Arianna Hansen MD [address] [place] [address] PCP - General Internal Medicine 10/31/21 05/17/22 [facility], Pcp [address] [place] [address] PCP - General Internal Medicine 05/18/22 documented as of this encounter
--- OUTSIDE RECORDS SUMMARY | 2025-02-02 13:00 | XMS_ITS | Encounter Summary ---
Author Organization [employer] [facility] Address [address] [place] [address] Care Team Providers Care Locomotive Engineer Electric Name Role Phone Raquel Kong MD Primary Care Provider Arianna Mejia MD Primary Care Provider Tito Salmon, Pcp Primary Care Provider [facility] Encounter Details Date Type Department Care Team Description 12/09/2020 Orders Only Radiology - [address] [address] Raquel Kong MD Social History Tobacco Use Types Packs/Day [...] on filedocumented in this encounter Care Teams Locomotive Engineer Electric Relationship Specialty Start Date End Date Raquel Kong MD PCP - General Internal Medicine 07/03/19 10/30/21 Arianna Hansen MD PCP - General Internal Medicine 10/31/21 05/17/22 Luis Antonio, Pcp PCP - General Internal Medicine 05/18/22 documented as of this encounter
--- OUTSIDE RECORDS SUMMARY | 2025-02-02 13:00 | XMS_ITS | Encounter Summary ---
Author Organization [employer] [facility] Address [address] [facility] [address] [place] [address] Care Team Providers Care Tank Car Reconditioner Name Role Phone Unavailable Primary Care Provider [...]
== END 2025-02-02 11:36 | disposition home or self-care (01) ==
PROVIDERS: PCP Internal Medicine; Visit Provider Internal Medicine
DX: R00.2 Palpitations (principal); F32.0 Major depressive disorder, single episode, mild; M06.1 Adult-onset Still's disease; M06.09 Rheumatoid arthritis without rheumatoid factor, multiple sites; R42 Dizziness and giddiness; F41.9 Anxiety disorder, unspecified; E78.00 Pure hypercholesterolemia, unspecified

== ENCOUNTER → 2025-02-02 10:39 | Outpatient (BNVA) | payer OTHER, SELFPAY | PROVIDERS: PCP Internal Medicine; Visit Provider Internal Medicine | DX: F32.0 Major depressive disorder, single episode, mild (principal); R00.2 Palpitations; M06.09 Rheumatoid arthritis without rheumatoid factor, multiple sites; F41.9 Anxiety disorder, unspecified; M06.1 Adult-onset Still's disease; E78.00 Pure hypercholesterolemia, unspecified; R42 Dizziness and giddiness | CPT/HCPCS: 96127; 99212 ==

== ENCOUNTER → 2025-02-08 09:24 | Outpatient (REF) | payer OTHER, SELFPAY ==
--- OUTSIDE RECORDS SUMMARY | 2025-02-08 10:06 | XMS_ITS | Encounter Summary ---
Author Organization [employer] [facility] Address [address] [facility] [address] [place] [address] Care Team Providers Care Dental Equipment Technician Name Role Phone Unavailable Primary Care Provider Unavailabl e Encounter Details Date Type Department Care Team (Latest Contact Info) Description 12/16/2019 Abstract [facility] CONVERSIONS Dental, Provider, DDS Social [...]
--- OUTSIDE RECORDS SUMMARY | 2025-02-08 10:06 | XMS_ITS | Encounter Summary ---
Author Organization [employer] [facility] Address [address] [place] [address] Care Team Providers Care Spiral Gear Generator Name Role Phone Unavailable Primary Care Provider Unavailabl e Encounter Details Date Type Department Care Team (Latest Contact Info) Description 09/11/2019 Abstract [facility] CONVERSIONS Dental, Provider, DDS Social History [...]
--- OUTSIDE RECORDS SUMMARY | 2025-02-08 10:06 | XMS_ITS | Clinical Summary ---
Author Organization [facility] Address [address] [place] [address] Care Team Providers Care Burglar Alarm Installer Name Role Phone Unavailable Primary Care Provider Unavailabl e Social History Tobacco Use Types Packs/Day Years Used Date Smoking Tobacco: Never Assessed Sex and Gender Information Value Date Recorded Sex Assigned at Not on file Gender Identity Not on file Sexual Orientation Not on file Plan of Treatment Not on file
--- OUTSIDE RECORDS SUMMARY | 2025-02-08 10:06 | XMS_ITS | Encounter Summary ---
Author Organization [employer] [facility] Address [address] [facility] [address] [place] [address] Care Team Providers Care Junior Architect Name Role Phone Unavailable Primary Care Provider [...]
--- OUTSIDE RECORDS SUMMARY | 2025-02-08 10:06 | XMS_ITS | Clinical Summary ---
Author Organization [employer] [facility] Address [address] [facility] [address] [place] [address] Care Team Providers Care Reclamation Kettle Tender Name Role Phone Unavailable Primary Care Provider [...]
--- OUTSIDE RECORDS SUMMARY | 2025-02-08 10:06 | XMS_ITS | Encounter Summary ---
Author Organization [employer] [facility] Address [address] [facility] 7t [place] [address] Care Team Providers Care Process Trainer Name Role Phone Unavailable Primary Care Provider [...]
--- OUTSIDE RECORDS SUMMARY | 2025-02-08 10:06 | XMS_ITS | Clinical Summary ---
Author Organization [employer] [facility] Address [address] [place] [address] Care Team Providers Care Loss Prevention Officer Name Role Phone Unavailable Primary Care Provider Unavailabl e Surgical History Surgery Date Site/Laterality Comments OTHER SURGICAL HISTORY 2009 PROCEDURE: NV TOT ABD HYST W/PARAORTIC & PELVIC LYMPH NODE OTIS; COMMENT: abdominal for bleeding, benign pahtology, ovaries in place Dr Casillas BREAST REDUCTION PROCEDURE: NV BREAST REDUCTION COLONOSCOPY 01/07/2020 PROCEDURE: HISTORICAL COLONOSCOPY; COMMENT: Minimal diverticulosis, no polyps. UPPER GASTROINTESTINAL ENDOSCOPY 01/07/2020 PROCEDURE: NV UPPER GI ENDOSCOPY PERFORMED; COMMENT: Normal on rx with PPI and NSAIDS. SALPINGOOPHORECTOMY 01/25/2021 Right PROCEDURE: NV LAPAROSCOPY W/RMVL ADNEXAL STRUCTURES; COMMENT: extensive lysis [...] Daughter Alive Father Alive high cholestero l, [place] Mother Alive heart problems, high cholesterol, HTN [...] Procedure Name Priority Date/Time Associated Diagnosis Comments [facility] SCREENING DIGITAL Routine 11/26/2018 10:06 AM EST Encounter for screening mammogram for malignant neoplasm of breast from Last 3 Months or Most Recently Relevant to Health Maintenance Results * [facility] SCREENING DIGITAL (11/26/2018 10:06 AM EST) Anatomical Region Laterality Modality Mammography 11/26/2018 9:01 AM EST Narrative 11/26/2018 10:06 AM EST [facility] Diagnostic Imaging Department [address] [place] [address] Patient: ??MULUGETA SERNA ?/Age/Sex: 1970 - 48 - F Unit#: ??[id number] ? Location/Status: ??SPDIMAM/REG CLI ? Mnemonic/Ordering Site: ??DIGSC/SPMAM Ordering Physician: ??CIRA CRUZ MD Abdirashid Screening Digital - 11/26/18 - EXAM: [facility] Screening Digital EXAM DATE AND TIME: 11/26/2018 9:38 AM HISTORY: ??Screening. Reduction mammoplasty in 2004. COMPARISON: ??11/21/17, 09/27/16, 09/08/15, 09/02/14 TECHNIQUE: CC and MLO views of both breasts were obtained using full field digital mammography. Bilateral digital breast tomosynthesis was performed in the MLO projection. Computer aided detection with the [employer]ribe Software 7.2-H was employed. TISSUE DENSITY: b. There [...] Routine screening mammogram BILATERAL in 1 year. [id number], [id number] 3342F, 7025F Dictating Physician: ??GAYE GUILLEN MD Electronically Signed by: ??GAYE GUILLEN MD Dic Date/Time: ??11/26/18 1005 Sign date/Time: ??11/26/18 1006 Procedure Note Gaye Guillen MD - 11/20/2022 [facility] Diagnostic Imaging Department [address] [place] [address] Patient: MULUGETA SERNA/Age/Sex: 1970 - 48 - F Unit#: [id number] [facility]Ordering Site: [facility] Ordering Physician: CIRA CRUZ MD [facility] Screening Digital - 11/26/18 - EXAM: [facility] Screening Digital EXAM DATE AND TIME: 11/26/2018 9:38 AM HISTORY: Screening. Reduction mammoplasty in 2004. COMPARISON: 11/21/17, 09/27/16, 09/08/15, 09/02/14 TECHNIQUE: CC and MLO views of both breasts were obtained using fullfield digital mammography. Bilateral digital breast tomosynthesis was performedin the MLO projection. Computer aided detection with the [employer].2-Training Advisoras employed. TISSUE DENSITY: b. There are scattered [...] Routine screening mammogram BILATERAL in 1 year. 17229, 83588 3342F, 7025F Dictating Physician: GAYE GUILLEN MD Electronically Signed by: GAYE GUILLEN MD Dic Date/Time: 11/26/18 1005 Sign date/Time: 11/26/18 1006 Cira Cruz MD IMG BI PROCEDURES Final Result from Last 3 Months or Most Recently Relevant to Health Maintenance
== END ==
LOC: HO.CARD 09:24
PROVIDERS: PCP Internal Medicine; Visit Provider Internal Medicine
DX: R00.2 Palpitations (principal)
CPT/HCPCS: 93225

== ENCOUNTER → 2025-02-08 09:28 | Outpatient (BNV) | payer OTHER, SELFPAY | PROVIDERS: PCP Internal Medicine; Visit Provider Internal Medicine Cardiovascular Disease | DX: R00.1 Bradycardia, unspecified (principal) | CPT/HCPCS: 93227 ==

== ENCOUNTER 2025-04-01 19:58 | Emergency (ER) | payer OTHER, SELFPAY ==
--- NOTE | ~2025-04-01 | XR_ITS ---
CLINICAL HISTORY: chest pain 1 view chest x-ray Comparison: None Findings: Mild left retrocardiac atelectasis. No significant pleural effusion or pneumothorax. Prominent cardiac silhouette. No acute fracture. IMPRESSION: Mild left retrocardiac atelectasis. This document has been electronically signed by: Michael West MD on 04/01/2025 20:43:21
--- NOTE | 2025-04-01 20:01 | ECG_ITS ---
Test Reason : cp Blood Pressure : */* mmHG Vent. Rate : 55 BPM Atrial Rate : 55 BPM P-R Int : 162 ms QRS Dur : 76 ms QT Int : 446 ms P-R-T Axes : 37 2 43 degrees QTcB Int : 426 ms Sinus bradycardia Otherwise normal ECG When compared with ECG of 27-Mar-2022 09:29, No significant change was found Referred By: Quinn Sanchez Electronically Signed By: Heri Roman
[2025-04-01 20:10] VITALS: BP 172/62; PULSE 61; RESP 18; TEMP 36.1; O2SAT 99; BMI 27.9
--- NOTE | 2025-04-01 20:15 | ED_ITS ---
HPI - Chest Pain General Chief Complaint: Chest Pain Stated Complaint: palpitations,dizziness,fatigue Time Seen by Provider: 04/01/25 21:53 Source: patient Mode of arrival: ambulatory Limitations: no limitations History of Present Illness ED Provider: HPI narrative: Patient is 54 years old with history of anxiety complaining of palpitation episode since 02/23 had Holter monitoring done on 02/08 which shows heart rate in 60s with PVC patient comes back here again as still feeling the same especially for last 2 weeks feel lightheaded complaining feel like passing out episode of palpitation lasted about 2-3 minutes does not know whether it is fast or slow when this happens. Related Data Home Medications ?Medication ?Instructions ?Recorded ?Confirmed melatonin 5 mg tablet 5 - 10 mg PO BEDTIME PRN insomnia 03/20/22 02/02/25 sertraline 100 mg tablet 150 mg PO DAILY 03/20/22 02/02/25 buspirone 10 mg tablet 10 mg PO BID anxiety 07/30/22 02/02/25 [id number] 45 mg-folic 1 cap PO DAILY 05/16/23 02/02/25 acid 800 mcg-vit K 120 mcg capsule (Bariatric Multivitamins) Previous Rx's ?Medication ?Instructions ?Recorded Enbrel SureClick 50 mg/mL (1 mL) 50 mg subcut QWEEK #4 mL 12/29/24 subcutaneous pen injector (etanercept) meloxicam 15 mg tablet 15 mg PO DAILY #7 tabs 01/11/25 walker #1 ea 03/22/25 Allergies Allergy/AdvReac Type Severity Reaction Status Date / Time No Known Allergies Allergy Verified 04/01/25 20:13 Review of Systems 2 Review of Systems: Yes all other systems are reviewed and are negative [facility] Past Medical History Medical History Insomnia Hiatal hernia BMI 36.0-36.9,adult Right pulmonary lesion Surgical History S/P laparoscopic sleeve gastrectomy Hx of colonoscopy Hx of hysterectomy Hx of breast reduction, elective Family History Family History Mother No problems noted. Father No problems noted. Sister No problems noted. Sister No problems noted. Sister No problems noted. Son No problems noted. Son Thyroid condition Daughter No problems noted. Social History Social History Household Members: None Housing: Apartment Are you a primary cardiac care unit nurse to a significant other at home: No Do you presently have visiting nurse or other home services: No (daughter will stay over post-op) Alcohol intake: never Patient Tobacco Use Status: Never used Tobacco Smoked in Last 30 Days: No e-Cigarette/Vaping Use: Never Used Second Hand Smoke Exposure: No Use of substances other than those prescribed or required for medical reasons: No Advance Directives: No Advance Directives Information Provided: No Do you have a plan to hurt others: No Plan Patient : No service: No Current occupational status: unemployed Cognitive needs: No Hearing needs: No Vision needs: Yes Physical Exam 2 Vital Signs: Vital Signs: Last Vital Signs Temp 0 F L 04/01/25 23:41 Pulse 0 L 04/01/25 23:41 Resp 0 L 04/01/25 23:41 BP 0/0 L 04/01/25 23:41 Pulse Ox 0 L 04/01/25 23:41 O2 Del Method Room Air 04/01/25 22:45 BMI result Body Mass Index 27.9 Appearance: Alert. Oriented X3. No acute distress. Eyes: No pallor or icterus ENT: Pharynx normal. Oral Mucosa moist Neck: Normal inspection. Neck supple. CVS: Normal heart rate and rhythm. Pulses normal. Respiratory: No respiratory distress. Equal air entry bilateral, no wheezing/rales/rhonchi Abdomen: Soft and nontender. Bowel sounds are present, no mass palpable, no CVA tenderness Skin: Skin warm and dry. Normal skin color. Normal skin turgor. Extremities: No lower extremity edema. No calf tenderness Neuro: Oriented X 3. No motor deficit. No sensory deficit.No cerebellar signs , cranial nerves II-XII intact Course Course Course Narrative: MARTHA; 54-year-old female presents to ED for palpitations. Patient had a monitor for a month. Patient states palpitation also dizzy feeling tired. Patient states also some chest pressure. Patient denies any leg swelling calf pain or coughing up blood. EKG labs chest x-ray ordered. Medical Decision Making Medical Decision Making MDM Narrative: Patient has atypical palpitation episode recent Holter was negative labs are stable will put patient on monitor. Patient's plan to have another event monitor placed in 2 months. 2310: Patient has eloped from the ER without informing RN patient was placed on software support representative for short time no arrhythmias noticed at that time but patient's removed the software support representative and left ED Differential Diagnosis Differential Diagnoses: The differential diagnosis associated with the presentation includes Sinus bradycardia/hypotension/SVT/atrial fibrillation Lab Data [facility] Lab Attestation statement: I reviewed the patient's lab results. 04/01/25 21:01 Labs: Lab Results 04/01/25 Range/Units 21:01 WBC 7.4 (4.8-10.8) X10*3/uL RBC 4.83 (4.20-5.50) X10*6/uL Hgb 12.9 (12.0-16.0) g/dl Hct 39.4 (37.0-47.0) % MCV 81.6 (80.0-98.0) fL MCH 26.7 L (27.0-33.0) pg MCHC 32.7 (31.0-35.0) g/dl RDW 12.7 (11.0-16.0) % Plt Count 149 L (160-400) X10*3/uL MPV 13.0 H (9.4-12.3) fL Immature Gran % (Auto) 0.5 H (0.0-0.4) % Neut % (Auto) 66.1 (45-73) % Lymph % (Auto) 20.7 (20-40) % [place] % (Auto) 8.7 (2-11) % Eos % (Auto) 3.5 (0-4) % Baso % (Auto) 0.5 (0-2) % Lymph # (Auto) 1.5 (1.2-4.9) X10*3/uL [place] # (Auto) 0.6 (0.1-1.2) X10*3/uL Eos # (Auto) 0.3 (0.0-0.4) X10*3/uL Baso # (Auto) 0.0 (0.0-0.2) X10*3/uL Abs Immat Gran (auto) 0.04 H (0.00-0.03) X10*3/uL Absolute Neuts (auto) 4.9 (2.0-8.3) x10*3/uL Absolute Nucleated RBC 0.000 (0.0-0.012) X10*3/uL Nucleated RBC % (auto) 0.0 (0.0-0.2) /100WBC PT 11.0 (10.9-12.4) SEC INR 0.9 (0.9-1.1) APTT 33.4 (26.0-36.8) SEC Troponin I High Sens < 2.7 (<3.5-17.0) ng/L B-Natriuretic Peptide 24 (<100) pg/mL TSH 2.38 (0.32-4.0) uIU/mL Influenza Type A (PCR) NEGATIVE (Negative) Influenza Type B (PCR) NEGATIVE (Negative) RSV RNA Qual (PCR) NEGATIVE (Negative) SARS-CoV-2 RNA (RT-PCR) NEGATIVE (Negative) Independent Interpretation I performed an independent interpretation of an: EKG Interpretation: Sinus bradycardia with heart rate 55 beats per minute normal intervals normal axis no acute STT wave changes no acute ischemia Discharge Plan Discharge Clinical Impression: Cardiac arrhythmia Patient Disposition: Left W/O Completing Treatment Prescriptions: No Action Enbrel SureClick 50 mg/mL (1 mL) pen injector 50 mg subcut QWEEK Qty: 4 4RF meloxicam 15 mg tablet 15 mg PO DAILY Qty: 7 0RF (DME) walker Misc See Rx Instructions .Route Qty: 1 0RF Rx Instructions: As directed Bariatric Multivitamins 45 mg iron- 800 mcg-120 mcg capsule 1 cap PO DAILY melatonin 5 mg tablet 5 - 10 mg PO BEDTIME PRN (Reason: insomnia) sertraline 100 mg tablet 150 mg PO DAILY buspirone 10 mg tablet 10 mg PO BID Interventions: ED Discharge Assessment Last Done: 04/01/25 23:41 Discharge Date/Time: 04/01/25 23:41
[2025-04-01 21:07] LABS: MANUAL DIFF FLAG NO
[2025-04-01 21:08] LABS: Basophils Percent Auto 0.5 % (0-2); Eosinophils Absolute Auto 0.3 X10*3/uL (0.0-0.4); Eosinophils Percent Auto 3.5 % (0-4); Hematocrit 39.4 % (37.0-47.0); Hemoglobin 12.9 g/dl (12.0-16.0); Imm Gran Abs Auto 0.04 X10*3/uL (0.00-0.03); Imm Gran Pct Auto 0.5 % (0.0-0.4); Lymphocytes Absolute Auto 1.5 X10*3/uL (1.2-4.9); Lymphocytes Percent Auto 20.7 % (20-40); Mean Corpuscular HGB Conc 32.7 g/dl (31.0-35.0); Mean Corpuscular Hemoglobin 26.7 pg (27.0-33.0); Mean Corpuscular Volume 81.6 fL (80.0-98.0); Monocytes Absolute Auto 0.6 X10*3/uL (0.1-1.2); Monocytes Percent Auto 8.7 % (2-11); Neutrophils Absolute Auto 4.9 x10*3/uL (2.0-8.3); Neutrophils Percent Auto 66.1 % (45-73); Platelet Count 149 X10*3/uL (160-400); Red Blood Count 4.83 X10*6/uL (4.20-5.50); Red Cell Distribution Width 12.7 % (11.0-16.0); White Blood Count 7.4 X10*3/uL (4.8-10.8)
[2025-04-01 21:15] LABS: INTERNATIONAL NORM RATIO 0.9 (0.9-1.1)
[2025-04-01 21:18] LABS: Partial Thromboplastin Time 33.4 SEC (26.0-36.8)
[2025-04-01 21:26] LABS: B Type Natriuretic Peptide 24 pg/mL (<100)
[2025-04-01 21:28] LABS: Troponin-I High Sensitivity < 2.7 ng/L (<3.5-17.0)
[2025-04-01 21:41] LABS: TSH reflex Free T4 2.38 uIU/mL (0.32-4.0)
[2025-04-01 21:43] LABS: Influenza A PCR NEGATIVE (Negative); Influenza B PCR NEGATIVE (Negative); Resp Syncy Virus RNA Qual PCR NEGATIVE (Negative); SARS COV2 PCR INHOUSE NEGATIVE (Negative)
[2025-04-01 22:00] VITALS: PULSE 52; RESP 18; O2SAT 96
[2025-04-01 22:45] VITALS: BP 115/64; PULSE 53; RESP 13; TEMP 36.2; O2SAT 98
[2025-04-01 22:49] VITALS: BP 128/56; PULSE 51
[2025-04-01 22:50] VITALS: BP 107/75; BP 112/65; PULSE 53; PULSE 71
--- NOTE | 2025-04-01 23:40 | PC.NURSE ---
Pt eloped unknown departure time. TW arrived on unit for shift at 2300. Bed empty with ?hospital gown, and director of cardiac cath lab stickers removed. visitor not in? either. provider aware
[2025-04-01 23:41] VITALS: BP 0/0; PULSE 0; RESP 0; TEMP -17.7; TEMP 0; O2SAT 0
== END 2025-04-01 23:41 | disposition left against medical advice (07) ==
PROVIDERS: Physician Assistant; Emergency Provider Internal Medicine; PCP Internal Medicine
DX: R07.89 Other chest pain (principal); I49.9 Cardiac arrhythmia, unspecified; R42 Dizziness and giddiness; F41.9 Anxiety disorder, unspecified; Z03.818 Encounter for observation for suspected exposure to other biological agents ruled out; Z79.899 Other long term (current) drug therapy
CPT/HCPCS: 0241U; 71045; 83880; 84443; 84484; 85025; 85610; 85730; 93005; 99283; 99285

== ENCOUNTER → 2025-04-01 20:01 | Outpatient (BNV) | payer OTHER, SELFPAY | PROVIDERS: Emergency Provider Internal Medicine; PCP Internal Medicine; Visit Provider Internal Medicine Cardiovascular Disease | DX: R00.1 Bradycardia, unspecified (principal); R07.9 Chest pain, unspecified | CPT/HCPCS: 93010 ==

== ENCOUNTER → 2025-04-01 20:16 | Outpatient (BNV) | payer OTHER, SELFPAY | PROVIDERS: PCP Internal Medicine; Visit Provider Radiology Diagnostic Radiology | DX: R07.9 Chest pain, unspecified (principal); R00.2 Palpitations | CPT/HCPCS: 71045 ==

== ENCOUNTER 2025-04-02 11:14 | Outpatient (REF) | payer OTHER, SELFPAY ==
--- OUTSIDE RECORDS SUMMARY | 2025-04-02 12:16 | XMS_ITS | Clinical Summary ---
Author Organization [facility] Address [address] [place] [address] Care Team Providers Care Fleecer Name Role Phone Unavailable Primary Care Provider Unavailabl e Social History Tobacco Use Types Packs/Day Years Used Date Smoking Tobacco: Never Assessed Sex and Gender Information Value Date Recorded Sex Assigned at Not on file Gender Identity Not on file Sexual Orientation Not on file Plan of Treatment Not on file
--- OUTSIDE RECORDS SUMMARY | 2025-04-02 12:16 | XMS_ITS | Encounter Summary ---
Author Organization [facility] Address [address] [facility] 7t [place] [address] Care Team Providers Care It Technical Support Specialist Name Role Phone Unavailable Primary Care Provider [...]
--- OUTSIDE RECORDS SUMMARY | 2025-04-02 12:16 | XMS_ITS | Clinical Summary ---
Author Organization [facility] Address [address] [facility] [address]t [place] [address] Care Team Providers Care Roadway Technician Name Role Phone Unavailable Primary Care [...] Vaccines (1 of 2) 2018 COVID-19 Vaccine (2023-2 5 season) 2024 Influenza Vaccine (#1) 2024 [...]
--- OUTSIDE RECORDS SUMMARY | 2025-04-02 12:16 | XMS_ITS | Encounter Summary ---
Author Organization [facility] Address [address] [facility] 7t [place] [address] Care Team Providers Care Atmospheric Chemist Name Role Phone Unavailable Primary Care [...]
--- OUTSIDE RECORDS SUMMARY | 2025-04-02 12:16 | XMS_ITS | Clinical Summary ---
Author Organization [employer] [facility] Address [address] [place] [address] Care Team Providers Care Coil Assembler Name Role Phone Unavailable Primary Care Provider Unavailabl e Surgical History Surgery Date Site/Laterality Comments OTHER SURGICAL HISTORY 2009 PROCEDURE: [place] TOT ABD HYST W/PARAORTIC & PELVIC LYMPH NODE OTIS; COMMENT: abdominal for bleeding, benign pahtology, ovaries in place Dr Casillas BREAST REDUCTION PROCEDURE: [place] BREAST REDUCTION COLONOSCOPY 01/07/2020 PROCEDURE: HISTORICAL COLONOSCOPY; COMMENT: Minimal diverticulosis, no polyps. UPPER GASTROINTESTINAL ENDOSCOPY 01/07/2020 PROCEDURE: [place] UPPER GI ENDOSCOPY PERFORMED; COMMENT: Normal on rx with PPI and NSAIDS. SALPINGOOPHORECTOMY 01/25/2021 Right PROCEDURE: [place] LAPAROSCOPY W/RMVL ADNEXAL STRUCTURES; COMMENT: extensive lysis [...] Daughter Alive Father Alive high cholestero l, [place] Mother Alive heart problems, high cholesterol, HTN [...] of Health Screening 10/28/2021 COVID-19 Vaccine ( - season) 2024 03/24/2021 Influenza Vaccine (Season Ended) 2025 10/03/2021, 12/31/2019, 10/12/2014, Additional history exists DTaP,Tdap,and Td [...] age to complete this topic Meningococcal B Vaccine Aged Out No l onger eligible based on patient's age to complete [...] Procedure Name Priority Date/Time Associated Diagnosis Comments [facility] SCREENING DIGITAL Routine 11/26/2018 10:06 AM EST Encounter for screening mammogram for malignant neoplasm of breast from Last 3 Months or Most Recently Relevant to Health Maintenance Results * [facility] SCREENING DIGITAL (11/26/2018 10:06 AM EST) Anatomical Region Laterality Modality Mammography 11/26/2018 9:01 AM EST Narrative 11/26/2018 10:06 AM EST [facility] Diagnostic Imaging Department [address] [place] [address] Patient: ??MULUGETA SERNA ?/Age/Sex: 1970 - 48 - F Unit#: ??[id number] ? Location/Status: ??SPDIMAM/REG CLI ? Mnemonic/Ordering Site: ??DIGSC/SPMAM Ordering Physician: ??CIRA CRUZ MD Abdirashid Screening Digital - 11/26/18 - EXAM: [facility] Screening Digital EXAM DATE AND TIME: 11/26/2018 9:38 AM HISTORY: ??Screening. Reduction mammoplasty in 2004. COMPARISON: ??11/21/17, 09/27/16, 09/08/15, 09/02/14 TECHNIQUE: CC and MLO views of both breasts were obtained using full field digital mammography. Bilateral digital breast tomosynthesis was performed in the MLO projection. Computer aided detection with the [employer] 7.2-H was employed. TISSUE DENSITY: b. There [...] Routine screening mammogram BILATERAL in 1 year. 87795, 62351 3342F, 7025F Dictating Physician: ??GAYE GUILLEN MD Electronically Signed by: ??GAYE GUILLEN MD Dic Date/Time: ??11/26/18 1005 Sign date/Time: ??11/26/18 1006 Procedure Note Gaye Guillen MD - 11/20/2022 [facility] Diagnostic Imaging Department [address] [place] [address] Patient: MULUGETA SERNA./Age/Sex: 1970 - 48 - F Unit#: [id number] Location/Status: SPDIMAM/REG CLI Mnemonic/Ordering Site: [facility] Ordering Physician: CIRA CRUZ MD [facility] Screening Digital - 11/26/18 - EXAM: [facility] Screening Digital EXAM DATE AND TIME: 11/26/2018 9:38 AM HISTORY: Screening. Reduction mammoplasty in 2004. COMPARISON: 11/21/17, 09/27/16, 09/08/15, 09/02/14 TECHNIQUE: CC and MLO views of both breasts were obtained using fullfield digital mammography. Bilateral digital breast tomosynthesis was performedin the MLO projection. Computer aided detection with the [employer]as employed. TISSUE DENSITY: b. There are scattered [...] Routine screening mammogram BILATERAL in 1 year. 37633, 84269 3342F, 7025F Dictating Physician: GAYE GUILLEN MD Electronically Signed by: GAYE GUILLEN MD Dic Date/Time: 11/26/18 1005 Sign date/Time: 11/26/18 1006 Cira Cruz MD IMG BI PROCEDURES Final Result from Last 3 Months or Most Recently Relevant to Health Maintenance
--- OUTSIDE RECORDS SUMMARY | 2025-04-02 12:16 | XMS_ITS | Encounter Summary ---
Author Organization [employer] [facility] Address [address] 7t [place] [address] Care Team Providers Care National Facilities Manager Name Role Phone Unavailable Primary Care Provider Unavailabl e Encounter Details Date Type Department Care Team (Latest Contact Info) Description 09/11/2019 Abstract [facility] CONVERSIONS Dental, Provider, DDS Social [...]
--- OUTSIDE RECORDS SUMMARY | 2025-04-02 12:16 | XMS_ITS | Encounter Summary ---
Author Organization [employer] [facility] Address [address] [facility] 7t [place] [address] Care Team Providers Care Associate Quality Engineer Name Role Phone Unavailable Primary Care Provider Unavailabl e Encounter Details Date Type Department Care Team (Latest Contact Info) Description 12/16/2019 Abstract [facility] CONVERSIONS Dental, Provider, DDS Social History [...]
== END 2025-04-02 11:15 | disposition home or self-care (01) ==
LOC: HO.MAMMO 11:14
PROVIDERS: PCP Internal Medicine; Visit Provider Internal Medicine
DX: Z12.31 Encounter for screening mammogram for malignant neoplasm of breast (principal)
CPT/HCPCS: 77063; 77067

== ENCOUNTER → 2025-04-02 11:30 | Outpatient (BNV) | payer OTHER, SELFPAY | PROVIDERS: PCP Internal Medicine; Visit Provider Internal Medicine | DX: Z12.31 Encounter for screening mammogram for malignant neoplasm of breast (principal) | CPT/HCPCS: 77063; 77067 ==

== ENCOUNTER 2025-04-02 12:04 | Emergency (ER) | payer OTHER, SELFPAY ==
--- NOTE | 2025-04-02 12:07 | ECG_ITS ---
Test Reason : PALPAITATIONS Blood Pressure : */* mmHG Vent. Rate : 62 BPM Atrial Rate : 62 BPM P-R Int : 144 ms QRS Dur : 72 ms QT Int : 410 ms P-R-T Axes : 20 -14 50 degrees QTcB Int : 416 ms Normal sinus rhythm Possible Anterior infarct , age undetermined Abnormal ECG When compared with ECG of 01-Apr-2025 20:05, No significant change was found Referred By: Generic ED Physician Electronically Signed By: Heri Roman
[2025-04-02 12:15] VITALS: BP 121/73; PULSE 64; RESP 16; TEMP 36.6; O2SAT 98; BMI 27.4
--- NOTE | 2025-04-02 12:15 | ED.GENADULT ---
HPI - General Adult General Chief complaint: Arrhythmia/Palpitations Stated complaint: Heart pap, Sleepy Time Seen by Provider: 04/02/25 12:31 History of Present Illness ED Provider: Iván AGUILERA narrative: The patient is a 54-year-old woman with a history of rheumatoid arthritis. She has been having problems with a sensation of palpitations, dizziness, lethargy and fatigue for several weeks. She saw her primary care doctor about this 2 months ago and wore a Holter monitor for 3 days. She has since been referred to Cardiology and has an appointment in June. She has continued to have please symptoms and she came to the emergency room last night feeling as if she was presyncopal. She had an EKG and some blood work done but left before completing treatment. She returns today. No chest pain. No abdominal pain. No urinary symptoms. No history of smoking. No history of diabetes or hypertension. Related Data Home Medications ?Medication ?Instructions ?Recorded ?Confirmed melatonin 5 mg tablet 5 - 10 mg PO BEDTIME PRN insomnia 03/20/22 02/02/25 sertraline 100 mg tablet 150 mg PO DAILY 03/20/22 02/02/25 buspirone 10 mg tablet 10 mg PO BID anxiety 07/30/22 02/02/25 nzynyfzf-znrqtdpl-slsh 45 mg-folic 1 cap PO DAILY 05/16/23 02/02/25 acid 800 mcg-vit K 120 mcg capsule (Bariatric Multivitamins) Previous Rx's ?Medication ?Instructions ?Recorded Enbrel SureClick 50 mg/mL (1 mL) 50 mg subcut QWEEK #4 mL 12/29/24 subcutaneous pen injector (etanercept) meloxicam 15 mg tablet 15 mg PO DAILY #7 tabs 01/11/25 walker #1 ea 03/22/25 Allergies Allergy/AdvReac Type Severity Reaction Status Date / Time No Known Allergies Allergy Verified 04/02/25 12:16 Review of Systems Review of Systems: Yes all other systems are reviewed and are negative [facility] Past Medical History Medical History Insomnia Hiatal hernia BMI 36.0-36.9,adult Right pulmonary lesion Surgical History S/P laparoscopic sleeve gastrectomy Hx of colonoscopy Hx of hysterectomy Hx of breast reduction, elective Family History Family History Mother No problems noted. Father No problems noted. Sister No problems noted. Sister No problems noted. Sister No problems noted. Son No problems noted. Son Thyroid condition Daughter No problems noted. Social History Social History Household Members: None Housing: Apartment Are you a primary child care centre director to a significant other at home: No Do you presently have visiting nurse or other home services: No (daughter will stay over post-op) Alcohol intake: never Patient Tobacco Use Status: Never used Tobacco e-Cigarette/Vaping Use: Never Used Second Hand Smoke Exposure: No Advance Directives: No Advance Directives Information Provided: Yes Do you have a plan to hurt others: No Plan service: No Current occupational status: unemployed Cognitive needs: No Hearing needs: No Vision needs: Yes Physical Exam ED Vital Signs: Vital Signs - 24 hr 04/02/25 12:15 04/02/25 13:47 Temperature 97.8 F 97.8 F Pulse Rate 64 64 Respiratory Rate 16 16 Blood Pressure 121/73 121/73 Pulse Oximetry 98 98 Oxygen Delivery Method Room Air Room Air BMI result Body Mass Index 27.4 Const Other: The patient is a 54-year-old woman who was awake and alert. She looks healthy. She does not appear in any distress. Orientation/consciousness: patient oriented x3 HENMT Other: Face is symmetrical, mucous membranes moist Eyes General: appearance normal, both eyes and all related structures Alignment and Position: alignment normal Conjunctivae: conjunctivae normal Pupils: Equal, round and reactive pupils present EOM: EOMs intact bilaterally Neck Neck: Yes normal visual inspection, Yes full ROM and Yes no JVD Resp Effort & Inspection: normal respiratory effort Auscultation: clear to auscultation bilaterally Cardio Rate: regular rate Rhythm: regular rhythm Heart sounds: S1 normal heart sound present and S2 normal heart sound present Skin General skin exam: no rashes or lesions noted Neuro General: patient oriented x3, gait normal, tone normal, moves all extremities, no focal motor deficits and CN's II-XI intact bilaterally Cranial nerves: Yes Equal, round and reactive pupils present Extrem Other: No peripheral edema, no calf swelling or tenderness, no asymmetry Course Course Course Narrative: This is an RME performed by Flori Olmedo CNP: Additional HPI, ROS, PE not included below will be deferred to primary provider. Patient is a 54-year-old female who presents emergency department for evaluation with the past 2 weeks she has been experiencing intermittent dizziness, palpitations, generalized weakness and fatigue. Denies associated chest pain. Plan: Serum labs, EKG Medical Decision Making Medical Decision Making MDM Narrative: The patient is a 54-year-old woman who has a history of rheumatoid arthritis but is otherwise fairly healthy who has been having problems with palpitations and dizziness for several weeks. She came in the emergency room last night but left without completing treatment. She returns today for the same symptoms. She does not appear ill. She looks quite well. She has a negative workup including EKG and labs. She had a negative chest x-ray last night. My overall impression is that she does not have any acutely dangerous process and that she is may be safely discharged to follow-up with her PCP to discuss these symptoms that have been bothering her for several weeks. Lab Data 04/02/25 13:01 04/02/25 13:01 Labs: Lab Results 04/02/25 Range/Units 13:01 WBC 7.6 (4.8-10.8) X10*3/uL RBC 4.81 (4.20-5.50) X10*6/uL Hgb 12.8 (12.0-16.0) g/dl Hct 39.4 (37.0-47.0) % MCV 81.9 (80.0-98.0) fL MCH 26.6 L (27.0-33.0) pg MCHC 32.5 (31.0-35.0) g/dl RDW 12.8 (11.0-16.0) % Plt Count 141 L (160-400) X10*3/uL MPV 13.0 H (9.4-12.3) fL Immature Gran % (Auto) 0.4 (0.0-0.4) % Neut % (Auto) 69.6 (45-73) % Lymph % (Auto) 17.3 L (20-40) % Sussex % (Auto) 8.5 (2-11) % Eos % (Auto) 3.7 (0-4) % Baso % (Auto) 0.5 (0-2) % Lymph # (Auto) 1.3 (1.2-4.9) X10*3/uL [place] # (Auto) 0.6 (0.1-1.2) X10*3/uL Eos # (Auto) 0.3 (0.0-0.4) X10*3/uL Baso # (Auto) 0.0 (0.0-0.2) X10*3/uL Abs Immat Gran (auto) 0.03 (0.00-0.03) X10*3/uL Absolute Neuts (auto) 5.3 (2.0-8.3) x10*3/uL Absolute Nucleated RBC 0.000 (0.0-0.012) X10*3/uL Nucleated RBC % (auto) 0.0 (0.0-0.2) /100WBC Sodium 144 (135-145) mmol/L Potassium 4.1 (3.3-5.1) mmol/L Chloride 110 H (96-108) mmol/L Carbon Dioxide 25 (22-29) mmol/L Anion Gap 13 (12-20) BUN 14 (9-16) mg/dL Creatinine 0.72 (0.5-1.4) mg/dL Estim Creat Clear Calc 75.7 Estimated GFR > 60 Random Glucose 92 (60-115) mg/dL Calcium 9.4 (8.4-10.2) mg/dL Magnesium 2.2 (1.6-2.6) mg/dL Total Bilirubin 0.3 (0.0-1.0) mg/dL AST 22 (5-31) U/L ALT 19 (0-31) U/L Alkaline Phosphatase 65 (39-117) U/L Total Protein 6.6 (6.5-8.0) g/dL Albumin 4.0 (3.5-5.0) g/dL TSH 1.40 (0.32-4.0) uIU/mL Independent Interpretation I performed an independent interpretation of an: EKG Interpretation: EKG at 12:11 shows normal sinus rhythm at 62 beats per minute. No acute ischemic changes. No significant change from previous. Discharge Plan Discharge Clinical Impression: Dizziness, Fatigue Patient Disposition: Home, Self-Care Additional Instructions: Your emergency room evaluation today seems very reassuring. I do not think there is any dangerous process at work. Please plan on following up with your regular doctor and keeping your appointment with the cardiology office. Return to the emergency room if significantly worse. Prescriptions: No Action Enbrel SureClick 50 mg/mL (1 mL) pen injector 50 mg subcut QWEEK Qty: 4 4RF meloxicam 15 mg tablet 15 mg PO DAILY Qty: 7 0RF (DME) walker Misc See Rx Instructions .Route Qty: 1 0RF Rx Instructions: As directed Bariatric Multivitamins 45 mg iron- 800 mcg-120 mcg capsule 1 cap PO DAILY melatonin 5 mg tablet 5 - 10 mg PO BEDTIME PRN (Reason: insomnia) sertraline 100 mg tablet 150 mg PO DAILY buspirone 10 mg tablet 10 mg PO BID Referrals: Makenna Johnson MD [Primary Care Provider] - (Persistent dizziness in fatigue and palpitations, negative ER workup) Interventions: ED Discharge Assessment Last Done: 04/02/25 13:47 Discharge Date/Time: 04/02/25 13:49 Print Language: Cuban
[2025-04-02 13:08] LABS: MANUAL DIFF FLAG NO
[2025-04-02 13:09] LABS: Basophils Percent Auto 0.5 % (0-2); Eosinophils Absolute Auto 0.3 X10*3/uL (0.0-0.4); Eosinophils Percent Auto 3.7 % (0-4); Hematocrit 39.4 % (37.0-47.0); Hemoglobin 12.8 g/dl (12.0-16.0); Imm Gran Abs Auto 0.03 X10*3/uL (0.00-0.03); Imm Gran Pct Auto 0.4 % (0.0-0.4); Lymphocytes Absolute Auto 1.3 X10*3/uL (1.2-4.9); Lymphocytes Percent Auto 17.3 % (20-40); Mean Corpuscular HGB Conc 32.5 g/dl (31.0-35.0); Mean Corpuscular Hemoglobin 26.6 pg (27.0-33.0); Mean Corpuscular Volume 81.9 fL (80.0-98.0); Monocytes Absolute Auto 0.6 X10*3/uL (0.1-1.2); Monocytes Percent Auto 8.5 % (2-11); Neutrophils Absolute Auto 5.3 x10*3/uL (2.0-8.3); Neutrophils Percent Auto 69.6 % (45-73); Platelet Count 141 X10*3/uL (160-400); Red Blood Count 4.81 X10*6/uL (4.20-5.50); Red Cell Distribution Width 12.8 % (11.0-16.0); White Blood Count 7.6 X10*3/uL (4.8-10.8)
--- OUTSIDE RECORDS SUMMARY | 2025-04-02 13:30 | XMS_ITS | Clinical Summary ---
Author Organization [facility] Address [address] [place] [address] Care Team Providers Care Plastics Repairer Name Role Phone Unavailable Primary Care Provider Unavailabl e Social History Tobacco Use Types Packs/Day Years Used Date Smoking Tobacco: Never Assessed Sex and Gender Information Value Date Recorded Sex Assigned at Not on file Gender Identity Not on file Sexual Orientation Not on file Plan of Treatment Not on file
--- OUTSIDE RECORDS SUMMARY | 2025-04-02 13:30 | XMS_ITS | Clinical Summary ---
Author Organization [facility] [employer] [facility] Address [address] [place] [address] Care Team Providers Care Shaping Machine Tender Name Role Phone Unavailable Primary Care Provider Unavailabl e Surgical History Surgery Date Site/Laterality Comments OTHER SURGICAL HISTORY 2009 PROCEDURE: [place] TOT ABD HYST W/PARAORTIC & PELVIC LYMPH NODE OTIS; COMMENT: abdominal for bleeding, benign pahtology, ovaries in place Dr Casillas BREAST REDUCTION PROCEDURE: [place] BREAST REDUCTION COLONOSCOPY 01/07/2020 PROCEDURE: HISTORICAL COLONOSCOPY; COMMENT: Minimal diverticulosis, no polyps. UPPER GASTROINTESTINAL ENDOSCOPY 01/07/2020 PROCEDURE: [place] UPPER GI ENDOSCOPY PERFORMED; COMMENT: Normal on rx with PPI and NSAIDS. SALPINGOOPHORECTOMY 01/25/2021 Right PROCEDURE: [place] LAPAROSCOPY W/RMVL ADNEXAL STRUCTURES; COMMENT: extensive lysis [...] Daughter Alive Father Alive high cholestero l, [place] Mother Alive heart problems, high cholesterol, HTN [...] Procedure Name Priority Date/Time Associated Diagnosis Comments [facility] SCREENING DIGITAL Routine 11/26/2018 10:06 AM EST Encounter for screening mammogram for malignant neoplasm of breast from Last 3 Months or Most Recently Relevant to Health Maintenance Results * [facility] SCREENING DIGITAL (11/26/2018 10:06 AM EST) Anatomical Region Laterality Modality Mammography 11/26/2018 9:01 AM EST Narrative 11/26/2018 10:06 AM EST [facility] Diagnostic Imaging Department [address] [place] [address] Patient: ??MULUGETA SERNA ?/Age/Sex: 1970 - 48 - F Unit#: ??[id number] ? Location/Status: ??SPDIMAM/REG CLI ? Mnemonic/Ordering Site: ??DIGSC/SPMAM Ordering Physician: ??CIRA CRUZ MD Abdirashid Screening Digital - 11/26/18 - EXAM: [facility] Screening Digital EXAM DATE AND TIME: 11/26/2018 9:38 AM HISTORY: ??Screening. Reduction mammoplasty in 2004. COMPARISON: ??11/21/17, 09/27/16, 09/08/15, 09/02/14 TECHNIQUE: CC and MLO views of both breasts were obtained using full field digital mammography. Bilateral digital breast tomosynthesis was performed in the MLO projection. Computer aided detection with the Dely 7.2-H was employed. TISSUE DENSITY: b. There [...] Routine screening mammogram BILATERAL in 1 year. 46610, 91916 3342F, 7025F Dictating Physician: ??GAYE GUILLEN MD Electronically Signed by: ??GAYE GUILLEN MD Dic Date/Time: ??11/26/18 1005 Sign date/Time: ??11/26/18 1006 Procedure Note Gaye Guillen MD - 11/20/2022 [facility] Diagnostic Imaging Department [address] [place] [address] Patient: MULUGETA SERNA./Age/Sex: 1970 - 48 - F Unit#: [id number] Location/Status: SPDIMAM/REG CLI Mnemonic/Ordering Site: [facility] Ordering Physician: CIRA CRUZ MD [facility] Screening Digital - 11/26/18 - EXAM: [facility] Screening Digital EXAM DATE AND TIME: 11/26/2018 9:38 AM HISTORY: Screening. Reduction mammoplasty in 2004. COMPARISON: 11/21/17, 09/27/16, 09/08/15, 09/02/14 TECHNIQUE: CC and MLO views of both breasts were obtained using fullfield digital mammography. Bilateral digital breast tomosynthesis was performedin the MLO projection. Computer aided detection with the [employer]as employed. TISSUE DENSITY: b. There are scattered [...] Routine screening mammogram BILATERAL in 1 year. 68992, 23207 3342F, 7025F Dictating Physician: GAYE GUILLEN MD Electronically Signed by: GAYE GUILLEN MD Dic Date/Time: 11/26/18 1005 Sign date/Time: 11/26/18 1006 Cira Cruz MD IMG BI PROCEDURES Final Result from Last 3 Months or Most Recently Relevant to Health Maintenance
[2025-04-02 13:31] LABS: Alanine Aminotransferase 19 U/L (0-31); Alkaline Phosphatase 65 U/L (39-117); Anion Gap 13 (12-20); Aspartate Amino Transferase 22 U/L (5-31); Bilirubin Total 0.3 mg/dL (0.0-1.0); Blood Urea Nitrogen 14 mg/dL (9-16); Calcium 9.4 mg/dL (8.4-10.2); Carbon Dioxide 25 mmol/L (22-29); Chloride 110 mmol/L (96-108); Creatinine Clr Calc Pharmacy 75.7; Estimated Glomerular Filt Rate > 60; Glucose Random 92 mg/dL (60-115); Magnesium 2.2 mg/dL (1.6-2.6); Potassium 4.1 mmol/L (3.3-5.1); Sodium 144 mmol/L (135-145); Total Protein 6.6 g/dL (6.5-8.0)
[2025-04-02 13:47] VITALS: BP 121/73; PULSE 64; RESP 16; TEMP 36.6; O2SAT 98
== END 2025-04-02 13:49 | disposition home or self-care (01) ==
PROVIDERS: Nurse Practitioner Family; Emergency Provider Emergency Medicine; PCP Internal Medicine
DX: R00.2 Palpitations (principal); R42 Dizziness and giddiness; R53.83 Other fatigue
CPT/HCPCS: 36415; 80053; 83735; 84443; 85025; 93005; 99283

== ENCOUNTER → 2025-04-02 12:07 | Outpatient (BNV) | payer OTHER, SELFPAY | PROVIDERS: Emergency Provider Emergency Medicine; PCP Internal Medicine; Visit Provider Internal Medicine Cardiovascular Disease | DX: R00.2 Palpitations (principal); R94.31 Abnormal electrocardiogram [ECG] [EKG] | CPT/HCPCS: 93010 ==

== ENCOUNTER 2025-04-09 13:28 | Outpatient (AMB) | payer OTHER, SELFPAY ==
--- OUTSIDE RECORDS SUMMARY | 2025-04-09 13:33 | XMS_ITS | Clinical Summary ---
Author Organization [facility] Address [address] [place] [address] Care Team Providers Care Stonemason Name Role Phone Unavailable Primary Care Provider [...] Daughter Alive Father Alive high cholestero l, [place] Mother Alive heart problems, high cholesterol, HTN [...] Procedure Name Priority Date/Time Associated Diagnosis Comments [facility] SCREENING DIGITAL Routine 11/26/2018 10:06 AM EST Encounter for screening mammogram for malignant neoplasm of breast from Last 3 Months or Most Recently Relevant to Health Maintenance Results * [facility] SCREENING DIGITAL (11/26/2018 10:06 AM EST) Anatomical Region Laterality Modality Mammography 11/26/2018 9:01 AM EST Narrative 11/26/2018 10:06 AM EST [facility] Diagnostic Imaging Department [address] [place] [address] Patient: ??MULUGETA SERNA ?/Age/Sex: 1970 - 48 - F Unit#: ??[id number] ? Location/Status: ??SPDIMAM/REG CLI ? Mnemonic/Ordering Site: ??DIGSC/SPMAM Ordering Physician: ??CIRA CRUZ MD Abdirashid Screening Digital - 11/26/18 - EXAM: [facility] Screening Digital EXAM DATE AND TIME: 11/26/2018 9:38 AM HISTORY: ??Screening. Reduction mammoplasty in 2004. COMPARISON: ??11/21/17, 09/27/16, 09/08/15, 09/02/14 TECHNIQUE: CC and MLO views of both breasts were obtained using full field digital mammography. Bilateral digital breast tomosynthesis was performed in the MLO projection. Computer aided detection with the [employer] 7.2-H was employed. TISSUE DENSITY: b. There [...] Routine screening mammogram BILATERAL in 1 year. 26052, 12278 3342F, 7025F Dictating Physician: ??GAYE GUILLEN MD Electronically Signed by: ??GAYE GUILLEN MD Dic Date/Time: ??11/26/18 1005 Sign date/Time: ??11/26/18 1006 Procedure Note Gaye Guillen MD - 11/20/2022 [facility] Diagnostic Imaging Department [address] [place] [address] Patient: MULUGETA SERNA./Age/Sex: 1970 - 48 - F Unit#: [id number] Location/Status: SPDIMAM/REG CLI Mnemonic/Ordering Site: [facility] Ordering Physician: CIRA CRUZ MD [facility] Screening Digital - 11/26/18 - EXAM: [facility] Screening Digital EXAM DATE AND TIME: 11/26/2018 9:38 AM HISTORY: Screening. Reduction mammoplasty in 2004. COMPARISON: 11/21/17, 09/27/16, 09/08/15, 09/02/14 TECHNIQUE: CC and MLO views of both breasts were obtained using fullfield digital mammography. Bilateral digital breast tomosynthesis was performedin the MLO projection. Computer aided detection with the [employer]as employed. TISSUE DENSITY: b. There are scattered [...] Routine screening mammogram BILATERAL in 1 year. 06119, 05595 3342F, 7025F Dictating Physician: GAYE GUILLEN MD Electronically Signed by: GAYE GUILLEN MD Dic Date/Time: 11/26/18 1005 Sign date/Time: 11/26/18 1006 Cira Cruz MD IMG BI PROCEDURES Final Result from Last 3 Months or Most Recently Relevant to Health Maintenance
--- OUTSIDE RECORDS SUMMARY | 2025-04-09 13:33 | XMS_ITS | Encounter Summary ---
Author Organization [employer] [facility] Address [address] [facility] [address]t [place] [address] Care Team Providers Care State Appellate Clerk Name Role Phone Unavailable Primary Care Provider [...]
--- OUTSIDE RECORDS SUMMARY | 2025-04-09 13:33 | XMS_ITS | Encounter Summary ---
Author Organization [facility] [facility] Address [address] [facility] 7t [place] [address] Care Team Providers Care Database Operator Name Role Phone Unavailable Primary Care Provider Unavailabl e Encounter Details Date Type Department Care Team (Latest Contact Info) Description 12/16/2019 Abstract [facility] CONVERSIONS Dental, Provider, DDS Social [...]
--- OUTSIDE RECORDS SUMMARY | 2025-04-09 13:33 | XMS_ITS | Encounter Summary ---
Author Organization [employer] [facility] Address [address] [facility] [address]t [place] [address] Care Team Providers Care Fish Cleaner Machine Tender Name Role Phone Unavailable Primary Care Provider Unavailabl e Encounter Details Date Type Department Care Team (Latest Contact Info) Description 09/11/2019 Abstract [facility] CONVERSIONS Dental, Provider, DDS Social [...]
--- OUTSIDE RECORDS SUMMARY | 2025-04-09 13:33 | XMS_ITS | Clinical Summary ---
Author Organization [employer] Address [address] [facility] 7t [place] [address] Care Team Providers Care Sales Marketing Manager Name Role Phone Unavailable Primary Care [...]
--- OUTSIDE RECORDS SUMMARY | 2025-04-09 13:33 | XMS_ITS | Clinical Summary ---
Author Organization [facility] Address [address] [place] [address] Care Team Providers Care Social Organization Professor Name Role Phone Unavailable Primary Care Provider Unavailabl e Social History Tobacco Use Types Packs/Day Years Used Date Smoking Tobacco: Never Assessed Sex and Gender Information Value Date Recorded Sex Assigned at Not on file Gender Identity Not on file Sexual Orientation Not on file Plan of Treatment Not on file
--- OUTSIDE RECORDS SUMMARY | 2025-04-09 13:33 | XMS_ITS | Encounter Summary ---
Author Organization [facility] Address [address] [place] [address] Care Team Providers Care Upholstery Cutter Name Role Phone Unavailable Primary Care [...]
--- NOTE | 2025-04-09 13:35 | MHC.PC.OV ---
Vital Signs 04/09/25 13:36 Height 5 ft 1 in Weight 146 lb 4 oz BMI 27.6 BP 120/76 Blood Pressure Location Lt brachial Position Sitting Pulse 67 Pulse Source Pulse Oximeter Temp 96.9 F Temp Source Temporal Artery Scan Pulse Oximetry (%) 92 Oxygen Delivery Method Room Air Intake Visit Reasons: [facility] 04/01 Intake Note: Patient is here to follow-up after a visit the emergency department at [facility] on 04/01/25 Signal Operator Technical Required: Yes Signal Operator Technical Language: Rail Tractor Operator Name: Albino ([id number]) Information Interpreted: non-clinical & clinical Personal Coach: Not Required per policy Accompanied by: Self / Same As Patient Allergies No Known Allergies Allergy (Verified 04/09/25 13:36) Tobacco use date assessed: 04/09/25 Dental Screening Dental Screen Date: 02/02/25 HPI HPI Comments History of Present Illness Details 54 y/o Female patient who presents to the clinic today for HDF. Pmhx significant for rheumatoid arthritis. She was admitted at [facility] on 04/02/25 for Heart palpitations, dizziness, lethargy and fatigue. PCP ordered Holter monitor 2 months ago, which she wore for 3 days. She has since been referred to Cardiology and has an appointment in June. She did have Negative Work-up that included EKG and Labs. Chest Xray was negative. Pt does have h/o LIN, but not using CPAP. According to Patient, 2 years ago she was tested, and told no longer have LIN. Pt c/o Somnolence, sometimes falling asleep while driving. Reports waking up in the morning feeling tired and Groggy. [facility] Medical History (Updated 04/09/25 @ 17:34 by Jana Mcconnell NP) Somnolence, daytime Insomnia Hiatal hernia BMI 36.0-36.9,adult Right pulmonary lesion Surgical History S/P laparoscopic sleeve gastrectomy Hx of colonoscopy Hx of hysterectomy Hx of breast reduction, elective Family History Mother No problems noted. Father No problems noted. Sister No problems noted. Sister No problems noted. Sister No problems noted. Son No problems noted. Son Thyroid condition Daughter No problems noted. Social History Household Members: None Caregiver staying overnight: Yes (daughter will stay over post-op) Housing: Apartment Are you a primary healthcare customer service to a significant other at home: No Do you presently have visiting nurse or other home services: No (daughter will stay over post-op) Alcohol intake: never Patient Tobacco Use Status: Never used Tobacco e-Cigarette/Vaping Use: Never Used Second Hand Smoke Exposure: No service: No Current occupational status: unemployed Cognitive needs: No Hearing needs: No Vision needs: Yes Questionnaire PHQ-9 Over the last 2 weeks, how often have you been bothered by any of the following problems? 1. Little interest or pleasure in doing things: several days 2. Feeling down, depressed, or hopeless: nearly every day 3. Trouble falling or staying asleep, or sleeping too much: nearly every day 4. Feeling tired or having little energy: nearly every day 5. Poor appetite or overeating: not at all 6. Feeling bad about yourself - or that you are a failure or have let yourself or your family down: not at all 7. Trouble concentrating on things, such as reading the newspaper or watching television: not at all 8. Moving or speaking so slowly that other people could have noticed. Or the opposite - being so fidgety or restless that you have been moving around a lot more than usual: not at all 9. Thoughts that you would be better off or of hurting yourself in some way: not at all Total score: 10 Depression Screening Interpretation: Positive Depression Screening Done: Yes Source: Developed by Drs. Alvaro Greene, Osiris Kellogg, Douglas Crawford and colleagues, with an educational jason from [employer]. Thrive Questionnaire Date Thrive assessed: 04/06/25 I am a: Patient What is your living situation today?: I have a steady place to live Within the past 12 months, did the food you bought not last and you didn't have the money to get more?: I choose not to answer this question Within the past 12 months, did you worry whether your food would run out before you got money to buy more?: I choose not to answer this question Do you have trouble paying for medicines?: No Do you have trouble getting transportation to medical appointments?: No Do you have trouble paying your heating and electricity bill?: No Do you have trouble taking care of your child, family member or friend?: No Do you have trouble with day-to-day activities such as bathing, preparing meals, shopping, managing finances, etc.?: Yes Are you currently unemployed and looking for a job?: Yes Are you interested in more education?: I choose not to answer this question Please select the resources that you would like help with: None Currently or been in a relationship where the following occur: No concerns reported THRIVE Score: 0 AUDIT C Alcohol Use Questionnaire (AUDIT-C) 1. How often do you have a drink containing alcohol?: Never 3. How often do you have six or more drinks on one occasion?: Never Total Score: 0 CLAUDIA-7 AMB Questionnaire CLAUDIA-7 Date CLAUDIA - 7 assessed: 04/09/25 Feeling nervous, anxious, or on edge: 1 = Several days Not being able to stop or control worryin = Nearly every day Worrying too much about different things: 3 = Nearly every day Trouble relaxin = Nearly every day Being so restless that it is hard to sit still: 3 = Nearly every day Becoming easily annoyed or irritable: 3 = Nearly every day Feeling afraid as if something awful might happen: 0 = Not at all Total CLAUDIA-7 score (0-4 normal; 5-9 mild; 10-14 moderate; 15-21 severe): 16 Source: Developed by Drs. Alvaro Greene, Osiris Kellogg, Douglas Crawford and colleagues, with an educational jason from [employer]. Review of Systems Const All systems reviewed & are unremarkable except as noted in HPI and below Physical exam (Primary Care) Vital Signs: Last Vital Signs Temp 96.9 F 04/09/25 13:36 Pulse 67 04/09/25 13:36 BP 120/76 04/09/25 13:36 Pulse Ox 92 04/09/25 13:36 Oxygen Delivery Method Room Air 04/09/25 13:36 BMI result Body Mass Index 27.6 Tobacco/Smoking Status: Tobacco use Status Tobacco use date assessed 04/09/25 04/09/25 13:43 Patient Tobacco Use Status Never used Tobacco 04/09/25 13:43 e-Cigarette/Vaping Use Never Used 04/09/25 13:43 PHQ-9: PHQ-9 Score PHQ-9: Total score 10 04/09/25 14:10 Depression Screening Interpretation: Positive Thrive Assessment: Date of Thrive Assessment Date Thrive assessed 04/06/25 04/09/25 13:43 Currently or been in a relationship where the following occur: No concerns reported Coding Level of Care Code Est Pt Level 4 (88521) Diagnoses Palpitations R00.2 Somnolence, daytime R40.0 Fatigue, unspecified type R53.83 Fatigue type: unspecified Time Spent (min) 20 Assessment & Plan Assessment & Plan (1) Palpitations: Code(s): R00.2 - Palpitations Category: Medical Plan: Scheduled to see Cardiology in June. (2) Somnolence, daytime: Code(s): R40.0 - Somnolence Category: Medical Plan: Referred to Sleep clinic for testing. (3) Fatigue: Code(s): R53.83 - Other fatigue Category: Medical Qualifiers: Fatigue type: unspecified Qualified Code(s): R53.83 - Other fatigue Plan: Scheduled to see Cardiology in June. Referred to Sleep clinic for testing. Orders: Referrals Sleep Medicine Referral R40.0 - Somnolence
[2025-04-09 13:36] VITALS: BP 120/76; PULSE 67; TEMP 36.1; O2SAT 92; BMI 27.6
== END 2025-04-09 14:10 | disposition home or self-care (01) ==
LOC: HO.HMCH 13:29
PROVIDERS: PCP Internal Medicine; Visit Provider Nurse Practitioner Family
DX: R00.2 Palpitations (principal); R40.0 Somnolence; R53.83 Other fatigue

== ENCOUNTER → 2025-04-09 13:28 | Outpatient (BNVA) | payer OTHER, SELFPAY | PROVIDERS: PCP Internal Medicine; Visit Provider Nurse Practitioner Family | DX: M06.9 Rheumatoid arthritis, unspecified (principal); R00.2 Palpitations; R40.0 Somnolence; R53.83 Other fatigue | CPT/HCPCS: 99212 ==

== ENCOUNTER 2025-05-13 08:51 | Outpatient (REF) | payer OTHER, SELFPAY ==
[2025-05-13 09:06] LABS: MANUAL DIFF FLAG NO
--- OUTSIDE RECORDS SUMMARY | 2025-05-13 09:22 | XMS_ITS | Encounter Summary ---
Author Organization [facility] Address [address] [place] [address] Care Team Providers Care Quality Consultant Name Role Phone Raquel Kong MD Primary Care Provider Arianna Mejia MD Primary Care Provider Tito sol [facility], Pcp Primary Care Provider [facility] e Encounter Details Date Type Department Care Team Description 03/21/2021 [facility] Medical Records [address] [place] [id number] Abstract, Provider Social History Tobacco Use Types [...] on filedocumented in this encounter Care Teams Quality Consultant Relationship Specialty Start Date End Date Raquel Kong MD PCP - General Internal Medicine 07/03/19 10/30/21 Arianna Hansen MD PCP - General Internal Medicine 10/31/21 05/17/22 Luis Antonio, Pcp PCP - General Internal Medicine 05/18/22 documented as of this encounter
[2025-05-13 09:59] LABS: Basophils Percent Auto 0.6 % (0-2); Eosinophils Absolute Auto 0.9 X10*3/uL (0.0-0.4); Hematocrit 41.9 % (37.0-47.0); Hemoglobin 13.3 g/dl (12.0-16.0); Imm Gran Abs Auto 0.02 X10*3/uL (0.00-0.03); Imm Gran Pct Auto 0.3 % (0.0-0.4); Lymphocytes Absolute Auto 1.4 X10*3/uL (1.2-4.9); Lymphocytes Percent Auto 19.8 % (20-40); Mean Corpuscular HGB Conc 31.7 g/dl (31.0-35.0); Mean Platelet Volume 12.8 fL (9.4-12.3); Monocytes Absolute Auto 0.5 X10*3/uL (0.1-1.2); Monocytes Percent Auto 7.1 % (2-11); Neutrophils Absolute Auto 4.1 x10*3/uL (2.0-8.3); Neutrophils Percent Auto 59.2 % (45-73); Platelet Count 159 X10*3/uL (160-400); Red Blood Count 5.11 X10*6/uL (4.20-5.50); White Blood Count 6.9 X10*3/uL (4.8-10.8)
[2025-05-13 10:37] LABS: Alanine Aminotransferase 24 U/L (0-31); Albumin Level 4.6 g/dL (3.5-5.0); Alkaline Phosphatase 65 U/L (39-117); Anion Gap 11 (12-20); Aspartate Amino Transferase 23 U/L (5-31); Bilirubin Total 0.4 mg/dL (0.0-1.0); Blood Urea Nitrogen 15 mg/dL (9-16); C Reactive Protein < 0.10 mg/dL (< or = 0.50); Calcium 9.8 mg/dL (8.4-10.2); Carbon Dioxide 29 mmol/L (22-29); Chloride 106 mmol/L (96-108); Estimated Glomerular Filt Rate > 60; Glucose Random 91 mg/dL (60-115); Iron 77 mcg/dL (30-160); Percent Iron Saturation 27 % (15-50); Potassium 4.5 mmol/L (3.3-5.1); Sodium 141 mmol/L (135-145); Total Iron Binding Capacity 285 mcg/dL (228-428); Total Protein 6.8 g/dL (6.5-8.0); Unsaturated Iron Binding 208 ug/dL
[2025-05-13 10:39] LABS: HBS Num1 25.33 mIU/mL (0-7.99); HBc Num1 0.03 S/CO (0.00-0.79); HBsAGNum1 0.37 S/CO (0.00-0.99); Hepatitis A Antibody IgM 0.27 Index (0-0.79); Hepatitis B Core Antibody Nonreactive (Nonreactive); Hepatitis B Surface Antigen Negative (Negative); ~HepC Num1 0.29 S/CO (0.00-0.79); ~Hepatitis A Antibody IgM Nonreactive (Nonreactive); ~Hepatitis B Surface Antibody REACTIVE (Nonreactive); ~Hepatitis C Antibody Nonreactive (Nonreactive)
[2025-05-13 10:41] LABS: Thyroid Stimulating Hormone 1.64 uIU/mL (0.32-4.0); Vitamin D 25-OH Total 42.7 ng/mL (>30)
[2025-05-13 10:43] LABS: Erythrocyte Sedimentation Rate 8 MM/HR (0-20)
[2025-05-13 10:45] LABS: Folate > 20.0 ng/mL (> or = 4.0); Vitamin B12 534 pg/mL (200-900)
[2025-05-16 08:33] LABS: TS Negative Control Passed; TS Panel A 0; TS Panel B 1; TS Positive Control Passed; TSpotTB Negative (Negative)
== END 2025-05-13 08:52 | disposition home or self-care (01) ==
LOC: HO.LAB 08:51
PROVIDERS: PCP Internal Medicine; Visit Provider Student in an Organized Health Care Education/Training Program
DX: Z11.59 Encounter for screening for other viral diseases (principal); Z11.7 Encounter for testing for latent tuberculosis infection; R53.83 Other fatigue; D64.9 Anemia, unspecified; E55.9 Vitamin D deficiency, unspecified; E53.8 Deficiency of other specified B group vitamins; M06.09 Rheumatoid arthritis without rheumatoid factor, multiple sites
CPT/HCPCS: 36415; 80053; 82306; 82607; 82746; 83540; 84443; 85025; 85652; 86140; 86481; 86704; 86706; 86709; 86803; 87340

== ENCOUNTER 2025-05-17 09:22 | Outpatient (AMB) | payer OTHER, SELFPAY ==
--- NOTE | 2025-05-17 09:32 | A.OFFVIS_ITS ---
Vital Signs 05/17/25 09:35 Height 5 ft 1 in Weight 146 lb 9.718 oz BMI 27.7 BP 100/60 Blood Pressure Location Lt brachial Position Sitting Respiration 16 Pulse 60 Pulse Source Pulse Oximeter Pulse Oximetry (%) 98 Oxygen Delivery Method Room Air Intake Visit Reasons: RA Intake Note: Patient presents for RA follow up. Allergies No Known Allergies Allergy (Verified 05/17/25 09:35) Medication List - Last Reconciled 05/17/25 by Pennie Paul MD buspirone 10 mg PO BID Enbrel SureClick (etanercept) 50 mg subcut QWEEK NS melatonin 5 - 10 mg PO BEDTIME PRN meloxicam 15 mg PO DAILY PRN 30 days rwljbggsbdze-rjs-pyit-FA-vit K 45 mg iron- 800 mcg-120 mcg (Bariatric Multivitamins) 1 cap PO DAILY sertraline 150 mg PO DAILY walker As directed HPI Comments Details: Patient is a 54-year-old female with depression, polyarticular osteoarthritis and rheumatoid arthritis (with previous diagnosis of ?Still's disease?) here today for follow up Interval History: Patient last seen 11/30/[address] Muller. At that time she was on Enbrel 50 mg weekly without issue. Today, She continues to do well Complains of bilateral shoulder pain Rheumatologic History: Still ds dx 2001, fevers rashes, joint symptoms. Treated with prednisone. Could not tolerate methotrexate. Enbrel until 2004 Seronegative RA dx 12/2023 Enbrel restarted 01/2024 effective Initial history: 52-year-old female who presents for evaluation of rheumatoid arthritis. She states that she was diagnosed with Still's disease around 2001. She had fevers and rashes on her head and abdomen. And she was on prednisone initially, she was also on other meds including methotrexate which she could not tolerate and was ultimately on Enbrel for a few years. She has not been on any treatment since 2004. She states that she gets pain in her right thumb as well as both knees. She received multiple injections at [facility], she received bilateral knee gel injections about a year ago which provided some relief. She also gets thumb injections which also helped. Patient has not had those episodes of fevers and rashes since her diagnosis many years ago. She is unaware of any other family history of autoimmune rheumatic disease Current Rheumatology Medication(s): Enbrel 50mg SC weekly [facility] Medical History (Updated 04/09/25 @ 17:34 by Jana Mcconnell NP) Somnolence, daytime Insomnia Hiatal hernia BMI 36.0-36.9,adult Right pulmonary lesion Surgical History S/P laparoscopic sleeve gastrectomy Hx of colonoscopy Hx of hysterectomy Hx of breast reduction, elective Family History Mother No problems noted. Father No problems noted. Sister No problems noted. Sister No problems noted. Sister No problems noted. Son No problems noted. Son Thyroid condition Daughter No problems noted. Social History Household Members: None Caregiver staying overnight: Yes (daughter will stay over post-op) Housing: Apartment Are you a primary medicare biller to a significant other at home: No Do you presently have visiting nurse or other home services: No (daughter will stay over post-op) Alcohol intake: never Patient Tobacco Use Status: Never used Tobacco e-Cigarette/Vaping Use: Never Used Second Hand Smoke Exposure: No service: No Current occupational status: unemployed Cognitive needs: No Hearing needs: No Vision needs: Yes Review of Systems Const Details: Review of Systems Constitutional: Denies fever, chills, weight loss ENT: Denies vision changes, eye pain or eye redness, dental caries, dry mouth GI: Denies nausea, vomiting, diarrhea, abdominal pain, change in BM Pulm: Denies SOB, RAO, hemoptysis, wheezing Cards: Denies chest pain, palpitations Skin: Denies Raynaud's, rash, nail changes, photosensitivity, OIL FIELD ROUSTABOUT: Denies headaches, weakness, paresthesias, recurrent falls MSK: as per HPI All other systems reviewed and are unremarkable except noted above Physical Exam Vital Signs: Last Vital Signs Pulse 60 05/17/25 09:35 Resp 16 05/17/25 09:35 BP 100/60 05/17/25 09:35 Pulse Ox 98 05/17/25 09:35 Oxygen Delivery Method Room Air 05/17/25 09:35 BMI result Body Mass Index 27.7 Vital signs reviewed Physical Examination CONSTITUITIONAL Patient alert and cooperative. Well appearing and in no apparent painful distress HEENT Conjunctiva and sclera clear. No lymphadenopathy. CHEST/RESPIRATORY SYSTEM Normal respiratory effort and able to speak in complete sentences. Clear to auscultation bilaterally. No crackles, rales, rhonchi, wheezes heard. CARDIAC SYSTEM Regular rate and rhythm. S1 and S2 heard no murmurs. Radial pulses intact bilaterally MSK Hands * Right Hand: Able to make a fist. No swelling or tenderness to palpation of these joints. Herbeden's nodes * Left Hand: Able to make a fist. No swelling or tenderness to palpation of these joints. Herbeden's nodes Wrists * Right Wrist: Decreased ROM especially to wrist flexion. No swelling or TTP. * Left Wrist: Decreased ROM. No swelling or TTP Elbows * Right Elbow: Full ROM. No swelling or TTP. No TTP of the medial and lateral epicondyles * Left Elbow: Full ROM. No swelling or TTP. No TTP of the medial and lateral epicondyles Shoulders * Right shoulder: Full ROM. No swelling noted. No TTP of the AC joint or posterior shoulder. * Left shoulder: Full ROM. No swelling noted. No TTP of the AC joint or posterior shoulder. TTP bilateral subacromial bursa Knees * Right knee: Full ROM. No swelling noted. No TTP of the knee joint lie or pes anserine bursa. Crepitations felt * Left knee: Full ROM. No swelling noted. No TTP of the knee joint lie or pes a nserine bursa. Crepitations felt Ankles * Right ankle: Good ankle dorsiflexion and plantar flexion. No swelling. No TTP of the ankle joint * Left ankle: Good ankle dorsiflexion and plantar flexion. No swelling. No TTP of the ankle joint Feet * Right foot: Negative squeeze test * Left foot: Negative squeeze test Tender points? * No tenderness to palpation of the bilateral trapezius, supraspinatus, anterior costochondral junctions, bilateral suboccipital muscle insertions SKIN No rashes Results Reviewed Results Reviewed: Laboratory Tests 05/13/25 09:05 WBC 6.9 RBC 5.11 Hgb 13.3 Hct 41.9 Plt Count 159 L ESR 8 Sodium 141 Potassium 4.5 Chloride 106 Carbon Dioxide 29 BUN 15 Creatinine 0.64 Total Bilirubin 0.4 AST 23 ALT 24 Alkaline Phosphatase 65 C-Reactive Protein < 0.10 25-OH Vitamin D Total 42.7 Laboratory Tests 03/05/23 07:50 Rheumatoid Factor < 13.0 Cycl Citrul Peptide IgG <16 JOSÉ MIGUEL Screen POSITIVE A JOSÉ MIGUEL Titer 1:80 H Laboratory Tests 05/13/25 09:05 Hepatitis A IgM Ab Nonreactive Hep Bs Antigen Negative Hep Bs Antibody REACTIVE Hep B Core Total Ab Nonreactive Hepatitis C Ab (EIA) Nonreactive TB Test ([facility]) Com Negative DEXA 01/2023 FINDINGS: AP SPINE L1-L3 (excluding L4): The data of L1-L4 has been changed to exclude the L4 vertebral body, because degenerative changes at this level may cause overestimation of lumbar spine density. BMD 1.160 g/cm2, Z-score 0.8, T-score -0.1, normal. LEFT FEMUR, NECK: BMD 0.905 g/cm2, Z-score 0.1, T-score -1.0, normal. LEFT FEMUR, TOTAL: BMD 0.909 g/cm2, Z-score -0.1, T-score -0.8, normal. Assessment & Plan Assessment & Plan (1) Rheumatoid arthritis: Comment: Still ds dx 2001, fevers rashes, joint symptoms. Treated with prednisone. Could not tolerate methotrexate. Enbrel until 2004 Seronegative RA dx 12/2023 Enbrel restarted 01/2024 effective Code(s): M06.9 - Rheumatoid arthritis, unspecified Category: Medical Qualifiers: Rheumatoid arthritis location: multiple sites Rheumatoid factor presence: without rheumatoid factor Qualified Code(s): M06.09 - Rheumatoid arthritis without rheumatoid factor, multiple sites Plan: #Seronegative RA Patient is a 54-year-old female with seronegative rheumatoid arthritis here today for follow up. Initially thought to have Still's disease but subsequently diagnosed with rheumatoid arthritis. Currently in remission on Enbrel monotherapy with no evidence of active synovitis on examination. Plan - Enbrel 50mg SC weekly - RTC 6 months - Labs before visit: CBC, CMP, ESR, CRP (2) Polyarticular osteoarthritis: Code(s): M15.9 - Polyosteoarthritis, unspecified Plan: #Polyarticular OA Patient with polyarticular osteoarthritis and likely bilateral subacromial bursitis. Patient deferred injections today. Printed out hand exercises for her and recommended topical ice and stretching for her shoulders (3) Encounter for screening for osteoporosis: Code(s): Z13.820 - Encounter for screening for osteoporosis Plan: #Osteoporosis screening Patient last bone density done 2 years ago she is due for repeat bone density we will order. (4) Encounter for monitoring of etanercept therapy: Code(s): Z51.81 - Encounter for therapeutic drug level monitoring; Z79.620 - skilled nursing (current) use of immunosuppressive biologic Plan: #Long-term Use of TNF Inhibitors: Etanercept Discussed with the patient the benefits and risks of TNF inhibitors for the management of the rheumatic condition Benefits include reduce pain, maintenance of remission and reduction of flares as well as ?progression of the disease Risks include injection sites/infusion reactions, serious infections (such as bacterial infections, opportunistic infections), malignancy, delaminating syndromes, autoimmune phenomena, CHF exacerbations, palmar plantar psoriasis and cytopenias Recommended rotating injection sites, and holding medication during and for up to 1 week after resolution of a febrile illness or open skin wound Plan I spent 32 minutes reviewing the record and labs, taking a history, examining the patient, discussing the treatment plan, ordering diagnostic work up and documenting in the medical record Orders: Orders Complete Blood Count Auto Diff 6 Months M06.09 - Rheumatoid arthritis without rheumatoid factor, multiple sites Comprehensive Met. Panel 6 Months M06.09 - Rheumatoid arthritis without rheumatoid factor, multiple sites Vitamin D 25-OH Total 6 Months E55.9 - Vitamin D deficiency, unspecified C Reactive Protein 6 Months M06.09 - Rheumatoid arthritis without rheumatoid factor, multiple sites Erythrocyte Sedimentation Rate 6 Months M06.09 - Rheumatoid arthritis without rheumatoid factor, multiple sites Medications: Refilled Enbrel SureClick (etanercept) 50 mg subcut QWEEK 4 mL 4RF NS M06.09 - Rheumatoid arthritis without rheumatoid factor, multiple sites Coding Level of Care Code Est Pt Level 4 (27219) Complex EM visit Add On G2211 Diagnoses Rheumatoid arthritis of multiple sites with negative rheumatoid factor M06.09 Rheumatoid arthritis location: multiple sites Rheumatoid factor presence: without rheumatoid factor Polyarticular osteoarthritis M15.9 Encounter for screening for osteoporosis Z13.820 Encounter for monitoring of etanercept therapy Z51.81; Z79.620
[2025-05-17 09:35] VITALS: BP 100/60; PULSE 60; RESP 16; O2SAT 98; BMI 27.7
== END 2025-05-17 10:18 | disposition home or self-care (01) ==
LOC: HO.RHE 09:23
PROVIDERS: PCP Internal Medicine; Visit Provider Student in an Organized Health Care Education/Training Program
DX: M06.09 Rheumatoid arthritis without rheumatoid factor, multiple sites (principal); M15.9 Polyosteoarthritis, unspecified; Z13.820 Encounter for screening for osteoporosis; Z51.81 Encounter for therapeutic drug level monitoring; Z79.620 Long term (current) use of immunosuppressive biologic
CPT/HCPCS: 99214; G2211

== ENCOUNTER → 2025-05-17 09:22 | Outpatient (BNVA) | payer OTHER, SELFPAY | PROVIDERS: PCP Internal Medicine; Visit Provider Student in an Organized Health Care Education/Training Program | DX: M06.09 Rheumatoid arthritis without rheumatoid factor, multiple sites (principal); M15.9 Polyosteoarthritis, unspecified; Z13.820 Encounter for screening for osteoporosis; Z51.81 Encounter for therapeutic drug level monitoring; Z79.620 Long term (current) use of immunosuppressive biologic | CPT/HCPCS: 99212 ==

== ENCOUNTER 2025-06-01 08:12 | Outpatient (AMB) | payer OTHER, SELFPAY ==
--- OUTSIDE RECORDS SUMMARY | 2025-06-01 08:17 | XMS_ITS | Clinical Summary ---
Author Organization [facility] Address [address] [place] [address] Care Team Providers Care Ethnic Origins Teacher Name Role Phone Unavailable Primary Care Provider Unavailabl e Social History Tobacco Use Types Packs/Day Years Used Date Smoking Tobacco: Never Assessed Sex and Gender Information Value Date Recorded Sex Assigned at Not on file Gender Identity Not on file Sexual Orientation Not on file Plan of Treatment Not on file
--- OUTSIDE RECORDS SUMMARY | 2025-06-01 08:17 | XMS_ITS | Clinical Summary ---
Author Organization [facility] Address [address] [place] [address] Care Team Providers Care Lead Operator Name Role Phone Unavailable Primary Care [...] 1968 FIT 1968 FOBT 1968 Sigmoidoscopy 1968 Disability Screening 1968 Alcohol/Substance Use Screening 1980 Tobacco Screening 1980 DTaP/Tdap/Td Vaccines (1 - Tdap) 1987 Hepatitis B Vaccines (1 of 3 - 19+ 3-dose series) 1987 Pap Smear 1989 Cervical Cancer Screening 1998 HPV/Cotest 1998 Mammogram 2008 Pneumococcal Vaccine: 50+ Ye ars (1 of 1 - PCV) 2018 Zoster Vaccines (1 of 2) 2018 COVID-19 Vaccine ( - 2023-2 5 season) 2024 Influenza Vaccine (Season Ended) 2025 RSV Patients and Pa tients Aged 60 [...]
--- OUTSIDE RECORDS SUMMARY | 2025-06-01 08:17 | XMS_ITS | Clinical Summary ---
Author Organization [employer] [facility] Address [address] [place] [address] Care Team Providers Care Automatic Beam Warper Tender Name Role Phone Unavailable Primary Care Provider Unavailabl e Surgical History Surgery Date Site/Laterality Comments OTHER SURGICAL HISTORY 2009 PROCEDURE: CT TOT ABD HYST W/PARAORTIC & PELVIC LYMPH NODE OTIS; COMMENT: abdominal for bleeding, benign pahtology, ovaries in place Dr Casillas BREAST REDUCTION PROCEDURE: CT BREAST REDUCTION COLONOSCOPY 01/07/2020 PROCEDURE: HISTORICAL COLONOSCOPY; COMMENT: Minimal diverticulosis, no polyps. UPPER GASTROINTESTINAL ENDOSCOPY 01/07/2020 PROCEDURE: CT UPPER GI ENDOSCOPY PERFORMED; COMMENT: Normal on rx with PPI and NSAIDS. SALPINGOOPHORECTOMY 01/25/2021 Right PROCEDURE: CT LAPAROSCOPY W/RMVL ADNEXAL STRUCTURES; COMMENT: extensive lysis [...] - season) 2024 03/24/2021 Influenza Vaccine (#1) 2025 , 12/31/2019, 10/12/2014, Additional history exists DTaP,Tdap,and [...] Name Priority Date/Time Associated Diagnosis Comments [facility] SCREENING DIGITAL Routine 11/26/2018 10:06 AM EST Encounter for screening mammogram for malignant neoplasm of breast from Last 3 Months or Most Recently Relevant to Health Maintenance Results * [facility] SCREENING DIGITAL (11/26/2018 10:06 AM EST) Anatomical Region Laterality Modality Mammography 11/26/2018 9:01 AM EST Narrative 11/26/2018 10:06 AM EST [facility] Diagnostic Imaging Department [address] [place] [address] Patient: MULUGETA SERNA/Age/Sex: 1970 - 48 - F Unit#: [id number] [facility] Ordering Physician: CIRA CRUZ MD [facility] Screening Digital - 11/26/18 - EXAM: [facility] Screening Digital EXAM DATE AND TIME: 11/26/2018 9:38 AM HISTORY: Screening. Reduction mammoplasty in 2004. COMPARISON: 11/21/17, 09/27/16, 09/08/15, 09/02/14 TECHNIQUE: CC and MLO views of both breasts were obtained using full field digital mammography. Bilateral digital breast tomosynthesis was performed in the MLO projection. Computer aided detection with the [employer] 7.2-H was employed. TISSUE DENSITY: b. There are scattered areas of fibroglandular density. FINDINGS: No suspicious masses, grouped microcalcifications, or areas of architectural distortion are seen. Benign rim calcifications are again seen. Vascular calcification is present. The skin is unremarkable. IMPRESSION: Stable mammographic appearance of the breasts. No evidence of malignancy is seen. A negative mammogram in the presence of a clinically suspicious palpable abnormality does not preclude the possibility of malignancy or alter the indications for biopsy. BI-RADS: Category 2: Benign RECOMMENDATION(S): 1: Routine screening mammogram BILATERAL in 1 year. 94665, 87506 3342F, 7025F Dictating Physician: GAYE GUILLEN MD Electronically Signed by: GAYE GUILLEN MD Dic Date/Time: 11/26/18 1005 Sign date/Time: 11/26/18 1006 Procedure Note Gaye Guillen MD - 11/20/2022 [facility] Diagnostic Imaging Department [address] [place] [address] Patient: MULUGETA SERNA/Age/Sex: 1970 - 48 - F Unit#: [id number] [facility] Mnemonic/Ordering Site: [facility] Ordering Physician: CIRA CRUZ MD [facility] Screening Digital - 11/26/18 - EXAM: [facility] Screening Digital EXAM DATE AND TIME: 11/26/2018 9:38 AM HISTORY: Screening. Reduction mammoplasty in 2004. COMPARISON: 11/21/17, 09/27/16, 09/08/15, 09/02/14 TECHNIQUE: CC and MLO views of both breasts were obtained using fullfield digital mammography. Bilateral digital breast tomosynthesis was performedin the MLO projection. Computer aided detection with the [employer]as employed. TISSUE DENSITY: b. There are scattered [...] Routine screening mammogram BILATERAL in 1 year. 13802, 86117 3342F, 7025F Dictating Physician: GAYE GUILLEN MD Electronically Signed by: GAYE GUILLEN MD Dic Date/Time: 11/26/18 1005 Sign date/Time: 11/26/18 1006 Cira Cruz MD IMG BI PROCEDURES Final Result from Last 3 Months or Most Recently Relevant to Health Maintenance
--- OUTSIDE RECORDS SUMMARY | 2025-06-01 08:17 | XMS_ITS | Encounter Summary ---
Author Organization [facility] Address [address] [place] [address] Care Team Providers Care Media Center Specialist Name Role Phone Raquel Kong MD Primary Care Provider Arianna Mejia MD Primary Care Provider Tito sol [facility], Pcp Primary Care Provider [facility] e Encounter Details Date Type Department Care Team Description 03/21/2021 [facility] Medical Records [address] [place] [address] Abstract, Provider Social History Tobacco Use Types [...] on filedocumented in this encounter Care Teams Media Center Specialist Relationship Specialty Start Date End Date Raquel Kong MD PCP - General Internal Medicine 07/03/19 10/30/21 Arianna Hansen MD PCP - General Internal Medicine 10/31/21 05/17/22 Luis Antonio, Pcp PCP - General Internal Medicine 05/18/22 documented as of this encounter
[2025-06-01 08:33] VITALS: BP 118/70; PULSE 68; BMI 27.5
--- NOTE | 2025-06-01 08:33 | A.OFFVIS_ITS ---
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 The palpitations were described as very fast heartbeats that made her feel as though her heart wanted to exit her chest. These episodes are intermittent, with the extra beats coming and going rather than persisting for extended periods. The patient was referred by Dr. Leal after a holter monitoring study indicated the presence of extra beats. She underwent weight loss surgery two years ago, resulting in a weight reduction from 191 pounds to 145 pounds, which resolved her sleep apnea. Patient has no prior cardiac history otherwise. Denies any smoking or alcohol intake. No excessive caffeine intake. History of obstructive sleep apnea but apparently thought to be resolved after weight loss. [facility] Medical History (Updated 06/01/25 @ 08:44 by Dmitry Serna MD) Somnolence, daytime Insomnia Hiatal hernia BMI 36.0-36.9,adult Right pulmonary lesion Surgical History S/P laparoscopic sleeve gastrectomy Hx of colonoscopy Hx of hysterectomy Hx of breast reduction, elective Family History Mother No problems noted. Father No problems noted. Sister No problems noted. Sister No problems noted. Sister No problems noted. Son No problems noted. Son Thyroid condition Daughter No problems noted. Social History Household Members: None Caregiver staying overnight: Yes (daughter will stay over post-op) Housing: Apartment Are you a primary children's zoo caretaker to a significant other at home: No Do you presently have visiting nurse or other home services: No (daughter will stay over post-op) Alcohol intake: never Patient Tobacco Use Status: Never used Tobacco e-Cigarette/Vaping Use: Never Used Second Hand Smoke Exposure: No service: No Current occupational status: unemployed Cognitive needs: No Hearing needs: No Vision needs: Yes Review of Systems Const Denies weakness ENT Denies dizziness Card Denies chest pain, Denies chest pain with activity, Denies syncope, Denies rapid heart rate, Denies pedal edema, Denies edema, Denies leg edema, Denies lightheadedness, Reports palpitations, Denies dyspnea, Denies dyspnea on exertion and Denies orthopnea Resp Denies cough, Denies dyspnea and Denies dyspnea on exertion GI Denies hematochezia and Denies change in stool character Musc Denies abnormal gait, Denies muscle cramps, Denies muscle weakness, Denies numbness, Denies radiating pain into limb and Denies tingling Neuro Denies abnormal gait, Denies dizziness, Denies syncope, Denies numbness, Denies tingling and Denies weakness Endo Reports palpitations Physical Exam Vital Signs: Last Vital Signs Pulse 68 06/01/25 08:33 BP 118/70 06/01/25 08:33 BMI result Body Mass Index 27.5 Const General: comfortable and no acute distress Orientation/consciousness: patient oriented x3 HEENT Other: Unremarkable Head: Yes normal to inspection Neck Neck: Yes normal visual inspection Chest Chest palpation & inspection: normal inspection of the chest Resp Auscultation: clear to auscultation bilaterally Cardio Palpation: normal PMI Heart sounds: S1 normal heart sound present, S2 normal heart sound present, no gallops, no murmurs and no rubs GI Palpation (GI): Soft to palpation Back/Spine/Pelvis Other: unremarkable Skin General skin exam: no rashes or lesions noted Neuro General: patient oriented x3 Extrem General: Yes normal to inspection Psych Mental Status: mental status grossly normal Assessment & Plan Assessment & Plan (1) Palpitations: Code(s): R00.2 - Palpitations Category: Medical (2) PVC (premature ventricular contraction): Code(s): I49.3 - Ventricular premature depolarization Category: Medical Plan In the recent EKG, underlying rhythm is sinus at 62/Min; cannot exclude old anterior infarct; normal OK and corrected QT. Holter monitor shows underlying sinus rhythm at 64/Min;. Sinus bradycardia 42% of the time which is well within acceptable limits. There are no significant pauses or high-grade AV blocks. PVCs noted with a burden of 0.19%. PACs with a burden of 0.02%. Overall, low burden PVCs with palpitations. We will get an echocardiogram for cardiac function assessment. If this is within normal limits, then mainly reassurance. If there is any LV dysfunction, then we will need further workup. Discussed using healthcare administrator. Discussion Notes I discussed with the patient that the extra beats observed in the monitoring study are generally not of major concern. We will proceed with an echocardiogram to ensure there are no underlying issues. If the echocardiogram is normal, we will not pursue further treatment, but we will schedule a follow-up in three months to reassess her condition. Patient was informed and verbally consented to the use of an ambient scribe for clinic note documentation during this visit. Orders: Orders CA echo transthoracic complete Today I49.3 - Ventricular premature depolarization Patient Instructions: - Undergo the scheduled echocardiogram as planned. - Attend the follow-up appointment in three months to discuss test results. - Report any new or worsening symptoms immediately. Coding Level of Care Code New Pt Level 3 (56913) Diagnoses Palpitations R00.2 PVC (premature ventricular contraction) I49.3
== END 2025-06-01 08:51 | disposition home or self-care (01) ==
LOC: HO.HCS 08:13
PROVIDERS: PCP Internal Medicine; Visit Provider Internal Medicine
DX: R00.2 Palpitations (principal); I49.3 Ventricular premature depolarization
CPT/HCPCS: 99203

== ENCOUNTER → 2025-06-01 08:12 | Outpatient (BNVA) | payer OTHER, SELFPAY | PROVIDERS: PCP Internal Medicine; Visit Provider Internal Medicine | DX: R00.2 Palpitations (principal); I49.3 Ventricular premature depolarization | CPT/HCPCS: 99202 ==

== ENCOUNTER → 2025-07-08 08:49 | Outpatient (REF) | payer OTHER, SELFPAY ==
--- NOTE | 2025-07-08 08:51 | CA_ITS ---
Transthoracic Echocardiogram Patient (Last, First, Middle): Morenita Ervin, Gender: Female Date of : 1970 Age: 54 Procedure Date: 07/08/2025 Procedure Type: Transthoracic Echocardiogram Location: OP Height: 154.94 cm Weight: 65.77 kg BSA: 1.65 m2 Heart Rate: bpm BP: 118 / 70 mmHg Dog Barber: ZACH Referring MD: Dmitry Serna MD Symptoms: I49.3 - Ventricular premature depolarization Study Quality: Adequate ECG Rhythm: Sinus Conclusions: - The left ventricular systolic function is normal. The calculated ejection fraction is 60% by biplane method. - No obvious valvular pathology seen on this study. Findings Left Ventricle Normal left ventricular cavity size. There is mildly increased left ventricular wall thickness. The left ventricular systolic function is normal. The calculated ejection fraction is 60% by biplane method. There is no evidence of regional wall motion abnormalities. Diastolic function is normal for age. Right Ventricle Normal right ventricular cavity size and systolic function. Atria Both atria are normal in size. Aortic Valve There is a normal trileaflet aortic valve. There is no aortic valve stenosis. There is no aortic valve regurgitation. Mitral Valve The mitral valve appears normal. There is trace mitral valve regurgitation. There is no mitral valve stenosis. Pulmonic Valve The pulmonic valve is likely normal. Tricuspid Valve There is mild tricuspid valve regurgitation. There is no evidence of pulmonary hypertension. Great Vessels The asc aorta and aortic arch are normal in size. Venous The inferior vena cava is normal in size and collapses greater than 50% with inspiration. Pericardium/Pleural There is no evidence of pericardial effusion. Prior Study Comparison No prior study available for comparison. Recommendations, Care & Conclusions No obvious valvular pathology seen on this study. Measurements 2D Linear Measurements IVSd: 1.07 0.6-0.9/0.6-1.0 cm LVIDd: 3.56 3.9-5.3/4.2-5.9 cm LVIDd Index: 2.16 2.4-3.2/2.2-3.1 cm/m2 LVIDs: 2.21 2.0-3.6 cm LVPWd: 0.91 0.7-1.1 cm LA Diam: 3.10 2.7-3.8/3.0-4.0 cm LAIDs Index: 1.88 1.5-2.3 cm/m2 LV Mass: 130.01 67-162/88-224 g LV Mass Index: 78.79 43-95/49-115 g/m2 LVOT Diam: 2.00 3.0+(-)1.3 cm 2D Systolic Function EF 4C: 62.30 >55% EF 2C: 59.00 >55% EF BiP: 59.90 >55% Mitral Valve MV Pk E: 0.76 MV PK A: 0.74 MV Decel Time: 224.00 E/A: 1.00 E'Lateral: 10.00 E'Medial: 7.29 E/E' Med: 10.40 E/E' Lat: 7.60 PHT: 66.00 MVA PHT: 3.33 Decel Cocke: 3.38 Aortic Valve AoV Pk Piero: 1.30 AoV Mn Piero: 0.87 AoV VTI: 0.31 AoV Pk Grad: 7.00 Aov Mn Grad: 4.00 DEREK Cont.VTI: 2.72 LVOT LVOT Pk Piero: 1.04 LVOT Mn Piero: 0.76 LVOT VTI: 0.27 LVOT Pk Grad: 4.00 LVOT Mn Grad: 3.00 LVOT Diam: 2.00 LVOT Area: 3.14 Diastolic Function MV Pk E: 0.76 MV Pk A: 0.74 E/A: 1.00 E'Medial: 7.29 E/E' Med: 10.40 E' Laterial: 10.00 E/E' Lat: 7.60 Right Ventricle TAPSE (mm): 24.00 TVS' Piero: 9.90 Tricuspid Valve TR Pk Piero: 2.08 TR Pk Grad: 17.00 RA Press: 3.00 RVSP: 20.00 Great Vessels Aorta Sinus of Valsalva: 3.06 2.0-3.5 cm Ao Asc: 3.00 2.1-3.4 cm Ao Arch: 2.70 Updated in Other Vendor System with Status of Final Dmitry Serna MD electronically signed on 07/10/2025 11:09:49 AM with status of Final
--- OUTSIDE RECORDS SUMMARY | 2025-07-08 09:08 | XMS_ITS | Encounter Summary ---
Author Organization [facility] Address [address] [place] [address] Care Team Providers Care Color Maker Name Role Phone Raquel Kong MD Primary Care Provider Arianna Mejia MD Primary Care Provider Tito sol [facility], Pcp Primary Care Provider [facility] e Encounter Details Date Type Department Care Team Description 03/21/2021 [facility] Medical Records [address] [place] [id number] Abstract, Provider Social History Tobacco Use Types [...] on filedocumented in this encounter Care Teams Color Maker Relationship Specialty Start Date End Date Raquel Kong MD PCP - General Internal Medicine 07/03/19 10/30/21 Arianna Hansen MD PCP - General Internal Medicine 10/31/21 05/17/22 Luis Antonio, Pcp PCP - General Internal Medicine 05/18/22 documented as of this encounter
--- OUTSIDE RECORDS SUMMARY | 2025-07-08 09:08 | XMS_ITS ---
Author Name [facility] Organization Unknown Care Team Organization Name Specialty Phone Email Start Date End Da te [facility] NULL Primary Care 10/09/2022 07/20/2024
--- OUTSIDE RECORDS SUMMARY | 2025-07-08 09:08 | XMS_ITS | Clinical Summary ---
Author Organization [employer] Address [address] [place] [address] Care Team Providers Care Inspector Machine Cut Glass Name Role Phone Unavailable Primary Care Provider [...] 2023-2 5 season) 2024 Influenza Vaccine (#1) 2025 RSV Patients and Pa tients Aged [...]
--- OUTSIDE RECORDS SUMMARY | 2025-07-08 09:08 | XMS_ITS | Clinical Summary ---
Author Organization Patient Business [facility] Address [address] [place] [address] Care Team Providers Care Office Executive Name Role Phone Unavailable Primary Care Provider Unavailabl e Surgical History Surgery Date Site/Laterality Comments OTHER SURGICAL HISTORY 2009 PROCEDURE: [place] TOT ABD HYST W/PARAORTIC & PELVIC LYMPH NODE OTIS; COMMENT: abdominal for bleeding, benign pahtology, ovaries in place Dr Casillas BREAST REDUCTION PROCEDURE: [place] BREAST REDUCTION COLONOSCOPY 01/07/2020 PROCEDURE: HISTORICAL COLONOSCOPY; COMMENT: Minimal diverticulosis, no polyps. UPPER GASTROINTESTINAL ENDOSCOPY 01/07/2020 PROCEDURE: [place] UPPER GI ENDOSCOPY PERFORMED; COMMENT: Normal on rx with PPI and NSAIDS. SALPINGOOPHORECTOMY 01/25/2021 Right PROCEDURE: [place] LAPAROSCOPY W/RMVL ADNEXAL STRUCTURES; COMMENT: extensive lysis [...] Daughter Alive Father Alive high cholestero l, DC Mother Alive heart problems, high cholesterol, HTN [...] 2) 2018 Breast Cancer Screening 11/26/2020 11/26/2018 COVID-19 Vaccine (2 - season) 2024 03/24/2021 Depression Screening 12/02/2024 Influenza Vaccine (#1) 2025 , 12/31/2019, 10/12/2014, [...] Procedure Name Priority Date/Time Associated Diagnosis Comments [facility] SCREENING DIGITAL Routine 11/26/2018 10:06 AM EST Encounter for screening mammogram for malignant neoplasm of breast from Last 3 Months or Most Recently Relevant to Health Maintenance Results * [facility] SCREENING DIGITAL (11/26/2018 10:06 AM EST) Anatomical Region Laterality Modality Mammography 11/26/2018 9:01 AM EST Narrative 11/26/2018 10:06 AM EST [facility] Diagnostic Imaging Department [address] [place] [address] Patient: MULUGETA SERNAO.B./Age/Sex: 1970 - 48 - F Unit#: [id number] Location/Status: [facility] CLI Mnemonic/Ordering Site: [facility] Ordering Physician: CIRA CRUZ MD [facility] Screening Digital - 11/26/18 - EXAM: [facility] Screening Digital EXAM DATE AND TIME: 11/26/2018 9:38 AM HISTORY: Screening. Reduction mammoplasty in 2004. COMPARISON: 11/21/17, 09/27/16, 09/08/15, 09/02/14 TECHNIQUE: CC and MLO views of both breasts were obtained using full field digital mammography. Bilateral digital breast tomosynthesis was performed in the MLO projection. Computer aided detection with the [employer] 7.2-H was employed. TISSUE DENSITY: b. There [...] Routine screening mammogram BILATERAL in 1 year. 82950, 96266 3342F, 7025F Dictating Physician: GAYE GUILLEN MD Electronically Signed by: GAYE GUILLEN MD Dic Date/Time: 11/26/18 1005 Sign date/Time: 11/26/18 1006 Procedure Note Gaye Guillen MD - 11/20/2022 [facility] Diagnostic Imaging Department [address] [place] [address] Patient: MULUGETA SERNA D.O.B./Age/Sex: 1970 - 48 - F Unit#: [id number] Location/Status: [facility] CLI Mnemonic/Ordering Site: [facility] Ordering Physician: CIRA CRUZ MD [facility] Screening Digital - 11/26/18 - EXAM: [facility] Screening Digital EXAM DATE AND TIME: 11/26/2018 9:38 AM HISTORY: Screening. Reduction mammoplasty in 2004. COMPARISON: 11/21/17, 09/27/16, 09/08/15, 09/02/14 TECHNIQUE: CC and MLO views of both breasts were obtained using fullfield digital mammography. Bilateral digital breast tomosynthesis was performedin the MLO projection. Computer aided detection with the [employer] employed. TISSUE DENSITY: b. There are scattered [...] Routine screening mammogram BILATERAL in 1 year. 26973, 18965 3342F, 7025F Dictating Physician: GAYE GUILLEN MD Electronically Signed by: GAYE GUILLEN MD Dic Date/Time: 11/26/18 1005 Sign date/Time: 11/26/18 1006 us Cira Cruz MD IMG BI PROCEDURES Final Result from Last 3 Months or Most Recently Relevant to Health Maintenance
--- OUTSIDE RECORDS SUMMARY | 2025-07-08 09:08 | XMS_ITS | Clinical Summary ---
Author Organization [facility] Address [address] [place] [address] Care Team Providers Care School Bus Attendant Name Role Phone Unavailable Primary Care Provider Unavailabl e Social History Tobacco Use Types Packs/Day Years Used Date Smoking Tobacco: Never Assessed Sex and Gender Information Value Date Recorded Sex Assigned at Not on file Gender Identity Not on file Sexual Orientation Not on file Plan of Treatment Not on file
== END ==
LOC: HO.CARD 08:49
PROVIDERS: PCP Internal Medicine; Visit Provider Internal Medicine
DX: I49.3 Ventricular premature depolarization (principal)
CPT/HCPCS: 93306

== ENCOUNTER → 2025-07-08 08:51 | Outpatient (BNV) | payer OTHER, SELFPAY | PROVIDERS: PCP Internal Medicine; Visit Provider Internal Medicine | DX: I49.3 Ventricular premature depolarization (principal) | CPT/HCPCS: 93306 ==

== ENCOUNTER 2025-08-06 11:53 | Outpatient (REF) | payer OTHER, SELFPAY ==
[2025-08-06 19:03] LABS: Resp Syncy Virus RNA Qual PCR NEGATIVE (Negative); SARS COV2 PCR INHOUSE NEGATIVE (Negative)
== END 2025-08-06 11:54 | disposition home or self-care (01) ==
LOC: HO.LAB 11:53
PROVIDERS: PCP Internal Medicine; Visit Provider Physician Assistant
DX: J01.00 Acute maxillary sinusitis, unspecified (principal); R09.89 Other specified symptoms and signs involving the circulatory and respiratory systems; R09.81 Nasal congestion
CPT/HCPCS: 87637; 99212

== ENCOUNTER 2025-08-06 11:53 | Outpatient (AMB) | payer OTHER, SELFPAY ==
[2025-08-06 11:57] VITALS: BP 112/66; PULSE 68; TEMP 36.8; O2SAT 96; BMI 27.8
--- NOTE | 2025-08-06 11:57 | AM.OFFWIN_ITS ---
Intake Vital Signs 08/06/25 11:57 Height 5 ft 1 in Weight 147 lb BMI 27.8 BP 112/66 Blood Pressure Location Rt brachial Position Sitting Pulse 68 Pulse Source Pulse Oximeter Temp 98.3 F Temp Source Oral Pulse Oximetry (%) 96 Oxygen Delivery Method Room Air Intake Visit Reasons: EP-sinus issues, sore throat Intake Note: pt presents with sinus congestion with discomfort and sore throat without pain swallowing x2 days Patient Tobacco Use Status: Never used Tobacco Allergies No Known Allergies Allergy (Verified 08/06/25 12:04) Do you need a note to return to daycare/school/sports/work: No HPI HPI Comments History of Present Illness Details History - The patient is a 54-year-old female pr esenting with symptoms of an upper respiratory infection. - Symptoms include nasal congestion, sor e throat, and cough, with no associated fever or ear pain. - The patient denies any history of asth ma or COPD and has not experienced shortness of breath or wheezing prior to this visit. - She has been self-medicating with NyQu il, which has not provided significant relief. Physical Exam General: Cooperative, healthy appearing, comfortable and no acute distress Orientation/consciousness: Patient oriented x3 Limitations: No limitations Head: Normal to inspection Ears: Hearing grossly normal bilaterally, external ears normal and TM's normal bilaterally Nose: Normal external nose present, Normal nares present, clear nasal congestion Face and sinus: Normal facial exam and Yes sinuses tender Mouth: Normal oral and palatal mucosa present and moist mucous membranes Throat: Yes tonsils normal, Yes uvula midline. Posterior oropharynx erythema, no exudates Eyes: Appearance normal, both eyes and all related structures Neck: Normal visual inspection, full ROM Respiratory: insp/exp wheezes bilaterally. Normal respiratory effort, able to speak in complete sentences, Actively coughing, no respiratory distress, not tachypneic, no tripod positioning and no use of accessory muscles Cardiovascular: Regular rate and rhythm. Normal S1 and S2 Skin: No rashes or lesions noted Neuro: Patient oriented x3 Extremities: Normal to inspection and Yes no clubbing, cyanosis or edema [facility] Medical History (Updated 08/06/25 @ 12:22 by Pastora Martinez PA-C) Somnolence, daytime Insomnia Hiatal hernia BMI 36.0-36.9,adult Right pulmonary lesion Surgical History S/P laparoscopic sleeve gastrectomy Hx of colonoscopy Hx of hysterectomy Hx of breast reduction, elective Family History Mother No problems noted. Father No problems noted. Sister No problems noted. Sister No problems noted. Sister No problems noted. Son No problems noted. Son Thyroid condition Daughter No problems noted. Social History Household Members: None Caregiver staying overnight: Yes (daughter will stay over post-op) Housing: Apartment Are you a primary rn complex care to a significant other at home: No Do you presently have visiting nurse or other home services: No (daughter will stay over post-op) Alcohol intake: never Patient Tobacco Use Status: Never used Tobacco e-Cigarette/Vaping Use: Never Used Second Hand Smoke Exposure: No service: No Current occupational status: unemployed Cognitive needs: No Hearing needs: No Vision needs: Yes Review of Systems Const All systems reviewed & are unremarkable except as noted in HPI and below Physical Exam Vital Signs: Last Vital Signs Temp 98.3 F 08/06/25 11:57 Pulse 68 08/06/25 11:57 BP 112/66 08/06/25 11:57 Pulse Ox 96 08/06/25 11:57 Oxygen Delivery Method Room Air 08/06/25 11:57 BMI result Body Mass Index 27.8 Assessment & Plan Assessment & Plan (1) Acute sinus infection: Code(s): J01.90 - Acute sinusitis, unspecified Qualifiers: Sinusitis location: maxillary Recurrence: non-recurrent Qualified Code(s): J01.00 - Acute maxillary sinusitis, unspecified Plan: Patient was informed and verbally consented to the use of an ambient scribe for clinic note documentation during this visit. Sinusitis/Upper Respiratory Infection - Flu/covid and RSV testing sent - A steroid was prescribed to alleviate symptoms and improve breathing. - The patient was advised to take a decongestant and an allergy pill daily for a week. - Recommended Angela D for combined decongestant and allergy relief. - The condition is suspected to be viral; antibiotics were not prescribed. Orders: Orders SARS-CoV2/FLU/RSV Today R09.89 - Other specified symptoms and signs involving the circulatory and respiratory systems Medications: New methylprednisolone PO PER PKG DIR for 6 days 21 ea 0RF Coding Level of Care Code Est Pt Level 3 (26639) Diagnoses Acute non-recurrent maxillary sinusitis J01.00 Sinusitis location: maxillary Recurrence: non-recurrent
--- OUTSIDE RECORDS SUMMARY | 2025-08-06 12:38 | XMS_ITS | Encounter Summary ---
Author Organization [facility] Address [address] [place] [address] Care Team Providers Care Truck Farmer Name Role Phone Unavailable Primary Care Provider [...]
--- OUTSIDE RECORDS SUMMARY | 2025-08-06 12:38 | XMS_ITS | Encounter Summary ---
Author Organization [facility] Address [address] [place] [address] Care Team Providers Care Television Repair Teacher Name Role Phone Unavailable Primary Care [...]
--- OUTSIDE RECORDS SUMMARY | 2025-08-06 12:38 | XMS_ITS | Encounter Summary ---
Author Organization [facility] Address [address] [place] [address] Care Team Providers Care New Patient Escort Name Role Phone Unavailable Primary Care Provider [...]
--- OUTSIDE RECORDS SUMMARY | 2025-08-06 12:38 | XMS_ITS | Encounter Summary ---
Author Organization [facility] Address [address] [place] [address] Care Team Providers Care Subassembly Assembler Name Role Phone Unavailable Primary Care [...]
--- OUTSIDE RECORDS SUMMARY | 2025-08-06 12:38 | XMS_ITS | Clinical Summary ---
Author Organization [employer] Address [address] [place] [address] Care Team Providers Care Inspector Health Care Facilities Name Role Phone Unavailable Primary Care Provider [...]
--- OUTSIDE RECORDS SUMMARY | 2025-08-06 12:38 | XMS_ITS | Clinical Summary ---
Author Organization Patient Business Ser [facility] Address [address] [place] [address] Care Team Providers Care Cake Knocker Name Role Phone Unavailable Primary Care Provider [...] Daughter Alive Father Alive high cholestero l, [place] Mother Alive heart problems, high cholesterol, HTN [...] 2) 2018 Breast Cancer Screening 11/26/2020 11/26/2018 Depression Screening 12/02/2024 COVID-19 Vaccine (2 - season) 2025 03/24/2021 Influenza Vaccine (#1) 2025 , 12/31/2019, [...] to Health Maintenance Results * [facility] SCREENING DIGITAL (11/26/2018 10:06 AM EST) Anatomical Region Laterality Modality Mammography 11/26/2018 9:01 AM EST Narrative 11/26/2018 10:06 AM EST [facility] Diagnostic Imaging Department [address] [place] [id number] Patient: MULUGETA SERNAO.B./Age/Sex: 1970 - 48 - F Unit#: [id number] Location/Status: [facility] CLI Mnemonic/Ordering Site: [facility] Ordering Physician: CIRA CRUZ MD [facility] Screening Digital - 11/26/18 - EXAM: [facility] Screening Digital EXAM DATE AND TIME: 11/26/2018 9:38 AM HISTORY: Screening. Reduction mammoplasty in 2004. COMPARISON: 11/21/17, 09/27/16, 09/08/15, 09/02/14 TECHNIQUE: CC and MLO views of both breasts were obtained using full field digital mammography. Bilateral digital breast tomosynthesis was performed in the MLO projection. Computer aided detection with the [employer] 7.2-H was employed. TISSUE DENSITY: b. There [...] Routine screening mammogram BILATERAL in 1 year. [address]0850, 06992 3342F, 7025F Dictating Physician: GAYE GUILLEN MD Electronically Signed by: GYAE GUILLEN MD Dic Date/Time: 11/26/18 1005 Sign date/Time: 11/26/18 1006 Procedure Note Gaye Guillen MD - 11/20/2022 [facility] Diagnostic Imaging Department [address] [place] [address] Patient: MULUGETA SERNA D.O.B./Age/Sex: 1970 - 48 - F Unit#: [id number] Location/Status: [facility] CLI Mnemonic/Ordering Site: [facility] Ordering Physician: CIRA CRUZ MD [facility] Screening Digital - 11/26/18 - EXAM: [facility] Screening Digital EXAM DATE AND TIME: 11/26/2018 9:38 AM HISTORY: Screening. Reduction mammoplasty in 2004. COMPARISON: 11/21/17, 09/27/16, 09/08/15, 09/02/14 TECHNIQUE: CC and MLO views of both breasts were obtained using fullfield digital mammography. Bilateral digital breast tomosynthesis was performedin the MLO projection. Computer aided detection with the [employer] employed. TISSUE DENSITY: b. There are [...] Routine screening mammogram BILATERAL in 1 year. 31676, 96958 3342F, 7025F Dictating Physician: GAYE GUILLEN MD Electronically Signed by: GAYE GUILLEN MD Dic Date/Time: 11/26/18 1005 Sign date/Time: 11/26/18 1006 us Cira Cruz MD IMG BI PROCEDURES Final Result from Last 3 Months or Most Recently Relevant to Health Maintenance
--- OUTSIDE RECORDS SUMMARY | 2025-08-06 12:38 | XMS_ITS | Clinical Summary ---
Author Organization [facility] Address [address] [place] [address] Care Team Providers Care Hand Miter Operator Name Role Phone Unavailable Primary Care Provider Unavailabl e Social History Tobacco Use Types Packs/Day Years Used Date Smoking Tobacco: Never Assessed Sex and Gender Information Value Date Recorded Sex Assigned at Not on file Gender Identity Not on file Sexual Orientation Not on file Plan of Treatment Not on file
== END 2025-08-06 13:27 | disposition home or self-care (01) ==
PROVIDERS: PCP Internal Medicine; Visit Provider Physician Assistant
DX: J01.00 Acute maxillary sinusitis, unspecified (principal)

== ENCOUNTER 2025-08-16 12:57 | Outpatient (REF) | payer OTHER, SELFPAY ==
--- NOTE | ~2025-08-16 | MM_ITS ---
EXAMINATION: DXA BONE DENSITY AXIAL HISTORY: osteoporosis TECHNIQUE: [employer] Dual energy absorptiometry (DEXA) of the lumbar spine, total left hip, and femoral neck was performed. COMPARISON: Comparison is made with the prior examination dated 03/01/2023. FINDINGS: The bone mineral density of the lumbar spine is 1.052 g/cm2, corresponding to a T-score of -1.0, and a Z-score of -0.1. This is indicative of normal bone mineral density. This represents a BMD change of -9.3% compared to the prior exam. This is statistically significant. The bone mineral density of the left total hip is 0.905 g/cm2, corresponding to a T-score of -0.8, and a Z-score of -0.1. This is indicative of normal bone mineral density. This represents a BMD change of -0.4% compared to the prior exam. This is not statistically significant. The bone mineral density of the left femoral neck is 0.933 g/cm2, corresponding to a T-score of -0.8, and a Z-score of 0.3. This is indicative of normal bone mineral density. This represents a BMD change of 3.1% compared to the prior exam. MM/XR DEXA axial skeleton IMPRESSION: Based on bone mineral density, and according to World Health Organization (WHO) criteria, the diagnosis is consistent with normal bone mineral density. Statistically, 68% of repeat scans fall within 1 SD (+/- 0.010 g/cm2 for AP spine L1-L4) and 1 SD (+/- 0.012 g/cm2 for femur total) FRAX is a trademark of the [employer] [place] [employer] Met[employer] Disease, a World Health Organization (WHO) Collaborating Center. Electronically signed by: Alvaro Vidal MD 08/16/2025 01:36 PM EDT
--- OUTSIDE RECORDS SUMMARY | 2025-08-16 17:56 | XMS_ITS | Encounter Summary ---
Author Organization [facility] Address [address] [place] [address] Care Team Providers Care Junior Paralegal Name Role Phone Unavailable Primary Care Provider [...]
--- OUTSIDE RECORDS SUMMARY | 2025-08-16 17:56 | XMS_ITS | Encounter Summary ---
Author Organization [facility] Address [address] 7t [place] [address] Care Team Providers Care Baker Pastry Name Role Phone Unavailable Primary Care Provider [...]
--- OUTSIDE RECORDS SUMMARY | 2025-08-16 17:56 | XMS_ITS | Clinical Summary ---
Author Organization [facility] [employer] Address [address] [address] [facility] 7t [place] [address] Care Team Providers Care Special Education Classroom Aide Name Role Phone Unavailable Primary Care Provider [...] COVID-19 Vaccine ( - 2023-2 5 season) 2025 Influenza Vaccine (#1) 2025 RSV Patients and [...]
--- OUTSIDE RECORDS SUMMARY | 2025-08-16 17:56 | XMS_ITS | Encounter Summary ---
Author Organization [facility] Address [address] [place] [address] Care Team Providers Care Private Eye Name Role Phone Unavailable Primary Care Provider [...]
--- OUTSIDE RECORDS SUMMARY | 2025-08-16 17:56 | XMS_ITS | Encounter Summary ---
Author Organization [facility] Address [address] [place] [address] Care Team Providers Care Hvac Mechanic Name Role Phone Unavailable Primary Care Provider [...]
--- OUTSIDE RECORDS SUMMARY | 2025-08-16 17:56 | XMS_ITS | Clinical Summary ---
Author Organization [facility] Address [address] [place] [address] Care Team Providers Care Whiskey Regauger Name Role Phone Unavailable Primary Care Provider Unavailabl e Social History Tobacco Use Types Packs/Day Years Used Date Smoking Tobacco: Never Assessed Sex and Gender Information Value Date Recorded Sex Assigned at Not on file Gender Identity Not on file Sexual Orientation Not on file Plan of Treatment Not on file
--- OUTSIDE RECORDS SUMMARY | 2025-08-16 17:56 | XMS_ITS | Clinical Summary ---
Author Organization Patient Business Ser [facility] Address [address] [place] [address] Care Team Providers Care Cider Maker Name Role Phone Unavailable Primary Care Provider [...] Daughter Alive Father Alive high cholestero l, [place] Mother Alive heart problems, high cholesterol, HTN [...] Recently Relevant to Health Maintenance Results * [facility] SCREENING DIGITAL (11/26/2018 10:06 AM EST) Anatomical Region Laterality Modality Mammography 11/26/2018 9:01 AM EST Narrative 11/26/2018 10:06 AM EST [facility] Diagnostic Imaging Department [address] [place] [address] Patient: MULUGETA SERNAO.B./Age/Sex: 1970 - 48 - F Unit#: [id number] Location/Status: [facility] CLI Mnemonic/Ordering Site: [facility] Ordering Physician: CIRA CRUZ MD [facility] Screening Digital - 11/26/18 - EXAM: [facility] Screening Digital EXAM DATE AND TIME: 11/26/2018 9:38 AM HISTORY: Screening. Reduction mammoplasty in 2004. COMPARISON: 11/21/17, 09/27/16, 09/08/15, 09/02/14 TECHNIQUE: CC and MLO views of both breasts were obtained using full field digital mammography. Bilateral digital breast tomosynthesis was performed in the MLO projection. Computer aided detection with the [employer] 7.2-H was employed. TISSUE DENSITY: b. There [...] Routine screening mammogram BILATERAL in 1 year. 39834, 63381 3342F, 7025F Dictating Physician: GAYE GUILLEN MD Electronically Signed by: GAYE GUILLEN MD Dic Date/Time: 11/26/18 1005 Sign date/Time: 11/26/18 1006 Procedure Note Gaye Guillen MD - 11/20/2022 [facility] Diagnostic Imaging Department [address] [place] [address] Patient: MULUGETA SERNA D.O.B./Age/Sex: 1970 - 48 - F Unit#: [id number] Location/Status: [facility] CLI Mnemonic/Ordering Site: [facility] Ordering Physician: CIRA CRUZ MD [facility] Screening Digital - 11/26/18 - EXAM: [facility] Screening Digital EXAM DATE AND TIME: 11/26/2018 9:38 AM HISTORY: Screening. Reduction mammoplasty in 2004. COMPARISON: 11/21/17, 09/27/16, 09/08/15, 09/02/14 TECHNIQUE: CC and MLO views of both breasts were obtained using fullfield digital mammography. Bilateral digital breast tomosynthesis was performedin the MLO projection. Computer aided detection with the [employer] employed. TISSUE DENSITY: b. There are scattered [...] Routine screening mammogram BILATERAL in 1 year. 30[address], 89511 3342F, 7025F Dictating Physician: GAYE GUILLEN MD Electronically Signed by: GAYE GUILLEN MD Dic Date/Time: 11/26/18 1005 Sign date/Time: 11/26/18 1006 us Cira Cruz MD IMG BI PROCEDURES Final Result from Last 3 Months or Most Recently Relevant to Health Maintenance
== END 2025-08-16 12:58 | disposition home or self-care (01) ==
LOC: HO.MAMMO 12:57
PROVIDERS: PCP Internal Medicine; Visit Provider Student in an Organized Health Care Education/Training Program
DX: M81.0 Age-related osteoporosis without current pathological fracture (principal)
CPT/HCPCS: 77080

== ENCOUNTER → 2025-08-16 13:30 | Outpatient (BNV) | payer OTHER, SELFPAY | PROVIDERS: PCP Internal Medicine; Visit Provider Radiology Diagnostic Radiology | DX: E28.39 Other primary ovarian failure (principal) | CPT/HCPCS: 77080 ==

== ENCOUNTER 2025-10-04 09:13 | Outpatient (AMB) | payer OTHER, SELFPAY ==
[2025-10-04 09:22] VITALS: BP 112/76; PULSE 64; TEMP 36.2; O2SAT 95; BMI 27.4
--- NOTE | 2025-10-04 09:22 | MHC.PC.OV ---
Vital Signs 10/04/25 09:22 Height 5 ft 1 in Weight 145 lb 4 oz BMI 27.4 BP 112/76 Blood Pressure Location Lt brachial Position Sitting Pulse 64 Pulse Source Pulse Oximeter Temp 97.1 F Temp Source Temporal Artery Scan Pulse Oximetry (%) 95 Oxygen Delivery Method Room Air Intake Visit Reasons: Annual Exam Live In Caregiver Required: No Accompanied by: Self / Same As Patient Allergies No Known Allergies Allergy (Verified 10/04/25 09:35) Medication List - Last Reconciled 10/04/25 by Makenna Zheng MD buspirone 10 mg PO BID Enbrel SureClick (etanercept) 50 mg subcut QWEEK NS melatonin 5 mg PO BEDTIME PRN 90 days meloxicam 15 mg PO DAILY PRN 30 days phfhnhizufzy-qls-ydml-FA-vit K 45 mg iron- 800 mcg-120 mcg (Bariatric Multivitamins) 1 cap PO DAILY sertraline 100 mg PO DAILY walker As directed Tobacco use date assessed: 10/04/25 Dental Screening Dental Screen Date: 10/04/25 Did you have a dental visit in the last 12 months?: Yes Did you have a dental problem in the last 6 months where you did not have access to dental care?: No Was dental information given to patient?: Patient has dentist HPI HPI Comments History of Present Illness Details The patient is a 55-year-old female presenting for an annual physical examination. 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 She also has a history of depression treated with sertraline. Also has rheumatoid arthritis follow by Rheumatology. Surgical history is notable for a sleeve gastrectomy in 2021 and a panniculectomy. The patient has no known drug allergies and denies chest pain or shortness of breath. The patient reports concerns about memory loss, noting that she has been forgetting things frequently. This is a significant worry for her due to her father's history of Alzheimer's disease, which he had for about 15 years before he . She has also been diagnosed with osteoarthritis. Mammogram done this year was normal. DEXA scan done this year was normal. Colonoscopy done at 48 years old and next colonoscopy should be at 58 years old. No need for Pap smears due to hysterectomy for benign reasons. Tdap vaccine done 2019 next Tdap should be 2030. [facility] Medical History Somnolence, daytime Insomnia Hiatal hernia BMI 36.0-36.9,adult Right pulmonary lesion Surgical History S/P laparoscopic sleeve gastrectomy Hx of colonoscopy Hx of hysterectomy Hx of breast reduction, elective Family History Mother No problems noted. Father No problems noted. Sister No problems noted. Sister No problems noted. Sister No problems noted. Son No problems noted. Son Thyroid condition Daughter No problems noted. Social History Household Members: None Caregiver staying overnight: Yes (daughter will stay over post-op) Housing: Apartment Are you a primary director of managed care to a significant other at home: No Do you presently have visiting nurse or other home services: No (daughter will stay over post-op) Alcohol intake: never Patient Tobacco Use Status: Never used Tobacco e-Cigarette/Vaping Use: Never Used Second Hand Smoke Exposure: No service: No Current occupational status: unemployed Cognitive needs: No Hearing needs: No Vision needs: Yes Questionnaire PHQ-9 Over the last 2 weeks, how often have you been bothered by any of the following problems? 1. Little interest or pleasure in doing things: several days 2. Feeling down, depressed, or hopeless: nearly every day 3. Trouble falling or staying asleep, or sleeping too much: nearly every day 4. Feeling tired or having little energy: nearly every day 5. Poor appetite or overeating: not at all 6. Feeling bad about yourself - or that you are a failure or have let yourself or your family down: not at all 7. Trouble concentrating on things, such as reading the newspaper or watching television: not at all 8. Moving or speaking so slowly that other people could have noticed. Or the opposite - being so fidgety or restless that you have been moving around a lot more than usual: not at all 9. Thoughts that you would be better off or of hurting yourself in some way: not at all Total score: 10 Depression Screening Interpretation: Positive Depression Screening Follow-up: Existing condition, In treatment and Follow-up Visit Requested Depression Screening Done: Yes 39977 - PHQ-9 Billing: Yes Source: Developed by Drs. Alvaro Greene, Osiris Kellogg, Douglas Crawford and colleagues, with an educational jason from [employer]. Thrive Questionnaire Date Thrive assessed: 04/06/25 I am a: Patient What is your living situation today?: I have a steady place to live Within the past 12 months, did the food you bought not last and you didn't have the money to get more?: I choose not to answer this question Within the past 12 months, did you worry whether your food would run out before you got money to buy more?: I choose not to answer this question Do you have trouble paying for medicines?: No Do you have trouble getting transportation to medical appointments?: No Do you have trouble paying your heating and electricity bill?: No Do you have trouble taking care of your child, family member or friend?: No Do you have trouble with day-to-day activities such as bathing, preparing meals, shopping, managing finances, etc.?: Yes Are you currently unemployed and looking for a job?: Yes Are you interested in more education?: I choose not to answer this question Please select the resources that you would like help with: None Currently or been in a relationship where the following occur: No concerns reported THRIVE Score: 0 AUDIT C Alcohol Use Questionnaire (AUDIT-C) 1. How often do you have a drink containing alcohol?: Never 3. How often do you have six or more drinks on one occasion?: Never Total Score: 0 Score Reviewed/Action Taken: No CLAUDIA-7 AMB Questionnaire CLAUDIA-7 Date CLAUDIA - 7 assessed: 04/09/25 Feeling nervous, anxious, or on edge: 1 = Several days Not being able to stop or control worryin = Nearly every day Worrying too much about different things: 3 = Nearly every day Trouble relaxin = Nearly every day Being so restless that it is hard to sit still: 3 = Nearly every day Becoming easily annoyed or irritable: 3 = Nearly every day Feeling afraid as if something awful might happen: 0 = Not at all Total CLAUDIA-7 score (0-4 normal; 5-9 mild; 10-14 moderate; 15-21 severe): 16 Source: Developed by Drs. Alvaro Greene, Osiris Kellogg, Douglas Crawford and colleagues, with an educational jason from [employer]. CLAUDIA-7 Assessment Billing CLAUDIA-7 Assessment Tool: CLAUDIA-7 Assessment 79460 Review of Systems Const All systems reviewed & are unremarkable except as noted in HPI and below Card Denies chest pain at rest, Denies chest pain with activity, Denies edema, Denies irregular heart rhythm, Denies claudication, Denies dyspnea, Denies dyspnea on exertion, Denies orthopnea, Denies paroxysmal nocturnal dyspnea and Denies slow heart rate Resp Denies cough, Denies dyspnea and Denies dyspnea on exertion GI Denies abdominal pain, Denies change in bowel habits, Denies excessive flatus, Denies nausea and Denies vomiting Physical exam (Primary Care) Vital Signs: Last Vital Signs Temp 97.1 F 10/04/25 09:22 Pulse 64 10/04/25 09:22 BP 112/76 10/04/25 09:22 Pulse Ox 95 10/04/25 09:22 Oxygen Delivery Method Room Air 10/04/25 09:22 BMI result Body Mass Index 27.4 Tobacco/Smoking Status: Tobacco use Status Tobacco use date assessed 10/04/25 10/04/25 09:26 Patient Tobacco Use Status Never used Tobacco 10/04/25 09:26 e-Cigarette/Vaping Use Never Used 10/04/25 09:26 PHQ-9: PHQ-9 Score PHQ-9: Total score 10 10/04/25 09:37 Depression Screening Interpretation: Positive Depression Screening Follow-up: Existing condition, In treatment and Follow-up Visit Requested Thrive Assessment: Date of Thrive Assessment Date Thrive assessed 04/06/25 10/04/25 09:26 Currently or been in a relationship where the following occur: No concerns reported HENMT Head: Yes normal to inspection, Yes normocephalic and Yes atraumatic Ears: external ears normal Eyes General: appearance normal, both eyes and all related structures Eyelids: Yes eyelids normal Conjunctivae: conjunctivae normal Neck Neck: Yes normal visual inspection and Yes supple Resp Effort & Inspection: normal respiratory effort Auscultation: clear to auscultation bilaterally Cardio Jugular venous distension: no JVD Rate: regular rate Rhythm: regular rhythm Heart sounds: S1 normal heart sound present and S2 normal heart sound present GI Inspection: Yes normal to inspection Palpation (GI): Soft to palpation and nontender Auscultation: normal bowel sounds Skin General skin exam: no rashes or lesions noted Neuro General: no focal motor deficits Extrem General: Yes full ROM Psych Appearance: grossly normal Office Procedures Flu Questionnaire Does the patient have a severe egg allergy?: No Does the patient have severe life threatening allergies?: No Does the patient have a fever or illness today?: No Has the patient ever had Guillain-[place] Syndrome?: No Has the patient ever had any past reaction to a flu shot?: No Immunizations Fluarix [id number] (PF) 45 mcg (15 mcg x 3)/0.5 mL IM syringe Performing Provider: Makenna Zheng MD [facility] Administered by: MEAGAN Gonzalez on 10/04/25 09:53 Dose Route Admin Location Dispensed Lot Number Expiration Date NDC Manager Technical Sales 0.5 mL IM Left Deltoid 0.5 mL [id number] 05/31/26 [id number] [place] VIS Given Date VIS Provided VIS Publication Date 10/04/25 Single Vaccine 25 Eligibility Eligibility Date Funding Source Not [facility] Eligible 10/04/25 Private Coding Level of Care Code Est Pt Level 3 (31643) Est Pt Prev Care 40-64y(56062) Diagnoses Physical exam Z00.00 Rheumatoid arthritis of multiple sites with negative rheumatoid factor M06.09 Rheumatoid arthritis location: multiple sites Rheumatoid factor presence: without rheumatoid factor Still's disease of adult M06.1 Mild major depression F32.0 Memory loss R41.3 Additional Codes PHQ-9 - 66409 - PHQ-9 Billing: Yes ([id number]) CLAUDIA-7 Assessment Billing - CLAUDIA-7 Assessment Tool: CLAUDIA-7 Assessment 38729 ([id number]) Time Spent (min) 34 Assessment & Plan Assessment & Plan (1) Physical exam: Code(s): Z00.00 - Encounter for general adult medical examination without abnormal findings Category: Medical (2) Rheumatoid arthritis: Comment: Still ds dx 2001, fevers rashes, joint symptoms. Treated with prednisone. Could not tolerate methotrexate. Enbrel until 2004 Seronegative RA dx 12/2023 Enbrel restarted 01/2024 effective Code(s): M06.9 - Rheumatoid arthritis, unspecified Category: Medical Qualifiers: Rheumatoid arthritis location: multiple sites Rheumatoid factor presence: without rheumatoid factor Qualified Code(s): M06.09 - Rheumatoid arthritis without rheumatoid factor, multiple sites (3) Still's disease of adult: Comment: dx around 2001 (fevers, rash, joint pain) initially on prednisone, could not tolerate methotrexate, was on Enbrel for a few years until 2004 Code(s): M06.1 - Adult-onset Still's disease Category: Medical (4) Mild major depression: Code(s): F32.0 - Major depressive disorder, single episode, mild Category: Medical (5) Memory loss: Code(s): R41.3 - Other amnesia Category: Medical Plan 1. Encounter for general adult medical examination without abnormal findings Z00.00 The patient presented for her annual physical exam. Health maintenance screenings were reviewed, noting that her tetanus vaccine, mammogram, and bone densitometry are up to date. A cholesterol panel will be ordered, as it was not included in recent labs. The flu vaccine will be administered today. 2. Other amnesia R41.3 The patient reports significant memory loss, which is a concern given her father's history of Alzheimer's disease. It was noted that her current medications for depression, such as sertraline, can cause memory issues. No immediate changes to her regimen or further diagnostic workup were initiated at this visit. 3. Adult-onset Still's disease M06.1 HCC 40 This is a chronic condition, which the patient manages with Enbrel. The current treatment will be continued. 4. Rheumatoid arthritis, unspecified M06.9 HCC 40 Continue Enbrel. Follow up with rheumatology. 5. Major depressive disorder, recurrent, mild F33.0 HCC 59 Patient wants to wean herself off from Sertraline to 50 mg. Orders: Orders Lipid Panel Today E78.5 - Hyperlipidemia, unspecified MR head/brain wo con Today R41.3 - Other amnesia Vitamin B12 and Folate Today E53.8 - Deficiency of other specified B group vitamins, R41.3 - Other amnesia Thyroid Stimulating Hormone Today R41.3 - Other amnesia Influenza [id number] Immunization Today Z23 - Encounter for immunization Syphilis Screen Today R41.3 - Other amnesia Referrals Neurology Referral R41.3 - Other amnesia Medications: New sertraline 50 mg PO DAILY 90 tabs 2RF 90 days
--- OUTSIDE RECORDS SUMMARY | 2025-10-04 10:14 | XMS_ITS | Encounter Summary ---
Author Organization [employer] [facility] Address [address] [place] [address] Care Team Providers Care Oracle Applications Analyst Name Role Phone Unavailable Primary Care Provider [...]
--- OUTSIDE RECORDS SUMMARY | 2025-10-04 10:14 | XMS_ITS | Encounter Summary ---
Author Organization [employer] [facility] Address [address] [place] [address] Care Team Providers Care Optoelectronics Engineer Name Role Phone Unavailable Primary Care [...]
--- OUTSIDE RECORDS SUMMARY | 2025-10-04 10:14 | XMS_ITS | Encounter Summary ---
Author Organization [employer] [facility] Address [address] [place] [address] Care Team Providers Care Day Porter Name Role Phone Unavailable Primary Care Provider [...]
--- OUTSIDE RECORDS SUMMARY | 2025-10-04 10:14 | XMS_ITS | Clinical Summary ---
Author Organization [facility] Address [address] [place] [address] Care Team Providers Care Fire Equipment Inspector Name Role Phone Unavailable Primary Care Provider Unavailabl e Social History Tobacco Use Types Packs/Day Years Used Date Smoking Tobacco: Never Assessed Sex and Gender Information Value Date Recorded Sex Assigned at Not on file Gender Identity Not on file Sexual Orientation Not on file Plan of Treatment Not on file
--- OUTSIDE RECORDS SUMMARY | 2025-10-04 10:14 | XMS_ITS | Encounter Summary ---
Author Organization [employer] [facility] Address [address] [place] [address] Care Team Providers Care Military Equipment Specialist Name Role Phone Unavailable Primary Care [...]
--- OUTSIDE RECORDS SUMMARY | 2025-10-04 10:14 | XMS_ITS | Clinical Summary ---
Author Organization [employer] Address [address] [place] [address] Care Team Providers Care Learning And Development Manager Name Role Phone Unavailable Primary Care [...]
== END 2025-10-04 10:54 | disposition home or self-care (01) ==
LOC: HO.HMCH 09:14
PROVIDERS: PCP Internal Medicine; Visit Provider Internal Medicine
DX: Z00.00 Encounter for general adult medical examination without abnormal findings (principal); M06.09 Rheumatoid arthritis without rheumatoid factor, multiple sites; M06.1 Adult-onset Still's disease; F32.0 Major depressive disorder, single episode, mild; R41.3 Other amnesia; Z23 Encounter for immunization

== ENCOUNTER → 2025-10-04 09:13 | Outpatient (BNVA) | payer OTHER, SELFPAY | PROVIDERS: PCP Internal Medicine; Visit Provider Internal Medicine | DX: Z00.00 Encounter for general adult medical examination without abnormal findings (principal); F41.9 Anxiety disorder, unspecified; M06.09 Rheumatoid arthritis without rheumatoid factor, multiple sites; M06.1 Adult-onset Still's disease; F33.0 Major depressive disorder, recurrent, mild; R41.3 Other amnesia; Z23 Encounter for immunization; Z79.899 Other long term (current) drug therapy | CPT/HCPCS: 90471; 90656; 96127; 99396 ==

== ENCOUNTER 2025-11-05 09:47 | Outpatient (REF) | payer OTHER, SELFPAY ==
--- NOTE | ~2025-11-05 | MR_ITS ---
EXAMINATION: MR BRAIN WITHOUT CONTRAST CLINICAL INFORMATION: R41.3. COMPARISON: None available. TECHNIQUE: MRI of the brain was obtained using routine sequences without contrast. FINDINGS: No restricted diffusion. No acute intracranial hemorrhage, mass effect, midline shift, hydrocephalus or herniation. Schmidt-white matter differentiation is normal. Nonspecific, focal punctate, hyperintense T2 FLAIR signal, right frontal newman radiata centrum semiovale region. Posterior cranial fossa contents demonstrated no acute hemorrhage or mass effect. Normal position of the cerebellar tonsils. Sellar/suprasellar region is normal. Flow-void signal within the main cerebral vessels is normal. Prominence of the extra-axial CSF spaces cerebral sulci involving mostly the bifrontal lobes. No signal abnormality or volume loss in the hippocampi. MR/MR head/brain wo con IMPRESSION: No acute brain abnormality. Mild bifrontal lobe atrophy. Nonspecific white matter T2 FLAIR signal. Electronically signed by: Derrick Ro MD 11/05/2025 11:09 AM YONATHAN
== END 2025-11-05 09:48 | disposition home or self-care (01) ==
LOC: HO.MRI 09:47
PROVIDERS: PCP Internal Medicine; Visit Provider Student in an Organized Health Care Education/Training Program
DX: R41.3 Other amnesia (principal)
CPT/HCPCS: 70551

== ENCOUNTER → 2025-11-05 09:47 | Outpatient (BNV) | payer OTHER, SELFPAY | PROVIDERS: PCP Internal Medicine; Visit Provider Radiology Diagnostic Radiology | DX: G31.9 Degenerative disease of nervous system, unspecified (principal) | CPT/HCPCS: 70551 ==

== ENCOUNTER 2025-11-06 09:34 | Outpatient (REF) | payer OTHER, SELFPAY ==
--- OUTSIDE RECORDS SUMMARY | 2025-11-06 09:36 | XMS_ITS | Clinical Summary ---
Author Organization [employer] Address [address] [place] [address] Care Team Providers Care Heart Coordinator Name Role Phone Unavailable Primary Care Provider [...] of 2) 2018 COVID-19 Vaccine ( - 2024-2 6 season) 2025 Influenza Vaccine (#1) 2025 RSV [...]
--- OUTSIDE RECORDS SUMMARY | 2025-11-06 09:36 | XMS_ITS | Clinical Summary ---
Author Organization [employer] [facility] Address [address] [place] [address] Care Team Providers Care Student Affairs Vice President Name Role Phone Unavailable Primary Care Provider [...] Daughter Alive Father Alive high cholestero l, [place] Mother Alive heart problems, high cholesterol, HTN [...] - Td or Tdap) 12/31/2029 12/31/2019, 06/20/2009 RSV Immunization Adult Patients (1 - 1-dose 75+ series) 2043 HIB [...] Procedure Name Priority Date/Time Associated Diagnosis Comments [facility] SCREENING DIGITAL Routine 11/26/2018 10:06 AM EST Encounter for screening mammogram for malignant neoplasm of breast from Last 3 Months or Most Recently Relevant to Health Maintenance Results * [facility] SCREENING DIGITAL (11/26/2018 10:06 AM EST) Anatomical Region Laterality Modality Mammography 11/26/2018 9:01 AM EST Narrative 11/26/2018 10:06 AM EST [facility] Diagnostic Imaging Department [address] [place] [address] Patient: MULUGETA SERNA./Age/Sex: 1970 - 48 - F Unit#: [id number] Location/Status: SPDIMA/REG CLI Mnemonic/Ordering Site: [facility] Ordering Physician: CIRA CRUZ MD [facility] Screening Digital - 11/26/18 - EXAM: [facility] Screening Digital EXAM DATE AND TIME: 11/26/2018 9:38 AM HISTORY: Screening. Reduction mammoplasty in 2004. COMPARISON: 11/21/17, 09/27/16, 09/08/15, 09/02/14 TECHNIQUE: CC and MLO views of both breasts were obtained using full field digital mammography. Bilateral digital breast tomosynthesis was performed in the MLO projection. Computer aided detection with the [employer] 7.2-H was employed. TISSUE DENSITY: b. There [...] Routine screening mammogram BILATERAL in 1 year. 31401, 51175 3342F, 7025F Dictating Physician: GAYE GUILLEN MD Electronically Signed by: GAYE GUILLEN MD Dic Date/Time: 11/26/18 1005 Sign date/Time: 11/26/18 1006 Procedure Note Gaye Guillen MD - 11/20/2022 [facility] Diagnostic Imaging Department [address] [place] [address] Patient: MULUGETA SERNA./Age/Sex: 1970 - 48 - F Unit#: [id number] [facility] Mnemonic/Ordering Site: [facility] Ordering Physician: CIRA CRUZ MD [facility] Screening Digital - 11/26/18 - EXAM: [facility] Screening Digital EXAM DATE AND TIME: 11/26/2018 9:38 AM HISTORY: Screening. Reduction mammoplasty in 2004. COMPARISON: 11/21/17, 09/27/16, 09/08/15, 09/02/14 TECHNIQUE: CC and MLO views of both breasts were obtained using fullfield digital mammography. Bilateral digital breast tomosynthesis was performedin the MLO projection. Computer aided detection with the [employer] employed. TISSUE DENSITY: b. There are scattered [...] Routine screening mammogram BILATERAL in 1 year. 37120, 41821 3342F, 7025F Dictating Physician: GAYE GUILLEN MD Electronically Signed by: GAYE GUILLEN MD Dic Date/Time: 11/26/18 1005 Sign date/Time: 11/26/18 1006 us Cira Cruz MD IMG BI PROCEDURES Final Result from Last 3 Months or Most Recently Relevant to Health Maintenance
--- OUTSIDE RECORDS SUMMARY | 2025-11-06 09:36 | XMS_ITS | Encounter Summary ---
Author Organization [employer] [facility] Address [address] [place] [address] Care Team Providers Care Java Tech Lead Name Role Phone Unavailable Primary Care Provider [...]
--- OUTSIDE RECORDS SUMMARY | 2025-11-06 09:36 | XMS_ITS | Clinical Summary ---
Author Organization [facility] Prior to 05/01/25 Address [address] [place] [address] Care Team Providers Care Station Engineer Main Line Name Role Phone Unavailable Primary Care Provider Unavailabl e Social History Tobacco Use Types Packs/Day Years Used Date Smoking Tobacco: Never Assessed Sex and Gender Information Value Date Recorded Sex Assigned at Not on file Gender Identity Not on file Sexual Orientation Not on file Plan of Treatment Not on file
--- OUTSIDE RECORDS SUMMARY | 2025-11-06 09:36 | XMS_ITS | Encounter Summary ---
Author Organization [employer] [facility] Address [address] [place] [address] Care Team Providers Care Melt Room Operator Name Role Phone Unavailable Primary Care [...]
--- OUTSIDE RECORDS SUMMARY | 2025-11-06 09:36 | XMS_ITS | Encounter Summary ---
Author Organization [employer] [facility] Address [address] [place] [address] Care Team Providers Care Cleat Blanker Name Role Phone Unavailable Primary Care Provider [...]
--- OUTSIDE RECORDS SUMMARY | 2025-11-06 09:36 | XMS_ITS | Encounter Summary ---
Author Organization [email or web address] [facility] Address [address] [place] [address] Care Team Providers Care Radio Mechanic Apprentice Name Role Phone Unavailable Primary Care Provider [...]
[2025-11-06 11:18] LABS: Hemoglobin 13.3 g/dl (12.0-16.0); Imm Gran Abs Auto 0.01 X10*3/uL (0.00-0.03); Imm Gran Pct Auto 0.2 % (0.0-0.4); NRBC Abs Auto 0.000 X10*3/uL (0.0-0.012); NRBC Pct Auto 0.0 /100WBC (0.0-0.2)
[2025-11-06 11:20] LABS: Hematocrit 42.0 % (37.0-47.0); Lymphocytes Absolute Auto 1.6 X10*3/uL (1.2-4.9); Mean Corpuscular HGB Conc 31.7 g/dl (31.0-35.0); Mean Corpuscular Hemoglobin 26.4 pg (27.0-33.0); Mean Corpuscular Volume 83.5 fL (80.0-98.0); Red Blood Count 5.03 X10*6/uL (4.20-5.50)
[2025-11-06 11:30] LABS: Platelet Count 147 X10*3/uL (160-400); White Blood Count 5.7 X10*3/uL (4.8-10.8)
[2025-11-06 11:58] LABS: Erythrocyte Sedimentation Rate 9 MM/HR (0-20)
[2025-11-06 12:02] LABS: Alanine Aminotransferase 19 U/L (0-31); Albumin Level 4.4 g/dL (3.5-5.0); Alkaline Phosphatase 65 U/L (39-117); Anion Gap 11 (12-20); Aspartate Amino Transferase 25 U/L (5-31); Blood Urea Nitrogen 13 mg/dL (9-16); Calcium 9.2 mg/dL (8.4-10.2); Carbon Dioxide 25 mmol/L (22-29); Chloride 110 mmol/L (96-108); Estimated Glomerular Filt Rate > 60; Potassium 3.7 mmol/L (3.3-5.1); Sodium 142 mmol/L (135-145); Total Protein 6.8 g/dL (6.5-8.0)
== END 2025-11-06 09:35 | disposition home or self-care (01) ==
LOC: HO.HMGCLDS 09:34
PROVIDERS: PCP Internal Medicine; Visit Provider Student in an Organized Health Care Education/Training Program
DX: M06.09 Rheumatoid arthritis without rheumatoid factor, multiple sites (principal); E55.9 Vitamin D deficiency, unspecified
CPT/HCPCS: 36415; 80053; 82306; 85025; 85652; 86140

== ENCOUNTER 2025-11-22 12:32 | Outpatient (AMB) | payer OTHER, SELFPAY ==
--- NOTE | 2025-11-22 13:06 | MHC.OFFVISWM ---
VS Expanded 11/22/25 13:10 BP 134/81 Blood Pressure Location Rt brachial Blood Pressure Position Sitting Pulse 72 Pulse Source Pulse Oximeter Temp 97.7 F Temperature Source Temporal Artery Scan Pulse Oximetry 98 Oxygen Delivery Method Room Air Height 5 ft 1 in Weight 145 lb 3.2 oz BMI 27.4 Body Fat % 36.9 Body Fat Mass 53.6 Fat Free Mass 91.4 Visceral Fat Rating 0 Body Water % 44.7 Body Water Mass 64.8 Muscle Mass/Score 86.8 Basal Metabolic Rate/Score 1,259 Intake Visit Reasons: (OV) PO LSG 08/15/2022 Honing Machine Set Up Operator Required: Yes Honing Machine Set Up Operator Name: America Peraza [id number] Information Interpreted: clinical only Allergies No Known Allergies Allergy (Verified 11/22/25 13:11) Medication List - Last Reconciled 11/22/25 by ALESSANDRA Hassan buspirone 10 mg PO BID Enbrel SureClick (etanercept) 50 mg subcut QWEEK NS melatonin 5 mg PO BEDTIME PRN 90 days meloxicam 15 mg PO DAILY PRN 30 days dmtsswkpqrqn-sep-usuu-FA-vit K 45 mg iron- 800 mcg-120 mcg (Bariatric Multivitamins) 1 cap PO DAILY sertraline 50 mg PO DAILY 90 days walker As directed HPI Comments Details: Patient is a pleasant 55-year-old female who returns to the office today in follow-up. She underwent a panniculectomy on 10/22/2023 and a sleeve gastrectomy on 08/15/2022. Weight change of +2.2lb since last OV in Jan. At last visit she was given a new meal plan by Osmany. Previously recommended Meal plan: Premier protein ready to drink shake Half the carton mixed with 4 oz of unsweetened almond milk at 7-9 Another shake at 12-2 Meal at 5pm with 7 forks of protein and 7 forks of vegetables gets cravings for sweet things at night alongside anxiety Exercise plan: daily treadmill 45 minutes speed 3.2, incline 0-6 Pt experiences issues of excess skin of thighs, resulting in painful chafing when legs rub together. She cannot wear shorts in the summer time due to bare skin rubbing together and causing friction and pain. She gets sweat trapped in skin folds which she has to wash more frequently. Walking is more painful due to skin rubbing together, even in pants. She has knee pain and the weight of the excess skin on her legs can make this feel worse, especially with normal daily movement. [facility] Medical History Somnolence, daytime Insomnia Hiatal hernia BMI 36.0-36.9,adult Right pulmonary lesion Surgical History S/P laparoscopic sleeve gastrectomy Hx of colonoscopy Hx of hysterectomy Hx of breast reduction, elective Family History Mother No problems noted. Father No problems noted. Sister No problems noted. Sister No problems noted. Sister No problems noted. Son No problems noted. Son Thyroid condition Daughter No problems noted. Social History Household Members: None Caregiver staying overnight: Yes (daughter will stay over post-op) Housing: Apartment Are you a primary home health care physician to a significant other at home: No Do you presently have visiting nurse or other home services: No (daughter will stay over post-op) Alcohol intake: never Patient Tobacco Use Status: Never used Tobacco e-Cigarette/Vaping Use: Never Used Second Hand Smoke Exposure: No service: No Current occupational status: unemployed Cognitive needs: No Hearing needs: No Vision needs: Yes Assessment & Plan Assessment & Plan (1) S/P laparoscopic sleeve gastrectomy: Comment: 08/2022 Code(s): Z98.84 - Bariatric surgery status Category: Surgical (2) Overweight (BMI 25.0-29.9): Code(s): E66.3 - Overweight Category: Medical (3) S/P panniculectomy: Code(s): Z98.890 - Other specified postprocedural states Category: Surgical Plan Pt is interested in meeting with BH to help with anxious feelings resulting in her desire to eat more. Gave some suggestions for different post dinner snacks such as sugar free Jello, sugar free popsicle, protein bar. She is experiencing issues of excess skin of upper thighs resulting in frequent painful chafing. In addition she is experiencing limitations/discomfort in activities of daily living, including walking, due to pain. She requires the use of special clothing at all times to try to prevent discomfort but her issues have not been completely relieved by conservative measures. Clotrimazole ointment ordered. Photos taken today. Pt will text me when she reaches 142lbs. RTC 4mo. Medications: New clotrimazole 1% 1 appl topical BID 45 grams 3RF
[2025-11-22 13:10] VITALS: BP 134/81; PULSE 72; TEMP 36.5; O2SAT 98; BMI 27.4
--- OUTSIDE RECORDS SUMMARY | 2025-11-22 15:40 | XMS_ITS | Encounter Summary ---
Author Organization [facility] Address [address] [place] [address] Care Team Providers Care Sewer Pipe Layer Name Role Phone Unavailable Primary Care [...]
--- OUTSIDE RECORDS SUMMARY | 2025-11-22 15:40 | XMS_ITS | Clinical Summary ---
Author Organization [employer] Address [address] [place] [address] Care Team Providers Care Fire Suppression Captain Name Role Phone Unavailable Primary Care Provider [...]
--- OUTSIDE RECORDS SUMMARY | 2025-11-22 15:41 | XMS_ITS | Encounter Summary ---
Author Organization [facility] Address [address] [place] [address] Care Team Providers Care Preparation Operator Name Role Phone Unavailable Primary Care [...]
--- OUTSIDE RECORDS SUMMARY | 2025-11-22 15:41 | XMS_ITS | Encounter Summary ---
Author Organization [facility] Address [address] [place] [address] Care Team Providers Care Cooperage Shop Supervisor Name Role Phone Unavailable Primary Care [...]
--- OUTSIDE RECORDS SUMMARY | 2025-11-22 15:41 | XMS_ITS | Clinical Summary ---
Author Organization [facility] [employer] [facility] Address [address] [place] [address] Care Team Providers Care Contract Attorney Name Role Phone Unavailable Primary Care Provider [...] Daughter Alive Father Alive high cholestero l, [place] Mother Alive heart problems, high cholesterol, HTN [...] on file Sexual Orientation Not on file Last Filed Vital Signs Vital Sign Reading [...] Procedure Name Priority Date/Time Associated Diagnosis Comments [facility] SCREENING DIGITAL Routine 11/26/2018 10:06 AM EST Encounter for screening mammogram for malignant neoplasm of breast from Last 3 Months or Most Recently Relevant to Health Maintenance Results * [facility] SCREENING DIGITAL (11/26/2018 10:06 AM EST) Anatomical Region Laterality Modality Mammography 11/26/2018 9:01 AM EST Narrative 11/26/2018 10:06 AM EST [facility] Diagnostic Imaging Department [address] [place] [address] Patient: MULUGETA SERNA D.O.B./Age/Sex: 1970 - 48 - F Unit#: [id number] Location/Status: SPDIMAM/REG CLI Mnemonic/Ordering Site: [facility] [place] Ordering Physician: CIRA CRUZ MD [facility] Screening Digital - 11/26/18 - EXAM: [facility] Screening Digital EXAM DATE AND TIME: 11/26/2018 9:38 AM HISTORY: Screening. Reduction mammoplasty in 2004. COMPARISON: 11/21/17, 09/27/16, 09/08/15, 09/02/14 TECHNIQUE: CC and MLO views of both breasts were obtained using full field digital mammography. Bilateral digital breast tomosynthesis was performed in the MLO projection. Computer aided detection with the [employer] 7.2-H was employed. TISSUE DENSITY: b. There [...] Routine screening mammogram BILATERAL in 1 year. [address]4096, 31284 3342F, 7025F Dictating Physician: GAYE GUILLEN MD Electronically Signed by: GAYE GUILLEN MD Dic Date/Time: 11/26/18 1005 Sign date/Time: 11/26/18 1006 Procedure Note Gaye Guillen MD - 11/20/2022 [facility] Diagnostic Imaging Department [address] [place] [address] Patient: MULUGETA SERNA./Age/Sex: 1970 - 48 - F Unit#: [id number] [facility]/Status: [facility] Mnemonic/Ordering Site: [facility] [place] Ordering Physician: CIRA CRUZ MD [facility] Screening Digital - 11/26/18 - EXAM: [facility] Screening Digital EXAM DATE AND TIME: 11/26/2018 9:38 AM HISTORY: Screening. Reduction mammoplasty in 2004. COMPARISON: 11/21/17, 09/27/16, 09/08/15, 09/02/14 TECHNIQUE: CC and MLO views of both breasts were obtained using fullfield digital mammography. Bilateral digital breast tomosynthesis was performedin the MLO projection. Computer aided detection with the [employer]-The[employer] Proteinsas employed. TISSUE DENSITY: b. There are scattered [...] Routine screening mammogram BILATERAL in 1 year. 39020, 39601 3342F, 7025F Dictating Physician: GAYE GUILLEN MD Electronically Signed by: GAYE GUILLEN MD Dic Date/Time: 11/26/18 1005 Sign date/Time: 11/26/18 1006 us Cira Cruz MD IMG BI PROCEDURES Final Result from Last 3 Months or Most Recently Relevant to Health Maintenance
--- OUTSIDE RECORDS SUMMARY | 2025-11-22 15:41 | XMS_ITS | Clinical Summary ---
Author Organization [facility] Prior to 05/01/25 Address [address] [place] [address] Care Team Providers Care Front Load Trash Truck Driver Name Role Phone Unavailable Primary Care Provider Unavailabl e Social History Tobacco Use Types Packs/Day Years Used Date Smoking Tobacco: Never Assessed Sex and Gender Information Value Date Recorded Sex Assigned at Not on file Gender Identity Not on file Sexual Orientation Not on file Plan of Treatment Not on file
--- OUTSIDE RECORDS SUMMARY | 2025-11-22 15:41 | XMS_ITS | Encounter Summary ---
Author Organization [facility] Address [address] [place] [address] Care Team Providers Care Mechanism Inspector Name Role Phone Unavailable Primary Care [...]
== END 2025-11-22 13:44 | disposition home or self-care (01) ==
LOC: HO.HBS 12:32
PROVIDERS: PCP Internal Medicine; Visit Provider Physician Assistant Surgical
DX: E66.3 Overweight (principal); Z68.27 Body mass index [BMI] 27.0-27.9, adult; Z90.3 Acquired absence of stomach [part of]; Z98.84 Bariatric surgery status; Z98.890 Other specified postprocedural states
CPT/HCPCS: 99214

== ENCOUNTER → 2025-11-22 12:32 | Outpatient (BNVA) | payer OTHER, SELFPAY | PROVIDERS: PCP Internal Medicine; Visit Provider Physician Assistant Surgical | DX: E66.3 Overweight (principal); Z98.890 Other specified postprocedural states; Z98.84 Bariatric surgery status; Z68.27 Body mass index [BMI] 27.0-27.9, adult | CPT/HCPCS: 99212 ==